=== PATIENT | female | born 1960 | race Caucasian/White ===

== ENCOUNTER 2022-05-20 11:54 | Inpatient (IN) | payer BC, MEDICAID, SELFPAY ==
[2022-05-20] VITALS (11 sets, daily range): BP systolic 70–183; BP diastolic 26–77; PULSE 62–76; RESP 15–28; TEMP 35.6–36.6; O2SAT 97–100; BMI 22.3
--- NOTE | ~2022-05-20 | CT_ITS ---
EXAMINATION: CT HEAD WITHOUT CONTRAST (STROKE PROTOCOL) CLINICAL INFORMATION: Stroke protocol. Right-sided weakness. Prior history remote left stroke. COMPARISON: None available. TECHNIQUE: Contiguous axial imaging was performed from the skull base to vertex without intravenous administration of contrast. Additional 2-D coronal and sagittal reformatted images are generated on the CT workstation and uploaded to PACS. This CT examination was performed using dose optimization techniques as appropriate, variously including the following: *Automated exposure control *Adjustment of mA and/or kV according to patient size (this includes techniques or standardized protocols for targeted exams where dose is matched to indication/reason for exam; i.e. extremities or head) *Use of iterative reconstruction technique DLP: 655 mGy-cm FINDINGS: There is no intracranial hemorrhage, hematoma, or extra-axial fluid collection. The ventricles are normal in size. There is no hydrocephalus, edema, or mass effect. There is periventricular white matter gliosis, greater on the right. Probable encephalomalacia posterior right occipital lobe from prior stroke. There is no visible acute territorial infarct or mass lesion. No dense vessel sign. The calvarium appears intact. There is no pneumocephalus or orbital emphysema. There are no air-fluid levels in the sinuses, middle ears, or mastoids. No significant sinus mucosal thickening. There is some under pneumatization and opacification mastoids. No destructive process. Results called to Dr. Christensen in the emergency department at [address]/CT head for stroke IMPRESSION: -No intracranial abnormality. -Periventricular white matter gliosis, greater on the right. Probable encephalomalacia posterior right occipital lobe related to prior stroke.
--- NOTE | ~2022-05-20 | CT_ITS ---
EXAMINATION: CT ABDOMEN AND PELVIS WITHOUT CONTRAST CLINICAL INFORMATION: Urinary tract infection. Bacteremia. Hydronephrosis. COMPARISON: Radiographs of abdomen from 05/21/2022 TECHNIQUE: Multidetector volumetric imaging was performed from the superior aspect of the liver through the pubic symphysis. Sagittal and coronal reformatted images were obtained on the technologist's workstation. No intravenous contrast was given for this examination. There is residual contrast enhancement of kidneys and contrast within urinary tracts from the IV contrast administered on 05/20/2022. This CT examination was performed using dose optimization techniques as appropriate, variously including the following: *Automated exposure control *Adjustment of mA and/or kV according to patient size (this includes techniques or standardized protocols for targeted exams where dose is matched to indication/reason for exam; i.e. extremities or head) *Use of iterative reconstruction technique DLP: 596 mGy-cm FINDINGS: LUNG BASES: Unremarkable. LIVER: The liver has normal size, shape, and attenuation. No evidence of liver mass or abscess. GALLBLADDER AND BILIARY TREE: Gallbladder is absent. The common duct is dilated up to approximately 1.4 cm transverse diameter. There are no stones identified within the dilated duct. The chronicity of the ductal dilatation is uncertain since there are no comparison abdominal imaging exams. PANCREAS: Diffusely atrophied. SPLEEN: Normal. ADRENAL GLANDS: Normal. KIDNEYS AND URETERS: There are prolonged and patchy bilateral nephrograms. There are many potential causes of persistent nephrograms, including glomerulonephritis, ischemia from sepsis or dehydration, or acute tubular necrosis. Findings include hypoenhancement at the lower pole of the left kidney and patchy cortical enhancement of the right kidney. Nonspecific mild right-sided perinephric edema is present. No renal or perinephric abscess. The evaluation for renal stones is limited due to presence of excreted contrast within collecting systems. There are likely a few small calyceal stones of the right kidney. Moderate bilateral hydronephrosis and bilateral hydroureter. No obstructing stones in either ureter. Indeterminate 1.2 cm focus at the medial lower pole of the right kidney has a density of 55 Hounsfield units. It is uncertain whether this represents a proteinaceous cyst or solid mass. BLADDER: The urinary bladder is decompressed by a Alvarez catheter. There is mild diffuse thickening of the bladder wall without focal mass. Small calcifications layer along the posterior bladder wall. BOWEL AND PERITONEUM: Stomach is underdistended. No dilated loops of bowel. The appendix is normal. No evidence of acute inflammatory change or obstruction along the gastrointestinal tract. No abdominal free fluid or free air. ABDOMINAL WALL: Unremarkable. VASCULATURE: Atherosclerotic calcification of the abdominal aorta and iliac arteries without aneurysm. No retroperitoneal hematoma. LYMPH NODES: No pathologic sized lymph nodes in the abdomen or pelvis. No inguinal lymphadenopathy. PELVIC VISCERA: The uterus and adnexa are unremarkable. MUSCULOSKELETAL: No acute findings within the degenerated spine. No suspicious bone lesions. CT/CT abdomen pelvis wo IV con IMPRESSION: * Urinary bladder wall is mildly thickened in this patient with history of bacteremia and urinary tract infection. The bladder wall thickening could be a manifestation of cystitis. Small calcified stones are present within the bladder. * Bilateral hydroureter and moderate hydronephrosis. The ureters are dilated to the level of the ureterovesical junctions. No evidence of any obstructing ureteral stones or obstructing masses. Consider possibility of inflammatory stenosis of the ureterovesical junctions or bladder outlet obstruction. * There are persistent and patchy bilateral nephrograms. There are variety of causes of prolonged nephrograms, including glomerulonephritis, ischemia and/or acute tubular necrosis. The patchy nephrograms seen in this patient do raise suspicion for ischemic changes or nephritis/pyelonephritis. No renal abscess. * There is an indeterminate 1.2 cm exophytic lesion of the medial lower pole of the right kidney. * Common bile duct is dilated to 1.4 cm diameter. This might be a chronic abnormality, status post cholecystectomy.
--- NOTE | ~2022-05-20 | MR_ITS ---
EXAMINATION: MR BRAIN WITHOUT CONTRAST CLINICAL INFORMATION: Stroke COMPARISON: Same day CTA head and neck TECHNIQUE: Multiplanar multisequence MR imaging of the brain was obtained without intravenous contrast. FINDINGS: Acute infarct involving the deep right cerebral hemisphere involving the right centrum semiovale, shirley radiata, right lateral frontal lobe, right posterior superior temporal lobe, and periventricular white matter along the atrium and right temporal horn. This is on a background of chronic ischemic injury in a deep watershed distribution involving the right cerebral hemisphere. There is susceptibility artifact and T1 hyperintense and T2 hypointense signal within the right shirley radiata and centrum semiovale which may reflect subacute blood products. No space-occupying hematoma. There is also intrinsic T1 hyperintense signal involving the right caudate body and lentiform nucleus which do not correspond to regions of acute or chronic ischemia. No extra-axial collection or mass effect/herniation. No hydrocephalus. There is mild ex vacuo dilatation of the right lateral ventricle. Absent right intracranial ICA flow void, better assessed on preceding CTA. The midline structures are normal. The cerebellar tonsils are normally positioned. The craniocervical junction is normal. Marrow signal is within normal limits. The visualized soft tissues are without significant abnormality. Bilateral mastoid fluid. MR/MR head/brain wo con IMPRESSION: 1. Acute infarcts involving the deep right cerebral hemisphere on a background of chronic ischemic injury in a deep watershed distribution. 2. Susceptibility artifact and T1 hyperintense and T2 hypointense signal in the right shirley radiata and centrum semiovale which may reflect subacute blood products. No space-occupying hematoma. 3. Intrinsic T1 hyperintense signal involving the right caudate body and lentiform nucleus which do not correspond to regions of acute or chronic ischemia is of indeterminate etiology, possibly as a sequela of chronic ischemia in the setting of known right ICA occlusion. 4. Absent right intracranial ICA flow void, better assessed on preceding CTA.
--- NOTE | ~2022-05-20 | CT_ITS ---
CT ANGIOGRAM NECK WITH CONTRAST CT ANGIOGRAM BRAIN WITH CONTRAST CLINICAL INFORMATION: Right side weakness. COMPARISON: CT head 05/20/2022 TECHNIQUE: Test bolus sequences followed by intravenous administration 70 mL of Omnipaque 350. Helical imaging was performed in the axial plane from the thoracic inlet to the skull vertex. Delayed postcontrast imaging of the head was also performed. The data was processed at the robotics technologist workstation for generation of MIP sequences. Angled MIPs and volume rendered reformatted images were also generated at an offline 3D workstation under concurrent supervision. Stenoses are assessed in accordance with NASCET criteria unless otherwise indicated. This CT examination was performed using dose optimization techniques as appropriate, variously including the following: *Automated exposure control *Adjustment of mA and/or kV according to patient size (this includes techniques or standardized protocols for targeted exams where dose is matched to indication/reason for exam; i.e. extremities or head) *Use of iterative reconstruction technique FINDINGS: BRAIN: There are extensive chronic ischemic changes throughout the deep watershed zones of the right cerebral hemisphere and the right internal capsule. It is difficult to assess for any superimposed acute ischemic change in this setting. Given the history, follow-up with a MRI would be helpful in more definitively excluding an acute infarct [There is no intracranial hemorrhage, hydrocephalus, extra-axial surface collection, midline shift, or other herniation pattern. The basilar cisterns are preserved. No significant soft tissue abnormality. No acute osseous abnormality. The paranasal sinuses and the mastoid air cells are well aerated.] CERVICAL SOFT TISSUES AND LUNG APICES: There is multilevel cervical spondylosis. Imaged upper lungs are clear. No significant soft tissue findings within the neck. NECK CTA: [There is a classic 3 vessel configuration of the aortic arch. Atherosclerotic disease results in a mild stenosis of the brachiocephalic artery origin. Atherosclerotic disease results in a moderate to severe stenosis of the proximal right vertebral artery. The right vertebral artery is dominant. Left vertebral artery is occluded at its origin and reconstitutes by paraspinal muscular branches throughout the V2 segment. Both vertebral arteries are widely patent throughout their extracranial cervical course. The right initial carotid artery is occluded just beyond its origin and remains occluded throughout the entire neck. Lipid rich atherosclerotic plaque results in mild luminal narrowing of the left common carotid artery. Atherosclerotic disease results in a less than 50% stenosis of the proximal left internal carotid artery. BRAIN CTA: The intracranial portion of the right internal carotid artery is occluded through the partially reconstituted distal horizontal petrous and cavernous segments as well as throughout the right carotid siphon which is patent though significantly narrowed throughout its course through the right ICA terminus. No acute vascular occlusions involving the [place]. CT/CT angio head neck stroke IMPRESSION: - There are extensive chronic ischemic changes throughout the deep watershed zones of the right cerebral hemisphere and the right internal capsule. It is difficult to assess for any superimposed acute ischemic change in this setting. Given the history, follow-up with a MRI would be helpful in more definitively excluding an acute infarct. - The right initial carotid artery is occluded just beyond its origin and remains occluded throughout the entire neck. The intracranial portion of the right internal carotid artery is occluded through the partially reconstituted distal horizontal petrous and cavernous segments as well as throughout the right carotid siphon which is patent though significantly narrowed throughout its course through the right ICA terminus. - Atherosclerotic disease results in a less than 50% stenosis of the proximal left internal carotid artery. - Left vertebral artery is occluded at its origin and reconstitutes by paraspinal muscular branches throughout the V2 segment. - Atherosclerotic disease results in a moderate to severe stenosis of the proximal right vertebral artery. - Multilevel cervical spondylosis. Covering provider paged with these findings at 12:45 PM on 05/20/2022. Findings discussed with Dr. Christensen at 12:52 PM on 05/20/2022.
--- NOTE | ~2022-05-20 | XR_ITS ---
EXAMINATION: XR CHEST CLINICAL INFORMATION: NG tube COMPARISON: None available. TECHNIQUE: Frontal portable view of the chest was obtained. 1802 hours FINDINGS: Nasogastric tube is present. Catheter tip and the sidehole are both within the stomach. Lungs are normally aerated. No pleural effusion or pneumothorax. Heart size is normal. Cardiac mediastinal contours are normal. XR/XR chest 1V IMPRESSION: 1. Nasogastric tube in stomach. 2. No acute abnormality of chest.
--- NOTE | ~2022-05-20 | XR_ITS ---
EXAMINATION: XR ABDOMEN KUB CLINICAL INDICATION: Pre-MRI. COMPARISON: None available. TECHNIQUE: AP view of the abdomen. FINDINGS: There is a there is intravenous contrast opacifying by the kidney pelvises and both ureters which are significantly dilated. There is a Alvarez's catheter in the bladder. No radiopaque metallic foreign body seen. The bowel gas pattern is nonspecific. No gross bony abnormality. XR/XR KUB IMPRESSION: 1. No radiopaque metallic foreign body seen. There is a Alvarez's catheter in the bladder. 2. Bilateral hydronephrosis and hydroureter of unknown etiology. Recommend clinical correlation
--- NOTE | ~2022-05-20 | XR_ITS ---
EXAMINATION: XR CHEST CLINICAL INFORMATION: Stroke. COMPARISON: None available. TECHNIQUE: Frontal view of the chest was obtained. FINDINGS: The lungs are well-expanded and clear of acute pneumonic process. The heart size and pulmonary vascularity is normal. There is mild dextroscoliosis of dorsal spine.. Mild degenerative disc changes seen throughout dorsal spine. XR/XR chest 1V IMPRESSION: No acute cardiopulmonary process seen.
--- NOTE | 2022-05-20 12:06 | ECG_ITS ---
Test Reason : STROKE Blood Pressure : / mmHG Vent. Rate : 070 BPM Atrial Rate : 070 BPM P-R Int : 144 ms QRS Dur : 094 ms QT Int : 418 ms P-R-T Axes : 072 053 064 degrees QTc Int : 451 ms Normal sinus rhythm Minimal voltage criteria for LVH, may be normal variant ( Sokolow-Ramos ) Borderline ECG No previous ECGs available Referred By: Ross Christensen Electronically Signed By:GILBERT HUGGINS MD
--- NOTE | 2022-05-20 12:08 | ED_ITS ---
HPI - Neuro Symptoms/Deficit General Chief Complaint: Altered Mental Status Stated Complaint: AMS, from SNF per EMS Time Seen by Provider: 05/20/22 12:05 Source: patient and EMS Mode of arrival: EMS Limitations: no limitations History of Present Illness HPI Narrative: 61-year-old female from intermediate brought in by EMS for stroke alert. Patient was at her baseline today at the intermediate then patient started to have right-sided weakness, aphasia, and change in mental status. Patient with known history of CVA with residual left-sided weakness. Patient is not known to be on anticoagulation therapy. Related Data Allergies Allergy/AdvReac Type Severity Reaction Status Date / Time No Known Allergies Allergy Verified 05/20/22 12:06 Review of Systems Review of Systems: All other systems are reviewed and are negative Constitutional: Reports as per HPI and Reports no additional constitutional complaints Eyes: Reports as per HPI and Reports no additional eye complaints Reports system reviewed and no additional complaints, except as documented Cardiovascular: Reports as per HPI and Reports no additional cardiovascular complaints Respiratory: Reports as per HPI and Reports no additional respiratory complaints Gastrointestinal: Reports as per HPI and Reports no additional gastrointestinal complaints Genitourinary: Reports no additional female genitourinary complaints Musculoskeletal: Reports no additional musculoskeletal complaints Skin/Breast: Reports system reviewed and no additional complaints, except as docu Psychiatric: Reports no additional psychiatric complaints Endocrine: Reports no additional endocrine complaints Hematologic/Lymphatic: Reports no additional hematologic/lymphatic complaints Allergic/Immunologic: Reports no additional allergic/immunologic complaints Reports system reviewed and no additional complaints, except as documented and Reports Abnormal speech present PMFSH Social History Social History Advance Directives: Yes Advance Directives Information Provided: No Advance Directives on File: No Physical Exam Vital Signs: Vital Signs: Last Vital Signs Temp 96.0 F L 05/20/22 12:40 Pulse 76 05/20/22 14:15 Resp 18 05/20/22 14:15 BP 125/50 L 05/20/22 14:15 Pulse Ox 99 05/20/22 14:15 O2 Del Method 05/20/22 14:02 BMI result Body Mass Index 22.3 Vital signs have been reviewed as appeared to be correct. Blood pressure normal. Heart rate normal. Respiration rate normal. Temperature normal. Oxygen saturation normal. Appearance: Alert. Oriented X3. No acute distress. Head: Normal external exam. Normocephalic. Atraumatic. No Wallace signs noted. No raccoon eyes noted Eyes: PERRLA. EOMI. Conjunctiva and sclera normal. Eyelids normal. ENT: TM's Normal. Pharynx normal. Uvula midline. Moist mucous membranes. No trismus noted. No drooling noted. No muffled voice noted. Neck: Normal inspection. Neck supple. FROM. No adenopathy. Thyroid Normal. No meningeal signs. No neck mass noted. CVS: Normal heart rate and rhythm. Heart sound normal. No murmurs noted. Pulses normal throughout. Respiratory: No respiratory distress. Painless inspiration. Breath sounds normal. No wheezes/rales/rhonchi noted. Chest nontender. No accessory muscle usage noted or decreased air movement noted. Abdomen: Soft and nontender. Bowel sounds normal in all 4 quadrants. No distention noted. No organomegaly noted. No visible injury noted. Back: No CVA tenderness. Full range of motion noted. Skin: Skin warm and dry. Normal skin color. Normal skin turgor. No rashes/lesions/lacerations noted. Extremities: No lower extremity edema. Extremities exhibit normal range of motion. Extremities nontender. Neuro: Oriented. Cranial nerve exam: Mild right facial droop with right visual gaze. Hold a pre-existing left side weakness, with right-sided weakness. Course Course Course Narrative: 61-year-old female from intermediate with an acute stroke left her with right hemiparesis, patient is not a good candidate for tPA patient initially was hypotensive prior hospital arrival, more of investigation patient had a recent stroke less than 3 months ago at [facility]. Will administer aspirin and admit for further neuro management. Medications Administered Discontinued Medications Generic Name Dose Route Start Last Admin Trade Name Freq PRN Reason Stop Dose Admin Iohexol 70 ml 05/20/22 12:23 05/20/22 12:24 Iohexol 350 Mg/Ml 150 Ml Infus..Btl IV 05/20/22 12:24 70 ml ONCE ONE Administration Medical Decision Making Differential Diagnosis Differential Diagnoses: The differential diagnosis associated with the presentation includes (Hemorrhagic CVA, ischemic CVA, sepsis, infection, electrolyte disturbance, acute renal insufficiency, severe anemia.) Admission/Observation Consideration of admission/observation: Escalation of care including admission/observation considered Consult Healthcare Provider Management of the patient was discussed with: Hospitalist and Chancellor (Neurology (Dr. Bryan)) Lab Data MDM Lab Attestation statement: I reviewed the patient's lab results. 05/20/22 14:58 05/20/22 13:24 Labs: Lab Results 05/20/22 05/20/22 05/20/22 Range/Units 12:34 12:35 13:03 WBC (4.8-10.8) X10*3/uL RBC (4.20-5.50) X10*6/uL Hgb (12.0-16.0) g/dl Hct (37.0-47.0) % MCV (80.0-98.0) fL MCH (27.0-33.0) pg MCHC (31.0-35.0) g/dl RDW (11.0-16.0) % Plt Count (160-400) X10*3/uL MPV (9.4-12.3) fL Immature Gran % (Auto) (0.0-0.4) % Neut % (Auto) (45-73) % Lymph % (Auto) (20-40) % [place] % (Auto) (2-11) % Eos % (Auto) (0-4) % Baso % (Auto) (0-2) % Lymph # (Auto) (1.2-4.9) X10*3/uL [place] # (Auto) (0.1-1.2) X10*3/uL Eos # (Auto) (0.0-0.4) X10*3/uL Baso # (Auto) (0.0-0.2) X10*3/uL Abs Immat Gran (auto) (0.00-0.03) X10*3/uL Absolute Neuts (auto) (2.0-8.3) x10*3/uL Absolute Nucleated RBC (0.0-0.012) X10*3/uL Nucleated RBC % (auto) (0.0-0.2) /100WBC PT (10.0-13.1) SEC Whole Blood PT 12.5 (11.1-13.5) sec INR (0.9-1.1) Whole Blood INR 1.0 (0.9-1.1) APTT (26.0-36.4) SEC Sodium (135-145) mmol/L Potassium (3.3-5.1) mmol/L Chloride (96-108) mmol/L Carbon Dioxide (22-29) mmol/L Anion Gap (12-20) BUN (9-16) mg/dL Creatinine (0.5-1.4) mg/dL Estim Creat Clear Calc Estimated GFR POC Glucose 170 H (60-115) mg/dL Random Glucose (60-115) mg/dL Lactic Acid 1.1 (0.5-2.0) mmol/L Calcium (8.4-10.2) mg/dL Total Creatine Kinase (26-140) U/L Troponin I High Sens (<3.5-17.0) ng/L 05/20/22 05/20/22 05/20/22 Range/Units 13:23 13:23 13:24 WBC (4.8-10.8) X10*3/uL RBC (4.20-5.50) X10*6/uL Hgb (12.0-16.0) g/dl Hct (37.0-47.0) % MCV (80.0-98.0) fL MCH (27.0-33.0) pg MCHC (31.0-35.0) g/dl RDW (11.0-16.0) % Plt Count (160-400) X10*3/uL MPV (9.4-12.3) fL Immature Gran % (Auto) (0.0-0.4) % Neut % (Auto) (45-73) % Lymph % (Auto) (20-40) % [place] % (Auto) (2-11) % Eos % (Auto) (0-4) % Baso % (Auto) (0-2) % Lymph # (Auto) (1.2-4.9) X10*3/uL [place] # (Auto) (0.1-1.2) X10*3/uL Eos # (Auto) (0.0-0.4) X10*3/uL Baso # (Auto) (0.0-0.2) X10*3/uL Abs Immat Gran (auto) (0.00-0.03) X10*3/uL Absolute Neuts (auto) (2.0-8.3) x10*3/uL Absolute Nucleated RBC (0.0-0.012) X10*3/uL Nucleated RBC % (auto) (0.0-0.2) /100WBC PT 11.4 (10.0-13.1) SEC Whole Blood PT (11.1-13.5) sec INR 1.0 (0.9-1.1) Whole Blood INR (0.9-1.1) APTT 29.7 (26.0-36.4) SEC Sodium 142 (135-145) mmol/L Potassium 5.3 H (3.3-5.1) mmol/L Chloride 112 H (96-108) mmol/L Carbon Dioxide 19 L (22-29) mmol/L Anion Gap 16 (12-20) BUN 73 H (9-16) mg/dL Creatinine 1.28 (0.5-1.4) mg/dL Estim Creat Clear Calc 38.2 Estimated GFR 42 POC Glucose (60-115) mg/dL Random Glucose 182 H (60-115) mg/dL Lactic Acid (0.5-2.0) mmol/L Calcium 8.8 (8.4-10.2) mg/dL Total Creatine Kinase 226 H (26-140) U/L Troponin I High Sens 6.8 (<3.5-17.0) ng/L 05/20/22 Range/Units 14:58 WBC 18.5 H (4.8-10.8) X10*3/uL RBC 4.10 L (4.20-5.50) X10*6/uL Hgb 11.7 L (12.0-16.0) g/dl Hct 36.3 L (37.0-47.0) % MCV 88.5 (80.0-98.0) fL MCH 28.5 (27.0-33.0) pg MCHC 32.2 (31.0-35.0) g/dl RDW 16.0 (11.0-16.0) % Plt Count 282 (160-400) X10*3/uL MPV 10.0 (9.4-12.3) fL Immature Gran % (Auto) 1.5 H (0.0-0.4) % Neut % (Auto) 85.5 H (45-73) % Lymph % (Auto) 6.1 L (20-40) % [place] % (Auto) 6.6 (2-11) % Eos % (Auto) 0.1 (0-4) % Baso % (Auto) 0.2 (0-2) % Lymph # (Auto) 1.1 L (1.2-4.9) X10*3/uL [place] # (Auto) 1.2 (0.1-1.2) X10*3/uL Eos # (Auto) 0.0 (0.0-0.4) X10*3/uL Baso # (Auto) 0.0 (0.0-0.2) X10*3/uL Abs Immat Gran (auto) 0.27 H (0.00-0.03) X10*3/uL Absolute Neuts (auto) 15.8 H (2.0-8.3) x10*3/uL Absolute Nucleated RBC 0.000 (0.0-0.012) X10*3/uL Nucleated RBC % (auto) 0.0 (0.0-0.2) /100WBC PT (10.0-13.1) SEC Whole Blood PT (11.1-13.5) sec INR (0.9-1.1) Whole Blood INR (0.9-1.1) APTT (26.0-36.4) SEC Sodium (135-145) mmol/L Potassium (3.3-5.1) mmol/L Chloride (96-108) mmol/L Carbon Dioxide (22-29) mmol/L Anion Gap (12-20) BUN (9-16) mg/dL Creatinine (0.5-1.4) mg/dL Estim Creat Clear Calc Estimated GFR POC Glucose (60-115) mg/dL Random Glucose (60-115) mg/dL Lactic Acid (0.5-2.0) mmol/L Calcium (8.4-10.2) mg/dL Total Creatine Kinase (26-140) U/L Troponin I High Sens (<3.5-17.0) ng/L Independent Interpretation I performed an independent interpretation of an: Plain X-Ray (Chest: No acute cardiopulmonary process seen for) and CT Scan (Head CT: No acute intracranial pathology.) Radiology Impression Discussion of test interpretation with radiology: I have reviewed the radiologist's reading. NIH Stroke Scale Internal: Initial- Upon Arrival Level of Consciousness: Not Alert; but arousable by minor stimulation Level of Consciousness Questions: Answers both questions correctly Level of Consciousness Commands: Performs both tasks correctly Best Gaze: Partial gaze palsy Visual: No visual loss Facial Palsy: Minor paralyis Motor Arm (Right): Some effort against gravity Motor Arm (Left): No drift Motor Leg (Right): Drift Motor Leg (Left): No drift Limb Ataxia: Absent Sensory: Normal Best Language: Severe aphasia Dysarthia: Normal Extinction and Inattention: No abnormality Score: 8 Discharge Plan Discharge Clinical Impression: Altered mental status, CVA (cerebral vascular accident) Patient Disposition: Admitted As Inpatient
[2022-05-20 12:44] LABS: Prothrombin Time Whole Bld POC 12.5 sec (11.1-13.5)
[2022-05-20 12:45] LABS: Glucose, Whole Blood 170 mg/dL (60-115)
[2022-05-20 13:21] LABS: Lactic Acid 1.1 mmol/L (0.5-2.0)
[2022-05-20 13:35] LABS: Prothrombin Time 11.4 SEC (10.0-13.1)
[2022-05-20 13:38] LABS: Partial Thromboplastin Time 29.7 SEC (26.0-36.4)
[2022-05-20 13:46] LABS: Anion Gap 16 (12-20); Blood Urea Nitrogen 73 mg/dL (9-16); Calcium 8.8 mg/dL (8.4-10.2); Carbon Dioxide 19 mmol/L (22-29); Chloride 112 mmol/L (96-108); Creatinine Clr Calc Pharmacy 38.2; Estimated Glomerular Filt Rate 42; Glucose Random 182 mg/dL (60-115); Potassium 5.3 mmol/L (3.3-5.1); Sodium 142 mmol/L (135-145)
[2022-05-20 13:53] LABS: Troponin-I High Sensitivity 6.8 ng/L (<3.5-17.0)
[2022-05-20 14:18] LABS: Stroke Lab Use COMPLETE
[2022-05-20 15:02] LABS: MANUAL DIFF FLAG NO
--- NOTE | 2022-05-20 15:09 | MHC.STROKE ---
05/20/22 AT 1144 F EMS PRE-NOTIFIED STROKE ALERT BP 70/26 THEN 100/60.ONSET OF RIGHT SIDED WEAKNESS APPROX. 1100. ARRIVED AT [facility] 1154. STROKE PROTOCOL ACTIVATED SEEN BY PROVIDER NIHSS = 8 ALTHOUGH PRIOR STROKE WITH LEFT HEMIPARESIS. CT AND CTA H/N DONE. NO BLEED, MULTIPLE PRIOR STROKES, STENOSIS AND OCCLUSIONS SEE RADIOLOGY REPORT. I REVIEWED THIS INFORMATION WITH DR JULIO, WE ARE CLARIFYING WHEN SHE HAD HER PRIOR STROKE. AFTER MULTIPLE TELEPHONE CALLS TO [facility] SOLORIO, RECORDS OBTAINED FROM [facility]. SHE WAS ADMITTED THERE ON 03/21/22 WITH ACUTE/SUBACUTE STROKE IN MULTIPLE AREAS [EXCLUDED FROM THROMBOLYTICS DUE TO RECENT STROKE WITHIN 3 MONTHS]. SEE RECORDS FROM [facility], CHRONIC RIGHT ICA OCCLUSION. SHE WAS NOT A THROMBECTOMY CANDIDATE AT [facility], SHE HAD A CC AT [facility] ON 03/31/2022 S/P PCI/GO TO MID LAD, SHE DID DEVELOP A RLE COOL LEG, WHILE JOSELUIS WAS IN PLACE. SHE ALSO HAD DIFFICULTY VOIDING AT [facility]. IT INDICATED THAT SHE HAS CHRONIC HTN FOR YEARS AND HAS NOT SEEN A DOCTOR IN YEARS ALSO. NEW DM A1C 11.5 AND [facility]. +COVID 03/22/22SHMariusz IS NOT A THROMBECTOMY CANDIDATE HERE DUE TO OLD OCCLUSIONS, SHE IS SLOW TO RESPOND AND MY NIHSS = 24. HER EXTREMITIES ARE COOL TO TOUCH. I WILL CONTINUE TO FOLLOW.
[2022-05-20 15:12] LABS: Basophils Percent Auto 0.2 % (0-2); Eosinophils Percent Auto 0.1 % (0-4); Hematocrit 36.3 % (37.0-47.0); Hemoglobin 11.7 g/dl (12.0-16.0); Imm Gran Abs Auto 0.27 X10*3/uL (0.00-0.03); Imm Gran Pct Auto 1.5 % (0.0-0.4); Lymphocytes Absolute Auto 1.1 X10*3/uL (1.2-4.9); Lymphocytes Percent Auto 6.1 % (20-40); Mean Corpuscular HGB Conc 32.2 g/dl (31.0-35.0); Mean Corpuscular Hemoglobin 28.5 pg (27.0-33.0); Mean Corpuscular Volume 88.5 fL (80.0-98.0); Monocytes Absolute Auto 1.2 X10*3/uL (0.1-1.2); Monocytes Percent Auto 6.6 % (2-11); Neutrophils Absolute Auto 15.8 x10*3/uL (2.0-8.3); Neutrophils Percent Auto 85.5 % (45-73); Platelet Count 282 X10*3/uL (160-400); White Blood Count 18.5 X10*3/uL (4.8-10.8)
--- NOTE | 2022-05-20 15:32 | P.HPHOSP_ITS ---
History of Present Illness Date of Service: 05/20/22 Chief Complaint: Aphagia 61-year-old woman presenting from care home facility with right sided weakness and aphasia. Patient has a history of mulltifocal infarcts in the right insula, right basal ganglia, right centrum semioval with history of chronic right ICA occlusion admitted to [facility] in March 2022. At that time she was also found to have coronary blockages and had drug eluded stent placed to the LAD. Apparently the patient has not seen a primary care provider in many years and had not been taking any medications. She was found to be diabetic, hypertensive with CAD and PVD while at [facility] in March of 2022. 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 in the ER, her vital signs were noted to be stable, her potassium was mildly elevated at 5.3, white blood cell count 18.5. Head and neck CTA showing right carotid artery occlusion with extensive chronic ischemic changes throughout the deep watershed zones of the right cerebral hemisphere and the right internal capsule , extensive atherosclerotic disease noted. Patient will be admitted for further management and treatment of acute stroke. Review of Systems Review of Systems: Yes Unobtainable due to mental status [facility] History (Updated 05/20/22 @ 15:48 by Asha Lora NP) Coronary artery disease COVID-19 CVA (cerebral vascular accident) Diabetes mellitus type 2 in nonobese Glaucoma H/O supraventricular tachycardia History of right MCA stroke Hypertension ICAO (internal carotid artery occlusion) Ischemic cardiomyopathy Status post insertion of drug-eluting stent into left anterior descending (LAD) artery Pertinent family history: CAD, Stroke, cancer Surgical History (Updated 05/20/22 @ 15:48 by Asha Lora NP) H/O cardiac catheterization Social History Advance Directives: Yes Advance Directives Information Provided: No Advance Directives on File: No Patient : No Meds Allergies Allergy/AdvReac Type Severity Reaction Status Date / Time No Known Allergies Allergy Verified 05/20/22 12:06 Home Medications Medication Instructions Recorded Confirmed Last Taken Type acetaminophen 500 mg tablet 1,000 mg PO TID 05/20/22 05/20/22 Unknown History (Tylenol Extra Strength) ascorbic acid (vitamin C) 500 mg 500 mg PO DAILY 05/20/22 05/20/22 Unknown History tablet aspirin 81 mg tablet,delayed 81 mg PO DAILY 05/20/22 05/20/22 Unknown History release atorvastatin 80 mg tablet 80 mg PO BEDTIME 05/20/22 05/20/22 Unknown History baclofen 10 mg tablet 10 mg PO TID 05/20/22 05/20/22 Unknown History bisacodyl 10 mg rectal suppository 10 mg [place] DAILY PRN Constipation 05/20/22 05/20/22 Unknown History clopidogrel 75 mg tablet (Plavix) 75 mg PO DAILY 05/20/22 05/20/22 Unknown History dextrose 40 % oral gel (Glucose 20 g PO Q15M PRN FSBS<50 AND ABLE 05/20/22 05/20/22 Unknown History Gel) TO SWALLOW glucagon 1 mg solution for 1 mg subcut Q20M PRN fsbs < 60 and 05/20/22 05/20/22 Unknown History injection unable to swallow hydralazine 10 mg tablet 10 mg PO Q6H PRN Hypertension 05/20/22 05/20/22 Unknown History insulin glargine 100 unit/mL 14 unit subcut BEDTIME 05/20/22 05/20/22 Unknown History subcutaneous solution (Lantus U-100 Insulin) insulin lispro 100 unit/mL 1 sliding scale dose subcut 05/20/22 05/20/22 Unknown History subcutaneous solution (Humalog USEASDIRECTD U-100 Insulin) lisinopril 10 mg tablet 20 mg PO DAILY 05/20/22 05/20/22 Unknown History magnesium hydroxide 400 mg/5 mL 30 ml PO DAILY PRN Constipation 05/20/22 05/20/22 Unknown History oral suspension (Milk of Magnesia) meclizine 12.5 mg tablet 12.5 mg PO Q8H PRN Dizziness 05/20/22 05/20/22 Unknown History metoprolol succinate 25 mg 25 mg PO DAILY 05/20/22 05/20/22 Unknown History tablet,extended release 24 hr multivitamin with minerals 1 tab PO BEDTIME 05/20/22 05/20/22 Unknown History polyethylene glycol 3350 17 gram 17 g PO DAILY 05/20/22 05/20/22 Unknown History oral powder packet (Miralax) sennosides 8.6 mg tablet (senna) 8.6 mg PO DAILY 05/20/22 05/20/22 Unknown History sertraline 25 mg tablet (Zoloft) 25 mg PO DAILY 05/20/22 05/20/22 Unknown History sodium phosphates 19 gram-7 118 ml [place] DAILY PRN Constipation 05/20/22 05/20/22 Unknown History gram/118 mL enema (Fleet Enema) tizanidine 2 mg tablet 2 mg PO Q8H PRN MUSCLE SPASMS 05/20/22 05/20/22 Unknown History zinc sulfate 50 mg zinc (220 mg) 50 mg PO DAILY 05/20/22 05/20/22 Unknown History capsule Physical Exam Vital Signs and Narrative: Vital Signs: Last Vital Signs Temp 96.0 F L 05/20/22 12:40 Pulse 76 05/20/22 14:15 Resp 18 05/20/22 14:15 BP 125/50 L 05/20/22 14:15 Pulse Ox 99 05/20/22 14:15 O2 Del Method 05/20/22 14:02 BMI result Body Mass Index 22.3 Appearing in no acute distress head is normocephalic atraumatic eyes pupils are PERRLA sclera is anicteric , eye exam, patient not tracking mostly staring mouth throat mucous membranes are intact and moist lung sounds are clear to auscultation heart regular rate rhythm, clear S1, S2 positive bowel sounds, abdomen is soft, nontender neuro patient is alert, not oriented, lower extremity strength, patient not following direction. Upper extremity strength right arm 5/5, left arm 1 to 2/5. Results Labs 05/20/22 14:58 05/20/22 13:24 Labs: Laboratory Results - last 24 hr 05/20/22 05/20/22 05/20/22 12:34 12:35 13:03 MCV MCH MCHC RDW Plt Count MPV Immature Gran % (Auto) Neut % (Auto) Lymph % (Auto) [place] % (Auto) Eos % (Auto) Baso % (Auto) Lymph # (Auto) [place] # (Auto) Eos # (Auto) Baso # (Auto) Abs Immat Gran (auto) Absolute Neuts (auto) Absolute Nucleated RBC Nucleated RBC % (auto) PT Whole Blood PT 12.5 INR Whole Blood INR 1.0 APTT Anion Gap Estim Creat Clear Calc Estimated GFR POC Glucose 170 H Random Glucose Lactic Acid 1.1 Calcium Total Creatine Kinase Troponin I High Sens 05/20/22 05/20/22 05/20/22 13:23 13:23 13:24 MCV MCH MCHC RDW Plt Count MPV Immature Gran % (Auto) Neut % (Auto) Lymph % (Auto) [place] % (Auto) Eos % (Auto) Baso % (Auto) Lymph # (Auto) [place] # (Auto) Eos # (Auto) Baso # (Auto) Abs Immat Gran (auto) Absolute Neuts (auto) Absolute Nucleated RBC Nucleated RBC % (auto) PT 11.4 Whole Blood PT INR 1.0 Whole Blood INR APTT 29.7 Anion Gap 16 Estim Creat Clear Calc 38.2 Estimated GFR 42 POC Glucose Random Glucose 182 H Lactic Acid Calcium 8.8 Total Creatine Kinase 226 H Troponin I High Sens 6.8 05/20/22 14:58 MCV 88.5 MCH 28.5 MCHC 32.2 RDW 16.0 Plt Count 282 MPV 10.0 Immature Gran % (Auto) 1.5 H Neut % (Auto) 85.5 H Lymph % (Auto) 6.1 L [place] % (Auto) 6.6 Eos % (Auto) 0.1 Baso % (Auto) 0.2 Lymph # (Auto) 1.1 L [place] # (Auto) 1.2 Eos # (Auto) 0.0 Baso # (Auto) 0.0 Abs Immat Gran (auto) 0.27 H Absolute Neuts (auto) 15.8 H Absolute Nucleated RBC 0.000 Nucleated RBC % (auto) 0.0 PT Whole Blood PT INR Whole Blood INR APTT Anion Gap Estim Creat Clear Calc Estimated GFR POC Glucose Random Glucose Lactic Acid Calcium Total Creatine Kinase Troponin I High Sens Imaging Radiologist's Impressions: Impressions Head CT 05/20/22 12:11 IMPRESSION: -No intracranial abnormality. -Periventricular white matter gliosis, greater on the right. Probable encephalomalacia posterior right occipital lobe related to prior stroke. Head/Neck CTA 05/20/22 12:23 IMPRESSION: - There are extensive chronic ischemic changes throughout the deep watershed zones of the right cerebral hemisphere and the right internal capsule. It is difficult to assess for any superimposed acute ischemic change in this setting. Given the history, follow-up with a MRI would be helpful in more definitively excluding an acute infarct. - The right initial carotid artery is occluded just beyond its origin and remains occluded throughout the entire neck. The intracranial portion of the right internal carotid artery is occluded through the partially reconstituted distal horizontal petrous and cavernous segments as well as throughout the right carotid siphon which is patent though significantly narrowed throughout its course through the right ICA terminus. - Atherosclerotic disease results in a less than 50% stenosis of the proximal left internal carotid artery. - Left vertebral artery is occluded at its origin and reconstitutes by paraspinal muscular branches throughout the V2 segment. - Atherosclerotic disease results in a moderate to severe stenosis of the proximal right vertebral artery. - Multilevel cervical spondylosis. Covering provider paged with these findings at 12:45 PM on 05/20/2022. Findings discussed with Dr. Christensen at 12:52 PM on 05/20/2022. Chest X-Ray 05/20/22 12:38 IMPRESSION: No acute cardiopulmonary process seen. Assessment and Plan (1) CVA (cerebral vascular accident): Status: Acute Plan 61 year old women admitted with acute stroke with history of stroke in March 2022, records in [facility] system Stroke Hx of multifocal infarcts in the right insula, right basal ganglia, right centrum semioval with history of chronic right ICA occlusion admitted to [facility] aphagia, left-sided weakness MRI, echo neuro consult pending Aspirin, Plavix, statin PT OT, speech therapy evaluation Hyperkalemia lokelma follow BMP Leukocytosis Possibly reactive, no infection noted Diabetes A1c at [facility] in March 2022 was 11.5 ss, Lantus, ada diet Hypertension Stable blood pressure, hold antihypertensives for now to avoid hypotension Coronary artery disease/ extensive atherosclerotic disease Status post cardiac catheterization with drug-eluting stent to LAD in March of 2022 DVT prophylaxis with heparin Attending Dr. Vela Full code Disposition: will need extensive rehab upon discharge when medically clear Attempted to call daughterShanna ([phone]) no answer Patient will require 2 inpatient midnights for stroke, close monitoring and further diagnostic imaging Time Spent With Patient Time: Total time managing care of this patient today ____ minutes. Quality Stroke Does the patient have a stroke diagnosis?: Yes Reason for No Anti-thrombotic by Day Two: Not indicated VTE Prior VTE?: No VTE Risk Level:: Medical - moderate - high VTE Device Contraindication: Treatment Not Indicated VTE Drug Contraindication: N/A - Med Ordered
[2022-05-20] MEDS: 0.9 % Sodium Chloride 1,000 ML 80 ML IVCONT (17:55)
[2022-05-20] MEDS: Heparin Sodium,Porcine 5,000 UNIT/ML VIAL 5000 UNIT SUBCUT (17:55)
[2022-05-20 21:29] LABS: Glucose, Whole Blood 165 mg/dL (60-115)
[2022-05-20 22:25] LABS: Glucose, Whole Blood 157 mg/dL (60-115)
[2022-05-20 22:37] LABS: COVID-19 Test Negative (Negative); IDNOW Serial# 6674DD1D
[2022-05-20] MEDS: Insulin Lispro 100 UNIT/ML 3 ML VIAL SUBCUT (22:37)
[2022-05-20] MEDS: Insulin Glargine,Hum.rec.anlog 100 UNIT/ML 10 ML VIAL 14 UNIT SUBCUT (22:38)
[2022-05-20] MEDS: 0.9 % Sodium Chloride Flush 3 ML SYRINGE IVFLUSH (23:36)
[2022-05-21] VITALS (8 sets, daily range): BP systolic 116–164; BP diastolic 50–91; PULSE 54–64; RESP 18–20; TEMP 36.1–36.8; O2SAT 96–100; BMI 21.7
--- NOTE | 2022-05-21 01:18 | PM.EVENT ---
Event Note Date of Service: 05/21/22 Event Note: blood cultures with gram negativ erods. started on abx. rpt cultures and UA as well as lactic acid ordered Time Spent With Patient Time: Total time managing care of this patient today ____ minutes.
--- NOTE | 2022-05-21 01:48 | PC.NURSE ---
Report to Jacqui ESCALERA.
--- NOTE | 2022-05-21 02:09 | PC.NURSE ---
Bennett catheter in place from [facility]. Bennett d/c'd and new 16 Fr bennett catheter replaced per sterile technique. cloudy yellow urine noted and sent to lab.
[2022-05-21 02:11] LABS: Appearance Urine Turbid; Color Urine Yellow; Glucose Urine UA Negative (Negative); Leukocyte Esterase Urine Large (3+) (Negative); Nitrite Urine Negative (Negative); Specific Gravity - Urine >= 1.030 (1.005-1.025); UMIC TRIGGER UACC YES; Urine Blood Large (3+) (Negative); Urine Ketones Trace mg/dL (Negative); Urine Protein 100 (2+) mg/dL (Neg-Trace)
[2022-05-21] MEDS: Piperacillin Sodium/Tazobactam 3.375 GM in 0.9 % Sodium Chloride 50 ML IV ×4 (02:13→23:00)
[2022-05-21 02:55] LABS: Lactic Acid 0.8 mmol/L (0.5-2.0)
[2022-05-21 03:03] LABS: Bacteria Urine 4+ (None Seen); Calcium Oxalate Crystals Urine Present; Granular Casts Urine Present; Hyaline Casts Urine >20 /LPF (0-2); RBC Urine >20 /HPF (0-2); UACC Culture Trigger YES; WBC Clumps Urine Present; WBC Urine >50 /HPF (0-5)
[2022-05-21] MEDS: 0.9 % Sodium Chloride 1,000 ML 80 ML IVCONT (06:52)
[2022-05-21] MEDS: Heparin Sodium,Porcine 5,000 UNIT/ML VIAL 5000 UNIT SUBCUT ×2 (06:53→18:20)
--- NOTE | 2022-05-21 07:00 | CA_ITS ---
Transthoracic Echocardiogram Patient (Last, First, Middle): Justine Gottlieb, Gender: Female Date of : 1960 Age: 61 Procedure Date: 05/21/2022 Procedure Type: Transthoracic Echocardiogram [place] [facility] [place]: 160.02 cm Weight: 55.34 kg BSA: 1.57 m2 Heart Rate: 57 bpm BP: 133 / 91 mmHg Armhole Sewer: ARTURO Bello MD: Asha Lora NP [employer]ro[employer] Installer: John Lovelace MD Symptoms: stroke Study Quality: Fair ECG Rhythm: Sinus Conclusions: - 1. Normal LV systolic function with mild LVH with impaired relaxation filling pattern 2. Normal cardiac valvular Doppler 3. No gross pericardial effusion Findings Left Ventricle Normal left ventricular size and systolic function. There is mildly increased left ventricular wall thickness. The visually estimated ejection fraction is between 60-65%. Spectral Doppler is indicative of an impaired relaxation filling pattern. E/E prime ratio is between 8 and 15 consistent with indeterminate filling pressures. Right Ventricle Normal right ventricular cavity size and systolic function. Atria The left atrium is normal in size. Interatrial shunt cannot be excluded. The right atrium is normal in size. Aortic Valve There is mild calcification of the aortic valve. There is no aortic valve stenosis. There is no aortic valve regurgitation. Mitral Valve There is mild anterior and posterior mitral leaflet thickening. There is trace mitral valve regurgitation. There is no mitral valve stenosis. Pulmonic Valve The pulmonic valve was not well visualized. Tricuspid Valve Likely normal tricuspid valve structure and function. Tricuspid regurgitation envelope is inadequate for calculation of right ventricular systolic pressure. Normal right atrial pressure. Great Vessels All visible segments of the aorta are normal in size. The pulmonary artery was not well visualized. Venous The inferior vena cava is normal in size. Inferior vena cava flow is normal. Pericardium/Pleural There is no evidence of pericardial effusion. Prior Study Comparison No prior study available for comparison. Recommendations, Care & Conclusions Consider a NORA if clinically appropriate. Recommend contrast study to evaluate intracardiac shunting. Measurements 2D Linear Measurements IVSd: 1.29 0.6-0.9/0.6-1.0 cm LVIDd: 3.93 3.9-5.3/4.2-5.9 cm LVIDd Index: 2.50 2.4-3.2/2.2-3.1 cm/m2 LVIDs: 2.37 2.0-3.6 cm LVPWd: 1.19 0.7-1.1 cm LA Diam: 2.90 2.7-3.8/3.0-4.0 cm LAIDs Index: 1.85 1.5-2.3 cm/m2 LV Mass: 210.78 67-162/88-224 g LV Mass Index: 134.26 43-95/49-115 g/m2 LVOT Diam: 1.80 3.0+(-)1.3 cm 2D Systolic Function EF 4C: 64.50 >55% EF 2C: 59.20 >55% EF BiP: 61.10 >55% Mitral Valve MV Pk E: 0.75 MV PK A: 0.79 MV Decel Time: 373.00 E/A: 1.00 E'Lateral: 7.51 E'Medial: 40.00 E/E' Med: 1.90 E/E' Lat: 10.00 PHT: 109.00 MVA PHT: 2.02 Decel Clayton: 2.02 Aortic Valve AoV Pk Jesus Alberto: 1.67 AoV Mn Jesus Alberto: 1.15 AoV VTI: 0.41 AoV Pk Grad: 11.00 Aov Mn Grad: 6.00 ROSA Cont.VTI: 1.61 LVOT LVOT Pk Jesus Alberto: 1.12 LVOT Mn Jesus Alberto: 0.76 LVOT VTI: 0.26 LVOT Pk Grad: 5.00 LVOT Mn Grad: 3.00 LVOT Diam: 1.80 LVOT Area: 2.54 Diastolic Function MV Pk E: 0.75 MV Pk A: 0.79 E/A: 1.00 E'Medial: 40.00 E/E' Med: 1.90 E' Laterial: 7.51 E/E' Lat: 10.00 Right Ventricle TAPSE (mm): 20.80 Tricuspid Valve RA Press: 3.00 Great Vessels Aorta Sinus of Valsalva: 2.70 2.0-3.5 cm Ao Asc: 2.50 2.1-3.4 cm Pulmonary Valve PV Pk Jesus Alberto: 0.96 Peak PV Grad: 4.00 Updated in Other Vendor System with Status of Final John Lovelace MD electronically signed on 05/21/2022 4:19:03 PM with status of Final
[2022-05-21 07:31] LABS: Glucose, Whole Blood 121 mg/dL (60-115)
[2022-05-21 09:30] LABS: MANUAL DIFF FLAG NO
[2022-05-21 09:34] LABS: Basophils Percent Auto 0.2 % (0-2); Eosinophils Percent Auto 0.1 % (0-4); Hematocrit 32.5 % (37.0-47.0); Hemoglobin 10.5 g/dl (12.0-16.0); Imm Gran Abs Auto 0.25 X10*3/uL (0.00-0.03); Imm Gran Pct Auto 1.3 % (0.0-0.4); Lymphocytes Absolute Auto 0.9 X10*3/uL (1.2-4.9); Lymphocytes Percent Auto 4.8 % (20-40); Mean Corpuscular HGB Conc 32.3 g/dl (31.0-35.0); Mean Corpuscular Hemoglobin 28.8 pg (27.0-33.0); Monocytes Absolute Auto 1.4 X10*3/uL (0.1-1.2); Monocytes Percent Auto 7.7 % (2-11); Neutrophils Percent Auto 85.9 % (45-73); Platelet Count 278 X10*3/uL (160-400); Red Blood Count 3.65 X10*6/uL (4.20-5.50); Red Cell Distribution Width 16.2 % (11.0-16.0); White Blood Count 18.7 X10*3/uL (4.8-10.8)
[2022-05-21 10:21] LABS: Anion Gap 15 (12-20); Blood Urea Nitrogen 77 mg/dL (9-16); Calcium 8.8 mg/dL (8.4-10.2); Carbon Dioxide 21 mmol/L (22-29); Chloride 116 mmol/L (96-108); Creatinine Clr Calc Pharmacy 29.6; Estimated Glomerular Filt Rate 32; Glucose Random 105 mg/dL (60-115); Potassium 4.8 mmol/L (3.3-5.1); Sodium 147 mmol/L (135-145)
[2022-05-21 10:23] LABS: Cholesterol 78 mg/dL; HDL Cholesterol 12 mg/dL; LDL Cholesterol Calculated 48 mg/dl; Triglycerides 94 mg/dL
[2022-05-21] MEDS: 0.9 % Sodium Chloride Flush 3 ML SYRINGE IVFLUSH ×3 (10:57→23:00)
[2022-05-21 11:20] LABS: Glucose, Whole Blood 108 mg/dL (60-115)
--- NOTE | 2022-05-21 11:21 | MHC.CM.PN ---
PT UNABLE TO PARTICIPATE IN INTAKE DUE TO CONFUSION. PER NOTES, PT IS A PT AT [facility], NOT DETERMINED TO BE STR OR LTC PER THE CENTER BUT ACCEPTED BACK VIA [facility]. COPY OF HCP REQUESTED TO BE FAXED. UNABLE TO REACH CONTACT LISTED IN EMR, MESSAGE LEFT FOR MURPHY ESCOBEDO TO RETURN CALL. DP: PLAN TO RETURN TO [facility] VIA BLS WHEN MEDICALLY CLEARED. CM WILL CONTINUE TO FOLLOW AND CONTINUE TO TRY AND REACH CONTACT.
--- NOTE | 2022-05-21 11:37 | PM.NEUROCN ---
History of Present Illness Data of Consult Service Date: 05/21/22 Primary Care Provider: Unknown Physician HPI Reason for consult: Stroke 61-year-old woman presenting from senior living facility with right sided weakness and aphasia. Patient has a history of? mulltifocal infarcts in the right insula, right basal ganglia, right centrum semioval with history of chronic right ICA occlusion admitted to [facility] in March 2022.??She came to hospital with new symptoms but it was not clear what was new and what was old symptom and clinical features. Her blood pressure was also on the lower side and it was not also clear if it was related to low blood pressure. Because of recent stroke in all these features she was not considered a candidate for acute treatment such as with intravenous tPA. There was no sign of seizure. Review of Systems Review of Systems: Could not be done with [facility] Past Medical History Medical History Coronary artery disease COVID-19 CVA (cerebral vascular accident) Diabetes mellitus type 2 in nonobese Glaucoma H/O supraventricular tachycardia History of right MCA stroke Hypertension ICAO (internal carotid artery occlusion) Ischemic cardiomyopathy Status post insertion of drug-eluting stent into left anterior descending (LAD) artery Surgical History Surgical History H/O cardiac catheterization Social History Social History Household Members: Other Housing: Senior Living Do you presently have visiting nurse or other home services: No Unable to assess alcohol history related to: Unknown Patient Tobacco Use Status: Tobacco use Unknown Use of substances other than those prescribed or required for medical reasons: Unknown Currently Displaying Signs/Symptoms of Drug Intoxication Withdrawal: No Advance Directives: Yes Advance Directives Information Provided: No Advance Directives on File: No Advance Directives Date on File: 05/21/22 Recently lost weight without trying: Unsure Nutrition Risks: Difficulty swallowing Patient : No service: No Meds Allergies Allergy/AdvReac Type Severity Reaction Status Date / Time No Known Allergies Allergy Verified 05/20/22 12:06 Active Medications: Current Medications Acetaminophen (Acetaminophen 325 Mg Tablet) 650 mg PO Q6H PRN PRN Reason: Pain, Mild (Pain Scale 1-3) Aspirin (Aspirin Enteric Coated 81 Mg Tablet.) 81 mg PO DAILY [facility] Atorvastatin Calcium (Atorvastatin Calcium 80 Mg Tablet) 80 mg PO DAILY [facility] Bisacodyl (Bisacodyl 10 Mg Supp.Rect) 10 mg RI DAILY PRN PRN Reason: Constipation Clopidogrel Bisulfate (Clopidogrel Bisulfate 75 Mg Tablet) 75 mg PO DAILY [facility] Glucose (Glucose Gel 15 Gm Gel..Gram.) 15 gm PO Q15M PRN; Protocol PRN Reason: per Hypoglycemia Standing Ord. Heparin Sodium (Porcine) (Heparin Sodium,Porcine 5,000 Unit/Ml Vial) 5,000 unit SUBCUT Q12H [facility] Last Admin: 05/21/22 06:53 Dose: 5,000 unit Dextrose (D10) 250 mls @ 750 mls/hr IV Q15M PRN; Protocol PRN Reason: per Hypoglycemia Standing Ord. Sodium Chloride (Ns) 1,000 mls @ 80 mls/hr IVCONT .[id number] [facility] Last Admin: 05/21/22 06:52 Dose: 80 mls/hr Piperacillin Sod/Tazobactam (Sod 3.375 gm/ Sodium Chloride) 50 mls @ 12.5 mls/hr IV Q8H [facility] Last Admin: 05/21/22 10:58 Dose: 12.5 mls/hr Insulin Glargine (Insulin Glargine,Hum.Rec.Anlog 100 Unit/Ml 10 Ml Vial) 14 unit SUBCUT BEDTIME [facility] Last Admin: 05/20/22 22:38 Dose: 14 unit Insulin Human Lispro (Insulin Lispro 100 Unit/Ml 3 Ml Vial) 0 unit SUBCUT QIDACHS [facility]; Protocol Last Admin: 05/21/22 07:42 Dose: Not Given Ondansetron HCl (Ondansetron Hcl 4 Mg/2 Ml Vial) 4 mg IVPUSH Q8H PRN PRN Reason: Nausea and Vomiting Pharmacy Consult (Consult Rx Perform Med Rec) 1 each MISCELLANE ONCE PRN PRN Reason: Consult order Sodium Chloride (0.9 % Sodium Chloride Flush 3 Ml Syringe) 3 ml IVFLUSH QSHIFT [facility] Last Admin: 05/21/22 10:57 Dose: 3 ml Home Medications Medication Instructions Recorded Confirmed Last Taken Type acetaminophen 500 mg tablet 1,000 mg PO TID 05/20/22 05/20/22 Unknown History (Tylenol Extra Strength) ascorbic acid (vitamin C) 500 mg 500 mg PO DAILY 05/20/22 05/20/22 Unknown History tablet aspirin 81 mg tablet,delayed 81 mg PO DAILY 05/20/22 05/20/22 Unknown History release atorvastatin 80 mg tablet 80 mg PO BEDTIME 05/20/22 05/20/22 Unknown History baclofen 10 mg tablet 10 mg PO TID 05/20/22 05/20/22 Unknown History bisacodyl 10 mg rectal suppository 10 mg RI DAILY PRN Constipation 05/20/22 05/20/22 Unknown History clopidogrel 75 mg tablet (Plavix) 75 mg PO DAILY 05/20/22 05/20/22 Unknown History dextrose 40 % oral gel (Glucose 20 g PO Q15M PRN FSBS<50 AND ABLE 05/20/22 05/20/22 Unknown History Gel) TO SWALLOW glucagon 1 mg solution for 1 mg subcut Q20M PRN fsbs < 60 and 05/20/22 05/20/22 Unknown History injection unable to swallow hydralazine 10 mg tablet 10 mg PO Q6H PRN Hypertension 05/20/22 05/20/22 Unknown History insulin glargine 100 unit/mL 14 unit subcut BEDTIME 05/20/22 05/20/22 Unknown History subcutaneous solution (Lantus U-100 Insulin) insulin lispro 100 unit/mL 1 sliding scale dose subcut 05/20/22 05/20/22 Unknown History subcutaneous solution (Humalog USEASDIRECTD U-100 Insulin) lisinopril 10 mg tablet 20 mg PO DAILY 05/20/22 05/20/22 Unknown History magnesium hydroxide 400 mg/5 mL 30 ml PO DAILY PRN Constipation 05/20/22 05/20/22 Unknown History oral suspension (Milk of Magnesia) meclizine 12.5 mg tablet 12.5 mg PO Q8H PRN Dizziness 05/20/22 05/20/22 Unknown History metoprolol succinate 25 mg 25 mg PO DAILY 05/20/22 05/20/22 Unknown History tablet,extended release 24 hr multivitamin with minerals 1 tab PO BEDTIME 05/20/22 05/20/22 Unknown History polyethylene glycol 3350 17 gram 17 g PO DAILY 05/20/22 05/20/22 Unknown History oral powder packet (Miralax) sennosides 8.6 mg tablet (senna) 8.6 mg PO DAILY 05/20/22 05/20/22 Unknown History sertraline 25 mg tablet (Zoloft) 25 mg PO DAILY 05/20/22 05/20/22 Unknown History sodium phosphates 19 gram-7 118 ml RI DAILY PRN Constipation 05/20/22 05/20/22 Unknown History gram/118 mL enema (Fleet Enema) tizanidine 2 mg tablet 2 mg PO Q8H PRN MUSCLE SPASMS 05/20/22 05/20/22 Unknown History zinc sulfate 50 mg zinc (220 mg) 50 mg PO DAILY 05/20/22 05/20/22 Unknown History capsule Physical Exam Vital Signs: Vital Signs: Last Vital Signs Temp 97.8 F 05/21/22 11:12 Pulse 64 05/21/22 11:12 Resp 20 05/21/22 11:12 BP 164/72 H 05/21/22 11:12 Pulse Ox 97 05/21/22 11:12 O2 Del Method Room Air 05/21/22 11:12 BMI result Body Mass Index 21.7 Neuro: Other: She is drowsy but able to make an eye contact. Spontaneity and fluency of speech are diminished. She is following one-step command but barely could say a word. She has a significant left hemiparesis left gaze deviation and facial weakness. Results Labs 05/21/22 09:20 05/21/22 09:20 Labs: Short CBC 05/20/22 05/21/22 Range/Units 14:58 09:20 WBC 18.5 H 18.7 H (4.8-10.8) X10*3/uL Hgb 11.7 L 10.5 L (12.0-16.0) g/dl Hct 36.3 L 32.5 L (37.0-47.0) % Plt Count 282 278 (160-400) X10*3/uL BMP 05/20/22 05/21/22 13:24 09:20 Sodium 142 147 H Potassium 5.3 H 4.8 Chloride 112 H 116 H Carbon Dioxide 19 L 21 L BUN 73 H 77 H Creatinine 1.28 1.65 H Calcium 8.8 8.8 Cardiac Enzymes 05/20/22 Range/Units 13:24 Total Creatine Kinase 226 H (26-140) U/L Urine 05/21/22 Range/Units 02:02 Urine Color Yellow Urine Appearance Turbid Urine pH 6.0 (5.0-9.0) Ur Specific [place] >= 1.030 H (1.005-1.025) Urine Protein 100 (2+) H (Neg-Trace) mg/dL Urine Glucose (UA) Negative (Negative) mg/dL CTA of brain revealed occluded right ICA and moderate stenosis of left and occluded left vertebral. Large right subcortical middle cerebral artery area infarct was noted. Microbiology Microbiology Results: Microbiology 05/20/22 13:23 Blood - Venous Blood Culture - Preliminary Gram negative aden 05/20/22 13:04 Blood - Venous Blood Culture - Preliminary Gram negative aden Assessment and Plan (1) Altered mental status: Status: Acute 61 years old woman with occluded right internal carotid artery and a chronic right from subcortical middle cerebral artery area infarct causing aphasia and left hemiparesis presented with nonspecific symptoms. At this time she was probably back to baseline. She was at risk for stroke and seizures. At the same time she was at risk for infection. Now that she was in hospital, I would recommend obtaining an EEG to rule out any epileptic tendency. As far as strokes are concerned, I would recommend dual anti-platelet therapy with baby aspirin and clopidogrel, which she has been taking. Statin should also continue. Low blood pressure should be avoided as her 1 at carotid is occluded and right side of the brain is relying from perfusion from other side. She could become symptomatic with the mean arterial pressure less than 90. Time Spent With Patient Time: Total time managing care of this patient today ____ minutes. Procedures Date of Service Date of Service: 05/21/22
[2022-05-21] MEDS: Clopidogrel Bisulfate 75 MG TABLET PO (12:09)
[2022-05-21] MEDS: Aspirin Enteric Coated 81 MG TABLET.DR PO (12:09)
--- NOTE | 2022-05-21 13:45 | HO.PM.IMPN ---
Subjective Subjective Date of Service: 05/21/22 Interval History: seen and examined this morning no overnight events follow up for right side weakness able to answer most questions, no specific complaints Review of Systems Review of Systems: Yes all other systems are reviewed and are negative Constitutional Constitutional: Denies chills and Denies fever(s) Cardiovascular Cardiovascular: Denies chest pain and Denies dyspnea Respiratory Respiratory: Denies dyspnea Gastrointestinal Gastrointestinal: Denies abdominal pain Physical Exam Vital Signs: Vital Signs: Last Vital Signs Temp 97.8 F 05/21/22 11:12 Pulse 64 05/21/22 11:12 Resp 20 05/21/22 11:12 BP 164/72 H 05/21/22 11:12 Pulse Ox 97 05/21/22 11:12 O2 Del Method Room Air 05/21/22 11:12 BMI result Body Mass Index 21.7 Const: General: awake Nutritional Appearance: average body habitus Resp: Effort & Inspection: normal respiratory effort, able to speak in complete sentences and no respiratory distress Cardio: Rate: regular rate Heart sounds: S1 normal heart sound present and S2 normal heart sound present GI: Inspection: No distended Palpation (GI): Soft to palpation and nontender Neuro: Other: left upper/lower extremity weakness; left facial droop. able to follow most commands. able to move right upper and lower extremities. Objective Data Active Medications Acetaminophen (Acetaminophen 325 Mg Tablet) 650 mg PO Q6H PRN PRN Reason: Pain, Mild (Pain Scale 1-3) Aspirin (Aspirin Enteric Coated 81 Mg Tablet.) 81 mg PO DAILY [facility] Last Admin: 05/21/22 12:09 Dose: 81 mg Documented By: CONSTANCE Atorvastatin Calcium (Atorvastatin Calcium 80 Mg Tablet) 80 mg PO DAILY [facility] Last Admin: 05/21/22 12:19 Dose: Not Given Documented By: CONSTANCE Non-Admin Reason: NPO Bisacodyl (Bisacodyl 10 Mg Supp.Rect) 10 mg NH DAILY PRN PRN Reason: Constipation Clopidogrel Bisulfate (Clopidogrel Bisulfate 75 Mg Tablet) 75 mg PO DAILY [facility] Last Admin: 05/21/22 12:09 Dose: 75 mg Documented By: CONSTANCE Glucose (Glucose Gel 15 Gm Gel..Gram.) 15 gm PO Q15M PRN; Protocol PRN Reason: per Hypoglycemia Standing Ord. Heparin Sodium (Porcine) (Heparin Sodium,Porcine 5,000 Unit/Ml Vial) 5,000 unit SUBCUT Q12H [facility] Last Admin: 05/21/22 06:53 Dose: 5,000 unit Documented By: JARRED Dextrose (D10) 250 mls @ 750 mls/hr IV Q15M PRN; Protocol PRN Reason: per Hypoglycemia Standing Ord. Sodium Chloride (Ns) 1,000 mls @ 80 mls/hr IVCONT .[id number] [facility] Last Admin: 05/21/22 06:52 Dose: 80 mls/hr Documented By: JARRED Piperacillin Sod/Tazobactam (Sod 3.375 gm/ Sodium Chloride) 50 mls @ 100 mls/hr IV Q6H [facility] Insulin Glargine (Insulin Glargine,Hum.Rec.Anlog 100 Unit/Ml 10 Ml Vial) 14 unit SUBCUT BEDTIME [facility] Last Admin: 05/20/22 22:38 Dose: 14 unit Documented By: ROSALINE-LOBO Insulin Human Lispro (Insulin Lispro 100 Unit/Ml 3 Ml Vial) 0 unit SUBCUT QIDACHS [facility]; Protocol Last Admin: 05/21/22 12:14 Dose: Not Given Documented By: BRIDGETT Non-Admin Reason: No Insulin Coverage Ondansetron HCl (Ondansetron Hcl 4 Mg/2 Ml Vial) 4 mg IVPUSH Q8H PRN PRN Reason: Nausea and Vomiting Pharmacy Consult (Consult Rx Perform Med Rec) 1 each MISCELLANE ONCE PRN PRN Reason: Consult order Sodium Chloride (0.9 % Sodium Chloride Flush 3 Ml Syringe) 3 ml IVFLUSH QSHIFT [facility] Last Admin: 05/21/22 10:57 Dose: 3 ml Documented By: BRIDGETT Labs 05/21/22 09:20 05/21/22 09:20 Labs: Laboratory Results - last 24 hr 05/20/22 05/20/22 05/20/22 13:23 13:24 14:58 MCV 88.5 MCH 28.5 MCHC 32.2 RDW 16.0 Plt Count 282 MPV 10.0 Immature Gran % (Auto) 1.5 H Neut % (Auto) 85.5 H Lymph % (Auto) 6.1 L Hanson % (Auto) 6.6 Eos % (Auto) 0.1 Baso % (Auto) 0.2 Lymph # (Auto) 1.1 L Hanson # (Auto) 1.2 Eos # (Auto) 0.0 Baso # (Auto) 0.0 Abs Immat Gran (auto) 0.27 H Absolute Neuts (auto) 15.8 H Absolute Nucleated RBC 0.000 Nucleated RBC % (auto) 0.0 Anion Gap 16 Estim Creat Clear Calc 38.2 Estimated GFR 42 POC Glucose Random Glucose 182 H Lactic Acid Calcium 8.8 Total Creatine Kinase 226 H Troponin I High Sens 6.8 Triglycerides Cholesterol LDL Cholesterol, Calc HDL Cholesterol Urine Color Urine Appearance Urine pH Ur Specific [place] Urine Protein Urine Glucose (UA) Urine Ketones Urine Blood Urine Nitrite Ur Leukocyte Esterase Urine RBC Urine WBC Urine WBC Clumps Ur Squamous Epith Cells Calcium Oxalate Crystal Urine Bacteria Hyaline Casts Granular Casts COVID-19 ([facility]) COVID-19 Clin Com 05/20/22 05/20/22 05/20/22 21:26 22:17 22:22 MCV MCH MCHC RDW Plt Count MPV Immature Gran % (Auto) Neut % (Auto) Lymph % (Auto) Hanson % (Auto) Eos % (Auto) Baso % (Auto) Lymph # (Auto) Hanson # (Auto) Eos # (Auto) Baso # (Auto) Abs Immat Gran (auto) Absolute Neuts (auto) Absolute Nucleated RBC Nucleated RBC % (auto) Anion Gap Estim Creat Clear Calc Estimated GFR POC Glucose 165 H 157 H Random Glucose Lactic Acid Calcium Total Creatine Kinase Troponin I High Sens Triglycerides Cholesterol LDL Cholesterol, Calc HDL Cholesterol Urine Color Urine Appearance Urine pH Ur Specific [place] Urine Protein Urine Glucose (UA) Urine Ketones Urine Blood Urine Nitrite Ur Leukocyte Esterase Urine RBC Urine WBC Urine WBC Clumps Ur Squamous Epith Cells Calcium Oxalate Crystal Urine Bacteria Hyaline Casts Granular Casts COVID-19 ([facility]) Negative COVID-19 Clin Com See Note 05/21/22 05/21/22 05/21/22 01:49 02:02 07:27 MCV MCH MCHC RDW Plt Count MPV Immature Gran % (Auto) Neut % (Auto) Lymph % (Auto) Hanson % (Auto) Eos % (Auto) Baso % (Auto) Lymph # (Auto) Hanson # (Auto) Eos # (Auto) Baso # (Auto) Abs Immat Gran (auto) Absolute Neuts (auto) Absolute Nucleated RBC Nucleated RBC % (auto) Anion Gap Estim Creat Clear Calc Estimated GFR POC Glucose 121 H Random Glucose Lactic Acid 0.8 Calcium Total Creatine Kinase Troponin I High Sens Triglycerides Cholesterol LDL Cholesterol, Calc HDL Cholesterol Urine Color Yellow Urine Appearance Turbid Urine pH 6.0 Ur Specific [place] >= 1.030 H Urine Protein 100 (2+) H Urine Glucose (UA) Negative Urine Ketones Trace Urine Blood Large (3+) H Urine Nitrite Negative Ur Leukocyte Esterase Large (3+) H Urine RBC >20 H Urine WBC >50 H Urine WBC Clumps Present Ur Squamous Epith Cells 11-20 Calcium Oxalate Crystal Present Urine Bacteria 4+ Hyaline Casts >20 Granular Casts Present COVID-19 ([facility]) COVID-[employer] 05/21/22 05/21/22 05/21/22 09:20 09:20 09:20 MCV 89.0 MCH 28.8 MCHC 32.3 RDW 16.2 H Plt Count 278 MPV 10.0 Immature Gran % (Auto) 1.3 H Neut % (Auto) 85.9 H Lymph % (Auto) 4.8 L Hanson % (Auto) 7.7 Eos % (Auto) 0.1 Baso % (Auto) 0.2 Lymph # (Auto) 0.9 L Hanson # (Auto) 1.4 H Eos # (Auto) 0.0 Baso # (Auto) 0.0 Abs Immat Gran (auto) 0.25 H Absolute Neuts (auto) 16.0 H Absolute Nucleated RBC 0.000 Nucleated RBC % (auto) 0.0 Anion Gap 15 Estim Creat Clear Calc 29.6 Estimated GFR 32 POC Glucose Random Glucose 105 Lactic Acid Calcium 8.8 Total Creatine Kinase Troponin I High Sens Triglycerides 94 Cholesterol 78 LDL Cholesterol, Calc 48 HDL Cholesterol 12 Urine Color Urine Appearance Urine pH Ur Specific [place] Urine Protein Urine Glucose (UA) Urine Ketones Urine Blood Urine Nitrite Ur Leukocyte Esterase Urine RBC Urine WBC Urine WBC Clumps Ur Squamous Epith Cells Calcium Oxalate Crystal Urine Bacteria Hyaline Casts Granular Casts COVID-19 ([facility]) COVID-[employer] 05/21/22 11:14 MCV MCH MCHC RDW Plt Count MPV Immature Gran % (Auto) Neut % (Auto) Lymph % (Auto) Hanson % (Auto) Eos % (Auto) Baso % (Auto) Lymph # (Auto) Hanson # (Auto) Eos # (Auto) Baso # (Auto) Abs Immat Gran (auto) Absolute Neuts (auto) Absolute Nucleated RBC Nucleated RBC % (auto) Anion Gap Estim Creat Clear Calc Estimated GFR POC Glucose 108 Random Glucose Lactic Acid Calcium Total Creatine Kinase Troponin I High Sens Triglycerides Cholesterol LDL Cholesterol, Calc HDL Cholesterol Urine Color Urine Appearance Urine pH Ur Specific [place] Urine Protein Urine Glucose (UA) Urine Ketones Urine Blood Urine Nitrite Ur Leukocyte Esterase Urine RBC Urine WBC Urine WBC Clumps Ur Squamous Epith Cells Calcium Oxalate Crystal Urine Bacteria Hyaline Casts Granular Casts COVID-19 ([facility]) COVID-19 Clin Com Microbiology Microbiology Results: Microbiology 05/21/22 01:49 Blood Culture - Preliminary Blood - Venous Prelim: GNR Gram Stain only 05/21/22 01:49 Blood Culture - Preliminary Blood - Venous Prelim: GNR Gram Stain only 05/20/22 13:23 Blood Culture - Preliminary Blood - Venous Gram negative aden 05/20/22 13:04 Blood Culture - Preliminary Blood - Venous Gram negative aden Assessment and Plan (1) CVA (cerebral vascular accident): Status: Acute (2) Bacteremia: Status: Acute Plan 61 year old women with history of stroke in March 2022 at [facility] presents with right side weakness Right side weakness Hx of multifocal infarcts in the right insula, right basal ganglia, right centrum semiovale with history of chronic right ICA occlusion at [facility] with associated chronic aphagia, left-sided weakness MRI, echo pending seen by neuro - rec to continue DAPT, statin and check EEG; avoid hypotension Continue Aspirin, Plavix, statin PT OT- rec STR speech therapy-rec NPO for now, SEWER CONNECTOR will re-eval in am GNR bactreremia likely r/t to UTI pt has chronic bennett started on zosyn empirically, follow results of urine culture ID consult pending Hyperkalemia resolved with lokelnm DIONISIO SCr up to 1.65 continue IVF follow BMP Hypernatremia sodium 147 r/t decreased po intake IVF follow BMP Leukocytosis likely r/t bacteremia follow CBC Diabetes A1c at [facility] in March 2022 was 11.5 ss, Lantus, ada diet Hypertension Stable blood pressure, hold antihypertensives for now to avoid hypotension Coronary artery disease/ extensive atherosclerotic disease Status post cardiac catheterization with drug-eluting stent to LAD in March of 2022 DVT prophylaxis with heparin Attending Dr. Jerez Full code Disposition: PT/OT rec STR attempted to call Shanna johansen 05/21 - no answer Requires ongoing inpatient stay for further workup of right side weakness and EEG Time Spent With Patient Time: Total time managing care of this patient today ____ minutes. Quality Stroke Does the patient have a stroke diagnosis?: Yes Reason for No Anti-thrombotic by Day Two: Not indicated VTE Prior VTE?: No VTE Risk Level:: Medical - moderate - high VTE Device Contraindication: Treatment Not Indicated VTE Drug Contraindication: N/A - Med Ordered
[2022-05-21] MEDS: Lactated Ringers 1,000 ML 100 ML IVCONT ×2 (14:54→23:00)
[2022-05-21 16:46] LABS: Glucose, Whole Blood 97 mg/dL (60-115)
[2022-05-21] MEDS: Acetaminophen 325 MG TABLET 650 MG PO (18:34)
--- NOTE | 2022-05-21 18:55 | MHC.SL.SWA ---
Speech Pathologist Impression: Risk of Aspiration Due to: Neurological Condition Dysphasia Diet Status: Liquid Consistency and Strategies for Safe Swallow: Liquid Intake Recommendation: NPO Liquid Intake Strategies: Solid Food Consistency: Dietary Recommendations: NPO Additional Modifications to Solid Foods: Note: For medication that must be administered PO, recommend crushed in puree, piecemeal administration with close observation for swallow, check for pocketing, all discussed with RN Oral Medication Intake: NPO Please contact the pharmacy regarding appropriate crushable or liquid drug formulations that are available whenever modified delivery is recommended. Compensatory Strategies and Precautions to be Taken for Safe Swallow: Supervision While Eating and Drinking for Safe Swallow: PO with MAPPING ENGINEER Foods to Avoid: Swallowing Recommended Treatments: Compens. Strategy Educat. Recommendation for Speech: Inpatient Speech Therapy Comment: Patient presents with a significant delay (up to ten seconds) initiating swallow on consistencies presented today, along with limited responsiveness, placing patient at high risk for aspiration at this time. Recommend continued NPO with repeat assessment/trials with MAPPING ENGINEER 05/22/22 for readiness to start diet. RENITA SUAREZ notified of recommendation by secure text, Discussed with RN in person. Frequency/Duration: Date Range for Service Req: Timeline to reassess: Stockroom Coordinator Clinican/Clinical Fellow: No Supervisory Statement: I have reviewed and agree with the student/clinical fellow's documentation: N/A Speech Language Pathologist: Autumn Denton M.A., [facility]-MAPPING ENGINEER
[2022-05-21] MEDS: Morphine Sulfate 2 MG/ML CARTRIDGE IVPUSH (19:01)
[2022-05-21 19:33] LABS: Glucose, Whole Blood 91 mg/dL (60-115)
--- NOTE | 2022-05-21 21:53 | PC.NURSE ---
Addendum entered by Mahamed Dumont RN 05/21/22 21:58: IV morphine 1 time dose for gneralized pain this evening per PA with good effect. Original Note: Assumed care at 07:00. Patient seemed too lethargic and confused to answer MRI screening questions, unable to reach patient's daughter, message left, same true of bubble study portion of echo; will try to contact daughter again and monitor patient for clearing enough to sign consent, and limited echo with bubble study is ordered for AM. Patient assessment seems slightly improved over course of day, with word clarity less slurred, but now repetative words, like repeating word milk. Patient also with apparent generalized pain, unable to describe completely, would have outburst, saying ow! while at rest, but when asked what is wrong, patient repeating milk. Unable to swallow crushed PO meds in purreed despite SHOP ESTIMATOR's recommendation, and PA notified, so kept NPO, and no PO meds except morning meds without atorvastatin (see emar). This evening no swallowing, so mouth suctioned. Patient with EEG in AM. Since MRI form unable to be completed accurately with certainty, xray KUB done, then patient had BM while trying to get onto MRI table and was turned around to room; PA updated, plan to return to MRI tonight.
[2022-05-22] VITALS (8 sets, daily range): BP systolic 139–180; BP diastolic 61–84; PULSE 54–66; RESP 15–20; TEMP 36.1–37.2; O2SAT 96–99
--- NOTE | 2022-05-22 | EEG_ITS ---
This is a 16-channel EEG with an EKG lead. The patient is reported unresponsive during the tracing. Background EEG rhythm is very low amplitude, mostly revealing occasional delta range activity. EKG artifacts are noted. No definite sharp wave spikes or paroxysmal tendency noted. Photic stimulation and hyperventilation were not performed. Cardiac lead did not reveal any significant arrhythmias. 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 MD LAURA Davila/TATY / [id number]
[2022-05-22] MEDS: Heparin Sodium,Porcine 5,000 UNIT/ML VIAL 5000 UNIT SUBCUT ×2 (05:03→17:23)
[2022-05-22] MEDS: Piperacillin Sodium/Tazobactam 3.375 GM in 0.9 % Sodium Chloride 50 ML IV ×4 (05:07→20:54)
[2022-05-22] MEDS: Lactated Ringers 1,000 ML 100 ML IVCONT (05:09)
[2022-05-22] MEDS: Acetaminophen 325 MG TABLET 650 MG PO (06:16)
[2022-05-22] MEDS: TiZANidine HCL 4 MG TABLET 2 MG PO (06:17)
--- NOTE | 2022-05-22 07:00 | CA_ITS ---
Transthoracic Echocardiogram Limited w Bubble Patient (Last, First, Middle): Justine Gottlieb, Gender: Female Date of : 1960 Age: 61 Procedure Date: 05/22/2022 Procedure Type: Transthoracic Echocardiogram Limited w Bubble Location: [facility] [place] Height: 160.02 cm Weight: kg Email Production Specialist: GABRIELLE Bello MD: Christina LINK Signal Processing Engineer: John Lovelace MD Symptoms: stroke Study Quality: Good ECG Rhythm: Atrial Fibrillation Conclusions: - No evidence of interatrial shunting Findings Atria There is no evidence of interatrial shunt by agitated saline. Updated in Other Vendor System with Status of Final John Lovelace MD electronically signed on 05/22/2022 2:49:50 PM with status of Final
[2022-05-22 07:25] LABS: Glucose, Whole Blood 82 mg/dL (60-115)
[2022-05-22 09:13] LABS: Hematocrit 29.2 % (37.0-47.0); Hemoglobin 9.5 g/dl (12.0-16.0); Mean Corpuscular HGB Conc 32.5 g/dl (31.0-35.0); Mean Corpuscular Hemoglobin 29.1 pg (27.0-33.0); Mean Corpuscular Volume 89.6 fL (80.0-98.0); Mean Platelet Volume 10.3 fL (9.4-12.3); Platelet Count 259 X10*3/uL (160-400); Red Blood Count 3.26 X10*6/uL (4.20-5.50); Red Cell Distribution Width 16.3 % (11.0-16.0); White Blood Count 16.7 X10*3/uL (4.8-10.8)
[2022-05-22] MEDS: 0.9 % Sodium Chloride Flush 3 ML SYRINGE IVFLUSH ×2 (09:33→20:56)
[2022-05-22 09:50] LABS: Anion Gap 22 (12-20); Blood Urea Nitrogen 82 mg/dL (9-16); Calcium 8.5 mg/dL (8.4-10.2); Carbon Dioxide 14 mmol/L (22-29); Chloride 120 mmol/L (96-108); Creatinine Clr Calc Pharmacy 22.4; Estimated Glomerular Filt Rate 23; Glucose Random 71 mg/dL (60-115); Potassium 4.5 mmol/L (3.3-5.1); Sodium 151 mmol/L (135-145)
[2022-05-22 11:08] LABS: Glucose, Whole Blood 73 mg/dL (60-115)
--- NOTE | 2022-05-22 11:14 | P.PNIM_ITS ---
Subjective Subjective Date of Service: 05/22/22 Interval History: seen and examined this morning follow up for stroke awake but sleepy this morning no overnight events difficult to obtain full ROS Physical Exam Vital Signs: Vital Signs: Last Vital Signs Temp 98.0 F 05/22/22 07:56 Pulse 62 05/22/22 07:56 Resp 18 05/22/22 07:56 BP 140/84 H 05/22/22 07:56 Pulse Ox 98 05/22/22 07:56 O2 Del Method Room Air 05/22/22 07:56 BMI result Body Mass Index 21.7 Const: General: awake Nutritional Appearance: average body habitus Resp: Effort & Inspection: normal respiratory effort, able to speak in complete sentences and no respiratory distress Cardio: Rate: regular rate Heart sounds: S1 normal heart sound present and S2 normal heart sound present GI: Inspection: No distended Palpation (GI): Soft to palpation and nontender Neuro: Other: left upper/lower extremity weakness; left facial droop. able to follow most commands. able to move right upper and lower extremities. able to answer some questions Objective Data Active Medications Acetaminophen (Acetaminophen 325 Mg Tablet) 650 mg PO Q6H PRN PRN Reason: Pain, Mild (Pain Scale 1-3) Last Admin: 05/22/22 06:16 Dose: 650 mg Documented By: ANTOIC Aspirin (Aspirin Enteric Coated 81 Mg Tablet.) 81 mg PO DAILY [facility] Last Admin: 05/21/22 12:09 Dose: 81 mg Documented By: CONSTANCE Atorvastatin Calcium (Atorvastatin Calcium 80 Mg Tablet) 80 mg PO DAILY [facility] Last Admin: 05/21/22 12:19 Dose: Not Given Documented By: CONSTANCE Non-Admin Reason: NPO Bisacodyl (Bisacodyl 10 Mg Supp.Rect) 10 mg [place] DAILY PRN PRN Reason: Constipation Clopidogrel Bisulfate (Clopidogrel Bisulfate 75 Mg Tablet) 75 mg PO DAILY [facility] Last Admin: 05/21/22 12:09 Dose: 75 mg Documented By: CONSTANCE Glucose (Glucose Gel 15 Gm Gel..Gram.) 15 gm PO Q15M PRN; Protocol PRN Reason: per Hypoglycemia Standing Ord. Heparin Sodium (Porcine) (Heparin Sodium,Porcine 5,000 Unit/Ml Vial) 5,000 unit SUBCUT Q12H [facility] Last Admin: 05/22/22 05:03 Dose: 5,000 unit Documented By: MOSHE Dextrose (D10) 250 mls @ 750 mls/hr IV Q15M PRN; Protocol PRN Reason: per Hypoglycemia Standing Ord. Piperacillin Sod/Tazobactam (Sod 3.375 gm/ Sodium Chloride) 50 mls @ 100 mls/hr IV Q6H [facility] Last Infusion: 05/22/22 06:01 Dose: 0 mls/hr Documented By: MOSHE Dextrose (D5w) 1,000 mls @ 125 mls/hr IVCONT .Q8H [facility] Insulin Glargine (Insulin Glargine,Hum.Rec.Anlog 100 Unit/Ml 10 Ml Vial) 14 unit SUBCUT BEDTIME [facility] Last Admin: 05/21/22 23:00 Dose: Not Given Documented By: MOSHE Non-Admin Reason: Physician Held Med Insulin Human Lispro (Insulin Lispro 100 Unit/Ml 3 Ml Vial) 0 unit SUBCUT QIDACHS [facility]; Protocol Last Admin: 05/22/22 07:33 Dose: Not Given Documented By: GARRICK Non-Admin Reason: No Insulin Coverage Ondansetron HCl (Ondansetron Hcl 4 Mg/2 Ml Vial) 4 mg IVPUSH Q8H PRN PRN Reason: Nausea and Vomiting Pharmacy Consult (Consult Rx Perform Med Rec) 1 each MISCELLANE ONCE PRN PRN Reason: Consult order Sertraline HCl (Sertraline Hcl 25 Mg Tablet) 25 mg PO DAILY [facility] Sodium Chloride (0.9 % Sodium Chloride Flush 3 Ml Syringe) 3 ml IVFLUSH QSHIFT [facility] Last Admin: 05/22/22 09:33 Dose: 3 ml Documented By: GARRICK Tizanidine HCl (Tizanidine Hcl 4 Mg Tablet) 2 mg PO BID PRN PRN Reason: MUSCLE SPASMS Last Admin: 05/22/22 06:17 Dose: 2 mg Documented By: MOSHE Labs 05/22/22 08:38 05/22/22 08:38 Labs: Laboratory Results - last 24 hr 05/21/22 05/21/22 05/21/22 11:14 16:31 19:15 MCV MCH MCHC RDW Plt Count MPV Absolute Nucleated RBC Nucleated RBC % (auto) Anion Gap Estim Creat Clear Calc Estimated GFR POC Glucose 108 97 91 Random Glucose Calcium 05/22/22 05/22/22 05/22/22 07:20 08:38 08:38 MCV 89.6 MCH 29.1 MCHC 32.5 RDW 16.3 H Plt Count 259 MPV 10.3 Absolute Nucleated RBC 0.000 Nucleated RBC % (auto) 0.0 Anion Gap 22 H Estim Creat Clear Calc 22.4 Estimated GFR 23 POC Glucose 82 Random Glucose 71 Calcium 8.5 05/22/22 11:05 MCV MCH MCHC RDW Plt Count MPV Absolute Nucleated RBC Nucleated RBC % (auto) Anion Gap Estim Creat Clear Calc Estimated GFR POC Glucose 73 Random Glucose Calcium Microbiology Microbiology Results: Microbiology 05/21/22 Unknown Urine Culture - Preliminary Urine clean catch - Urine peters top Gram negative aden 05/21/22 01:49 Blood Culture - Preliminary Blood - Venous Gram negative aden 05/21/22 01:49 Blood Culture - Preliminary Blood - Venous Gram negative aden 05/20/22 13:23 Blood Culture - Final Blood - Venous Escherichia coli 05/20/22 13:04 Blood Culture - Final Blood - Venous Escherichia coli Assessment and Plan (1) CVA (cerebral vascular accident): Status: Acute (2) Bacteremia: Status: Acute Plan 61 year [place] [facility] [place] right side weakness Acute stroke Hx of multifocal infarcts in the right insula, right basal ganglia, right centrum semiovale with history of chronic right [place] [facility] [place] chronic aphagia, left-sided weakness MRI showing acute infarcts involving the deep right cerebral hemisphere on background of 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 echo mostly unremarkable, bubble study pending seen by neuro - rec to continue DAPT, statin and check EEG; avoid hypotension Continue Aspirin, Plavix, statin PT OT- rec STR speech therapy-rec NPO for now, 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 EEG results pending e.coli bactreremia likely r/t to UTI likely r/t chronic bennett urine culture growing GNR, likely e.coli as well started on zosyn empirically, follow results of urine culture, likely change to ceftriaxone ID consult pending Hyperkalemia resolved with lokelma DIONISIO SCr trending up r/t to decreased po intake continue IVF follow BMP Hypernatremia sodium increasing r/t decreased po intake change IVF to D5W will repeat BMP this afternoon follow BMP Leukocytosis likely r/t bacteremia follow CBC Diabetes A[facility]c at [facility] in March 2022 was 11.5 ss, Lantus, ada diet Hypertension Stable blood pressure, hold antihypertensives for now to avoid hypotension Coronary artery disease/ extensive atherosclerotic disease Status post cardiac catheterization with drug-eluting stent to LAD in March of 2022 DVT prophylaxis with heparin Attending Dr. Jerez Full code Disposition: PT/OT rec STR daughter, Shanna - multiple attempts by nursing/provider to reach daughter, multiple messages left. no answer or call back. CM to reach out to SNF to try to obtain alternate contact info Requires ongoing inpatient stay for further workup of right side weakness and EEG Time Spent With Patient Time: Total time managing care of this patient today ____ minutes. Quality Stroke Does the patient have a stroke diagnosis?: Yes Reason for No Anti-thrombotic by Day Two: Not indicated VTE Prior VTE?: No VTE Risk Level:: Medical - moderate - high VTE Device Contraindication: Treatment Not Indicated VTE Drug Contraindication: N/A - Med Ordered
--- NOTE | 2022-05-22 11:32 | P.CDIM_ITS ---
PROVIDER RESPONSE TEXT: To clarify, the appropriate diagnosis supported by the clinical indicators: Yes, UTI is related to / associated with / due to bennett catheter QUERY TEXT: PHYSICIAN'S DOCUMENTATION REQUEST Date of Query: 05/22/2022 08:19 AM EDT Patient Name: Justine Gottlieb Admit Date: 05/20/2022 Dear Christina Roy, A review of the medical record indicates additional documentation may be needed. Please review below and update the documentation accordingly. Documentation includes the conditions of UTI and chronic bennett catheter. Started on Zosyn empirically Urine culture pending Clinical Indicators: Please clarify the relationship between these conditions: Yes, UTI is related to / associated with / due to bennett catheter No, UTI is not related to / associated with / due to bennett catheter Other (explain) Clinically unable to determine (explain) Thank you, Wilma Tello RN Use of terms such as suspected, likely, concern for, or probable (associated with a specific diagnosi s that is being evaluated, monitored, or treated as if it exists) are acceptable and can be coded in the inpatient se tting, when documented at the time of discharge. Please use your independent medical judgment in providing your response. THIS QUERY IS PART OF THE PERMANENT MEDICAL RECORD
[2022-05-22] MEDS: Dextrose 5 % 1,000 ML 125 ML IVCONT ×2 (12:38→20:55)
[2022-05-22 13:16] LABS: Anion Gap 18 (12-20); Blood Urea Nitrogen 83 mg/dL (9-16); Calcium 8.4 mg/dL (8.4-10.2); Carbon Dioxide 19 mmol/L (22-29); Chloride 119 mmol/L (96-108); Creatinine Clr Calc Pharmacy 20.8; Estimated Glomerular Filt Rate 21; Glucose Random 75 mg/dL (60-115); Potassium 4.6 mmol/L (3.3-5.1); Sodium 151 mmol/L (135-145)
--- NOTE | 2022-05-22 14:59 | MHC.SL.SWA ---
Speech Pathologist Impression: Oropharyngeal dysphagia, risk of aspiration Risk of Aspiration Due to: Neurological Condition Dysphasia Diet Status: No change at this time, continue NPO Liquid Consistency and Strategies for Safe Swallow: Liquid Intake Recommendation: NPO Solid Food Consistency: Dietary Recommendations: NPO Additional Modifications to Solid Foods: Ice chips ok for comfort with nursing staff Oral Medication Intake: NPO Please contact the pharmacy regarding appropriate crushable or liquid drug formulations that are available whenever modified delivery is recommended. Supervision While Eating and Drinking for Safe Swallow: PO with PAPER AND PULP MILL OPERATOR Swallowing Recommended Treatments: Compens. Strategy Educat. Recommendation for Speech: Inpatient Speech Therapy Spreader Box Operator Clinican/Clinical Fellow: No Supervisory Statement: I have reviewed and agree with the student/clinical fellow's documentation: N/A Speech Language Pathologist: Mitra Spear M.A., CCC-PAPER AND PULP MILL OPERATOR
--- NOTE | 2022-05-22 15:52 | W.PM.IDCN ---
History of Present Illness Data of Consult Service Date: 05/22/22 Requesting physician: Christina Roy Primary Care Provider: Unknown Physician HPI Reason for consult: bacteremia She presents with encephalopathy and weakness,CVA symptoms acutely. She also found to have gram negative bacteremia. She has weakness arms. Review of Systems Review of Systems: Yes Unobtainable due to mental condition [facility] Past Medical History Medical History (Updated 05/21/22 @ 14:02 by FARIBA Dixon) Coronary artery disease COVID-19 CVA (cerebral vascular accident) Diabetes mellitus type 2 in nonobese Glaucoma H/O supraventricular tachycardia History of right MCA stroke Hypertension ICAO (internal carotid artery occlusion) Ischemic cardiomyopathy Status post insertion of drug-eluting stent into left anterior descending (LAD) artery Surgical History Surgical History H/O cardiac catheterization Social History Social History Household Members: Other Housing: Half-Way Do you presently have visiting nurse or other home services: No Unable to assess alcohol history related to: Unknown Patient Tobacco Use Status: Tobacco use Unknown Use of substances other than those prescribed or required for medical reasons: Unknown Currently Displaying Signs/Symptoms of Drug Intoxication Withdrawal: No Advance Directives: Yes Advance Directives Information Provided: No Advance Directives on File: No Advance Directives Date on File: 05/21/22 Recently lost weight without trying: Unsure Nutrition Risks: Difficulty swallowing Patient : No service: No Meds Allergies Allergy/AdvReac Type Severity Reaction Status Date / Time No Known Allergies Allergy Verified 05/20/22 12:06 Active Medications: Current Medications Acetaminophen (Acetaminophen Supp 650 Mg Supp.Rect) 650 mg [place] Q6H PRN PRN Reason: fever, mild pain Aspirin (Aspirin Enteric Coated 81 Mg Tablet.) 81 mg PO DAILY [facility] Last Admin: 05/22/22 12:48 Dose: Not Given Atorvastatin Calcium (Atorvastatin Calcium 80 Mg Tablet) 80 mg PO DAILY [facility] Last Admin: 05/22/22 12:49 Dose: Not Given Bisacodyl (Bisacodyl 10 Mg Supp.Rect) 10 mg [place] DAILY PRN PRN Reason: Constipation Clopidogrel Bisulfate (Clopidogrel Bisulfate 75 Mg Tablet) 75 mg PO DAILY [facility] Last Admin: 05/22/22 12:49 Dose: Not Given Glucose (Glucose Gel 15 Gm Gel..Gram.) 15 gm PO Q15M PRN; Protocol PRN Reason: per Hypoglycemia Standing Ord. Heparin Sodium (Porcine) (Heparin Sodium,Porcine 5,000 Unit/Ml Vial) 5,000 unit SUBCUT Q12H [facility] Last Admin: 05/22/22 05:03 Dose: 5,000 unit Dextrose (D10) 250 mls @ 750 mls/hr IV Q15M PRN; Protocol PRN Reason: per Hypoglycemia Standing Ord. Piperacillin Sod/Tazobactam (Sod 3.375 gm/ Sodium Chloride) 50 mls @ 100 mls/hr IV Q6H [facility] Last Infusion: 05/22/22 13:15 Dose: Infused Dextrose (D5w) 1,000 mls @ 125 mls/hr IVCONT .Q8H [facility] Last Admin: 05/22/22 12:38 Dose: 125 mls/hr Insulin Glargine (Insulin Glargine,Hum.Rec.Anlog 100 Unit/Ml 10 Ml Vial) 14 unit SUBCUT BEDTIME [facility] Last Admin: 05/21/22 23:00 Dose: Not Given Insulin Human Lispro (Insulin Lispro 100 Unit/Ml 3 Ml Vial) 0 unit SUBCUT QIDACHS [facility]; Protocol Last Admin: 05/22/22 12:45 Dose: Not Given Ondansetron HCl (Ondansetron Hcl 4 Mg/2 Ml Vial) 4 mg IVPUSH Q8H PRN PRN Reason: Nausea and Vomiting Pharmacy Consult (Consult Rx Perform Med Rec) 1 each MISCELLANE ONCE PRN PRN Reason: Consult order Sertraline HCl (Sertraline Hcl 25 Mg Tablet) 25 mg PO DAILY [facility] Last Admin: 05/22/22 12:49 Dose: Not Given Sodium Chloride (0.9 % Sodium Chloride Flush 3 Ml Syringe) 3 ml IVFLUSH QSHIFT [facility] Last Admin: 05/22/22 15:08 Dose: Not Given Tizanidine HCl (Tizanidine Hcl 4 Mg Tablet) 2 mg PO BID PRN PRN Reason: MUSCLE SPASMS Last Admin: 05/22/22 06:17 Dose: 2 mg Home Medications Medication Instructions Recorded Confirmed Last Taken Type acetaminophen 500 mg tablet 1,000 mg PO TID 05/20/22 05/20/22 Unknown History (Tylenol Extra Strength) ascorbic acid (vitamin C) 500 mg 500 mg PO DAILY 05/20/22 05/20/22 Unknown History tablet aspirin 81 mg tablet,delayed 81 mg PO DAILY 05/20/22 05/20/22 Unknown History release atorvastatin 80 mg tablet 80 mg PO BEDTIME 05/20/22 05/20/22 Unknown History baclofen 10 mg tablet 10 mg PO TID 05/20/22 05/20/22 Unknown History bisacodyl 10 mg rectal suppository 10 mg [place] DAILY PRN Constipation 05/20/22 05/20/22 Unknown History clopidogrel 75 mg tablet (Plavix) 75 mg PO DAILY 05/20/22 05/20/22 Unknown History dextrose 40 % oral gel (Glucose 20 g PO Q15M PRN FSBS<50 AND ABLE 05/20/22 05/20/22 Unknown History Gel) TO SWALLOW glucagon 1 mg solution for 1 mg subcut Q20M PRN fsbs < 60 and 05/20/22 05/20/22 Unknown History injection unable to swallow hydralazine 10 mg tablet 10 mg PO Q6H PRN Hypertension 05/20/22 05/20/22 Unknown History insulin glargine 100 unit/mL 14 unit subcut BEDTIME 05/20/22 05/20/22 Unknown History subcutaneous solution (Lantus U-100 Insulin) insulin lispro 100 unit/mL 1 sliding scale dose subcut 05/20/22 05/20/22 Unknown History subcutaneous solution (Humalog USEASDIRECTD U-100 Insulin) lisinopril 10 mg tablet 20 mg PO DAILY 05/20/22 05/20/22 Unknown History magnesium hydroxide 400 mg/5 mL 30 ml PO DAILY PRN Constipation 05/20/22 05/20/22 Unknown History oral suspension (Milk of Magnesia) meclizine 12.5 mg tablet 12.5 mg PO Q8H PRN Dizziness 05/20/22 05/20/22 Unknown History metoprolol succinate 25 mg 25 mg PO DAILY 05/20/22 05/20/22 Unknown History tablet,extended release 24 hr multivitamin with minerals 1 tab PO BEDTIME 05/20/22 05/20/22 Unknown History polyethylene glycol 3350 17 gram 17 g PO DAILY 05/20/22 05/20/22 Unknown History oral powder packet (Miralax) sennosides 8.6 mg tablet (senna) 8.6 mg PO DAILY 05/20/22 05/20/22 Unknown History sertraline 25 mg tablet (Zoloft) 25 mg PO DAILY 05/20/22 05/20/22 Unknown History sodium phosphates 19 gram-7 118 ml [place] DAILY PRN Constipation 05/20/22 05/20/22 Unknown History gram/118 mL enema (Fleet Enema) tizanidine 2 mg tablet 2 mg PO Q8H PRN MUSCLE SPASMS 05/20/22 05/20/22 Unknown History zinc sulfate 50 mg zinc (220 mg) 50 mg PO DAILY 05/20/22 05/20/22 Unknown History capsule Physical Exam Vital Signs: Vital Signs: Last Vital Signs Temp 97.6 F 05/22/22 15:26 Pulse 54 05/22/22 15:26 Resp 15 05/22/22 15:26 BP 175/61 H 05/22/22 15:26 Pulse Ox 97 05/22/22 15:26 O2 Del Method Room Air 05/22/22 15:26 BMI result Body Mass Index 21.7 Const: General: cooperative HEENT: Head: Yes normal to inspection Face and sinus: Yes normal facial exam Mouth: Normal oral and palatal mucosa present Teeth and gingiva: dentition normal Eyes: General: appearance normal, both eyes and all related structures Pupils: Equal, round and reactive pupils present Resp: Effort & Inspection: normal respiratory effort Cardio: Rate: regular rate Rhythm: regular rhythm GI: Palpation (GI): Soft to palpation and nontender : General: Yes no CVA tenderness Back/Spine/Pelvis: Back: no CVA tenderness Skin: General skin exam: no rashes or lesions noted Neuro: Other: encephalopathic weakness upper and lower extremities,right more than left General: moves all extremities Cranial nerves: Yes Equal, round and reactive pupils present Extrem: General: Yes normal to inspection Psych: Appearance: grossly normal Results Labs 05/22/22 08:38 05/22/22 12:12 Labs: Short CBC 05/22/22 Range/Units 08:38 WBC 16.7 H (4.8-10.8) X10*3/uL Hgb 9.5 L (12.0-16.0) g/dl Hct 29.2 L (37.0-47.0) % Plt Count 259 (160-400) X10*3/uL BMP 05/22/22 05/22/22 08:38 12:12 Sodium 151 H 151 H Potassium 4.5 4.6 Chloride 120 H 119 H Carbon Dioxide 14 L 19 L BUN 82 H 83 H Creatinine 2.17 H 2.34 H Calcium 8.5 8.4 Microbiology Microbiology Results: Microbiology 05/21/22 Unknown Urine clean catch - Urine peters top Urine Culture - Preliminary Gram negative aden 05/21/22 01:49 Blood - Venous Blood Culture - Preliminary Gram negative aden 05/21/22 01:49 Blood - Venous Blood Culture - Preliminary Gram negative aden 05/20/22 13:23 Blood - Venous Blood Culture - Final Escherichia coli 05/20/22 13:04 Blood - Venous Blood Culture - Final Escherichia coli Assessment and Plan (1) Bacteremia: Status: Acute Gram negative rods concern over bacteremia from urinary infection There is some pyuria (2) Altered mental status: Status: Acute (3) CVA (cerebral vascular accident): Status: Acute Plan Check CT abdomen and pelvis look for urinary obstruction. Continue Ceftriaxone Await final cultures urine and blood,possibly po switch if patient able to take po. Time Spent With Patient Time: Total time managing care of this patient today ____ minutes.
--- NOTE | 2022-05-22 16:13 | MHC.CM.PN ---
EMR REVIEWED AND PER MD ROUNDS, PT NOT MEDICALLY CLEARED FOR DC BACK TO SNF, MOLST OBTAINED FROM SNF. UNABLE TO REACH HCP, MULTIPLE MESSAGES LEFT. PT HAS FAILED SWALLOW EVAL. CM WILL CONTINUE TO FOLLOW.
[2022-05-22 16:31] LABS: Glucose, Whole Blood 123 mg/dL (60-115)
[2022-05-22 19:11] LABS: Anion Gap 19 (12-20); Blood Urea Nitrogen 79 mg/dL (9-16); Carbon Dioxide 16 mmol/L (22-29); Chloride 117 mmol/L (96-108); Creatinine Clr Calc Pharmacy 20.7; Estimated Glomerular Filt Rate 21; Glucose Random 152 mg/dL (60-115); Potassium 4.4 mmol/L (3.3-5.1); Sodium 148 mmol/L (135-145)
[2022-05-22 20:54] LABS: Glucose, Whole Blood 144 mg/dL (60-115)
[2022-05-23 04:00] VITALS: BP 190/80; PULSE 76; RESP 16; TEMP 36.3; O2SAT 96
[2022-05-23] MEDS: Dextrose 5 % 1,000 ML 125 ML IVCONT ×3 (05:13→20:45)
[2022-05-23] MEDS: Piperacillin Sodium/Tazobactam 3.375 GM in 0.9 % Sodium Chloride 50 ML IV ×2 (05:43→08:37)
[2022-05-23] MEDS: Heparin Sodium,Porcine 5,000 UNIT/ML VIAL 5000 UNIT SUBCUT ×2 (05:43→16:57)
[2022-05-23] MEDS: hydrALAZINE HCl 20 MG/ML VIAL 5 MG IVPUSH (05:45)
[2022-05-23 07:18] VITALS: BP 141/88; PULSE 68; RESP 16; TEMP 36.6; O2SAT 98
[2022-05-23 07:25] LABS: Glucose, Whole Blood 248 mg/dL (60-115)
[2022-05-23 08:19] LABS: Hematocrit 31.8 % (37.0-47.0); Hemoglobin 10.5 g/dl (12.0-16.0); Mean Corpuscular Hemoglobin 29.2 pg (27.0-33.0); Mean Corpuscular Volume 88.3 fL (80.0-98.0); Mean Platelet Volume 10.3 fL (9.4-12.3); Platelet Count 262 X10*3/uL (160-400); Red Cell Distribution Width 16.3 % (11.0-16.0); White Blood Count 15.6 X10*3/uL (4.8-10.8)
[2022-05-23] MEDS: Atorvastatin Calcium 80 MG TABLET PO (08:31)
[2022-05-23] MEDS: Sertraline HCL 25 MG TABLET PO (08:31)
[2022-05-23] MEDS: Aspirin Enteric Coated 81 MG TABLET.DR PO (08:31)
[2022-05-23] MEDS: Insulin Lispro 100 UNIT/ML 3 ML VIAL SUBCUT ×4 (08:31→21:01)
[2022-05-23] MEDS: Clopidogrel Bisulfate 75 MG TABLET PO (08:32)
[2022-05-23] MEDS: 0.9 % Sodium Chloride Flush 3 ML SYRINGE IVFLUSH ×3 (08:32→20:45)
[2022-05-23 08:42] LABS: Anion Gap 17 (12-20); Blood Urea Nitrogen 72 mg/dL (9-16); Calcium 8.4 mg/dL (8.4-10.2); Carbon Dioxide 18 mmol/L (22-29); Chloride 113 mmol/L (96-108); Creatinine Clr Calc Pharmacy 21.1; Estimated Glomerular Filt Rate 21; Glucose Random 268 mg/dL (60-115); Potassium 4.2 mmol/L (3.3-5.1); Sodium 144 mmol/L (135-145)
[2022-05-23 11:05] LABS: Glucose, Whole Blood 163 mg/dL (60-115)
[2022-05-23 11:13] VITALS: BP 147/70; PULSE 63; RESP 16; TEMP 36.4; O2SAT 98
--- NOTE | 2022-05-23 11:16 | P.CNUR_ITS ---
History of Present Illness Consult details Consult date: 05/23/22 Narrative: 61-year-old woman presenting from [facility] with right sided weakness and aphasia. Patient has a history of? mulltifocal infarcts in the right insula, right basal ganglia, right centrum semioval with history of chronic right ICA occlusion admitted to [facility] in March 2022.? At that time she was also found to have coronary blockages and had drug eluded stent placed to the LAD.? She was found to be diabetic, hypertensive with CAD and PVD while at [facility] in March of 2022.? Prior to that admission she was living independently with her daughter. In the ER, her vital signs were noted to be stable, Patient was admitted for further management and treatment of acute stroke. Urology called due to CT findings 05/22/22--B/L hydroureter secondary to cystitis, the patient has been seen by ID and is on IV abx. lab work elevated BUN/creat. on IV fluid hydration, Plan to monitor conservatively, consider bilateral stents next week if renal function not improving. Review of Systems Review of Systems: ROS negative other than stated in HPI [facility] Past Medical History Medical History Coronary artery disease COVID-19 CVA (cerebral vascular accident) Diabetes mellitus type 2 in nonobese Glaucoma H/O supraventricular tachycardia History of right MCA stroke Hypertension ICAO (internal carotid artery occlusion) Ischemic cardiomyopathy Status post insertion of drug-eluting stent into left anterior descending (LAD) artery Surgical History Surgical History H/O cardiac catheterization Social History Social History Household Members: Other Housing: Retirement Do you presently have visiting nurse or other home services: No Unable to assess alcohol history related to: Unknown Patient Tobacco Use Status: Tobacco use Unknown Use of substances other than those prescribed or required for medical reasons: Unknown Currently Displaying Signs/Symptoms of Drug Intoxication Withdrawal: No Advance Directives: Yes Advance Directives Information Provided: No Advance Directives on File: No Advance Directives Date on File: 05/21/22 Recently lost weight without trying: Unsure Nutrition Risks: Difficulty swallowing Patient : No service: No Meds Allergies Allergy/AdvReac Type Severity Reaction Status Date / Time No Known Allergies Allergy Verified 05/20/22 12:06 Active Medications: Current Medications Acetaminophen (Acetaminophen Supp 650 Mg Supp.Rect) 650 mg MA Q6H PRN PRN Reason: fever, mild pain Aspirin (Aspirin Enteric Coated 81 Mg Tablet.Dr) 81 mg PO DAILY [facility] Last Admin: 05/23/22 08:31 Dose: 81 mg Atorvastatin Calcium (Atorvastatin Calcium 80 Mg Tablet) 80 mg PO DAILY [facility] Last Admin: 05/23/22 08:31 Dose: 80 mg Bisacodyl (Bisacodyl 10 Mg Supp.Rect) 10 mg MA DAILY PRN PRN Reason: Constipation Clopidogrel Bisulfate (Clopidogrel Bisulfate 75 Mg Tablet) 75 mg PO DAILY [facility] Last Admin: 05/23/22 08:32 Dose: 75 mg Glucose (Glucose Gel 15 Gm Gel..Gram.) 15 gm PO Q15M PRN; Protocol PRN Reason: per Hypoglycemia Standing Ord. Heparin Sodium (Porcine) (Heparin Sodium,Porcine 5,000 Unit/Ml Vial) 5,000 unit SUBCUT Q12H [facility] Last Admin: 05/23/22 05:43 Dose: 5,000 unit Dextrose (D10) 250 mls @ 750 mls/hr IV Q15M PRN; Protocol PRN Reason: per Hypoglycemia Standing Ord. Piperacillin Sod/Tazobactam (Sod 3.375 gm/ Sodium Chloride) 50 mls @ 100 mls/hr IV Q6H [facility] Last Infusion: 05/23/22 09:15 Dose: Infused Dextrose (D5w) 1,000 mls @ 125 mls/hr IVCONT .Q8H [facility] Last Admin: 05/23/22 05:13 Dose: 125 mls/hr Insulin Glargine (Insulin Glargine,Hum.Rec.Anlog 100 Unit/Ml 10 Ml Vial) 14 unit SUBCUT BEDTIME [facility] Last Admin: 05/21/22 23:00 Dose: Not Given Insulin Human Lispro (Insulin Lispro 100 Unit/Ml 3 Ml Vial) 0 unit SUBCUT QIDACHS [facility]; Protocol Last Admin: 05/23/22 08:31 Dose: 4 unit Ondansetron HCl (Ondansetron Hcl 4 Mg/2 Ml Vial) 4 mg IVPUSH Q8H PRN PRN Reason: Nausea and Vomiting Pharmacy Consult (Consult Rx Perform Med Rec) 1 each MISCELLANE ONCE PRN PRN Reason: Consult order Sertraline HCl (Sertraline Hcl 25 Mg Tablet) 25 mg PO DAILY [facility] Last Admin: 05/23/22 08:31 Dose: 25 mg Sodium Chloride (0.9 % Sodium Chloride Flush 3 Ml Syringe) 3 ml IVFLUSH QSHIFT [facility] Last Admin: 05/23/22 08:32 Dose: 3 ml Tizanidine HCl (Tizanidine Hcl 4 Mg Tablet) 2 mg PO BID PRN PRN Reason: MUSCLE SPASMS Last Admin: 05/22/22 06:17 Dose: 2 mg Home Medications Medication Instructions Recorded Confirmed Last Taken Type acetaminophen 500 mg tablet 1,000 mg PO TID 05/20/22 05/20/22 Unknown History (Tylenol Extra Strength) ascorbic acid (vitamin C) 500 mg 500 mg PO DAILY 05/20/22 05/20/22 Unknown History tablet aspirin 81 mg tablet,delayed 81 mg PO DAILY 05/20/22 05/20/22 Unknown History release atorvastatin 80 mg tablet 80 mg PO BEDTIME 05/20/22 05/20/22 Unknown History baclofen 10 mg tablet 10 mg PO TID 05/20/22 05/20/22 Unknown History bisacodyl 10 mg rectal suppository 10 mg MA DAILY PRN Constipation 05/20/22 05/20/22 Unknown History clopidogrel 75 mg tablet (Plavix) 75 mg PO DAILY 05/20/22 05/20/22 Unknown History dextrose 40 % oral gel (Glucose 20 g PO Q15M PRN FSBS<50 AND ABLE 05/20/22 05/20/22 Unknown History Gel) TO SWALLOW glucagon 1 mg solution for 1 mg subcut Q20M PRN fsbs < 60 and 05/20/22 05/20/22 Unknown History injection unable to swallow hydralazine 10 mg tablet 10 mg PO Q6H PRN Hypertension 05/20/22 05/20/22 Unknown History insulin glargine 100 unit/mL 14 unit subcut BEDTIME 05/20/22 05/20/22 Unknown History subcutaneous solution (Lantus U-100 Insulin) insulin lispro 100 unit/mL 1 sliding scale dose subcut 05/20/22 05/20/22 Unknown History subcutaneous solution (Humalog USEASDIRECTD U-100 Insulin) lisinopril 10 mg tablet 20 mg PO DAILY 05/20/22 05/20/22 Unknown History magnesium hydroxide 400 mg/5 mL 30 ml PO DAILY PRN Constipation 05/20/22 05/20/22 Unknown History oral suspension (Milk of Magnesia) meclizine 12.5 mg tablet 12.5 mg PO Q8H PRN Dizziness 05/20/22 05/20/22 Unknown History metoprolol succinate 25 mg 25 mg PO DAILY 05/20/22 05/20/22 Unknown History tablet,extended release 24 hr multivitamin with minerals 1 tab PO BEDTIME 05/20/22 05/20/22 Unknown History polyethylene glycol 3350 17 gram 17 g PO DAILY 05/20/22 05/20/22 Unknown History oral powder packet (Miralax) sennosides 8.6 mg tablet (senna) 8.6 mg PO DAILY 05/20/22 05/20/22 Unknown History sertraline 25 mg tablet (Zoloft) 25 mg PO DAILY 05/20/22 05/20/22 Unknown History sodium phosphates 19 gram-7 118 ml MA DAILY PRN Constipation 05/20/22 05/20/22 Unknown History gram/118 mL enema (Fleet Enema) tizanidine 2 mg tablet 2 mg PO Q8H PRN MUSCLE SPASMS 05/20/22 05/20/22 Unknown History zinc sulfate 50 mg zinc (220 mg) 50 mg PO DAILY 05/20/22 05/20/22 Unknown History capsule Physical Exam Vital Signs: Vital Signs: Last Vital Signs Temp 97.8 F 05/23/22 07:18 Pulse 68 05/23/22 07:18 Resp 16 05/23/22 07:18 BP 141/88 H 05/23/22 07:18 Pulse Ox 98 05/23/22 07:18 O2 Del Method Room Air 05/23/22 07:18 BMI result Body Mass Index 21.7 Const: General: cooperative and no acute distress Orientation/consciousness: patient oriented x3 HEENT: Head: Yes normal to inspection, Yes normocephalic and Yes atraumatic Eyes: Conjunctivae: conjunctivae normal Neck: Neck: Yes normal visual inspection and Yes trachea midline Chest: Chest palpation & inspection: normal inspection of the chest Resp: Effort & Inspection: normal respiratory effort Cardio: Rate: regular rate GI: Inspection: Yes normal to inspection Palpation (GI): Soft to palpation : Other: bennett in place - yellow urine draining Neuro: General: patient oriented x3 Extrem: General: No edema Psych: Appearance: grossly normal Results Labs 05/23/22 07:17 05/23/22 07:17 Labs: Abnormal lab results 05/22/22 05/22/22 05/22/22 Range/Units 12:12 16:23 18:36 WBC (4.8-10.8) X10*3/uL RBC (4.20-5.50) X10*6/uL Hgb (12.0-16.0) g/dl Hct (37.0-47.0) % RDW (11.0-16.0) % Sodium 151 H 148 H (135-145) mmol/L Chloride 119 H 117 H (96-108) mmol/L Carbon Dioxide 19 L 16 L (22-29) mmol/L BUN 83 H 79 H (9-16) mg/dL Creatinine 2.34 H 2.35 H (0.5-1.4) mg/dL POC Glucose 123 H (60-115) mg/dL Random Glucose 152 H (60-115) mg/dL 05/22/22 05/23/22 05/23/22 Range/Units 20:49 07:17 07:17 WBC 15.6 H (4.8-10.8) X10*3/uL RBC 3.60 L (4.20-5.50) X10*6/uL Hgb 10.5 L (12.0-16.0) g/dl Hct 31.8 L (37.0-47.0) % RDW 16.3 H (11.0-16.0) % Sodium (135-145) mmol/L Chloride 113 H (96-108) mmol/L Carbon Dioxide 18 L (22-29) mmol/L BUN 72 H (9-16) mg/dL Creatinine 2.31 H (0.5-1.4) mg/dL POC Glucose 144 H (60-115) mg/dL Random Glucose 268 H (60-115) mg/dL 05/23/22 05/23/22 Range/Units 07:17 11:00 WBC (4.8-10.8) X10*3/uL RBC (4.20-5.50) X10*6/uL Hgb (12.0-16.0) g/dl Hct (37.0-47.0) % RDW (11.0-16.0) % Sodium (135-145) mmol/L Chloride (96-108) mmol/L Carbon Dioxide (22-29) mmol/L BUN (9-16) mg/dL Creatinine (0.5-1.4) mg/dL POC Glucose 248 H 163 H (60-115) mg/dL Random Glucose (60-115) mg/dL Short CBC 05/23/22 Range/Units 07:17 WBC 15.6 H (4.8-10.8) X10*3/uL Hgb 10.5 L (12.0-16.0) g/dl Hct 31.8 L (37.0-47.0) % Plt Count 262 (160-400) X10*3/uL BMP 05/22/22 05/22/22 05/23/22 12:12 18:36 07:17 Sodium 151 H 148 H 144 Potassium 4.6 4.4 4.2 Chloride 119 H 117 H 113 H Carbon Dioxide 19 L 16 L 18 L BUN 83 H 79 H 72 H Creatinine 2.34 H 2.35 H 2.31 H Calcium 8.4 9.0 D 8.4 D Urine 05/21/22 Range/Units 02:02 Urine Color Yellow Urine Appearance Turbid Urine pH 6.0 (5.0-9.0) Ur Specific [place] >= 1.030 H (1.005-1.025) Urine Protein 100 (2+) H (Neg-Trace) mg/dL Urine Glucose (UA) Negative (Negative) mg/dL Date of Service: 05/22/22 EXAMINATION: CT ABDOMEN AND PELVIS WITHOUT CONTRAST? CLINICAL INFORMATION: Urinary tract infection. Bacteremia. Hydronephrosis.? COMPARISON: Radiographs of abdomen from 05/21/2022 TECHNIQUE: Multidetector volumetric imaging was performed from the superior aspect of the liver through the pubic symphysis. Sagittal and coronal reformatted images were obtained on the technologist's workstation. No intravenous contrast was given for this examination. There is residual contrast enhancement of kidneys and contrast within urinary tracts from the IV contrast administered on 05/20/2022. This CT examination was performed using dose optimization techniques as appropriate, variously including the following: *Automated exposure control *Adjustment of mA and/or kV according to patient size (this includes techniques or standardized protocols for targeted exams where dose is matched to indication/reason for exam; i.e. extremities or head) *Use of iterative reconstruction technique DLP: 596 mGy-cm FINDINGS: LUNG BASES: Unremarkable. LIVER: The liver has normal size, shape, and attenuation.? No evidence of liver mass or abscess. GALLBLADDER AND BILIARY TREE: Gallbladder is absent. The common duct is dilated up to approximately 1.4 cm transverse diameter. There are no stones identified within the dilated duct. The chronicity of the ductal dilatation is uncertain since there are no comparison abdominal imaging exams. PANCREAS: Diffusely atrophied.? SPLEEN: Normal.? ADRENAL GLANDS: Normal.? KIDNEYS AND URETERS: There are prolonged and patchy bilateral nephrograms. There are many potential causes of persistent nephrograms, including glomerulonephritis, ischemia from sepsis or dehydration, or acute tubular necrosis. Findings include hypoenhancement at the lower pole of the left kidney and patchy cortical enhancement of the right kidney. Nonspecific mild right-sided perinephric edema is present. No renal or perinephric abscess. The evaluation for renal stones is limited due to presence of excreted contrast within collecting systems. There are likely a few small calyceal stones of the right kidney. Moderate bilateral hydronephrosis and bilateral hydroureter. No obstructing stones in either ureter. Indeterminate 1.2 cm focus at the medial lower pole of the right kidney has a density of 55 Hounsfield units. It is uncertain whether this represents a proteinaceous cyst or solid mass. BLADDER:? The urinary bladder is decompressed by a Bennett catheter. There is mild diffuse thickening of the bladder wall without focal mass. Small calcifications layer along the posterior bladder wall. BOWEL AND PERITONEUM: Stomach is underdistended. No dilated loops of bowel. The appendix is normal. No evidence of acute inflammatory change or obstruction along the gastrointestinal tract. No abdominal free fluid or free air. ABDOMINAL WALL: Unremarkable.? VASCULATURE: Atherosclerotic calcification of the abdominal aorta and iliac arteries without aneurysm. No retroperitoneal hematoma. LYMPH NODES: No pathologic sized lymph nodes in the abdomen or pelvis. No inguinal lymphadenopathy. PELVIC VISCERA: The uterus and adnexa are unremarkable. MUSCULOSKELETAL: No acute findings within the degenerated spine. No suspicious bone lesions.? IMPRESSION: *? Urinary bladder wall is mildly thickened in this patient with history of bacteremia and urinary tract infection. The bladder wall thickening could be a manifestation of cystitis. Small calcified stones are present within the bladder. *? Bilateral hydroureter and moderate hydronephrosis. The ureters are dilated to the level of the ureterovesical junctions. No evidence of any obstructing ureteral stones or obstructing masses. Consider possibility of inflammatory stenosis of the ureterovesical junctions or bladder outlet obstruction. *? There are persistent and patchy bilateral nephrograms. There are variety of causes of prolonged nephrograms, including glomerulonephritis, ischemia and/or acute tubular necrosis. The patchy nephrograms seen in this patient do raise suspicion for ischemic changes or nephritis/pyelonephritis. No renal abscess. *? There is an indeterminate 1.2 cm exophytic lesion of the medial lower pole of the right kidney. *? Common bile duct is dilated to 1.4 cm diameter. This might be a chronic abnormality, status post cholecystectomy. ? Assessment and Plan (1) Cystitis: Status: Acute (2) Bilateral hydronephrosis: Status: Acute (3) Hydroureter: Status: Acute (4) Renal failure (ARF), acute on chronic: Status: Acute Plan B/L hydroureter secondary to cystitis, the patient seen by ID and is on IV abx. on IV fluid hydration, Plan to monitor conservatively, consider bilateral stents next week if renal function not improving. Time Spent With Patient Time: Total time managing care of this patient today ____ minutes. Procedures Date of Service Date of Service: 05/23/22
--- NOTE | 2022-05-23 11:23 | P.CONGS_ITS ---
History of Present Illness Consult details Consult date: 05/23/22 Narrative: Chart was reviewed and patient evaluated. Unfortunate patient who has inability to swallow and aspiration risk. Consult is for G-tube placement. [facility] Past Medical History Medical History (Updated 05/23/22 @ 11:25 by Edi Dyson MD) Coronary artery disease COVID-19 CVA (cerebral vascular accident) Diabetes mellitus type 2 in nonobese Glaucoma H/O supraventricular tachycardia History of right MCA stroke Hypertension ICAO (internal carotid artery occlusion) Ischemic cardiomyopathy Status post insertion of drug-eluting stent into left anterior descending (LAD) artery Surgical History Surgical History H/O cardiac catheterization Social History Social History Household Members: Other Housing: Senior Care Do you presently have visiting nurse or other home services: No Unable to assess alcohol history related to: Unknown Patient Tobacco Use Status: Tobacco use Unknown Use of substances other than those prescribed or required for medical reasons: Unknown Currently Displaying Signs/Symptoms of Drug Intoxication Withdrawal: No Advance Directives: Yes Advance Directives Information Provided: No Advance Directives on File: No Advance Directives Date on File: 05/21/22 Recently lost weight without trying: Unsure Nutrition Risks: Difficulty swallowing Patient : No service: No Meds Allergies Allergy/AdvReac Type Severity Reaction Status Date / Time No Known Allergies Allergy Verified 05/20/22 12:06 Active Medications: Current Medications Acetaminophen (Acetaminophen Supp 650 Mg Supp.Rect) 650 mg IA Q6H PRN PRN Reason: fever, mild pain Aspirin (Aspirin Enteric Coated 81 Mg Tablet.) 81 mg PO DAILY [facility] Last Admin: 05/23/22 08:31 Dose: 81 mg Atorvastatin Calcium (Atorvastatin Calcium 80 Mg Tablet) 80 mg PO DAILY [facility] Last Admin: 05/23/22 08:31 Dose: 80 mg Bisacodyl (Bisacodyl 10 Mg Supp.Rect) 10 mg IA DAILY PRN PRN Reason: Constipation Clopidogrel Bisulfate (Clopidogrel Bisulfate 75 Mg Tablet) 75 mg PO DAILY [facility] Last Admin: 05/23/22 08:32 Dose: 75 mg Glucose (Glucose Gel 15 Gm Gel..Gram.) 15 gm PO Q15M PRN; Protocol PRN Reason: per Hypoglycemia Standing Ord. Heparin Sodium (Porcine) (Heparin Sodium,Porcine 5,000 Unit/Ml Vial) 5,000 unit SUBCUT Q12H [facility] Last Admin: 05/23/22 05:43 Dose: 5,000 unit Dextrose (D10) 250 mls @ 750 mls/hr IV Q15M PRN; Protocol PRN Reason: per Hypoglycemia Standing Ord. Piperacillin Sod/Tazobactam (Sod 3.375 gm/ Sodium Chloride) 50 mls @ 100 mls/hr IV Q6H [facility] Last Infusion: 05/23/22 09:15 Dose: Infused Dextrose (D5w) 1,000 mls @ 125 mls/hr IVCONT .Q8H [facility] Last Admin: 05/23/22 05:13 Dose: 125 mls/hr Insulin Glargine (Insulin Glargine,Hum.Rec.Anlog 100 Unit/Ml 10 Ml Vial) 14 unit SUBCUT BEDTIME [facility] Last Admin: 05/21/22 23:00 Dose: Not Given Insulin Human Lispro (Insulin Lispro 100 Unit/Ml 3 Ml Vial) 0 unit SUBCUT QIDACHS [facility]; Protocol Last Admin: 05/23/22 08:31 Dose: 4 unit Ondansetron HCl (Ondansetron Hcl 4 Mg/2 Ml Vial) 4 mg IVPUSH Q8H PRN PRN Reason: Nausea and Vomiting Pharmacy Consult (Consult Rx Perform Med Rec) 1 each MISCELLANE ONCE PRN PRN Reason: Consult order Sertraline HCl (Sertraline Hcl 25 Mg Tablet) 25 mg PO DAILY [facility] Last Admin: 05/23/22 08:31 Dose: 25 mg Sodium Chloride (0.9 % Sodium Chloride Flush 3 Ml Syringe) 3 ml IVFLUSH QSHIFT [facility] Last Admin: 05/23/22 08:32 Dose: 3 ml Tizanidine HCl (Tizanidine Hcl 4 Mg Tablet) 2 mg PO BID PRN PRN Reason: MUSCLE SPASMS Last Admin: 05/22/22 06:17 Dose: 2 mg Home Medications Medication Instructions Recorded Confirmed Last Taken Type acetaminophen 500 mg tablet 1,000 mg PO TID 05/20/22 05/20/22 Unknown History (Tylenol Extra Strength) ascorbic acid (vitamin C) 500 mg 500 mg PO DAILY 05/20/22 05/20/22 Unknown History tablet aspirin 81 mg tablet,delayed 81 mg PO DAILY 05/20/22 05/20/22 Unknown History release atorvastatin 80 mg tablet 80 mg PO BEDTIME 05/20/22 05/20/22 Unknown History baclofen 10 mg tablet 10 mg PO TID 05/20/22 05/20/22 Unknown History bisacodyl 10 mg rectal suppository 10 mg IA DAILY PRN Constipation 05/20/22 05/20/22 Unknown History clopidogrel 75 mg tablet (Plavix) 75 mg PO DAILY 05/20/22 05/20/22 Unknown Hist ory dextrose 40 % oral gel (Glucose 20 g PO Q15M PRN FSBS<50 AND ABLE 05/20/22 05/20/22 Unknown History Gel) TO SWALLOW glucagon 1 mg solution for 1 mg subcut Q20M PRN fsbs < 60 and 05/20/22 05/20/22 Unknown History injection unable to swallow hydralazine 10 mg tablet 10 mg PO Q6H PRN Hypertension 05/20/22 05/20/22 Unknown History insulin glargine 100 unit/mL 14 unit subcut BEDTIME 05/20/22 05/20/22 Unknown History subcutaneous solution (Lantus U-100 Insulin) insulin lispro 100 unit/mL 1 sliding scale dose subcut 05/20/22 05/20/22 Unknown History subcutaneous solution (Humalog USEASDIRECTD U-100 Insulin) lisinopril 10 mg tablet 20 mg PO DAILY 05/20/22 05/20/22 Unknown History magnesium hydroxide 400 mg/5 mL 30 ml PO DAILY PRN Constipation 05/20/22 05/20/22 Unknown History oral suspension (Milk of Magnesia) meclizine 12.5 mg tablet 12.5 mg PO Q8H PRN Dizziness 05/20/22 05/20/22 Unknown History metoprolol succinate 25 mg 25 mg PO DAILY 05/20/22 05/20/22 Unknown History tablet,extended release 24 hr multivitamin with minerals 1 tab PO BEDTIME 05/20/22 05/20/22 Unknown History polyethylene glycol 3350 17 gram 17 g PO DAILY 05/20/22 05/20/22 Unknown History oral powder packet (Miralax) sennosides 8.6 mg tablet (senna) 8.6 mg PO DAILY 05/20/22 05/20/22 Unknown History sertraline 25 mg tablet (Zoloft) 25 mg PO DAILY 05/20/22 05/20/22 Unknown History sodium phosphates 19 gram-7 118 ml IA DAILY PRN Constipation 05/20/22 05/20/22 Unknown History gram/118 mL enema (Fleet Enema) tizanidine 2 mg tablet 2 mg PO Q8H PRN MUSCLE SPASMS 05/20/22 05/20/22 Unknown History zinc sulfate 50 mg zinc (220 mg) 50 mg PO DAILY 05/20/22 05/20/22 Unknown History capsule Physical Exam Vital Signs: Vital Signs: Last Vital Signs Temp 97.5 F 05/23/22 11:13 Pulse 63 05/23/22 11:13 Resp 16 05/23/22 11:13 BP 147/70 H 05/23/22 11:13 Pulse Ox 98 05/23/22 11:13 O2 Del Method Room Air 05/23/22 11:13 BMI result Body Mass Index 21.7 GI: Other: Abdomen soft. Right subcostal scar from prior gallbladder surgery. Abdomen otherwise benign. Results Labs 05/23/22 07:17 05/23/22 07:17 Labs: Abnormal lab results 05/22/22 05/22/22 05/22/22 Range/Units 12:12 16:23 18:36 WBC (4.8-10.8) X10*3/uL RBC (4.20-5.50) X10*6/uL Hgb (12.0-16.0) g/dl Hct (37.0-47.0) % RDW (11.0-16.0) % Sodium 151 H 148 H (135-145) mmol/L Chloride 119 H 117 H (96-108) mmol/L Carbon Dioxide 19 L 16 L (22-29) mmol/L BUN 83 H 79 H (9-16) mg/dL Creatinine 2.34 H 2.35 H (0.5-1.4) mg/dL POC Glucose 123 H (60-115) mg/dL Random Glucose 152 H (60-115) mg/dL 05/22/22 05/23/22 05/23/22 Range/Units 20:49 07:17 07:17 WBC 15.6 H (4.8-10.8) X10*3/uL RBC 3.60 L (4.20-5.50) X10*6/uL Hgb 10.5 L (12.0-16.0) g/dl Hct 31.8 L (37.0-47.0) % RDW 16.3 H (11.0-16.0) % Sodium (135-145) mmol/L Chloride 113 H (96-108) mmol/L Carbon Dioxide 18 L (22-29) mmol/L BUN 72 H (9-16) mg/dL Creatinine 2.31 H (0.5-1.4) mg/dL POC Glucose 144 H (60-115) mg/dL Random Glucose 268 H (60-115) mg/dL 05/23/22 05/23/22 Range/Units 07:17 11:00 WBC (4.8-10.8) X10*3/uL RBC (4.20-5.50) X10*6/uL Hgb (12.0-16.0) g/dl Hct (37.0-47.0) % RDW (11.0-16.0) % Sodium (135-145) mmol/L Chloride (96-108) mmol/L Carbon Dioxide (22-29) mmol/L BUN (9-16) mg/dL Creatinine (0.5-1.4) mg/dL POC Glucose 248 H 163 H (60-115) mg/dL Random Glucose (60-115) mg/dL Short CBC 05/23/22 Range/Units 07:17 WBC 15.6 H (4.8-10.8) X10*3/uL Hgb 10.5 L (12.0-16.0) g/dl Hct 31.8 L (37.0-47.0) % Plt Count 262 (160-400) X10*3/uL BMP 05/22/22 05/22/22 05/23/22 12:12 18:36 07:17 Sodium 151 H 148 H 144 Potassium 4.6 4.4 4.2 Chloride 119 H 117 H 113 H Carbon Dioxide 19 L 16 L 18 L BUN 83 H 79 H 72 H Creatinine 2.34 H 2.35 H 2.31 H Calcium 8.4 9.0 D 8.4 D Urine 05/21/22 Range/Units 02:02 Urine Color Yellow Urine Appearance Turbid Urine pH 6.0 (5.0-9.0) Ur Specific [place] >= 1.030 H (1.005-1.025) Urine Protein 100 (2+) H (Neg-Trace) mg/dL Urine Glucose (UA) Negative (Negative) mg/dL All other labs normal. Assessment and Plan (1) CVA (cerebral vascular accident): Status: Acute Plan Plan is to arrange for G-tube placement early next week. Details of procedure were briefly discussed with patient and will will do so in more detail as operative day is finalized. To hold Plavix in meantime if possible Time Spent With Patient Time: Total time managing care of this patient today ____ minutes. Procedures Date of Service Date of Service: 05/23/22
[2022-05-23] MEDS: amLODIPine Besylate 2.5 MG TABLET PO (12:09)
--- NOTE | 2022-05-23 12:44 | P.PNIM_ITS ---
Subjective Subjective Date of Service: 05/23/22 Interval History: seen and examined this morning follow up for stroke, DIONISIO BP high overnight, got a dose of IV hydralazine no specific complaints this am Review of Systems Review of Systems: Yes all other systems are reviewed and are negative Constitutional Constitutional: Denies chills and Denies fever(s) Cardiovascular Cardiovascular: Denies chest pain Gastrointestinal Gastrointestinal: Denies abdominal pain Physical Exam Vital Signs: Vital Signs: Last Vital Signs Temp 97.5 F 05/23/22 11:13 Pulse 63 05/23/22 11:13 Resp 16 05/23/22 11:13 BP 147/70 H 05/23/22 11:13 Pulse Ox 98 05/23/22 11:13 O2 Del Method Room Air 05/23/22 11:13 BMI result Body Mass Index 21.7 Const: General: awake Nutritional Appearance: average body habitus Resp: Effort & Inspection: normal respiratory effort, able to speak in com plete sentences and no respiratory distress Cardio: Rate: regular rate Heart sounds: S1 normal heart sound present and S2 normal heart sound present GI: Inspection: No distended Palpation (GI): Soft to palpation and nontender Neuro: Other: left upper/lower extremity weakness; mild left facial droop. able to follow most commands. able to move right upper and lower extremities Objective Data Active Medications Acetaminophen (Acetaminophen Supp 650 Mg Supp.Rect) 650 mg AK Q6H PRN PRN Reason: fever, mild pain Amlodipine Besylate (Amlodipine Besylate 2.5 Mg Tablet) 2.5 mg PO DAILY [facility]; Protocol Last Admin: 05/23/22 12:09 Dose: 2.5 mg Documented By: BERNABE Aspirin (Aspirin Enteric Coated 81 Mg Tablet.Dr) 81 mg PO DAILY [facility] Last Admin: 05/23/22 08:31 Dose: 81 mg Documented By: BERNABE Atorvastatin Calcium (Atorvastatin Calcium 80 Mg Tablet) 80 mg PO DAILY [facility] Last Admin: 05/23/22 08:31 Dose: 80 mg Documented By: BERNABE Bisacodyl (Bisacodyl 10 Mg Supp.Rect) 10 mg AK DAILY PRN PRN Reason: Constipation Clopidogrel Bisulfate (Clopidogrel Bisulfate 75 Mg Tablet) 75 mg PO DAILY [facility] Last Admin: 05/23/22 08:32 Dose: 75 mg Documented By: BERNABE Glucose (Glucose Gel 15 Gm Gel..Gram.) 15 gm PO Q15M PRN; Protocol PRN Reason: per Hypoglycemia Standing Ord. Heparin Sodium (Porcine) (Heparin Sodium,Porcine 5,000 Unit/Ml Vial) 5,000 unit SUBCUT Q12H [facility] Last Admin: 05/23/22 05:43 Dose: 5,000 unit Documented By: MOSHE Dextrose (D10) 250 mls @ 750 mls/hr IV Q15M PRN; Protocol PRN Reason: per Hypoglycemia Standing Ord. Piperacillin Sod/Tazobactam (Sod 3.375 gm/ Sodium Chloride) 50 mls @ 100 mls/hr IV Q6H [facility] Last Infusion: 05/23/22 09:15 Dose: 0 mls/hr Documented By: BERNABE Dextrose (D5w) 1,000 mls @ 125 mls/hr IVCONT .Q8H [facility] Last Admin: 05/23/22 12:09 Dose: 125 mls/hr Documented By: BERNABE Insulin Glargine (Insulin Glargine,Hum.Rec.Anlog 100 Unit/Ml 10 Ml Vial) 14 unit SUBCUT BEDTIME [facility] Last Admin: 05/21/22 23:00 Dose: Not Given Documented By: MOSHE Non-Admin Reason: Physician Held Med Insulin Human Lispro (Insulin Lispro 100 Unit/Ml 3 Ml Vial) 0 unit SUBCUT QIDACHS [facility]; Protocol Last Admin: 05/23/22 12:10 Dose: 2 unit Documented By: BERNABE Ondansetron HCl (Ondansetron Hcl 4 Mg/2 Ml Vial) 4 mg IVPUSH Q8H PRN PRN Reason: Nausea and Vomiting Pharmacy Consult (Consult Rx Perform Med Rec) 1 each MISCELLANE ONCE PRN PRN Reason: Consult order Sertraline HCl (Sertraline Hcl 25 Mg Tablet) 25 mg PO DAILY [facility] Last Admin: 05/23/22 08:31 Dose: 25 mg Documented By: BERNABE Sodium Chloride (0.9 % Sodium Chloride Flush 3 Ml Syringe) 3 ml IVFLUSH QSHIFT [facility] Last Admin: 05/23/22 08:32 Dose: 3 ml Documented By: BERNABE Tizanidine HCl (Tizanidine Hcl 4 Mg Tablet) 2 mg PO BID PRN PRN Reason: MUSCLE SPASMS Last Admin: 05/22/22 06:17 Dose: 2 mg Documented By: ANTOIC Labs 05/23/22 07:17 05/23/22 07:17 Labs: Laboratory Results - last 24 hr 05/22/22 05/22/22 05/22/22 12:12 16:23 18:36 MCV MCH MCHC RDW Plt Count MPV Absolute Nucleated RBC Nucleated RBC % (auto) Anion Gap 18 19 Estim Creat Clear Calc 20.8 20.7 Estimated GFR 21 21 POC Glucose 123 H Random Glucose 75 152 H Calcium 8.4 9.0 D 05/22/22 05/23/22 05/23/22 20:49 07:17 07:17 MCV 88.3 MCH 29.2 MCHC 33.0 RDW 16.3 H Plt Count 262 MPV 10.3 Absolute Nucleated RBC 0.000 Nucleated RBC % (auto) 0.0 Anion Gap 17 Estim Creat Clear Calc 21.1 Estimated GFR 21 POC Glucose 144 H Random Glucose 268 H Calcium 8.4 D 05/23/22 05/23/22 07:17 11:00 MCV MCH MCHC RDW Plt Count MPV Absolute Nucleated RBC Nucleated RBC % (auto) Anion Gap Estim Creat Clear Calc Estimated GFR POC Glucose 248 H 163 H Random Glucose Calcium Microbiology Microbiology Results: Microbiology 05/21/22 01:49 Blood Culture - Final Blood - Venous Escherichia coli 05/21/22 01:49 Blood Culture - Final Blood - Venous Escherichia coli 05/21/22 Unknown Urine Culture - Final Urine clean catch - Urine peters top Escherichia coli Assessment and Plan (1) Dysphagia: Status: Acute (2) Bilateral hydronephrosis: Status: Acute (3) Hydroureter: Status: Acute Plan 61 year old women with history of stroke in March 2022 at [facility] presents with right side weakness Acute stroke Hx of multifocal infarcts in the right insula, right basal ganglia, right centrum semiovale with history of chronic right ICA occlusion at [facility] with associated chronic aphagia, left-sided weakness MRI showing acute infarcts involving the deep right cerebral hemisphere on background of 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 Continue Aspirin, Plavix, statin PT OT- rec STR speech therapy- failed swallow on re-eval, speech rec remain NPO - agreeable to feeding tube, seen by surgery, plan for early next week if swallow doesn't improve EEG results pending dysphagia r/t above failed swallow eval x2 seen by surgery - plan for feeding tube placement early next week rec to hold plavix, but discussed with cardiology who recommends against holding due to recent stent placement e.coli bactreremia likely r/t to UTI due to chronic bennett urine culture growing e.coli as well started on zosyn empirically, will change to ceftriaxone ID following DIONISIO SCr 2.31 CT abdomen showing multiple abnormalities seen by urology - no need for intervention right now for hydronephrosis/hydroureter - bennett in place, draining well nephrology consult pending - CT showing persistent patchy bilateral nephrograms continue IVF follow BMP b/l hydroureter/hydronephrosis secondary to cystitis monitor conservatively consider b/l stents next week if renal function not improving Hypertension? Stable blood pressure, bp up and down high overnight metoprolol has been on hold, HR 50s/60s without BB lisinopril on hold for DIONISIO will start low dose norvasc, can uptitrate prn; avoid MAP <90 Hypernatremia improving. r/t decreased po intake change IVF to D5W follow BMP Leukocytosis likely r/t bacteremia trending down follow CBC [facility] at [facility] in March 2022 was 11.5 ss, ada diet Lantus on hold as pt NPO Coronary artery disease/ extensive atherosclerotic disease Status post cardiac catheterization with drug-eluting stent to LAD in March of 2022 continue statin, asa, plavix BB on hold as above DVT prophylaxis with heparin Attending Dr. Moreno Full code Disposition: PT/OT rec STR Shanna johansen - multiple attempts by nursing/provider to reach daughter, multiple messages left. no answer or call back. CM to reach out to SNF to try to obtain alternate contact info Requires ongoing inpatient stay for further workup of right side weakness and EEG Time Spent With Patient Time: Total time managing care of this patient today ____ minutes. Quality Stroke Does the patient have a stroke diagnosis?: Yes Reason for No Anti-thrombotic by Day Two: Not indicated VTE Prior VTE?: No VTE Risk Level:: Medical - moderate - high VTE Device Contraindication: Treatment Not Indicated VTE Drug Contraindication: N/A - Med Ordered
[2022-05-23] MEDS: cefTRIAXone sodium 2 GM in 0.9 % Sodium Chloride 50 ML IV (13:24)
--- NOTE | 2022-05-23 13:47 | P.CONNP_ITS ---
History of Present Illness Reason for Consult Consult date: 05/23/22 Chief Complaint Chief complaint: Stroke History of Present Illness Narrative: 61-year-old woman with history of CKD admitted with stroke now with worsening kidney function. [facility] with right sided weakness and aphasia. CT scan of the abdomen showed bilateral moderate hydronephrosis and hydroureter. Urinary bladder was also noted to be thickened. Review of her vital signs did not show hypotensive episodes. Patient also underwent CTA on 05/20 Review of Systems Review of Systems 10 points ROS negative except for pertinent in HPI PMFSH Past Medical History Medical History Coronary artery disease COVID-19 CVA (cerebral vascular accident) Diabetes mellitus type 2 in nonobese Glaucoma H/O supraventricular tachycardia History of right MCA stroke Hypertension ICAO (internal carotid artery occlusion) Ischemic cardiomyopathy Status post insertion of drug-eluting stent into left anterior descending (LAD) artery Surgical History Surgical History H/O cardiac catheterization Social History Social History Household Members: Other Housing: Half-Way Do you presently have visiting nurse or other home services: No Unable to assess alcohol history related to: Unknown Patient Tobacco Use Status: Tobacco use Unknown Use of substances other than those prescribed or required for medical reasons: Unknown Currently Displaying Signs/Symptoms of Drug Intoxication Withdrawal: No Advance Directives: Yes Advance Directives Information Provided: No Advance Directives on File: No Advance Directives Date on File: 05/21/22 Recently lost weight without trying: Unsure Nutrition Risks: Difficulty swallowing Patient : No service: No Meds Allergies Allergy/AdvReac Type Severity Reaction Status Date / Time No Known Allergies Allergy Verified 05/20/22 12:06 Active Medications: Current Medications Acetaminophen (Acetaminophen Supp 650 Mg Supp.Rect) 650 mg [place] Q6H PRN PRN Reason: fever, mild pain Amlodipine Besylate (Amlodipine Besylate 2.5 Mg Tablet) 2.5 mg PO DAILY [facility]; Protocol Last Admin: 05/23/22 12:09 Dose: 2.5 mg Aspirin (Aspirin Enteric Coated 81 Mg Tablet.) 81 mg PO DAILY [facility] Last Admin: 05/23/22 08:31 Dose: 81 mg Atorvastatin Calcium (Atorvastatin Calcium 80 Mg Tablet) 80 mg PO DAILY [facility] Last Admin: 05/23/22 08:31 Dose: 80 mg Bisacodyl (Bisacodyl 10 Mg Supp.Rect) 10 mg MO DAILY PRN PRN Reason: Constipation Clopidogrel Bisulfate (Clopidogrel Bisulfate 75 Mg Tablet) 75 mg PO DAILY [facility] Last Admin: 05/23/22 08:32 Dose: 75 mg Glucose (Glucose Gel 15 Gm Gel..Gram.) 15 gm PO Q15M PRN; Protocol PRN Reason: per Hypoglycemia Standing Ord. Heparin Sodium (Porcine) (Heparin Sodium,Porcine 5,000 Unit/Ml Vial) 5,000 unit SUBCUT Q12H [facility] Last Admin: 05/23/22 05:43 Dose: 5,000 unit Dextrose (D10) 250 mls @ 750 mls/hr IV Q15M PRN; Protocol PRN Reason: per Hypoglycemia Standing Ord. Dextrose (D5w) 1,000 mls @ 125 mls/hr IVCONT .Q8H [facility] Last Admin: 05/23/22 12:09 Dose: 125 mls/hr Ceftriaxone Sodium 2 gm/ (Sodium Chloride) 50 mls @ 100 mls/hr IV Q24H [facility] Last Admin: 05/23/22 13:24 Dose: 100 mls/hr Insulin Glargine (Insulin Glargine,Hum.Rec.Anlog 100 Unit/Ml 10 Ml Vial) 14 unit SUBCUT BEDTIME [facility] Last Admin: 05/21/22 23:00 Dose: Not Given Insulin Human Lispro (Insulin Lispro 100 Unit/Ml 3 Ml Vial) 0 unit SUBCUT QIDACHS [facility]; Protocol Last Admin: 05/23/22 12:10 Dose: 2 unit Ondansetron HCl (Ondansetron Hcl 4 Mg/2 Ml Vial) 4 mg IVPUSH Q8H PRN PRN Reason: Nausea and Vomiting Pharmacy Consult (Consult Rx Perform Med Rec) 1 each MISCELLANE ONCE PRN PRN Reason: Consult order Sertraline HCl (Sertraline Hcl 25 Mg Tablet) 25 mg PO DAILY [facility] Last Admin: 05/23/22 08:31 Dose: 25 mg Sodium Chloride (0.9 % Sodium Chloride Flush 3 Ml Syringe) 3 ml IVFLUSH QSHIFT [facility] Last Admin: 05/23/22 08:32 Dose: 3 ml Tizanidine HCl (Tizanidine Hcl 4 Mg Tablet) 2 mg PO BID PRN PRN Reason: MUSCLE SPASMS Last Admin: 05/22/22 06:17 Dose: 2 mg Home Medications Medication Instructions Recorded Confirmed Last Taken Type acetaminophen 500 mg tablet 1,000 mg PO TID 05/20/22 05/20/22 Unknown History (Tylenol Extra Strength) ascorbic acid (vitamin C) 500 mg 500 mg PO DAILY 05/20/22 05/20/22 Unknown History tablet aspirin 81 mg tablet,delayed 81 mg PO DAILY 05/20/22 05/20/22 Unknown History release atorvastatin 80 mg tablet 80 mg PO BEDTIME 05/20/22 05/20/22 Unknown History baclofen 10 mg tablet 10 mg PO TID 05/20/22 05/20/22 Unknown History bisacodyl 10 mg rectal suppository 10 mg MO DAILY PRN Constipation 05/20/22 05/20/22 Unknown History clopidogrel 75 mg tablet (Plavix) 75 mg PO DAILY 05/20/22 05/20/22 Unknown History dextrose 40 % oral gel (Glucose 20 g PO Q15M PRN FSBS<50 AND ABLE 05/20/22 05/20/22 Unknown History Gel) TO SWALLOW glucagon 1 mg solution for 1 mg subcut Q20M PRN fsbs < 60 and 05/20/22 05/20/22 Unknown History injection unable to swallow hydralazine 10 mg tablet 10 mg PO Q6H PRN Hypertension 05/20/22 05/20/22 Unknown History insulin glargine 100 unit/mL 14 unit subcut BEDTIME 05/20/22 05/20/22 Unknown History subcutaneous solution (Lantus U-100 Insulin) insulin lispro 100 unit/mL 1 sliding scale dose subcut 05/20/22 05/20/22 Unknown History subcutaneous solution (Humalog USEASDIRECTD U-100 Insulin) lisinopril 10 mg tablet 20 mg PO DAILY 05/20/22 05/20/22 Unknown History magnesium hydroxide 400 mg/5 mL 30 ml PO DAILY PRN Constipation 05/20/22 05/20/22 Unknown History oral suspension (Milk of Magnesia) meclizine 12.5 mg tablet 12.5 mg PO Q8H PRN Dizziness 05/20/22 05/20/22 Unknown History metoprolol succinate 25 mg 25 mg PO DAILY 05/20/22 05/20/22 Unknown History tablet,extended release 24 hr multivitamin with minerals 1 tab PO BEDTIME 05/20/22 05/20/22 Unknown History polyethylene glycol 3350 17 gram 17 g PO DAILY 05/20/22 05/20/22 Unknown History oral powder packet (Miralax) sennosides 8.6 mg tablet (senna) 8.6 mg PO DAILY 05/20/22 05/20/22 Unknown History sertraline 25 mg tablet (Zoloft) 25 mg PO DAILY 05/20/22 05/20/22 Unknown History sodium phosphates 19 gram-7 118 ml MO DAILY PRN Constipation 05/20/22 05/20/22 Unknown History gram/118 mL enema (Fleet Enema) tizanidine 2 mg tablet 2 mg PO Q8H PRN MUSCLE SPASMS 05/20/22 05/20/22 Unknown History zinc sulfate 50 mg zinc (220 mg) 50 mg PO DAILY 05/20/22 05/20/22 Unknown History capsule Physical Exam Vital Signs: Last Vital Signs Temp 97.5 F 05/23/22 11:13 Pulse 63 05/23/22 11:13 Resp 16 05/23/22 11:13 BP 147/70 H 05/23/22 11:13 Pulse Ox 98 05/23/22 11:13 O2 Del Method Room Air 05/23/22 11:13 BMI result Body Mass Index 21.7 Const General: no acute distress, alert and awake HEENT Head: Yes normocephalic and Yes atraumatic Neck Neck: Yes supple Resp Auscultation: clear to auscultation bilaterally Cardio Heart sounds: S1 normal heart sound present and S2 normal heart sound present GI Palpation (GI): Soft to palpation and nontender Extrem General: No edema Results Lab Results 05/23/22 07:17 05/23/22 07:17 Lab results: Chemistry 05/20/22 05/21/22 05/22/22 13:24 09:20 08:38 Sodium 142 147 H 151 H Potassium 5.3 H 4.8 4.5 Carbon Dioxide 19 L 21 L 14 L BUN 73 H 77 H 82 H Creatinine 1.28 1.65 H 2.17 H Calcium 8.8 8.8 8.5 05/22/22 05/22/22 05/23/22 12:12 18:36 07:17 Sodium 151 H 148 H 144 Potassium 4.6 4.4 4.2 Carbon Dioxide 19 L 16 L 18 L BUN 83 H 79 H 72 H Creatinine 2.34 H 2.35 H 2.31 H Calcium 8.4 9.0 D 8.4 D Hematology 05/20/22 05/21/22 05/22/22 14:58 09:20 08:38 WBC 18.5 H 18.7 H 16.7 H Hgb 11.7 L 10.5 L 9.5 L Plt Count 282 278 259 05/23/22 07:17 WBC 15.6 H Hgb 10.5 L Plt Count 262 Urinalysis 05/21/22 02:02 Urine Color Yellow Urine Appearance Turbid Urine pH 6.0 Ur Specific [place] >= 1.030 H Urine Protein 100 (2+) H Urine Glucose (UA) Negative Urine Ketones Trace Urine Blood Large (3+) H Urine Nitrite Negative Ur Leukocyte Esterase Large (3+) H Urine RBC >20 H Urine WBC >50 H Ur Squamous Epith Cells 11-20 Hyaline Casts >20 Assessment and Plan (1) DIONISIO (acute kidney injury): Status: Acute (2) Metabolic acidosis: Status: Acute (3) Hypernatremia: Status: Acute (4) Bilateral hydronephrosis: Status: Acute (5) CKD (chronic kidney disease) stage 3, GFR 30-59 ml/min: Status: Acute Plan multifactorial DIONISIO: -contrast induced nephrotoxicity (s/p CTA on 05/20) -renal hypoperfusion -obstructive uropathy CT scan of the abdomen showed bilateral moderate hydronephrosis and hydroureter known CKD baseline Scr ~ 1.3 mg/dl elevated serum sodium due to free water deficit REC Aaliyah Alvarez hypotonic fluid follow kidney function and electrolytes Time Spent With Patient Time: Total time managing care of this patient today ____ minutes. Procedures Date of Service Date of Service: 05/23/22
[2022-05-23 16:01] VITALS: BP 162/67; PULSE 58; RESP 18; TEMP 36; O2SAT 98
[2022-05-23 16:51] LABS: Glucose, Whole Blood 169 mg/dL (60-115)
[2022-05-23 21:04] VITALS: BP 151/64; PULSE 60; RESP 18; TEMP 36.1; O2SAT 97
[2022-05-23 21:06] LABS: Glucose, Whole Blood 254 mg/dL (60-115)
[2022-05-24] VITALS: BP 140/67; PULSE 59; RESP 18; TEMP 36.5; O2SAT 97
[2022-05-24] MEDS: Heparin Sodium,Porcine 5,000 UNIT/ML VIAL 5000 UNIT SUBCUT ×2 (05:13→17:05)
[2022-05-24] MEDS: Dextrose 5 % 1,000 ML 125 ML IVCONT (05:13)
[2022-05-24 07:22] VITALS: BP 144/80; PULSE 67; RESP 16; TEMP 36.1; O2SAT 99
[2022-05-24 07:30] LABS: Glucose, Whole Blood 338 mg/dL (60-115)
[2022-05-24] MEDS: amLODIPine Besylate 2.5 MG TABLET PO (07:47)
[2022-05-24] MEDS: Atorvastatin Calcium 80 MG TABLET PO (07:47)
[2022-05-24] MEDS: Sertraline HCL 25 MG TABLET PO (07:47)
[2022-05-24] MEDS: Aspirin Enteric Coated 81 MG TABLET.DR PO (07:47)
[2022-05-24] MEDS: 0.9 % Sodium Chloride Flush 3 ML SYRINGE IVFLUSH ×3 (07:48→21:59)
[2022-05-24] MEDS: Clopidogrel Bisulfate 75 MG TABLET PO (07:48)
[2022-05-24] MEDS: Insulin Lispro 100 UNIT/ML 3 ML VIAL SUBCUT ×3 (07:48→17:05)
--- NOTE | 2022-05-24 08:38 | PM.PNNEP ---
Subjective Subjective Date of Service: 05/24/22 Interval history: seen and examined no complaints Physical Exam Vital Signs: Vital Signs: Last Vital Signs Temp 97.0 F 05/24/22 07:22 Pulse 67 05/24/22 07:22 Resp 16 05/24/22 07:22 BP 144/80 H 05/24/22 07:22 Pulse Ox 99 05/24/22 07:22 O2 Del Method Room Air 05/24/22 07:22 BMI result Body Mass Index 21.7 Const: General: no acute distress, alert and awake HEENT: Head: Yes normocephalic and Yes atraumatic Neck: Neck: Yes supple Resp: Auscultation: clear to auscultation bilaterally Cardio: Heart sounds: S1 normal heart sound present and S2 normal heart sound present GI: Palpation (GI): Soft to palpation and nontender Extrem: General: No edema Objective Data Labs 05/23/22 07:17 05/23/22 07:17 Labs: Laboratory Results - last 24 hr 05/23/22 05/23/22 05/23/22 07:17 11:00 16:30 Sodium 144 Potassium 4.2 Chloride 113 H Carbon Dioxide 18 L Anion Gap 17 BUN 72 H Creatinine 2.31 H Estim Creat Clear Calc 21.1 Estimated GFR 21 POC Glucose 163 H Random Glucose 268 H Calcium 8.4 D Ur Random Sodium 36.0 05/23/22 05/23/22 05/24/22 16:44 20:56 07:19 Sodium Potassium Chloride Carbon Dioxide Anion Gap BUN Creatinine Estim Creat Clear Calc Estimated GFR POC Glucose 169 H 254 H 338 H Random Glucose Calcium Ur Random Sodium Microbiology Microbiology Results: Microbiology 05/21/22 01:49 Blood - Venous Blood Culture - Final Escherichia coli 05/21/22 01:49 Blood - Venous Blood Culture - Final Escherichia coli 05/21/22 Unknown Urine clean catch - Urine peters top Urine Culture - Final Escherichia coli 05/20/22 13:23 Blood - Venous Blood Culture - Final Escherichia coli 05/20/22 13:04 Blood - Venous Blood Culture - Final Escherichia coli Procedures Date of Service Date of Service: 05/24/22 Assessment & Plan Assessment and plan (1) DIONISIO (acute kidney injury): Status: Acute (2) Metabolic acidosis: Status: Acute (3) Hypernatremia: Status: Acute (4) Bilateral hydronephrosis: Status: Acute (5) CKD (chronic kidney disease) stage 3, GFR 30-59 ml/min: Status: Acute Plan multifactorial DIONISIO: -contrast induced nephrotoxicity (s/p CTA on 05/20) -renal hypoperfusion -obstructive uropathy Aaliyah 36 CT scan of the abdomen showed bilateral moderate hydronephrosis and hydroureter known CKD baseline Scr ~ 1.3 mg/dl elevated serum sodium due to free water deficit REC Alvarez hypotonic fluid follow kidney function and electrolytes Time Spent With Patient Time: Total time managing care of this patient today ____ minutes. Progress Note: Quality Stroke Does the patient have a stroke diagnosis?: Yes Reason for No Anti-thrombotic by Day Two: Not indicated
--- NOTE | 2022-05-24 09:11 | P.PNIM_ITS ---
Subjective Subjective Date of Service: 05/24/22 Interval History: f/u on DIONISIO, acute stroke, dysphagia Physical Exam Vital Signs: Vital Signs: Last Vital Signs Temp 97.0 F 05/24/22 07:22 Pulse 67 05/24/22 07:22 Resp 16 05/24/22 07:22 BP 144/80 H 05/24/22 07:22 Pulse Ox 99 05/24/22 07:22 O2 Del Method Room Air 05/24/22 07:22 BMI result Body Mass Index 21.7 Const: General: awake Nutritional Appearance: average body habitus Resp: Effort & Inspection: normal respiratory effort, able to speak in complete sentences and no respiratory distress Cardio: Rate: regular rate Heart sounds: S1 normal heart sound present and S2 normal heart sound present GI: Inspection: No distended Palpation (GI): Soft to palpation and nontender Neuro: Other: left upper/lower extremity weakness; mild left facial droop. able to follow most commands. able to move right upper and lower extremities Objective Data Active Medications Acetaminophen (Acetaminophen Oral Liquid 650 Mg/20.3 Ml Solution) 650 mg NG- TUBE Q6H PRN PRN Reason: Pain, Moderate (Pain Scale 4-6 Amlodipine Besylate (Amlodipine Besylate 2.5 Mg Tablet) 2.5 mg PO DAILY [facility]; Protocol Last Admin: 05/24/22 07:47 Dose: 2.5 mg Documented By: BERNABE Aspirin (Aspirin Enteric Coated 81 Mg Tablet.) 81 mg PO DAILY [facility] Last Admin: 05/24/22 07:47 Dose: 81 mg Documented By: BERNABE Atorvastatin Calcium (Atorvastatin Calcium 80 Mg Tablet) 80 mg PO DAILY [facility] Last Admin: 05/24/22 07:47 Dose: 80 mg Documented By: BERNABE Bisacodyl (Bisacodyl 10 Mg Supp.Rect) 10 mg IA DAILY PRN PRN Reason: Constipation Clopidogrel Bisulfate (Clopidogrel Bisulfate 75 Mg Tablet) 75 mg PO DAILY [facility] Last Admin: 05/24/22 07:48 Dose: 75 mg Documented By: BERNABE Glucose (Glucose Gel 15 Gm Gel..Gram.) 15 gm PO Q15M PRN; Protocol PRN Reason: per Hypoglycemia Standing Ord. Heparin Sodium (Porcine) (Heparin Sodium,Porcine 5,000 Unit/Ml Vial) 5,000 unit SUBCUT Q12H [facility] Last Admin: 05/24/22 05:13 Dose: 5,000 unit Documented By: MOSHE Dextrose (D10) 250 mls @ 750 mls/hr IV Q15M PRN; Protocol PRN Reason: per Hypoglycemia Standing Ord. Dextrose (D5w) 1,000 mls @ 125 mls/hr IVCONT .Q8H [facility] Last Admin: 05/24/22 05:13 Dose: 125 mls/hr Documented By: MOSHE Ceftriaxone Sodium 2 gm/ (Sodium Chloride) 50 mls @ 100 mls/hr IV Q24H [facility] Last Infusion: 05/23/22 13:55 Dose: 0 mls/hr Documented By: BERNABE Insulin Glargine (Insulin Glargine,Hum.Rec.Anlog 100 Unit/Ml 10 Ml Vial) 14 unit SUBCUT BEDTIME [facility] Last Admin: 05/21/22 23:00 Dose: Not Given Documented By: MOSHE Non-Admin Reason: Physician Held Med Insulin Human Lispro (Insulin Lispro 100 Unit/Ml 3 Ml Vial) 0 unit SUBCUT QIDACHS [facility]; Protocol Last Admin: 05/24/22 07:48 Dose: 8 unit Documented By: BERNABE Ondansetron HCl (Ondansetron Hcl 4 Mg/2 Ml Vial) 4 mg IVPUSH Q8H PRN PRN Reason: Nausea and Vomiting Pharmacy Consult (Consult Rx Perform Med Rec) 1 each MISCELLANE ONCE PRN PRN Reason: Consult order Sertraline HCl (Sertraline Hcl 25 Mg Tablet) 25 mg PO DAILY [facility] Last Admin: 05/24/22 07:47 Dose: 25 mg Documented By: BERNABE Sodium Chloride (0.9 % Sodium Chloride Flush 3 Ml Syringe) 3 ml IVFLUSH QSHIFT [facility] Last Admin: 05/24/22 07:48 Dose: 3 ml Documented By: BERNABE Tizanidine HCl (Tizanidine Hcl 4 Mg Tablet) 2 mg PO BID PRN PRN Reason: MUSCLE SPASMS Last Admin: 05/22/22 06:17 Dose: 2 mg Documented By: MOSHE Labs 05/23/22 07:17 05/23/22 07:17 Labs: Laboratory Results - last 24 hr 05/23/22 05/23/22 05/23/22 11:00 16:30 16:44 POC Glucose 163 H 169 H Ur Random Sodium 36.0 05/23/22 05/24/22 20:56 07:19 POC Glucose 254 H 338 H Ur Random Sodium Microbiology Microbiology Results: Microbiology 05/21/22 01:49 Blood Culture - Final Blood - Venous Escherichia coli 05/21/22 01:49 Blood Culture - Final Blood - Venous Escherichia coli 05/21/22 Unknown Urine Culture - Final Urine clean catch - Urine peters top Escherichia coli Assessment and Plan (1) Dysphagia: Status: Acute (2) Bilateral hydronephrosis: Status: Acute (3) Hydroureter: Status: Acute Plan 61 year old women with history of stroke in March 2022 at [facility] [place] presents with right side weakness Acute stroke Hx of multifocal infarcts in the right insula, right basal ganglia, right centrum semiovale with history of chronic right ICA occlusion at [facility] [place] with associated chronic aphagia, left-sided weakness MRI showing acute infarcts involving the deep right cerebral hemisphere on background of 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 Continue Aspirin, Plavix, statin PT OT- rec STR speech therapy- failed swallow on re-eval, speech rec remain NPO - agreeable to feeding tube, seen by surgery, plan for early next week if swallow doesn't improve EEG results pending dysphagia r/t above failed swallow eval x2 seen by surgery - plan for feeding tube placement early next week rec to hold plavix, but discussed with cardiology who recommends against holding due to recent stent placement e.coli bactreremia likely r/t to UTI due to chronic bennett urine culture growing e.coli as well started on zosyn empirically and changed to ceftriaxone on 05/23 ID following DIONISIO d/t to multficatorial SCr 2.31, baseline 1.3 CT abdomen showing multiple abnormalities seen by urology - no need for intervention right now for hydronephrosis/hydroureter - bennett in place, draining well nephrology consult pending - CT showing persistent patchy bilateral nephrograms continue IVF follow BMP Nephro following b/l hydroureter/hydronephrosis secondary to cystitis monitor conservatively consider b/l stents next week if renal function not improving Hypertension? Stable blood pressure, bp up and down high overnight metoprolol has been on hold, HR 50s/60s without BB lisinopril on hold for DIONISIO started on low dose norvasc, can uptitrate prn; avoid MAP <90 Hypernatremia improving. r/t decreased po intake change IVF to D5W follow BMP Leukocytosis likely r/t bacteremia trending down follow CBC.check tomorrow Hyperkalemia resolved with [facility] Diabetes A1c at [facility] in March 2022 was 11.5 ss, ada diet Lantus on hold as pt NPO Coronary artery disease/ extensive atherosclerotic disease Status post cardiac catheterization with drug-eluting stent to LAD in March of 2022 continue statin, asa, plavix BB on hold as above DVT prophylaxis with heparin Attending Dr. Moreno Full code Disposition: PT/OT rec STR daughterShanna - multiple attempts by nursing/provider to reach daughter, multiple messages left. no answer or call back. CM to reach out to SNF to try to obtain alternate contact info Requires ongoing inpatient stay for further workup of right side weakness and EEG Time Spent With Patient Time: Total time managing care of this patient today ____ minutes. Quality Stroke Does the patient have a stroke diagnosis?: Yes Reason for No Anti-thrombotic by Day Two: Not indicated VTE Prior VTE?: No VTE Risk Level:: Medical - moderate - high VTE Device Contraindication: Treatment Not Indicated VTE Drug Contraindication: N/A - Med Ordered
[2022-05-24 10:38] LABS: Anion Gap 15 (12-20); Blood Urea Nitrogen 55 mg/dL (9-16); Calcium 7.9 mg/dL (8.4-10.2); Carbon Dioxide 16 mmol/L (22-29); Chloride 107 mmol/L (96-108); Creatinine Clr Calc Pharmacy 22.3; Estimated Glomerular Filt Rate 23; Glucose Random 327 mg/dL (60-115); Potassium 3.4 mmol/L (3.3-5.1); Sodium 135 mmol/L (135-145)
[2022-05-24 11:16] VITALS: BP 130/76; PULSE 65; RESP 16; TEMP 36.3; O2SAT 98
[2022-05-24 11:37] LABS: Glucose, Whole Blood 286 mg/dL (60-115)
[2022-05-24] MEDS: cefTRIAXone sodium 2 GM in 0.9 % Sodium Chloride 50 ML IV (12:44)
[2022-05-24] MEDS: Acetaminophen Oral Liquid 650 MG/20.3 ML SOLUTION NG-TUBE (12:44)
[2022-05-24 15:35] VITALS: BP 154/70; PULSE 62; RESP 18; TEMP 36.1; O2SAT 98
--- NOTE | 2022-05-24 16:21 | P.PNGS_ITS ---
Subjective Subjective Date of Service: 05/24/22 Patient reports: no new complaints Physical Exam Vital Signs: Vital Signs: Last Vital Signs Temp 97 F 05/24/22 15:35 Pulse 62 05/24/22 15:35 Resp 18 05/24/22 15:35 BP 154/70 H 05/24/22 15:35 Pulse Ox 98 05/24/22 15:35 O2 Del Method Room Air 05/24/22 15:35 BMI result Body Mass Index 21.7 GI: Other: status quo. Objective Data Active Medications Acetaminophen (Acetaminophen Oral Liquid 650 Mg/20.3 Ml Solution) 650 mg NG- TUBE Q6H PRN PRN Reason: Pain, Moderate (Pain Scale 4-6 Last Admin: 05/24/22 12:44 Dose: 650 mg Documented By: BERNABE Amlodipine Besylate (Amlodipine Besylate 2.5 Mg Tablet) 2.5 mg PO DAILY [facility]; Protocol Last Admin: 05/24/22 07:47 Dose: 2.5 mg Documented By: BERNABE Aspirin (Aspirin Enteric Coated 81 Mg Tablet.Dr) 81 mg PO DAILY [facility] Last Admin: 05/24/22 07:47 Dose: 81 mg Documented By: BERNABE Atorvastatin Calcium (Atorvastatin Calcium 80 Mg Tablet) 80 mg PO DAILY [facility] Last Admin: 05/24/22 07:47 Dose: 80 mg Documented By: BERNABE Bisacodyl (Bisacodyl 10 Mg Supp.Rect) 10 mg NM DAILY PRN PRN Reason: Constipation Clopidogrel Bisulfate (Clopidogrel Bisulfate 75 Mg Tablet) 75 mg PO DAILY [facility] Last Admin: 05/24/22 07:48 Dose: 75 mg Documented By: BERNABE Glucose (Glucose Gel 15 Gm Gel..Gram.) 15 gm PO Q15M PRN; Protocol PRN Reason: per Hypoglycemia Standing Ord. Heparin Sodium (Porcine) (Heparin Sodium,Porcine 5,000 Unit/Ml Vial) 5,000 unit SUBCUT Q12H [facility] Last Admin: 05/24/22 05:13 Dose: 5,000 unit Documented By: ANTOIC Dextrose (D10) 250 mls @ 750 mls/hr IV Q15M PRN; Protocol PRN Reason: per Hypoglycemia Standing Ord. Ceftriaxone Sodium 2 gm/ (Sodium Chloride) 50 mls @ 100 mls/hr IV Q24H [facility] Last Infusion: 05/24/22 13:27 Dose: 0 mls/hr Documented By: BERNABE Insulin Glargine (Insulin Glargine,Hum.Rec.Anlog 100 Unit/Ml 10 Ml Vial) 14 unit SUBCUT BEDTIME [facility] Last Admin: 05/21/22 23:00 Dose: Not Given Documented By: MOSHE Non-Admin Reason: Physician Held Med Insulin Human Lispro (Insulin Lispro 100 Unit/Ml 3 Ml Vial) 0 unit SUBCUT QIDACHS [facility]; Protocol Last Admin: 05/24/22 12:45 Dose: 6 unit Documented By: BERNABE Ondansetron HCl (Ondansetron Hcl 4 Mg/2 Ml Vial) 4 mg IVPUSH Q8H PRN PRN Reason: Nausea and Vomiting Pharmacy Consult (Consult Rx Perform Med Rec) 1 each MISCELLANE ONCE PRN PRN Reason: Consult order Sertraline HCl (Sertraline Hcl 25 Mg Tablet) 25 mg PO DAILY [facility] Last Admin: 05/24/22 07:47 Dose: 25 mg Documented By: BERNABE Sodium Chloride (0.9 % Sodium Chloride Flush 3 Ml Syringe) 3 ml IVFLUSH QSHIFT [facility] Last Admin: 05/24/22 07:48 Dose: 3 ml Documented By: BERNABE Tizanidine HCl (Tizanidine Hcl 4 Mg Tablet) 2 mg PO BID PRN PRN Reason: MUSCLE SPASMS Last Admin: 05/22/22 06:17 Dose: 2 mg Documented By: MOSHE Labs 05/23/22 07:17 05/24/22 09:25 Labs: Laboratory Results - last 24 hr 05/23/22 05/23/22 05/23/22 16:30 16:44 20:56 Anion Gap Estim Creat Clear Calc Estimated GFR POC Glucose 169 H 254 H Random Glucose Calcium Ur Random Sodium 36.0 05/24/22 05/24/22 05/24/22 07:19 09:25 11:15 Anion Gap 15 Estim Creat Clear Calc 22.3 Estimated GFR 23 POC Glucose 338 H 286 H Random Glucose 327 H Calcium 7.9 L Ur Random Sodium Procedures Date of Service Date of Service: 05/24/22 Progress Note: A&P Assessment and plan (1) Dysphagia: Status: Acute Plan For G-tube placement probably Wednesday or Wednesday Time Spent With Patient Time: Total time managing care of this patient today ____ minutes. Quality Stroke Does the patient have a stroke diagnosis?: Yes Reason for No Anti-thrombotic by Day Two: Not indicated VTE Prior VTE?: No VTE Risk Level:: Medical - moderate - high VTE Device Contraindication: Treatment Not Indicated VTE Drug Contraindication: N/A - Med Ordered
[2022-05-24 16:23] LABS: Glucose, Whole Blood 162 mg/dL (60-115)
[2022-05-24 19:59] VITALS: BP 92/57; PULSE 65; RESP 18; TEMP 36.3; O2SAT 97
[2022-05-24 20:12] LABS: Glucose, Whole Blood 117 mg/dL (60-115)
[2022-05-25] VITALS (7 sets, daily range): BP systolic 101–182; BP diastolic 55–76; PULSE 57–72; RESP 14–20; TEMP 36.1–36.4; O2SAT 96–99
[2022-05-25] MEDS: Acetaminophen Oral Liquid 650 MG/20.3 ML SOLUTION NG-TUBE ×2 (03:09→13:00)
[2022-05-25] MEDS: Heparin Sodium,Porcine 5,000 UNIT/ML VIAL 5000 UNIT SUBCUT ×2 (04:18→17:20)
[2022-05-25] MEDS: TiZANidine HCL 4 MG TABLET 2 MG PO (04:18)
[2022-05-25 07:25] LABS: Glucose, Whole Blood 144 mg/dL (60-115)
[2022-05-25] MEDS: Atorvastatin Calcium 80 MG TABLET PO (09:20)
[2022-05-25] MEDS: Clopidogrel Bisulfate 75 MG TABLET PO (09:20)
[2022-05-25] MEDS: 0.9 % Sodium Chloride Flush 3 ML SYRINGE IVFLUSH ×2 (09:20→17:20)
[2022-05-25] MEDS: amLODIPine Besylate 2.5 MG TABLET PO (09:21)
[2022-05-25] MEDS: Sertraline HCL 25 MG TABLET PO (09:21)
[2022-05-25] MEDS: Dextrose 5 % and 0.45 % NaCl 1,000 ML 100 ML IVCONT ×2 (09:34→19:07)
--- NOTE | 2022-05-25 10:41 | PM.PNGS ---
Subjective Subjective Date of Service: 05/25/22 Interval history: No new complaints. Reports prior cholecystectomy. No other abd surgery. Physical Exam Vital Signs: Vital Signs: Last Vital Signs Temp 96.9 F 05/25/22 07:13 Pulse 59 05/25/22 07:13 Resp 17 05/25/22 07:13 BP 134/64 05/25/22 07:13 Pulse Ox 97 05/25/22 07:13 O2 Del Method Room Air 05/25/22 07:13 BMI result Body Mass Index 21.7 Const: General: comfortable, no acute distress and alert HEENT: Other: NGT in place Resp: Effort & Inspection: normal respiratory effort GI: Inspection: No distended and Yes scar Palpation (GI): Soft to palpation, nontender, no guarding and not rigid Abdomen image: 1. 2. Skin: General skin exam: no rashes or lesions noted Objective Data Active Medications Acetaminophen (Acetaminophen Oral Liquid 650 Mg/20.3 Ml Solution) 650 mg NG-TUBE Q6H PRN PRN Reason: Pain, Moderate (Pain Scale 4-6 Last Admin: 05/25/22 03:09 Dose: 650 mg Documented By: CHARITY Amlodipine Besylate (Amlodipine Besylate 2.5 Mg Tablet) 2.5 mg PO DAILY [facility]; Protocol Last Admin: 05/25/22 09:21 Dose: 2.5 mg Documented By: JAS Aspirin (Aspirin Enteric Coated 81 Mg Tablet.) 81 mg PO DAILY [facility] Last Admin: 05/25/22 09:22 Dose: Not Given Documented By: JAS Non-Admin Reason: can not crush Atorvastatin Calcium (Atorvastatin Calcium 80 Mg Tablet) 80 mg PO DAILY [facility] Last Admin: 05/25/22 09:20 Dose: 80 mg Documented By: JAS Bisacodyl (Bisacodyl 10 Mg Supp.Rect) 10 mg MD DAILY PRN PRN Reason: Constipation Clopidogrel Bisulfate (Clopidogrel Bisulfate 75 Mg Tablet) 75 mg PO DAILY [facility] Last Admin: 05/25/22 09:20 Dose: 75 mg Documented By: JAS Glucose (Glucose Gel 15 Gm Gel..Gram.) 15 gm PO Q15M PRN; Protocol PRN Reason: per Hypoglycemia Standing Ord. Heparin Sodium (Porcine) (Heparin Sodium,Porcine 5,000 Unit/Ml Vial) 5,000 unit SUBCUT Q12H [facility] Last Admin: 05/25/22 04:18 Dose: 5,000 unit Documented By: CHARITY Dextrose (D10) 250 mls @ 750 mls/hr IV Q15M PRN; Protocol PRN Reason: per Hypoglycemia Standing Ord. Ceftriaxone Sodium 2 gm/ (Sodium Chloride) 50 mls @ 100 mls/hr IV Q24H [facility] Last Infusion: 05/24/22 13:27 Dose: 0 mls/hr Documented By: BERNABE Dextrose/Sodium Chloride (D51/2ns) 1,000 mls @ 100 mls/hr IVCONT .Q10H [facility] Last Admin: 05/25/22 09:34 Dose: 100 mls/hr Documented By: JAS Insulin Glargine (Insulin Glargine,Hum.Rec.Anlog 100 Unit/Ml 10 Ml Vial) 14 unit SUBCUT BEDTIME [facility] Last Admin: 05/21/22 23:00 Dose: Not Given Documented By: MOSHE Non-Admin Reason: Physician Held Med Insulin Human Lispro (Insulin Lispro 100 Unit/Ml 3 Ml Vial) 0 unit SUBCUT QIDACHS [facility]; Protocol Last Admin: 05/25/22 09:18 Dose: Not Given Documented By: JAS Non-Admin Reason: No Insulin Coverage Ondansetron HCl (Ondansetron Hcl 4 Mg/2 Ml Vial) 4 mg IVPUSH Q8H PRN PRN Reason: Nausea and Vomiting Pharmacy Consult (Consult Rx Perform Med Rec) 1 each MISCELLANE ONCE PRN PRN Reason: Consult order Sertraline HCl (Sertraline Hcl 25 Mg Tablet) 25 mg PO DAILY [facility] Last Admin: 05/25/22 09:21 Dose: 25 mg Documented By: JAS Sodium Chloride (0.9 % Sodium Chloride Flush 3 Ml Syringe) 3 ml IVFLUSH QSHIFT [facility] Last Admin: 05/25/22 09:20 Dose: 3 ml Documented By: JAS Tizanidine HCl (Tizanidine Hcl 4 Mg Tablet) 2 mg PO BID PRN PRN Reason: MUSCLE SPASMS Last Admin: 05/25/22 04:18 Dose: 2 mg Documented By: CHARITY Labs 05/23/22 07:17 05/24/22 09:25 Labs: Laboratory Results - last 24 hr 05/24/22 05/24/22 05/24/22 11:15 16:19 20:08 POC Glucose 286 H 162 H 117 H 05/25/22 07:16 POC Glucose 144 H Procedures Date of Service Date of Service: 05/25/22 Progress Note: A&P Assessment and plan (1) Dysphagia: Status: Acute (2) CVA (cerebral vascular accident): Status: Acute Plan 61 year old women with multiple medical comorbidities including history of stroke in March 2022 at [facility] who presented with right side weakness admitted for treatment of acute stroke. Found to have dysphagia and failed swallow eval x 2. Consult to surgery for feeding tube placement. Has multiple acute issues including DIONISIO, hypernatremia, e coli bacteremia with positive blood cx on 05/21. Surgery consulted for feeding tube placement however the patient has multiple acute medical issues including bacteremia with no negative blood cx to date. As this is elective, blood cultures would need to be repeated and negative prior to tube placement. She also has had cardiac catheterization with drug-eluting stent to LAD in March of 2022 and is on plavix- cardiology recommends against holding due to recent stent placement. Will hold off on feeding tube placement for now. Discussed with hospitalist service and speech is trying to advance diet today to pureed. Time Spent With Patient Time: Total time managing care of this patient today ____ minutes. Quality Stroke Does the patient have a stroke diagnosis?: Yes Reason for No Anti-thrombotic by Day Two: Not indicated VTE Prior VTE?: No VTE Risk Level:: Medical - moderate - high VTE Device Contraindication: Treatment Not Indicated VTE Drug Contraindication: N/A - Med Ordered
--- NOTE | 2022-05-25 10:55 | MHC.SL.SWA ---
Speech Pathologist Impression: Oropharyngeal dysphagia, risk of aspiration Risk of Aspiration Due to: Neurological Condition Dysphasia Diet Status: UPGRADE from NPO, start on NDD1/THIN Liquid Consistency and Strategies for Safe Swallow: Liquid Intake Recommendation: Thin Liquid Intake Strategies: Small Sips Solid Food Consistency: Dietary Recommendations: Pureed (NDD1) Additional Modifications to Solid Foods: Recommend START on PUREED (NDD1) diet and THIN liquids, pills CRUSHED in PUREE. Pt must be awake and alert for the presentation of PO, otherwise hold tray if pt is lethargic or not engaging in meal. Pt tolerates liquids by straw, may need reminders to take small, individual sips. Administer small bites, one bite at a time, and check oral cavity for clearance before presenting more bites. Alternate bites of food with sips of liquid to promote oral clearance. Pt to be supervised during all PO intake, provide assistance as needed throughout meals. Strict aspiration precautions apply. Recommendations written on whiteboard in pt's room. Notified care team (MD, RN, RD) via [employer] Message. BACK END ARCHITECT will continue to follow. Oral Medication Intake: Crushed with Puree Please contact the pharmacy regarding appropriate crushable or liquid drug formulations that are available whenever modified delivery is recommended. Compensatory Strategies and Precautions to be Taken for Safe Swallow: Sitting Upright (90 deg) Small Bites and Sips Alternate Liquids/Solids Rate of Ingestion Change Oral Check Avoid Specific Foods Supervision While Eating and Drinking for Safe Swallow: Total Assistance (1:1) Foods to Avoid: Mixed consistencies Swallowing Recommended Treatments: Compens. Strategy Educat. Recommendation for Speech: Inpatient Speech Therapy Advisor Advocate Angel Co Founder Clinican/Clinical Fellow: No Supervisory Statement: I have reviewed and agree with the student/clinical fellow's documentation: N/A Speech Language Pathologist: Mitra Spear M.A., CCC-BACK END ARCHITECT
[2022-05-25 10:59] LABS: Glucose, Whole Blood 158 mg/dL (60-115)
--- NOTE | 2022-05-25 11:02 | P.PNIM_ITS ---
Subjective Subjective Date of Service: 05/25/22 Interval History: f/u on DIONISIO, acute stroke, dysphagia Seems better today Physical Exam Vital Signs: Vital Signs: Last Vital Signs Temp 97.2 F 05/25/22 10:45 Pulse 71 05/25/22 10:45 Resp 16 05/25/22 10:45 BP 156/74 H 05/25/22 10:45 Pulse Ox 97 05/25/22 10:45 O2 Del Method Room Air 05/25/22 10:45 BMI result Body Mass Index 21.7 Const: General: awake Nutritional Appearance: average body habitus Resp: Effort & Inspection: normal respiratory effort, able to speak in complete sentences and no respiratory distress Cardio: Rate: regular rate Heart sounds: S1 normal heart sound present and S2 normal heart sound present GI: Inspection: No distended Palpation (GI): Soft to palpation and nontender Neuro: Other: left upper/lower extremity weakness; mild left facial droop. able to follow most commands. able to move right upper and lower extremities Objective Data Active Medications Acetaminophen (Acetaminophen Oral Liquid 650 Mg/20.3 Ml Solution) 650 mg NG- TUBE Q6H PRN PRN Reason: Pain, Moderate (Pain Scale 4-6 Last Admin: 05/25/22 03:09 Dose: 650 mg Documented By: CHARITY Amlodipine Besylate (Amlodipine Besylate 2.5 Mg Tablet) 2.5 mg PO DAILY [facility]; Protocol Last Admin: 05/25/22 09:21 Dose: 2.5 mg Documented By: JAS Aspirin (Aspirin Enteric Coated 81 Mg Tablet.Dr) 81 mg PO DAILY [facility] Last Admin: 05/25/22 09:22 Dose: Not Given Documented By: JAS Non-Admin Reason: can not crush Atorvastatin Calcium (Atorvastatin Calcium 80 Mg Tablet) 80 mg PO DAILY [facility] Last Admin: 05/25/22 09:20 Dose: 80 mg Documented By: JAS Bisacodyl (Bisacodyl 10 Mg Supp.Rect) 10 mg [place] DAILY PRN PRN Reason: Constipation Clopidogrel Bisulfate (Clopidogrel Bisulfate 75 Mg Tablet) 75 mg PO DAILY [facility] Last Admin: 05/25/22 09:20 Dose: 75 mg Documented By: JAS Glucose (Glucose Gel 15 Gm Gel..Gram.) 15 gm PO Q15M PRN; Protocol PRN Reason: per Hypoglycemia Standing Ord. Heparin Sodium (Porcine) (Heparin Sodium,Porcine 5,000 Unit/Ml Vial) 5,000 unit SUBCUT Q12H [facility] Last Admin: 05/25/22 04:18 Dose: 5,000 unit Documented By: CHARITY Dextrose (D10) 250 mls @ 750 mls/hr IV Q15M PRN; Protocol PRN Reason: per Hypoglycemia Standing Ord. Ceftriaxone Sodium 2 gm/ (Sodium Chloride) 50 mls @ 100 mls/hr IV Q24H [facility] Last Infusion: 05/24/22 13:27 Dose: 0 mls/hr Documented By: BERNABE Dextrose/Sodium Chloride (D51/2ns) 1,000 mls @ 100 mls/hr IVCONT .Q10H [facility] Last Admin: 05/25/22 09:34 Dose: 100 mls/hr Documented By: JAS Insulin Glargine (Insulin Glargine,Hum.Rec.Anlog 100 Unit/Ml 10 Ml Vial) 14 unit SUBCUT BEDTIME [facility] Last Admin: 05/21/22 23:00 Dose: Not Given Documented By: MOSHE Non-Admin Reason: Physician Held Med Insulin Human Lispro (Insulin Lispro 100 Unit/Ml 3 Ml Vial) 0 unit SUBCUT QIDACHS [facility]; Protocol Last Admin: 05/25/22 09:18 Dose: Not Given Documented By: JAS Non-Admin Reason: No Insulin Coverage Ondansetron HCl (Ondansetron Hcl 4 Mg/2 Ml Vial) 4 mg IVPUSH Q8H PRN PRN Reason: Nausea and Vomiting Pharmacy Consult (Consult Rx Perform Med Rec) 1 each MISCELLANE ONCE PRN PRN Reason: Consult order Sertraline HCl (Sertraline Hcl 25 Mg Tablet) 25 mg PO DAILY [facility] Last Admin: 05/25/22 09:21 Dose: 25 mg Documented By: JAS Sodium Chloride (0.9 % Sodium Chloride Flush 3 Ml Syringe) 3 ml IVFLUSH QSHIFT [facility] Last Admin: 05/25/22 09:20 Dose: 3 ml Documented By: JAS Tizanidine HCl (Tizanidine Hcl 4 Mg Tablet) 2 mg PO BID PRN PRN Reason: MUSCLE SPASMS Last Admin: 05/25/22 04:18 Dose: 2 mg Documented By: CHARITY Labs 05/23/22 07:17 05/24/22 09:25 Labs: Laboratory Results - last 24 hr 05/24/22 05/24/22 05/24/22 11:15 16:19 20:08 POC Glucose 286 H 162 H 117 H 05/25/22 05/25/22 07:16 10:49 POC Glucose 144 H 158 H Assessment and Plan (1) Dysphagia: Status: Acute (2) Bilateral hydronephrosis: Status: Acute (3) Hydroureter: Status: Acute Plan 61 year old women with history of stroke in March 2022 at [facility] presents with right side weakness Acute stroke Hx of multifocal infarcts in the right insula, right basal ganglia, right centrum semiovale with history of chronic right ICA occlusion at [facility] with associated chronic aphagia, left-sided weakness MRI showing acute infarcts involving the deep right cerebral hemisphere on background of 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 Continue Aspirin, Plavix, statin PT OT- rec STR speech therapy today--puree, thin liquid EEG results pending dysphagia r/t above did better today: puree, thin liquid seen by surgery - May hold PEG for now e.coli bactreremia likely r/t to UTI due to chronic bennett urine culture growing e.coli as well started on zosyn empirically and changed to ceftriaxone on 05/23 ID following DOINISIO d/t to multficatorial SCr 2.31, baseline 1.3 CT abdomen showing multiple abnormalities seen by urology - no need for intervention right now for hydronephrosis/hydroureter - bennett in place, draining well nephrology consult pending - CT showing persistent patchy bilateral nephrograms continue IVF follow BMP Nephro following b/l hydroureter/hydronephrosis secondary to cystitis monitor conservatively consider b/l stents next week if renal function not improving Hypertension? Stable blood pressure, bp up and down high overnight metoprolol has been on hold, HR 50s/60s without BB lisinopril on hold for DIONISIO started on low dose norvasc, can uptitrate prn; avoid MAP <90 Hypernatremia improving. r/t decreased po intake change IVF to D5W follow BMP Leukocytosis likely r/t bacteremia trending down follow CBC.check tomorrow Hyperkalemia resolved with lokelma Diabetes A1c at [facility] in March 2022 was 11.5 ss, ada diet Lantus on hold as pt NPO Coronary artery disease/ extensive atherosclerotic disease Status post cardiac catheterization with drug-eluting stent to LAD in March of 2022 continue statin, asa, plavix BB on hold as above DVT prophylaxis with heparin Attending Dr. Moreno Full code Disposition: PT/OT rec STR daughter, Shanna - multiple attempts by nursing/provider to reach daughter, multiple messages left. no answer or call back. CM to reach out to SNF to try to obtain alternate contact info Requires ongoing inpatient stay for further workup of right side weakness and EEG Time Spent With Patient Time: Total time managing care of this patient today ____ minutes. Quality Stroke Does the patient have a stroke diagnosis?: Yes Reason for No Anti-thrombotic by Day Two: Not indicated VTE Prior VTE?: No VTE Risk Level:: Medical - moderate - high VTE Device Contraindication: Treatment Not Indicated VTE Drug Contraindication: N/A - Med Ordered
--- NOTE | 2022-05-25 11:19 | PM.PNNEP ---
Subjective Subjective Date of Service: 05/27/22 Interval history: Events noted Physical Exam Vital Signs: Vital Signs: Last Vital Signs Temp 97.2 F 05/25/22 10:45 Pulse 71 05/25/22 10:45 Resp 16 05/25/22 10:45 BP 156/74 H 05/25/22 10:45 Pulse Ox 97 05/25/22 10:45 O2 Del Method Room Air 05/25/22 10:45 BMI result Body Mass Index 21.7 Const: General: no acute distress, alert and awake Nutritional Appearance: average body habitus Orientation/consciousness: patient oriented x3 HEENT: Other: NGT in place Head: Yes normocephalic and Yes atraumatic Face and sinus: Yes normal facial exam Mouth: Normal oral and palatal mucosa present Teeth and gingiva: dentition normal Eyes: General: appearance normal, both eyes and all related structures Conjunctivae: conjunctivae normal Pupils: Equal, round and reactive pupils present Neck: Neck: Yes supple Chest: Chest palpation & inspection: normal inspection of the chest Resp: Effort & Inspection: normal respiratory effort, able to speak in complete sentences and no respiratory distress Auscultation: clear to auscultation bilaterally Cardio: Rate: regular rate Rhythm: regular rhythm Heart sounds: S1 normal heart sound present and S2 normal heart sound present GI: Other: status quo. Inspection: Yes normal to inspection, No distended and Yes scar Palpation (GI): Soft to palpation and nontender : Other: bennett in place - yellow urine draining General: Yes no CVA tenderness Back/Spine/Pelvis: Back: no CVA tenderness Skin: General skin exam: no rashes or lesions noted Neuro: Other: left upper/lower extremity weakness; mild left facial droop. able to follow most commands. able to move right upper and lower extremities General: patient oriented x3 Cranial nerves: Yes Equal, round and reactive pupils present Extrem: General: No edema Psych: Appearance: grossly normal Objective Data Labs 05/23/22 07:17 05/24/22 09:25 Labs: Laboratory Results - last 24 hr 05/24/22 05/24/22 05/24/22 11:15 16:19 20:08 POC Glucose 286 H 162 H 117 H 05/25/22 05/25/22 07:16 10:49 POC Glucose 144 H 158 H Microbiology Microbiology Results: Microbiology 05/21/22 01:49 Blood - Venous Blood Culture - Final Escherichia coli 05/21/22 01:49 Blood - Venous Blood Culture - Final Escherichia coli 05/21/22 Unknown Urine clean catch - Urine peters top Urine Culture - Final Escherichia coli 05/20/22 13:23 Blood - Venous Blood Culture - Final Escherichia coli 05/20/22 13:04 Blood - Venous Blood Culture - Final Escherichia coli Procedures Date of Service Date of Service: 05/26/22 Assessment & Plan Assessment and plan (1) DIONISIO (acute kidney injury): Status: Acute (2) Metabolic acidosis: Status: Acute (3) Hypernatremia: Status: Acute (4) Bilateral hydronephrosis: Status: Acute (5) CKD (chronic kidney disease) stage 3, GFR 30-59 ml/min: Status: Acute (6) Dysphagia: Status: Acute (7) Hydroureter: Status: Acute Plan multifactorial DIONISIO: -contrast induced nephrotoxicity (s/p CTA on 05/20) -renal hypoperfusion -obstructive uropathy Aaliyah 36 CT scan of the abdomen showed bilateral moderate hydronephrosis and hydroureter known CKD baseline Scr ~ 1.3 mg/dl elevated serum sodium due to free water deficit E coli urosepsis. On antibiotics. REC Bennett Keep I > O Check labs today. If renal function does not improve needs urology follow-up for possible stenting. Obtain follow-up imaging/ultrasonogram to check for resolution of hydronephrosis. His serum sodium is less than 135 I will discontinue hypotonic fluids and start her on normal saline. Surgery note appreciated. PEG placement on hold due to E coli urosepsis Time Spent With Patient Time: Total time managing care of this patient today ____ minutes. Progress Note: Quality Stroke Does the patient have a stroke diagnosis?: Yes Reason for No Anti-thrombotic by Day Two: Not indicated
[2022-05-25] MEDS: Insulin Lispro 100 UNIT/ML 3 ML VIAL SUBCUT ×3 (12:24→20:40)
[2022-05-25] MEDS: cefTRIAXone sodium 2 GM in 0.9 % Sodium Chloride 50 ML IV (12:51)
--- NOTE | 2022-05-25 15:12 | MHC.CM.PN ---
DP return to [facility] via S. Per MD rounds no DC today. Patient is planned for a Swallow eval and Peg placement.
[2022-05-25 16:28] LABS: Glucose, Whole Blood 279 mg/dL (60-115)
[2022-05-25 20:38] LABS: Glucose, Whole Blood 255 mg/dL (60-115)
[2022-05-25] MEDS: Morphine Sulfate 2 MG/ML CARTRIDGE 1 MG IVPUSH (20:40)
[2022-05-26] VITALS (8 sets, daily range): BP systolic 158–190; BP diastolic 68–88; PULSE 55–68; RESP 14–20; TEMP 36.1–36.7; O2SAT 98–100
[2022-05-26] MEDS: Dextrose 5 % and 0.45 % NaCl 1,000 ML 100 ML IVCONT ×2 (05:40→15:22)
[2022-05-26] MEDS: Heparin Sodium,Porcine 5,000 UNIT/ML VIAL 5000 UNIT SUBCUT ×2 (05:43→17:47)
[2022-05-26 07:54] LABS: Glucose, Whole Blood 209 mg/dL (60-115)
[2022-05-26] MEDS: Insulin Lispro 100 UNIT/ML 3 ML VIAL SUBCUT ×4 (09:27→20:34)
[2022-05-26] MEDS: Sennosides 8.6 MG TABLET PO (09:28)
[2022-05-26] MEDS: amLODIPine Besylate 2.5 MG TABLET PO (09:28)
[2022-05-26] MEDS: Zinc Sulfate 220 MG CAPSULE PO (09:28)
[2022-05-26] MEDS: Sertraline HCL 25 MG TABLET PO (09:29)
[2022-05-26] MEDS: Clopidogrel Bisulfate 75 MG TABLET PO (09:29)
[2022-05-26] MEDS: lisinopriL 20 MG TABLET PO (09:29)
[2022-05-26] MEDS: Baclofen 10 MG TABLET PO ×3 (09:29→20:34)
[2022-05-26] MEDS: Ascorbic Acid 500 MG TABLET PO (09:29)
--- NOTE | 2022-05-26 09:43 | HO.PM.IMPN ---
Subjective Subjective Date of Service: 05/26/22 Interval History: f/u on DIONISIO, acute stroke, dysphagia more alert and more coherent today Physical Exam Vital Signs: Vital Signs: Last Vital Signs Temp 96.9 F 05/26/22 07:48 Pulse 62 05/26/22 08:59 Resp 20 05/26/22 07:48 BP 180/72 H 05/26/22 07:48 Pulse Ox 98 05/26/22 08:59 O2 Del Method Room Air 05/26/22 07:48 BMI result Body Mass Index 21.7 Const: Other: General: AO X 3, no acute distress Resp: CTA bilateral CVS: S1,S2,RRR GI: +BS, NT, no distention Skin: No rash Neuro: left upper/lower extremity weakness; mild left facial droop. able to follow most commands. able to move right upper and lower extremities psych: appropriate affect Objective Data Active Medications Acetaminophen (Acetaminophen Oral Liquid 650 Mg/20.3 Ml Solution) 650 mg NG-TUBE Q6H PRN PRN Reason: Pain, Moderate (Pain Scale 4-6 Last Admin: 05/25/22 13:00 Dose: 650 mg Documented By: JAS Amlodipine Besylate (Amlodipine Besylate 2.5 Mg Tablet) 2.5 mg PO DAILY [facility]; Protocol Last Admin: 05/25/22 09:21 Dose: 2.5 mg Documented By: JAS Ascorbic Acid (Ascorbic Acid 500 Mg Tablet) 500 mg PO DAILY [facility] Aspirin (Aspirin Enteric Coated 81 Mg Tablet.Dr) 81 mg PO DAILY [facility] Atorvastatin Calcium (Atorvastatin Calcium 80 Mg Tablet) 80 mg PO BEDTIME [facility] Baclofen (Baclofen 10 Mg Tablet) 10 mg PO TID [facility] Bisacodyl (Bisacodyl 10 Mg Supp.Rect) 10 mg [place] DAILY PRN PRN Reason: Constipation Clopidogrel Bisulfate (Clopidogrel Bisulfate 75 Mg Tablet) 75 mg PO DAILY [facility] Last Admin: 05/25/22 09:20 Dose: 75 mg Documented By: JAS Glucagon (Glucagon,Human Recombinant 1 Mg/Ml Vial) 1 mg SUBCUT Q20M PRN PRN Reason: fsbs < 60 and unable to swallow Glucose (Glucose Gel 15 Gm Gel..Gram.) 15 gm PO Q15M PRN; Protocol PRN Reason: per Hypoglycemia Standing Ord. Glucose (Glucose Gel 15 Gm Gel..Gram.) 20 gm PO Q15M PRN PRN Reason: FSBS<50 AND ABLE TO SWALLOW Heparin Sodium (Porcine) (Heparin Sodium,Porcine 5,000 Unit/Ml Vial) 5,000 unit SUBCUT Q12H [facility] Last Admin: 05/26/22 05:43 Dose: 5,000 unit Documented By: MEME Hydralazine HCl (Hydralazine Hcl 10 Mg Tablet) 10 mg PO Q6H PRN; Protocol PRN Reason: Hypertension Dextrose (D10) 250 mls @ 750 mls/hr IV Q15M PRN; Protocol PRN Reason: per Hypoglycemia Standing Ord. Ceftriaxone Sodium 2 gm/ (Sodium Chloride) 50 mls @ 100 mls/hr IV Q24H [facility] Last Infusion: 05/25/22 13:30 Dose: 0 mls/hr Documented By: JAS Dextrose/Sodium Chloride (D51/2ns) 1,000 mls @ 100 mls/hr IVCONT .Q10H [facility] Last Admin: 05/26/22 05:40 Dose: 100 mls/hr Documented By: MEME Insulin Glargine (Insulin Glargine,Hum.Rec.Anlog 100 Unit/Ml 10 Ml Vial) 14 unit SUBCUT BEDTIME [facility] Last Admin: 05/21/22 23:00 Dose: Not Given Documented By: TAMIKAOIC Non-Admin Reason: Physician Held Med Insulin Human Lispro (Insulin Lispro 100 Unit/Ml 3 Ml Vial) 0 unit SUBCUT QIDACHS [facility]; Protocol Last Admin: 05/25/22 20:40 Dose: 6 unit Documented By: MEME Lisinopril (Lisinopril 20 Mg Tablet) 20 mg PO DAILY [facility]; Protocol Magnesium Hydroxide (Milk Of Magnesia 30 Ml Oral.Susp) 30 ml PO DAILY PRN PRN Reason: Constipation Meclizine HCl (Meclizine Hcl 12.5 Mg Tablet) 12.5 mg PO Q8H PRN PRN Reason: Dizziness Metoprolol Succinate (Metoprolol Succinate Er 25 Mg Tab.Er.24h) 25 mg PO DAILY [facility]; Protocol Morphine Sulfate (Morphine Sulfate 2 Mg/Ml Cartridge) 1 mg IVPUSH Q4H PRN; Protocol PRN Reason: Pain, Severe (Pain Scale 7-10) Last Admin: 05/25/22 20:40 Dose: 1 mg Documented By: MEME Multivitamins/Vitamin C (Multivitamin Tablet) 1 tab PO BEDTIME [facility] Ondansetron HCl (Ondansetron Hcl 4 Mg/2 Ml Vial) 4 mg IVPUSH Q8H PRN PRN Reason: Nausea and Vomiting Pharmacy Consult (Consult Rx Perform Med Rec) 1 each MISCELLANE ONCE PRN PRN Reason: Consult order Polyethylene Glycol (Polyethylene Glycol 3350 17 Gm Powd.Pack) 17 gm PO DAILY [facility] Senna (Sennosides 8.6 Mg Tablet) 8.6 mg PO DAILY [facility] Sertraline HCl (Sertraline Hcl 25 Mg Tablet) 25 mg PO DAILY [facility] Last Admin: 05/25/22 09:21 Dose: 25 mg Documented By: JAS Sodium Biphosphate/Sodium Phosphate (Sodium Phosphate,Citrus-Dibasic 133 Ml Enema) 118 ml [place] DAILY PRN PRN Reason: Constipation Sodium Chloride (0.9 % Sodium Chloride Flush 3 Ml Syringe) 3 ml IVFLUSH QSHIFT [facility] Last Admin: 05/26/22 03:22 Dose: Not Given Documented By: MEME Non-Admin Reason: IV Running Tizanidine HCl (Tizanidine Hcl 4 Mg Tablet) 2 mg PO BID PRN PRN Reason: MUSCLE SPASMS Last Admin: 05/25/22 04:18 Dose: 2 mg Documented By: CHARITY Zinc Sulfate (Zinc Sulfate 220 Mg Capsule) 220 mg PO DAILY [facility] Labs 05/23/22 07:17 05/24/22 09:25 Labs: Laboratory Results - last 24 hr 05/25/22 05/25/22 05/25/22 10:49 16:22 20:24 POC Glucose 158 H 279 H 255 H 05/26/22 07:46 POC Glucose 209 H Microbiology Microbiology Results: Microbiology 05/21/22 01:49 Blood Culture - Final Blood - Venous Escherichia coli Assessment and Plan (1) Dysphagia: Status: Acute (2) Bilateral hydronephrosis: Status: Acute (3) Hydroureter: Status: Acute Plan 61 year old women with history of stroke in March 2022 at [facility] [place] presents with right side weakness Acute stroke Hx of multifocal infarcts in the right insula, right basal ganglia, right centrum semiovale with history of chronic right ICA occlusion at [facility] [place] with associated chronic aphagia, left-sided weakness MRI showing acute infarcts involving the deep right cerebral hemisphere on background of 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 Continue Aspirin, Plavix, statin PT OT- rec STR speech therapy today--puree, thin liquid EEG 05/22:Abnormal EEG suggestive of severe bihemispheric dysfunction of unknown etiology. dysphagia r/t above did better today: puree, thin liquid seen by surgery - hold PEG and if doing ok, dc NGT E.coli bactreremia likely r/t to UTI due to chronic bennett urine culture growing e.coli as well, Ceftriaxone sensitive started on zosyn empirically and changed to ceftriaxone on 05/23 ID following DIONISIO d/t to multficatorial SCr 2.31, baseline 1.3 CT abdomen showing multiple abnormalities seen by urology - no need for intervention right now for hydronephrosis/hydroureter - bennett in place, draining well nephrology consult pending - CT showing persistent patchy bilateral nephrograms continue IVF follow BMP Nephro following b/l hydroureter/hydronephrosis secondary to cystitis monitor conservatively consider b/l stents next week if renal function not improving Hypertension? Stable blood pressure, bp up and down high overnight metoprolol has been on hold, HR 50s/60s without BB lisinopril on hold for DIONISIO started on low dose norvasc, can uptitrate prn; avoid MAP <90 Hypernatremia improving. r/t decreased po intake change IVF to D5W follow BMP Leukocytosis likely r/t bacteremia trending down follow CBC.check tomorrow Hyperkalemia resolved with lokelnc Diabetes A1c at [facility] in March 2022 was 11.5 ss, ada diet Lantus on hold as pt NPO Coronary artery disease/ extensive atherosclerotic disease Status post cardiac catheterization with drug-eluting stent to LAD in March of 2022 continue statin, asa, plavix BB on hold as above DVT prophylaxis with heparin Attending Dr. Moreno Full code Disposition: PT/OT rec STR Shanna johansen - multiple attempts by nursing/provider to reach daughter, multiple messages left. no answer or call back. CM to reach out to SNF to try to obtain alternate contact info Requires ongoing inpatient stay for further workup of right side weakness, bacteremia Time Spent With Patient Time: Total time managing care of this patient today ____ minutes. Quality Stroke Does the patient have a stroke diagnosis?: Yes Reason for No Anti-thrombotic by Day Two: Not indicated VTE Prior VTE?: No VTE Risk Level:: Medical - moderate - high VTE Device Contraindication: Treatment Not Indicated VTE Drug Contraindication: N/A - Med Ordered
[2022-05-26 10:34] LABS: Anion Gap 14 (12-20); Blood Urea Nitrogen 31 mg/dL (9-16); Calcium 7.7 mg/dL (8.4-10.2); Carbon Dioxide 15 mmol/L (22-29); Chloride 111 mmol/L (96-108); Creatinine Clr Calc Pharmacy 37.2; Estimated Glomerular Filt Rate 41; Glucose Random 256 mg/dL (60-115); Potassium 3.8 mmol/L (3.3-5.1); Sodium 136 mmol/L (135-145)
[2022-05-26 11:19] LABS: Glucose, Whole Blood 231 mg/dL (60-115)
--- NOTE | 2022-05-26 12:22 | P.CDIM_ITS ---
PROVIDER RESPONSE TEXT: To clarify, the appropriate diagnosis supported by the clinical indicators: Condition 1 (please specify): Unable to tell QUERY TEXT: PHYSICIAN'S DOCUMENTATION REQUEST Date of Query: 05/26/2022 09:43 AM EDT Patient Name: Justine Gottlieb Admit Date: 05/20/2022 Dear Ralf Henning, A review of the medical record indicates additional documentation may be needed. Please review below and update the documentation accordingly. Clinical Indicators: The following diagnoses or signs and symptoms were noted in the patient record: Per MD progress note 05/25/22: MRI showing acute infarcts involving the deep right cerebral hemisphere on background of chronic joanna emic injury in a deep watershed distribution Based on the above, could you clarify the cerebral artery involved: Condition 1 (please specify) Condition 2 (please specify) Condition 3 (please specify) Other (explain) Clinically unable to determine (explain) Thank you, Wilma Tello RN Use of terms such as suspected, likely, concern for, or probable (associated with a specific diagnosi s that is being evaluated, monitored, or treated as if it exists) are acceptable and can be coded in the inpatient se tting, when documented at the time of discharge. Please use your independent medical judgment in providing your response. THIS QUERY IS PART OF THE PERMANENT MEDICAL RECORD
--- NOTE | 2022-05-26 12:25 | MHC.CM.PN ---
Addendum entered by Jayla Miller 05/26/22 15:45: FAX SENT TO [facility] TO POSSIBLY ASSIST WITH A MH CARLIE IN ANTICIPATION OF PT POSSIBLY NEEDING LTC. Addendum entered by Jayla Miller 05/26/22 15:35: PT WAS ABLE TO PROVIDE NUMBER OF HER MOTHER SEBASTIÁN ARROYO AT [phone]. THIS CM SPOKE WITH HER REGARDING HER DAUGHTER BEING IN THE HOSPITAL ANDTHAT THE PT WISHES TO HAVE HER ADDED TO HCP. SEBASTIÁN STATES THAT IS FINE AND WILL LET GRANDDAUGHTER MURPHY KNOW TO RETURN OUR CALL. ANOTHER MESSAGE WAS LEFT FOR MURPHY WITH NO RESPONSE. Original Note: PER [facility], THEY ARE UNABLE TO ACCEPT PT BACK BED HOLD HAS , HCP/CONTACT NOT RETURNING CALLS TO CONFIRM INVOLVEMENT OR COMMITMENT TO PT, NO MH CARLIE HAS BEEN STARTED OR SUBMITTED. THIS CM HAS LEFT 2 MESSAGES FOR DAUGHTER Murphy TO RETURN CALL WITH NO SUCCESS WELL. CM WILL CONTINUE TO FOLLOW FOR PLAN.
[2022-05-26] MEDS: hydrALAZINE HCl 10 MG TABLET PO ×2 (12:40→20:36)
--- NOTE | 2022-05-26 12:45 | P.PNUR_ITS ---
Subjective Subjective Date of Service: 05/26/22 Interval history: 61-year-old woman presenting from [facility] facility on 05/[facility]/22 with right sided weakness and aphasia. Patient has a history of? mulltifocal infarcts in the right insula, right basal ganglia, right centrum semioval with history of chronic right ICA occlusion admitted to [facility] in March 2022.? At that time she was also found to have coronary blockages and had drug eluded stent placed to the LAD.? She was found to be diabetic, hypertensive with CAD and PVD while at [facility] in March of 2022.? Prior to that admission she was living independently with her daughter. Patient was admitted for further management and treatment of acute stroke. Urology called due to CT findings 05/22/22--B/L hydroureter secondary to cystitis, the patient has been seen by ID and is on IV abx.? lab work elevated B UN/creat.? Received IV fluid hydration, Renal function has improved. BUN/creat 31/1.3. Pt on insulin for DM management. Being managed by medicine for Acute Stroke. Recommend discharge with donald, outpatient urology follow up. Physical Exam Vital Signs: Vital Signs: Last Vital Signs Temp 98.0 F 05/26/22 11:42 Pulse 68 05/26/22 11:42 Resp 20 05/26/22 11:42 BP 170/68 H 05/26/22 11:42 Pulse Ox 99 05/26/22 11:42 O2 Del Method Room Air 05/26/22 11:42 BMI result Body Mass Index 21.7 Urology Results Labs 05/23/22 07:17 05/26/22 10:05 Labs: Laboratory Results - last 24 hr 05/25/22 05/25/22 05/26/22 16:22 20:24 07:46 Sodium Potassium Chloride Carbon Dioxide Anion Gap BUN Creatinine Estim Creat Clear Calc Estimated GFR POC Glucose 279 H 255 H 209 H Random Glucose Calcium 05/26/22 05/26/22 10:05 11:14 Sodium 136 Potassium 3.8 Chloride 111 H Carbon Dioxide 15 L Anion Gap 14 BUN 31 H Creatinine 1.31 Estim Creat Clear Calc 37.2 Estimated GFR 41 POC Glucose 231 H Random Glucose 256 H Calcium 7.7 L Progress Note: A&P Assessment and plan (1) DIONISIO (acute kidney injury): Status: Acute (2) CKD (chronic kidney disease) stage 3, GFR 30-59 ml/min: Status: Acute (3) Bilateral hydronephrosis: Status: Acute (4) Cystitis: Status: Acute (5) CVA (cerebral vascular accident): Status: Acute Plan Renal function improved. Recommend discharge with bennett, outpatient urology follow up. Time Spent With Patient Time: Total time managing care of this patient today ____ minutes. Progress Note: Quality Stroke Does the patient have a stroke diagnosis?: Yes Reason for No Anti-thrombotic by Day Two: Not indicated
[2022-05-26] MEDS: cefTRIAXone sodium 2 GM in 0.9 % Sodium Chloride 50 ML IV (13:27)
--- NOTE | 2022-05-26 15:56 | PM.IDPN ---
Subjective Subjective Date of Service: 05/26/22 Critical Care Time (minutes): 15 Comment: she has no acute concerns at this time Objective Data Labs 05/23/22 07:17 05/26/22 10:05 Labs: Laboratory Results - last 24 hr 05/25/22 05/25/22 05/26/22 16:22 20:24 07:46 Sodium Potassium Chloride Carbon Dioxide Anion Gap BUN Creatinine Estim Creat Clear Calc Estimated GFR POC Glucose 279 H 255 H 209 H Random Glucose Calcium 05/26/22 05/26/22 10:05 11:14 Sodium 136 Potassium 3.8 Chloride 111 H Carbon Dioxide 15 L Anion Gap 14 BUN 31 H Creatinine 1.31 Estim Creat Clear Calc 37.2 Estimated GFR 41 POC Glucose 231 H Random Glucose 256 H Calcium 7.7 L Microbiology Microbiology Results: Microbiology 05/21/22 01:49 Blood - Venous Blood Culture - Final Escherichia coli 05/21/22 01:49 Blood - Venous Blood Culture - Final Escherichia coli 05/21/22 Unknown Urine clean catch - Urine peters top Urine Culture - Final Escherichia coli 05/20/22 13:23 Blood - Venous Blood Culture - Final Escherichia coli 05/20/22 13:04 Blood - Venous Blood Culture - Final Escherichia coli Physical Exam Vital Signs: Vital Signs: Last Vital Signs Temp 97.1 F 05/26/22 15:50 Pulse 64 05/26/22 15:50 Resp 14 05/26/22 15:50 BP 168/68 H 05/26/22 15:50 Pulse Ox 99 05/26/22 15:50 O2 Del Method Room Air 05/26/22 15:50 BMI result Body Mass Index 21.7 Const: General: cooperative Resp: Effort & Inspection: normal respiratory effort Cardio: Rate: regular rate Rhythm: regular rhythm GI: Palpation (GI): Soft to palpation and nontender Neuro: Other: consistent with CVA Assessment and Plan Assessment and plan (1) Cystitis: Problem details: She has had high level bacteremia Status: Acute Assessment and Plan: Recheck blood cultures now and probable 14 d total rx from first negative blood culture. (2) Bacteremia: Status: Acute Time Spent With Patient Time: Total time managing care of this patient today ____ minutes.
[2022-05-26 16:22] LABS: Glucose, Whole Blood 179 mg/dL (60-115)
[2022-05-26] MEDS: Morphine Sulfate 2 MG/ML CARTRIDGE 1 MG IVPUSH (18:22)
--- NOTE | 2022-05-26 19:44 | PC.NURSE ---
Patient's son visited - Negrito [phone] - per patient it is ok to contact Negrito re: patient's health. Number and name of the son given to community fundraiser to be added to chart.
[2022-05-26 20:10] LABS: Glucose, Whole Blood 188 mg/dL (60-115)
[2022-05-26] MEDS: Multivitamin TABLET 1 TAB PO (20:35)
[2022-05-26] MEDS: Atorvastatin Calcium 80 MG TABLET PO (20:35)
[2022-05-27] MEDS: 0.9 % Sodium Chloride Flush 3 ML SYRINGE IVFLUSH ×3 (00:13→17:02)
[2022-05-27] MEDS: Dextrose 5 % and 0.45 % NaCl 1,000 ML 100 ML IVCONT (00:13)
[2022-05-27] MEDS: hydrALAZINE HCl 10 MG TABLET PO (00:20)
[2022-05-27 03:51] VITALS: BP 168/88; PULSE 73; RESP 20; TEMP 36.1; O2SAT 98
[2022-05-27] MEDS: Heparin Sodium,Porcine 5,000 UNIT/ML VIAL 5000 UNIT SUBCUT ×2 (05:44→17:01)
[2022-05-27 07:04] VITALS: BP 172/79; PULSE 67; RESP 20; TEMP 36.4; O2SAT 99
[2022-05-27 07:09] LABS: Glucose, Whole Blood 223 mg/dL (60-115)
[2022-05-27] MEDS: Insulin Lispro 100 UNIT/ML 3 ML VIAL SUBCUT ×4 (09:01→21:45)
[2022-05-27] MEDS: Metoprolol Succinate ER 25 MG TAB.ER.24H PO (09:02)
[2022-05-27] MEDS: polyethylene glycoL 3350 17 GM POWD.PACK PO (09:02)
[2022-05-27] MEDS: Aspirin Enteric Coated 81 MG TABLET.DR PO (09:03)
[2022-05-27] MEDS: Baclofen 10 MG TABLET PO ×3 (09:03→21:44)
[2022-05-27] MEDS: amLODIPine Besylate 2.5 MG TABLET PO (09:03)
[2022-05-27] MEDS: Sennosides 8.6 MG TABLET PO (09:03)
[2022-05-27] MEDS: lisinopriL 20 MG TABLET PO (09:03)
[2022-05-27] MEDS: Ascorbic Acid 500 MG TABLET PO (09:03)
[2022-05-27] MEDS: Sertraline HCL 25 MG TABLET PO (09:03)
[2022-05-27] MEDS: Clopidogrel Bisulfate 75 MG TABLET PO (09:03)
[2022-05-27] MEDS: Zinc Sulfate 220 MG CAPSULE PO (09:04)
--- NOTE | 2022-05-27 09:36 | PM.PNNEP ---
Subjective Subjective Date of Service: 05/27/22 Interval history: Events noted. Sleepy Nonoliguric Physical Exam Vital Signs: Vital Signs: Last Vital Signs Temp 97.5 F 05/27/22 07:04 Pulse 67 05/27/22 07:04 Resp 20 05/27/22 07:04 BP 172/79 H 05/27/22 07:04 Pulse Ox 99 05/27/22 07:04 O2 Del Method Room Air 05/27/22 07:04 BMI result Body Mass Index 21.7 Const: General: no acute distress Neck: Neck: Yes supple Resp: Effort & Inspection: normal respiratory effort and no respiratory distress Auscultation: clear to auscultation bilaterally Cardio: Rate: regular rate Rhythm: regular rhythm Heart sounds: S1 normal heart sound present and S2 normal heart sound present GI: Palpation (GI): Soft to palpation and nontender : General: Yes no CVA tenderness Back/Spine/Pelvis: Back: no CVA tenderness Skin: General skin exam: no rashes or lesions noted Neuro: General: moves all extremities Objective Data Labs 05/23/22 07:17 05/26/22 10:05 Labs: Laboratory Results - last 24 hr 05/26/22 05/26/22 05/26/22 10:05 11:14 16:19 Sodium 136 Potassium 3.8 Chloride 111 H Carbon Dioxide 15 L Anion Gap 14 BUN 31 H Creatinine 1.31 Estim Creat Clear Calc 37.2 Estimated GFR 41 POC Glucose 231 H 179 H Random Glucose 256 H Calcium 7.7 L 05/26/22 05/27/22 20:07 07:06 Sodium Potassium Chloride Carbon Dioxide Anion Gap BUN Creatinine Estim Creat Clear Calc Estimated GFR POC Glucose 188 H 223 H Random Glucose Calcium Microbiology Microbiology Results: Microbiology 05/21/22 01:49 Blood - Venous Blood Culture - Final Escherichia coli 05/21/22 01:49 Blood - Venous Blood Culture - Final Escherichia coli 05/21/22 Unknown Urine clean catch - Urine peters top Urine Culture - Final Escherichia coli 05/20/22 13:23 Blood - Venous Blood Culture - Final Escherichia coli 05/20/22 13:04 Blood - Venous Blood Culture - Final Escherichia coli Procedures Date of Service Date of Service: 05/27/22 Assessment & Plan Assessment and plan (1) DIONISIO (acute kidney injury): Status: Acute (2) Metabolic acidosis: Status: Acute (3) Hypernatremia: Status: Acute (4) Bilateral hydronephrosis: Status: Acute (5) CKD (chronic kidney disease) stage 3, GFR 30-59 ml/min: Status: Acute (6) Dysphagia: Status: Acute (7) Hydroureter: Status: Acute Plan multifactorial DIONISIO: -contrast induced nephrotoxicity (s/p CTA on 05/20) -renal hypoperfusion -obstructive uropathy Aaliyah 36 CT scan of the abdomen showed bilateral moderate hydronephrosis and hydroureter known CKD baseline Scr ~ 1.3 mg/dl elevated serum sodium due to free water deficit- resolved E coli urosepsis. On antibiotics. REC Alvarez Keep I > O start sodium bicarbonate 650 mg b.i.d. to correct acidosis Surgery note appreciated. PEG placement on hold due to E coli urosepsis Time Spent With Patient Time: Total time managing care of this patient today ____ minutes. Progress Note: Quality Stroke Does the patient have a stroke diagnosis?: Yes Reason for No Anti-thrombotic by Day Two: Not indicated
[2022-05-27 10:56] VITALS: BP 162/79; PULSE 60; RESP 20; TEMP 36.3; O2SAT 99
[2022-05-27 10:58] LABS: Glucose, Whole Blood 221 mg/dL (60-115)
[2022-05-27 11:11] VITALS: BP 162/79; PULSE 60; O2SAT 99
--- NOTE | 2022-05-27 12:07 | HO.PM.IMPN ---
Subjective Subjective Date of Service: 05/27/22 Interval History: f/u on DIONISIO, acute stroke, dysphagia more alert and more coherent, cr better was dong video conference with eugene Physical Exam Vital Signs: Vital Signs: Last Vital Signs Temp 97.4 F 05/27/22 10:56 Pulse 60 05/27/22 11:11 Resp 20 05/27/22 10:56 BP 162/79 H 05/27/22 11:11 Pulse Ox 99 05/27/22 11:11 O2 Del Method Room Air 05/27/22 10:56 BMI result Body Mass Index 21.7 Const: Other: General: AO X 3, no acute distress Resp: CTA bilateral CVS: S1,S2,RRR GI: +BS, NT, no distention Skin: No rash Neuro: left upper/lower extremity weakness; mild left facial droop. able to follow most commands. able to move right upper and lower extremities psych: appropriate affect Objective Data Active Medications Acetaminophen (Acetaminophen Oral Liquid 650 Mg/20.3 Ml Solution) 650 mg NG-TUBE Q6H PRN PRN Reason: Pain, Moderate (Pain Scale 4-6 Last Admin: 05/25/22 13:00 Dose: 650 mg Documented By: JAS Amlodipine Besylate (Amlodipine Besylate 2.5 Mg Tablet) 2.5 mg PO DAILY [facility]; Protocol Last Admin: 05/27/22 09:03 Dose: 2.5 mg Documented By: STACY Ascorbic Acid (Ascorbic Acid 500 Mg Tablet) 500 mg PO DAILY [facility] Last Admin: 05/27/22 09:03 Dose: 500 mg Documented By: STACY Aspirin (Aspirin Enteric Coated 81 Mg Tablet.) 81 mg PO DAILY [facility] Last Admin: 05/27/22 09:03 Dose: 81 mg Documented By: STACY Atorvastatin Calcium (Atorvastatin Calcium 80 Mg Tablet) 80 mg PO BEDTIME [facility] Last Admin: 05/26/22 20:35 Dose: 80 mg Documented By: DOBROB Baclofen (Baclofen 10 Mg Tablet) 10 mg PO TID [facility] Last Admin: 05/27/22 09:03 Dose: 10 mg Documented By: STACY Bisacodyl (Bisacodyl 10 Mg Supp.Rect) 10 mg CA DAILY PRN PRN Reason: Constipation Clopidogrel Bisulfate (Clopidogrel Bisulfate 75 Mg Tablet) 75 mg PO DAILY [facility] Last Admin: 05/27/22 09:03 Dose: 75 mg Documented By: STACY Glucagon (Glucagon,Human Recombinant 1 Mg/Ml Vial) 1 mg SUBCUT Q20M PRN PRN Reason: fsbs < 60 and unable to swallow Glucose (Glucose Gel 15 Gm Gel..Gram.) 15 gm PO Q15M PRN; Protocol PRN Reason: per Hypoglycemia Standing Ord. Glucose (Glucose Gel 15 Gm Gel..Gram.) 20 gm PO Q15M PRN PRN Reason: FSBS<50 AND ABLE TO SWALLOW Heparin Sodium (Porcine) (Heparin Sodium,Porcine 5,000 Unit/Ml Vial) 5,000 unit SUBCUT Q12H [facility] Last Admin: 05/27/22 05:44 Dose: 5,000 unit Documented By: MOSHE Hydralazine HCl (Hydralazine Hcl 10 Mg Tablet) 10 mg PO Q6H PRN; Protocol PRN Reason: Hypertension Last Admin: 05/27/22 00:20 Dose: 10 mg Documented By: MOSHE Dextrose (D10) 250 mls @ 750 mls/hr IV Q15M PRN; Protocol PRN Reason: per Hypoglycemia Standing Ord. Ceftriaxone Sodium 2 gm/ (Sodium Chloride) 50 mls @ 100 mls/hr IV Q24H [facility] Last Infusion: 05/26/22 14:07 Dose: 0 mls/hr Documented By: JAS Insulin Glargine (Insulin Glargine,Hum.Rec.Anlog 100 Unit/Ml 10 Ml Vial) 14 unit SUBCUT BEDTIME [facility] Last Admin: 05/21/22 23:00 Dose: Not Given Documented By: MOSHE Non-Admin Reason: Physician Held Med Insulin Human Lispro (Insulin Lispro 100 Unit/Ml 3 Ml Vial) 0 unit SUBCUT QIDACHS [facility]; Protocol Last Admin: 05/27/22 09:01 Dose: 4 unit Documented By: STACY Lisinopril (Lisinopril 20 Mg Tablet) 20 mg PO DAILY [facility]; Protocol Last Admin: 05/27/22 09:03 Dose: 20 mg Documented By: STACY Magnesium Hydroxide (Milk Of Magnesia 30 Ml Oral.Susp) 30 ml PO DAILY PRN PRN Reason: Constipation Meclizine HCl (Meclizine Hcl 12.5 Mg Tablet) 12.5 mg PO Q8H PRN PRN Reason: Dizziness Metoprolol Succinate (Metoprolol Succinate Er 25 Mg Tab.Er.24h) 25 mg PO DAILY [facility]; Protocol Last Admin: 05/27/22 09:02 Dose: 25 mg Documented By: STACY Morphine Sulfate (Morphine Sulfate 2 Mg/Ml Cartridge) 1 mg IVPUSH Q4H PRN; Protocol PRN Reason: Pain, Severe (Pain Scale 7-10) Last Admin: 05/26/22 18:22 Dose: 1 mg Documented By: JAS Multivitamins/Vitamin C (Multivitamin Tablet) 1 tab PO BEDTIME [facility] Last Admin: 05/26/22 20:35 Dose: 1 tab Documented By: CONSTANCE Ondansetron HCl (Ondansetron Hcl 4 Mg/2 Ml Vial) 4 mg IVPUSH Q8H PRN PRN Reason: Nausea and Vomiting Pharmacy Consult (Consult Rx Perform Med Rec) 1 each MISCELLANE ONCE PRN PRN Reason: Consult order Polyethylene Glycol (Polyethylene Glycol 3350 17 Gm Powd.Pack) 17 gm PO DAILY [facility] Last Admin: 05/27/22 09:02 Dose: 17 gm Documented By: STACY Senna (Sennosides 8.6 Mg Tablet) 8.6 mg PO DAILY [facility] Last Admin: 05/27/22 09:03 Dose: 8.6 mg Documented By: STACY Sertraline HCl (Sertraline Hcl 25 Mg Tablet) 25 mg PO DAILY [facility] Last Admin: 05/27/22 09:03 Dose: 25 mg Documented By: STACY Sodium Biphosphate/Sodium Phosphate (Sodium Phosphate,Bastrop-Dibasic 133 Ml Enema) 118 ml CA DAILY PRN PRN Reason: Constipation Sodium Chloride (0.9 % Sodium Chloride Flush 3 Ml Syringe) 3 ml IVFLUSH QSHIFT [facility] Last Admin: 05/27/22 09:02 Dose: 3 ml Documented By: STACY Tizanidine HCl (Tizanidine Hcl 4 Mg Tablet) 2 mg PO BID PRN PRN Reason: MUSCLE SPASMS Last Admin: 05/25/22 04:18 Dose: 2 mg Documented By: CHARITY Zinc Sulfate (Zinc Sulfate 220 Mg Capsule) 220 mg PO DAILY [facility] Last Admin: 05/27/22 09:04 Dose: 220 mg Documented By: STACY Labs 05/23/22 07:17 05/26/22 10:05 Labs: Laboratory Results - last 24 hr 05/26/22 05/26/22 05/27/22 16:19 20:07 07:06 POC Glucose 179 H 188 H 223 H 05/27/22 10:53 POC Glucose 221 H Microbiology Microbiology Results: Microbiology 05/21/22 01:49 Blood Culture - Final Blood - Venous Escherichia coli Assessment and Plan (1) Dysphagia: Status: Acute (2) Bilateral hydronephrosis: Status: Acute (3) Hydroureter: Status: Acute Plan 61 year old women with history of stroke in March 20[place] [facility] [place] with right side weakness Acute stroke Hx of multifocal infarcts in the right insula, right basal ganglia, right centrum semiovale with history of chronic right ICA occlusion at [facility] with associated chronic aphagia, left-sided weakness MRI showing acute infarcts involving the deep right cerebral hemisphere on background of 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 Continue Aspirin, Plavix, statin PT OT- rec STR speech therapy today--puree, thin liquid EEG 05/22:Abnormal EEG suggestive of severe bihemispheric dysfunction of unknown etiology. dysphagia r/t above did better : puree, thin liquid seen by surgery - hold PEG and if doing ok, dc NGT E.coli bactreremia likely r/t to UTI due to chronic bennett urine culture growing e.coli as well, Ceftriaxone sensitive started on zosyn empirically and changed to ceftriaxone on 05/23 ID following; P ceftin at dc DIONISIO d/t to multficatorial SCr 2.31, back to baseline 1.3 CT abdomen showing multiple abnormalities seen by urology - no need for intervention right now for hydronephrosis/hydroureter - bennett in place, draining well nephrology consult pending - CT showing persistent patchy bilateral nephrograms continue IVF follow BMP Nephro following b/l hydroureter/hydronephrosis secondary to cystitis monitor conservatively consider b/l stents next week if renal function not improving Hypertension? Stable blood pressure, bp up and down high overnight metoprolol has been on hold, HR 50s/60s without BB lisinopril on hold for DIONISIO started on low dose norvasc, can uptitrate prn; avoid MAP <90 Hypernatremia improving. r/t decreased po intake change IVF to D5W follow BMP Leukocytosis likely r/t bacteremia trending down follow CBC.check tomorrow Hyperkalemia resolved with lokelma Diabetes A1c at [facility] in March 2022 was 11.5 ss, ada diet Lantus on hold as pt NPO Coronary artery disease/ extensive atherosclerotic disease Status post cardiac catheterization with drug-eluting stent to LAD in March of 2022 continue statin, asa, plavix BB on hold as above DVT prophylaxis with heparin Attending Dr. Moreno Full code Disposition: PT/OT rec STR Shanna johansen - multiple attempts by nursing/provider to reach daughter, multiple messages left. no answer or call back. CM to reach out to SNF to try to obtain alternate contact info Requires ongoing inpatient stay for further workup of right side weakness, bacteremia Time Spent With Patient Time: Total time managing care of this patient today ____ minutes. Quality Stroke Does the patient have a stroke diagnosis?: Yes Reason for No Anti-thrombotic by Day Two: Not indicated VTE Prior VTE?: No VTE Risk Level:: Medical - moderate - high VTE Device Contraindication: Treatment Not Indicated VTE Drug Contraindication: N/A - Med Ordered
[2022-05-27] MEDS: cefTRIAXone sodium 2 GM in 0.9 % Sodium Chloride 50 ML IV (12:43)
--- NOTE | 2022-05-27 14:49 | MHC.CM.PN ---
EMR REVIEWED AND PER MD ROUNDS, PT NOT MEDICALLY CLEARED FOR DC (BACTEREMIA, ELECTROLYTE MONITORING) SON/HCP CARISSA IN TO SEE MOTHER. REQUESTS A RETURN REFERRAL TO [facility], AWAITING RESPONSE. OTHER OUTSIDE REFERRALS FOLLOWING. CM WILL CONTINUE TO FOLLOW
[2022-05-27 15:58] VITALS: BP 182/68; PULSE 65; RESP 14; TEMP 36.3; O2SAT 98
[2022-05-27 16:35] LABS: Glucose, Whole Blood 207 mg/dL (60-115)
[2022-05-27] MEDS: amLODIPine Besylate 5 MG TABLET PO (17:04)
[2022-05-27 18:59] VITALS: BP 162/74; PULSE 63; RESP 13; TEMP 36.2; O2SAT 99
[2022-05-27 20:24] LABS: Glucose, Whole Blood 159 mg/dL (60-115)
[2022-05-27] MEDS: Multivitamin TABLET 1 TAB PO (21:44)
[2022-05-27] MEDS: Atorvastatin Calcium 80 MG TABLET PO (21:44)
[2022-05-28] VITALS: BP 155/68; PULSE 62; RESP 16; TEMP 36.6; O2SAT 99
[2022-05-28] MEDS: 0.9 % Sodium Chloride Flush 3 ML SYRINGE IVFLUSH ×4 (01:06→21:03)
[2022-05-28 03:19] VITALS: BP 160/54; PULSE 65; RESP 18; TEMP 36.8; O2SAT 99
[2022-05-28] MEDS: Heparin Sodium,Porcine 5,000 UNIT/ML VIAL 5000 UNIT SUBCUT ×2 (06:21→17:04)
[2022-05-28 07:09] VITALS: BP 146/79; PULSE 61; RESP 20; TEMP 36.7; O2SAT 97
[2022-05-28 07:33] LABS: Glucose, Whole Blood 128 mg/dL (60-115)
--- NOTE | 2022-05-28 08:46 | MHC.CLN ---
F/U PT WITH INCREASED NUTRITION RISK R/T PRESSURE INJURY RECOMMEND ADDING ENSURE MAX BID TO PROMOTE WOUND HEALING SUPP TO PROVIDE 300KCALS, 60G PROTEIN WITH 100% ACCEPTANCE MONITOR PO INTAKE AND SUPP ACCEPTANCE FULL ASSESSMENT TO FOLLOW
[2022-05-28] MEDS: Clopidogrel Bisulfate 75 MG TABLET PO (09:18)
[2022-05-28] MEDS: Baclofen 10 MG TABLET PO ×3 (09:18→21:02)
[2022-05-28] MEDS: Zinc Sulfate 220 MG CAPSULE PO (09:18)
[2022-05-28] MEDS: Ascorbic Acid 500 MG TABLET PO (09:18)
[2022-05-28] MEDS: Aspirin Enteric Coated 81 MG TABLET.DR PO (09:18)
[2022-05-28] MEDS: Sertraline HCL 25 MG TABLET PO (09:18)
[2022-05-28] MEDS: polyethylene glycoL 3350 17 GM POWD.PACK PO (09:18)
[2022-05-28] MEDS: Metoprolol Succinate ER 25 MG TAB.ER.24H PO (09:18)
[2022-05-28] MEDS: Sennosides 8.6 MG TABLET PO (09:18)
[2022-05-28] MEDS: lisinopriL 20 MG TABLET PO (09:18)
[2022-05-28] MEDS: amLODIPine Besylate 2.5 MG TABLET PO (09:18)
--- NOTE | 2022-05-28 11:13 | PM.PNNEP ---
Subjective Subjective Date of Service: 05/28/22 Interval history: Events noted. No labs today Physical Exam Vital Signs: Vital Signs: Last Vital Signs Temp 98.0 F 05/28/22 07:09 Pulse 61 05/28/22 07:09 Resp 20 05/28/22 07:09 BP 146/79 H 05/28/22 07:09 Pulse Ox 97 05/28/22 07:09 O2 Del Method Room Air 05/28/22 07:09 BMI result Body Mass Index 21.7 Const: General: no acute distress, alert and awake Eyes: General: appearance normal, both eyes and all related structures Resp: Effort & Inspection: normal respiratory effort, able to speak in complete sentences and no respiratory distress Cardio: Heart sounds: S1 normal heart sound present and S2 normal heart sound present GI: Palpation (GI): Soft to palpation and nontender : General: Yes no CVA tenderness Back/Spine/Pelvis: Back: no CVA tenderness Neuro: General: moves all extremities Objective Data Labs 05/23/22 07:17 05/26/22 10:05 Labs: Laboratory Results - last 24 hr 05/27/22 05/27/22 05/28/22 16:26 20:21 07:11 POC Glucose 207 H 159 H 128 H Microbiology Microbiology Results: Microbiology 05/26/22 14:59 Blood - Venous Blood Culture - Preliminary No growth after 24 hours. 05/26/22 14:59 Blood - Venous Blood Culture - Preliminary No growth after 24 hours. 05/21/22 01:49 Blood - Venous Blood Culture - Final Escherichia coli 05/21/22 01:49 Blood - Venous Blood Culture - Final Escherichia coli 05/21/22 Unknown Urine clean catch - Urine peters top Urine Culture - Final Escherichia coli 05/20/22 13:23 Blood - Venous Blood Culture - Final Escherichia coli 05/20/22 13:04 Blood - Venous Blood Culture - Final Escherichia coli Procedures Date of Service Date of Service: 05/28/22 Assessment & Plan Assessment and plan (1) DIONISIO (acute kidney injury): Status: Acute (2) Metabolic acidosis: Status: Acute (3) Hypernatremia: Status: Acute (4) Bilateral hydronephrosis: Status: Acute (5) CKD (chronic kidney disease) stage 3, GFR 30-59 ml/min: Status: Acute (6) Dysphagia: Status: Acute (7) Hydroureter: Status: Acute Plan multifactorial DIONISIO: -contrast induced nephrotoxicity (s/p CTA on 05/20) -renal hypoperfusion -obstructive uropathy Aaliyah 36 CT scan of the abdomen showed bilateral moderate hydronephrosis and hydroureter known CKD baseline Scr ~ 1.3 mg/dl elevated serum sodium due to free water deficit- resolved E coli urosepsis. On antibiotics. REC Alvarez Keep I > O sodium bicarbonate 650 mg b.i.d. to correct acidosis Surgery note appreciated. PEG placement on hold due to E coli urosepsis Time Spent With Patient Time: Total time managing care of this patient today ____ minutes. Progress Note: Quality Stroke Does the patient have a stroke diagnosis?: Yes Reason for No Anti-thrombotic by Day Two: Not indicated
[2022-05-28 11:32] VITALS: BP 154/78; PULSE 62; RESP 20; TEMP 36.7; O2SAT 98
[2022-05-28 12:16] LABS: Glucose, Whole Blood 183 mg/dL (60-115)
[2022-05-28] MEDS: Insulin Lispro 100 UNIT/ML 3 ML VIAL SUBCUT ×3 (12:52→21:02)
[2022-05-28] MEDS: cefTRIAXone sodium 2 GM in 0.9 % Sodium Chloride 50 ML IV (12:52)
--- NOTE | 2022-05-28 13:36 | MHC.SL.SWA ---
Speech Pathologist Impression: Risk of Aspiration Due to: Neurological Condition Dysphasia Diet Status: Recommend UPGRADE diet to Ground/Mechanical Altered (for ease of mastication) continue on Thin Liquids, pills whole in puree or with liquid. DIRECTOR PERIOPERATIVE entered diet upgrade in [facility], notified MD hayes RD by secure text. Liquid Consistency and Strategies for Safe Swallow: Liquid Intake Recommendation: Thin Liquid Intake Strategies: Small Sips Solid Food Consistency: Dietary Recommendations: Grnd/Mech Altered (NDD2) Additional Modifications to Solid Foods: Recommend periodic supervision during meals, assuring that tray is set up, all food and liquid are open and accessible to patient, with periodic checks that patient is progressing with meal without difficulty. Oral Medication Intake: Whole with Puree Please contact the pharmacy regarding appropriate crushable or liquid drug formulations that are available whenever modified delivery is recommended. Compensatory Strategies and Precautions to be Taken for Safe Swallow: Sitting Upright (90 deg) Small Bites and Sips Alternate Liquids/Solids Avoid Specific Foods Supervision While Eating and Drinking for Safe Swallow: Intermittent Supervision Foods to Avoid: Mixed consistencies Swallowing Recommended Treatments: Compens. Strategy Educat. Recommendation for Speech: Inpatient Speech Therapy Comment: Patient seen for repeat assessment this morning. Patient is now alert, oriented, communicative and was interested in trying other food consistencies. Patient was given softened lupillo cracker in puree, with patient grimacing on the taste, producing a slow period of mastication followed by timely swallow with mild residual cleared by sip of liquid. Patient reported the grimace was on the taste, and that food doesn't taste that good these days. No c/o today of sore throat. Patient was offered and accepted a saltine cracker, with patient again producing a slow, prolonged period of mastication, followed by timely swallow, though ample oral residual. Oral residual was cleared by sip of liquid, which patient was able to self administer. Patient asked for the remainder of the crackers to eat, was observed independently feeding self, slowly masticating, following bites with sips of liquid. Recommend UPGRADE diet to Ground/Mechanical Altered (for ease of mastication) continue on Thin Liquids, pills whole in puree or with liquid. DIRECTOR PERIOPERATIVE entered diet upgrade in [facility], notified MD hayes RD by secure text, adjusted white board in room. Frequency/Duration: Date Range for Service Req: Timeline to reassess: Track Hoe Operator Clinican/Clinical Fellow: No Supervisory Statement: I have reviewed and agree with the student/clinical fellow's documentation: N/A Speech Language Pathologist: Autumn Denton M.A., [facility]-DIRECTOR PERIOPERATIVE
--- NOTE | 2022-05-28 14:14 | P.PNIM_ITS ---
Subjective Subjective Date of Service: 05/28/22 Interval History: f/u on DIONISIO, acute stroke, dysphagia more alert and more coherent, inquring about discharge Physical Exam Vital Signs: Vital Signs: Last Vital Signs Temp 98.0 F 05/28/22 11:32 Pulse 62 05/28/22 11:32 Resp 20 05/28/22 11:32 BP 154/78 H 05/28/22 11:32 Pulse Ox 98 05/28/22 11:32 O2 Del Method Room Air 05/28/22 11:32 BMI result Body Mass Index 21.7 Const: Other: General: AO X 3, no acute distress Resp: CTA bilateral CVS: S1,S2,RRR GI: +BS, NT, no distention Skin: No rash Neuro: left upper/lower extremity weakness; mild left facial droop. able to follow most commands. able to move right upper and lower extremities psych: appropriate affect Objective Data Active Medications Acetaminophen (Acetaminophen Oral Liquid 650 Mg/20.3 Ml Solution) 650 mg NG- TUBE Q6H PRN PRN Reason: Pain, Moderate (Pain Scale 4-6 Last Admin: 05/25/22 13:00 Dose: 650 mg Documented By: JAS Amlodipine Besylate (Amlodipine Besylate 2.5 Mg Tablet) 2.5 mg PO DAILY [facility]; Protocol Last Admin: 05/28/22 09:18 Dose: 2.5 mg Documented By: STACY Ascorbic Acid (Ascorbic Acid 500 Mg Tablet) 500 mg PO DAILY [facility] Last Admin: 05/28/22 09:18 Dose: 500 mg Documented By: STACY Aspirin (Aspirin Enteric Coated 81 Mg Tablet.) 81 mg PO DAILY [facility] Last Admin: 05/28/22 09:18 Dose: 81 mg Documented By: STACY Atorvastatin Calcium (Atorvastatin Calcium 80 Mg Tablet) 80 mg PO BEDTIME [facility] Last Admin: 05/27/22 21:44 Dose: 80 mg Documented By: GUCCI Baclofen (Baclofen 10 Mg Tablet) 10 mg PO TID [facility] Last Admin: 05/28/22 09:18 Dose: 10 mg Documented By: STACY Bisacodyl (Bisacodyl 10 Mg Supp.Rect) 10 mg FL DAILY PRN PRN Reason: Constipation Clopidogrel Bisulfate (Clopidogrel Bisulfate 75 Mg Tablet) 75 mg PO DAILY [facility] Last Admin: 05/28/22 09:18 Dose: 75 mg Documented By: STACY Glucagon (Glucagon,Human Recombinant 1 Mg/Ml Vial) 1 mg SUBCUT Q20M PRN PRN Reason: fsbs < 60 and unable to swallow Glucose (Glucose Gel 15 Gm Gel..Gram.) 15 gm PO Q15M PRN; Protocol PRN Reason: per Hypoglycemia Standing Ord. Glucose (Glucose Gel 15 Gm Gel..Gram.) 20 gm PO Q15M PRN PRN Reason: FSBS<50 AND ABLE TO SWALLOW Heparin Sodium (Porcine) (Heparin Sodium,Porcine 5,000 Unit/Ml Vial) 5,000 unit SUBCUT Q12H [facility] Last Admin: 05/28/22 06:21 Dose: 5,000 unit Documented By: GUCCI Hydralazine HCl (Hydralazine Hcl 10 Mg Tablet) 10 mg PO Q6H PRN; Protocol PRN Reason: Hypertension Last Admin: 05/27/22 00:20 Dose: 10 mg Documented By: MOSHE Dextrose (D10) 250 mls @ 750 mls/hr IV Q15M PRN; Protocol PRN Reason: per Hypoglycemia Standing Ord. Ceftriaxone Sodium 2 gm/ (Sodium Chloride) 50 mls @ 100 mls/hr IV Q24H [facility] Last Infusion: 05/28/22 13:34 Dose: 0 mls/hr Documented By: SIMA Insulin Glargine (Insulin Glargine,Hum.Rec.Anlog 100 Unit/Ml 10 Ml Vial) 14 unit SUBCUT BEDTIME [facility] Last Admin: 05/21/22 23:00 Dose: Not Given Documented By: MOSHE Non-Admin Reason: Physician Held Med Insulin Human Lispro (Insulin Lispro 100 Unit/Ml 3 Ml Vial) 0 unit SUBCUT QIDACHS [facility]; Protocol Last Admin: 05/28/22 12:52 Dose: 2 unit Documented By: SIMA Lisinopril (Lisinopril 20 Mg Tablet) 20 mg PO DAILY [facility]; Protocol Last Admin: 05/28/22 09:18 Dose: 20 mg Documented By: STACY Magnesium Hydroxide (Milk Of Magnesia 30 Ml Oral.Susp) 30 ml PO DAILY PRN PRN Reason: Constipation Meclizine HCl (Meclizine Hcl 12.5 Mg Tablet) 12.5 mg PO Q8H PRN PRN Reason: Dizziness Metoprolol Succinate (Metoprolol Succinate Er 25 Mg Tab.Er.24h) 25 mg PO DAILY [facility]; Protocol Last Admin: 05/28/22 09:18 Dose: 25 mg Documented By: STACY Morphine Sulfate (Morphine Sulfate 2 Mg/Ml Cartridge) 1 mg IVPUSH Q4H PRN; Protocol PRN Reason: Pain, Severe (Pain Scale 7-10) Last Admin: 05/26/22 18:22 Dose: 1 mg Documented By: JAS Multivitamins/Vitamin C (Multivitamin Tablet) 1 tab PO BEDTIME [facility] Last Admin: 05/27/22 21:44 Dose: 1 tab Documented By: GUCCI Ondansetron HCl (Ondansetron Hcl 4 Mg/2 Ml Vial) 4 mg IVPUSH Q8H PRN PRN Reason: Nausea and Vomiting Pharmacy Consult (Consult Rx Perform Med Rec) 1 each MISCELLANE ONCE PRN PRN Reason: Consult order Polyethylene Glycol (Polyethylene Glycol 3350 17 Gm Powd.Pack) 17 gm PO DAILY [facility] Last Admin: 05/28/22 09:18 Dose: 17 gm Documented By: STACY Senna (Sennosides 8.6 Mg Tablet) 8.6 mg PO DAILY [facility] Last Admin: 05/28/22 09:18 Dose: 8.6 mg Documented By: STACY Sertraline HCl (Sertraline Hcl 25 Mg Tablet) 25 mg PO DAILY [facility] Last Admin: 05/28/22 09:18 Dose: 25 mg Documented By: STACY Sodium Biphosphate/Sodium Phosphate (Sodium Phosphate,Reeves-Dibasic 133 Ml Enema) 118 ml FL DAILY PRN PRN Reason: Constipation Sodium Chloride (0.9 % Sodium Chloride Flush 3 Ml Syringe) 3 ml IVFLUSH QSHIFT [facility] Last Admin: 05/28/22 09:17 Dose: 3 ml Documented By: STACY Tizanidine HCl (Tizanidine Hcl 4 Mg Tablet) 2 mg PO BID PRN PRN Reason: MUSCLE SPASMS Last Admin: 05/25/22 04:18 Dose: 2 mg Documented By: CHARITY Zinc Sulfate (Zinc Sulfate 220 Mg Capsule) 220 mg PO DAILY [facility] Last Admin: 05/28/22 09:18 Dose: 220 mg Documented By: STACY Labs 05/23/22 07:17 05/26/22 10:05 Labs: Laboratory Results - last 24 hr 05/27/22 05/27/22 05/28/22 16:26 20:21 07:11 POC Glucose 207 H 159 H 128 H 05/28/22 11:35 POC Glucose 183 H Microbiology Microbiology Results: Microbiology 05/26/22 14:59 Blood Culture - Preliminary Blood - Venous No growth after 24 hours. 05/26/22 14:59 Blood Culture - Preliminary Blood - Venous No growth after 24 hours. Assessment and Plan (1) Dysphagia: Status: Acute (2) Bilateral hydronephrosis: Status: Acute (3) Hydroureter: Status: Acute Plan 61 year old women with history of stroke in March 2022 at [facility] presents with right side weakness Acute stroke Hx of multifocal infarcts in the right insula, right basal ganglia, right centrum semiovale with history of chronic right ICA occlusion at [facility] with a ssociated chronic aphagia, left-sided weakness MRI showing acute infarcts involving the deep right cerebral hemisphere on background of 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 Continue Aspirin, Plavix, statin PT OT- rec STR speech therapy today--puree, thin liquid EEG 05/22:Abnormal EEG suggestive of severe bihemispheric dysfunction of unknown etiology. dysphagia r/t above did better : puree, thin liquid seen by surgery - hold PEG and if doing ok, dc NGT E.coli bactreremia likely r/t to UTI due to chronic bennett urine culture growing e.coli as well, Ceftriaxone sensitive started on zosyn empirically and changed to ceftriaxone on 05/23 ID following; P ceftin at dc DIONISIO d/t to multficatorial SCr 2.31, back to baseline 1.3 CT abdomen showing multiple abnormalities seen by urology - no need for intervention right now for hydronephrosis/hydroureter - bennett in place, draining well nephrology consult pending - CT showing persistent patchy bilateral nephrograms continue IVF follow BMP Nephro following b/l hydroureter/hydronephrosis secondary to cystitis monitor conservatively consider b/l stents next week if renal function not improving Hypertension? Stable blood pressure, bp up and down high overnight metoprolol has been on hold, HR 50s/60s without BB lisinopril on hold for DIONISIO started on low dose norvasc, can uptitrate prn; avoid MAP <90 Hypernatremia improving. r/t decreased po intake change IVF to D5W follow BMP Leukocytosis likely r/t bacteremia trending down follow CBC.check tomorrow [facility] at [facility] in March 2022 was 11.5 ss, ada diet Lantus on hold as pt NPO Coronary artery disease/ extensive atherosclerotic disease Status post cardiac catheterization with drug-eluting stent to LAD in March of 2022 continue statin, asa, plavix BB on hold as above DVT prophylaxis with heparin Attending Dr. Moreno Full code Disposition: PT/OT rec STR daughterShanna - multiple attempts by nursing/provider to reach daughter, multiple messages left. no answer or call back. CM to reach out to SNF to try to obtain alternate contact info Requires ongoing inpatient stay for further workup of right side weakness, bact eremia Time Spent With Patient Time: Total time managing care of this patient today ____ minutes. Quality Stroke Does the patient have a stroke diagnosis?: Yes Reason for No Anti-thrombotic by Day Two: Not indicated VTE Prior VTE?: No VTE Risk Level:: Medical - moderate - high VTE Device Contraindication: Treatment Not Indicated VTE Drug Contraindication: N/A - Med Ordered
[2022-05-28] MEDS: Morphine Sulfate 2 MG/ML CARTRIDGE 1 MG IVPUSH (15:07)
[2022-05-28 15:17] VITALS: BP 161/74; PULSE 59; RESP 18; TEMP 36.4; O2SAT 98
--- NOTE | 2022-05-28 15:30 | MHC.CM.PN ---
PT CLEARED FOR DC [facility] HAS ACCEPTED AND SUBMITTED FOR AUTH THEY EXPECT TO GET AUTH THIS AFTERNOON AND HAVE ASKED THAT TRANSPORT BE ARRANGE FOR 1700 HOURS IT WAS ARRANGED VIA [employer] [place] CALLED PTS SON, CARISSA [phone] AND INFORMED HIM OF THE ABOVE INFO IF THEY DO NOT GET AUTH, THEY WILL CALL T/W
[2022-05-28 16:00] LABS: Glucose, Whole Blood 182 mg/dL (60-115)
[2022-05-28 20:00] VITALS: BP 156/72; PULSE 59; RESP 18; TEMP 36.9; O2SAT 97
[2022-05-28 20:46] LABS: Glucose, Whole Blood 199 mg/dL (60-115)
[2022-05-28] MEDS: Atorvastatin Calcium 80 MG TABLET PO (21:02)
[2022-05-28] MEDS: Multivitamin TABLET 1 TAB PO (21:02)
[2022-05-29] VITALS: BP 145/67; PULSE 55; RESP 18; TEMP 36.6; O2SAT 99
[2022-05-29 04:00] VITALS: BP 146/77; PULSE 55; RESP 20; TEMP 36.7; O2SAT 97
[2022-05-29] MEDS: Heparin Sodium,Porcine 5,000 UNIT/ML VIAL 5000 UNIT SUBCUT ×2 (05:23→16:45)
[2022-05-29 07:12] VITALS: BP 162/79; PULSE 56; RESP 20; TEMP 36.6; O2SAT 97
[2022-05-29 07:22] LABS: Glucose, Whole Blood 223 mg/dL (60-115)
[2022-05-29] MEDS: Metoprolol Succinate ER 25 MG TAB.ER.24H PO (07:50)
[2022-05-29] MEDS: Clopidogrel Bisulfate 75 MG TABLET PO (07:50)
[2022-05-29] MEDS: Ascorbic Acid 500 MG TABLET PO (07:50)
[2022-05-29] MEDS: lisinopriL 20 MG TABLET PO (07:50)
[2022-05-29] MEDS: Aspirin Enteric Coated 81 MG TABLET.DR PO (07:50)
[2022-05-29] MEDS: Zinc Sulfate 220 MG CAPSULE PO (07:50)
[2022-05-29] MEDS: Sertraline HCL 25 MG TABLET PO (07:50)
[2022-05-29] MEDS: Insulin Lispro 100 UNIT/ML 3 ML VIAL SUBCUT ×2 (07:51→12:54)
[2022-05-29] MEDS: Sennosides 8.6 MG TABLET PO (07:51)
[2022-05-29] MEDS: Baclofen 10 MG TABLET PO ×2 (07:51→16:45)
[2022-05-29] MEDS: 0.9 % Sodium Chloride Flush 3 ML SYRINGE IVFLUSH (07:51)
[2022-05-29] MEDS: amLODIPine Besylate 2.5 MG TABLET PO (07:51)
[2022-05-29] MEDS: polyethylene glycoL 3350 17 GM POWD.PACK PO (07:51)
--- NOTE | 2022-05-29 10:25 | PM.DS ---
DS: Providers Provider Date of Service: 05/29/22 Date of admission: 05/20/22 16:53 Primary care physician: Marybel Segura MD Consults: 05/20/22 16:50 Consult to Neurology Routine Consulting Provider: [facility] Reason for consultation: stroke 05/21/22 14:07 Consult to Infectious Diseases Routine Consulting Provider[place] [facility] Reason for consultation: bacteremia Has provider been notified: No 05/22/22 15:16 Consult to General Surgery Routine Consulting Provider: [facility] Reason for consultation: cva, failed swallow; eval for feeding tube 05/23/22 07:00 Consult to Nephrology Routine Consulting Provider: Dedrick Woods Reason for consultation: DIONISIO Has provider been notified: No Consult to Urology Routine Consulting Provider: Edi Dyson Reason for consultation: hydroureter, hydronephrosis, dionisio Has provider been notified: No DS: Diagnosis Discharge Diagnosis (1) DIONISIO (acute kidney injury): Status: Acute (2) Metabolic acidosis: Status: Acute (3) Hypernatremia: Status: Acute (4) Bilateral hydronephrosis: Status: Acute (5) CKD (chronic kidney disease) stage 3, GFR 30-59 ml/min: Status: Acute (6) Dysphagia: Status: Acute (7) Hydroureter: Status: Acute DS: Summary Hospital Course Hospital Course: Chief Complaint: Aphagia ?61-year-old woman presenting from [facility] facility with right sided weakness and aphasia. Patient has a history of? mulltifocal infarcts in the right insula, right basal ganglia, right centrum semioval with history of chronic right ICA occlusion admitted to [facility] in March 2022.? At that time she was also found to have coronary blockages and had drug eluded stent placed to the LAD.? Apparently the patient has not seen a primary care provider in many years and had not been taking any medications.? She was found to be diabetic, hypertensive with CAD and PVD while at [facility] in March of 2022.? 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 in the ER, her vital signs were noted to be stable, her potassium was mildly elevated at 5.3, white blood cell count 18.5.? Head and neck CTA showing right carotid artery occlusion with extensive chronic ischemic changes throughout the deep watershed zones of the right cerebral hemisphere and the right internal capsule , extensive atherosclerotic disease noted.? Patient will be admitted for further management and treatment of acute stroke. Hospital course: She presented with aphasia and found to have acute stroke. She has histor of multifocal infarcts in the right insula, right basal ganglia, right centrum semiovale with history of chronic right ICA occlusion at [facility] with associated chronic aphagia, left-sided weakness. MRI showing acute infarcts involving the deep right cerebral hemisphere on background of 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 echo mostly unremarkable, bubble study negative for shunting. Neurology recommended continue with Plavix and apirin and statin generally avoiding hypotension. She EEG 05/22:Abnormal EEG suggestive of severe bihemispheric dysfunction of unknown etiology. PT and OT recommendd STR Dyphasia initially was unable to eat or swallow at all and had NGT and was seen by surgery for PEG but eventually she did well with swallow eval . Present recommendation is as follow Liquid Consistency and Strategies for Safe Swallow: Liquid Intake Recommendation: Thin Liquid Intake Strategies: Small Sips Solid Food Consistency: Dietary Recommendations: Grnd/Mech Altered (NDD2) Additional Modifications to Solid Foods: Recommend periodic supervision during meals, assuring that tray is set up, all food and liquid are open and accessible to patient, with periodic checks that patient is progressing with meal without difficulty. and is recommended for Puree diet with thin liquid and can be reassess for upgrade later. No indication for PEG at this time E.coli bactreremia likely r/t to UTI due to chronic bennett urine culture growing e.coli as well. She was initially treated zosyn empirically and changed to ceftriaxone on 05/23, repeat culture on 05/26 so far negative x 48 hours. Infectious disease is recommending 14 days of Ceftin from 05/26, so she needs 10 more days (ending June 08) ID following; P ceftin at vt DIONISIO d/t to multficatorial. She presented with Cr of 1.28 on 05/20, creatine worsened to 2.35 on 05/22 and improved to 1.31 on 05/26 CT abdomen showing multiple abnormalities seen by urology - no need for intervention right now for hydronephrosis/hydroureter - bennett in place, draining well Was treated with IV fluid under the direction of nephrology b/l hydroureter/hydronephrosis? secondary to cystitis monitor conservatively was considered for b/l stents if renal function did not improved Hypertension--Lisinopril has been on hold due to renal failure and started on Norvasc and in addition to Torprol 25 daily. Will increase Norvasc to 5 daily and maybe further adjusted for optimal BP Hypernatremia--d/t lack of fluid intake, resolved. Leukocytosis--initially 18, d/t UTI and has trended down Hyperkalemia resolved with lokelma Diabetes- A1c at [facility] in March 2022 was 11.5 continue Lantus and SSI Coronary artery disease/ extensive atherosclerotic disease Status post cardiac catheterization with drug-eluting stent to LAD in March of 2022 continue statin, asa, plavix Time Spent with Patient Time attestation: Total time managing care of this patient today ____ minutes. Discharge coordination time: Greater than 30 minutes Quality: Safe Use of Opioids Does Pt have an Active Cancer Diagnosis on the Problem List?: No Quality: Stroke Does the patient have a stroke diagnosis?: No Physical Exam Vital Signs: Vital Signs: Last Vital Signs Temp 97.9 F 05/29/22 07:12 Pulse 56 05/29/22 07:12 Resp 20 05/29/22 07:12 BP 162/79 H 05/29/22 07:12 Pulse Ox 97 05/29/22 07:12 O2 Del Method Room Air 05/29/22 07:12 BMI result Body Mass Index 21.7 Const: Other: General: AO X 3, no acute distress Resp: CTA bilateral CVS: S1,S2,RRR GI: +BS, NT, no distention Skin: No rash Neuro: left upper/lower extremity weakness; mild left facial droop. able to follow most commands. able to move right upper and lower extremities Psych appropriate DS: Data Data Completed and Pending Labs on day of discharge: Laboratory Results - last 24 hr 05/28/22 05/28/22 05/28/22 11:35 15:18 20:37 POC Glucose 183 H 182 H 199 H 05/29/22 07:14 POC Glucose 223 H Preliminary micro results at discharge 05/26/22 14:59 Blood Culture - Preliminary Blood - Venous No growth after 48 hours. 05/26/22 14:59 Blood Culture - Preliminary Blood - Venous No growth after 48 hours. Discharge Plan Discharge Anticipated Discharge Date/Time: 05/29/22 10:29 Patient Disposition: er [facility] Discharge Diagnosis: Acute stroke, UTI, sepsis and ecoli bacteremia [facility] [Other] - 1 Week Marybel Segura MD [Primary Care Provider] - 1 Week Discharge Medications: New amlodipine [Norvasc] 5 mg tablet 5 mg PO DAILY Qty: 30 0RF cefuroxime axetil 500 mg tablet 500 mg PO BID 10 Days Qty: 20 0RF Continued atorvastatin 80 mg Tablet 80 mg PO BEDTIME sennosides [senna] 8.6 mg Tablet 8.6 mg PO DAILY insulin glargine [Lantus U-100 Insulin] 100 unit/mL Solution 14 unit SUBCUT BEDTIME tizanidine 2 mg Tablet 2 mg PO Q8H PRN (Reason: MUSCLE SPASMS) polyethylene glycol 3350 [Miralax] 17 gram Powder In Packet 17 g PO DAILY dextrose [Glucose Gel] 40 % Gel 20 g PO Q15M PRN (Reason: FSBS<50 AND ABLE TO SWALLOW) Rx Instructions: until symptoms of low blood sugar are controlled meclizine 12.5 mg Tablet 12.5 mg PO Q8H PRN (Reason: Dizziness) clopidogrel [Plavix] 75 mg Tablet 75 mg PO DAILY aspirin 81 mg Tablet,Delayed Release (Dr/Ec) 81 mg PO DAILY acetaminophen [Tylenol Extra Strength] 500 mg Tablet 1,000 mg PO TID magnesium hydroxide [Milk of Magnesia] 400 mg/5 mL Suspension 30 ml PO DAILY PRN (Reason: Constipation) ascorbic acid (vitamin C) 500 mg Tablet 500 mg PO DAILY baclofen 10 mg Tablet 10 mg PO TID bisacodyl 10 mg Suppository 10 mg HI DAILY PRN (Reason: Constipation) Fleet Enema 19-7 gram/118 mL Enema 118 ml HI DAILY PRN (Reason: Constipation) sertraline [Zoloft] 25 mg Tablet 25 mg PO DAILY metoprolol succinate 25 mg Tablet Extended Release 24 Hr 25 mg PO DAILY insulin lispro [Humalog U-100 Insulin] 100 unit/mL Solution 1 sliding scale dose SUBCUT USEASDIRECTD Protocol: Insulin Correction Scale Less than or equal to 110 ---- Give (units): 0 111 to 150 Give (units): 0 151 to 200 Give (units): 2 201 to 250 Give (units): 4 251 to 300 Give (units): 6 301 to 350 Give (units): 8 Greater than 350 Give (units): 10 Call MD if Blood Glucose > : 350 glucagon 1 mg Recon Soln 1 mg SUBCUT Q20M PRN (Reason: fsbs < 60 and unable to swallow) Rx Instructions: until target blood sugar attained multivitamin with minerals Tablet 1 tab PO BEDTIME zinc sulfate 50 mg zinc (220 mg) Capsule 50 mg PO DAILY Discontinued hydralazine 10 mg Tablet 10 mg PO Q6H PRN (Reason: Hypertension) lisinopril 10 mg Tablet 20 mg PO DAILY Discharge Orders: Discharge Order (Routine); Ordered 05/29/22 Ordered By: Ralf Henning Diet: see instruction Activity on Discharge: As tolerated Stand Alone Forms: Patient Portal Discharge page Care Plan Goals: recovery from recurrent stroke and sepsis Dysphagia Health Concerns: recurrent strokes, sepsis, bacteremia Plan of Treatment: Take Ceftin as directed dysphagia diet: Liquid Consistency and Strategies for Safe Swallow: Liquid Intake Recommendation: Thin Liquid Intake Strategies: Small Sips Solid Food Consistency: Dietary Recommendations: Grnd/Mech Altered (NDD2) Additional Modifications to Solid Foods: Recommend periodic supervision during meals, assuring that tray is set up, all food and liquid are open and accessible to patient, with periodic checks that patient is progressing with meal without difficulty. Assessment: as above
[2022-05-29 11:38] VITALS: BP 138/64; PULSE 48; RESP 20; TEMP 36.4; O2SAT 98
[2022-05-29 11:41] LABS: Hematocrit 25.6 % (37.0-47.0); Hemoglobin 8.5 g/dl (12.0-16.0); Mean Corpuscular HGB Conc 33.2 g/dl (31.0-35.0); Mean Corpuscular Hemoglobin 29.1 pg (27.0-33.0); Mean Corpuscular Volume 87.7 fL (80.0-98.0); Mean Platelet Volume 10.1 fL (9.4-12.3); Platelet Count 259 X10*3/uL (160-400); Red Blood Count 2.92 X10*6/uL (4.20-5.50); Red Cell Distribution Width 16.1 % (11.0-16.0)
--- NOTE | 2022-05-29 11:41 | MHC.CM.PN ---
Addendum entered by Jayla Miller 05/29/22 12:23: AUTH HAS BEEN OBTAINED BY FACILITY, TRANSPORT BOOKED FOR 4 PM VIA [facility]ЕЙ. SON MADE AWARE. Original Note: DP: PT HAS BEEN MEDICALLY CLEARED FOR DC BACK TO [facility]. AWAITING AUTH FROM INSURANCE. RN AWARE.
[2022-05-29 11:48] LABS: Glucose, Whole Blood 188 mg/dL (60-115)
--- NOTE | 2022-05-29 12:39 | MHC.SL.DTX ---
Dysphagia Diet modifications: Last documented Solid diet consistencies: Regular Last documented Liquid consistency: Thin Last documented Medication Administration: Changes made to current diet?: Yes: UPGRADE to Regular Solids Liquid Consistency and Strategies: Liquid Intake Recommendation: Thin Compensatory Strategies for Safe Swallow: Small Sips Compensatory Strategies for Safe Swallow(b): Sitting Upright (90 deg) Small Bites and Sips Alternate Liquids/Solids Avoid Specific Foods Solid Food Consistency: Dietary Recommendations: Regular Additional Modifications to Solids: Recommend periodic supervision during meals, assuring that tray is set up, all food and liquid are open and accessible to patient, with periodic checks that patient is progressing with meal without difficulty. Oral Medication Intake: Whole with Puree Strategies and Precautions to be Taken for Safe Swallow: Sitting Upright (90 deg) Small Bites and Sips Alternate Liquids/Solids Avoid Specific Foods Supervision While Eating and/Drinking: Intermittent Supervision Foods to Avoid: Mixed consistencies Swallowing Recommended Treatments: Compens. Strategy Educat. Level of Impact on: Daily activities: Interpersonal interactions: Education: Employment: Community: Prognosis for Improvement: Recommendation for Speech: Inpatient Speech Therapy Comment: Recommend START on PUREED (NDD1) diet and THIN liquids, pills CRUSHED in PUREE. Pt must be awake and alert for the presentation of PO, otherwise hold tray if pt is lethargic or not engaging in meal. Pt tolerates liquids by straw, may need reminders to take small, individual sips. Administer small bites, one bite at a time, and check oral cavity for clearance before presenting more bites. Alternate bites of food with sips of liquid to promote oral clearance. Pt to be supervised during all PO intake, provide assistance as needed throughout meals. Strict aspiration precautions apply. Recommendations written on whiteboard in pt's room. Notified care team (MD, RN, RD) via [place] Message. WORKERS COMPENSATION LEGAL SECRETARY will continue to follow. Frequency/Duration: Date Range for Service Req: Timeline to reassess: Additional Comments: Pt w/ NGT in L-nare Treatment: Patient seen for repeat assessment this morning. Patient is now alert, oriented, communicative and was interested in trying other food consistencies. Patient was given softened lupillo cracker in puree, with patient grimacing on the taste, producing a slow period of mastication followed by timely swallow with mild residual cleared by sip of liquid. Patient reported the grimace was on the taste, and that food doesn't taste that good these days. No c/o today of sore throat. Patient was offered and accepted a saltine cracker, with patient again producing a slow, prolonged period of mastication, followed by timely swallow, though ample oral residual. Oral residual was cleared by sip of liquid, which patient was able to self administer. Patient asked for the remainder of the crackers to eat, was observed independently feeding self, slowly masticating, following bites with sips of liquid. Recommend UPGRADE diet to Ground/Mechanical Altered (for ease of mastication) continue on Thin Liquids, pills whole in puree or with liquid. WORKERS COMPENSATION LEGAL SECRETARY entered diet upgrade in [facility], notified nursing, , RD by secure text, adjusted white board in room. Assessment: Medical Insurance Coding Specialist Clinican/Clinical Fellow: No Supervisory Statement: I have reviewed and agree with the student/clinical fellow's documentation: N/A Speech Language Pathologist: Agustín Monsalve M.A., [facility]-WORKERS COMPENSATION LEGAL SECRETARY
[2022-05-29] MEDS: cefTRIAXone sodium 2 GM in 0.9 % Sodium Chloride 50 ML IV (12:48)
[2022-05-29 13:43] LABS: COVID-19 Test Negative (Negative); IDNOW Serial# 08D9AD1C
[2022-05-29 15:28] VITALS: BP 161/77; PULSE 55; RESP 18; TEMP 37.1; O2SAT 98
[2022-05-29 16:09] LABS: Glucose, Whole Blood 205 mg/dL (60-115)
--- NOTE | 2022-05-29 17:36 | PC.NURSE ---
Pt alert and oriented to self and place, denies having any pain/ discomfort, vital signs stable. [facility]. Unable to reach a nurse at receiving facility to give nurse to nurse report, 3 attempts made.
--- NOTE | 2022-06-17 10:09 | P.CDIM_ITS ---
PROVIDER RESPONSE TEXT: To clarify, the appropriate diagnosis supported by the clinical indicators: Acute QUERY TEXT: PHYSICIAN'S DOCUMENTATION REQUEST Date of Query: 05/28/2022 12:42 PM EDT Patient Name: Justine Gottlieb Admit Date: 05/20/2022 Dear All Wing, A review of the medical record indicates additional documentation may be needed. Please review below and update the documentation accordingly. Clinical Indicators: Per MD progress note 05/28/22: Metabolic Acidosis Clarify which of the following accurately represents the acuity of the Metabolic Acidosis. Possible options might include: Acute Acute on chronic Compensated Chronic stable condition Remission Other (explain) Clinically unable to determine (explain) Thank you, Wilma Tello RN Use of terms such as suspected, likely, concern for, or probable (associated with a specific diagnosi s that is being evaluated, monitored, or treated as if it exists) are acceptable and can be coded in the inpatient se tting, when documented at the time of discharge. Please use your independent medical judgment in providing your response. THIS QUERY IS PART OF THE PERMANENT MEDICAL RECORD
== END 2022-05-29 17:42 | disposition skilled nursing facility (03) | DRG 45 ==
LOC: HO.ED 15:27 → HO.IMC 05-21 00:45 → HO.EDOVER 05-21 00:48 → HO.S3 05-21 00:56 → HO.IMC 05-21 01:00
PROVIDERS: Internal Medicine; Internal Medicine Hypertension Specialist; Internal Medicine Nephrology; Nurse Practitioner Family; Physician Assistant Medical; Admitting Provider Nurse Practitioner Acute Care; Emergency Provider Emergency Medicine; PCP Internal Medicine; Visit Provider Internal Medicine
DX: I63.9 Cerebral infarction, unspecified (principal); E87.0 Hyperosmolality and hypernatremia; E87.20 Acidosis, unspecified; N17.9 Acute kidney failure, unspecified; R78.81 Bacteremia; E11.22 Type 2 diabetes mellitus with diabetic chronic kidney disease; N18.30 Chronic kidney disease, stage 3 unspecified; N13.6 Pyonephrosis; G81.91 Hemiplegia, unspecified affecting right dominant side; I69.354 Hemiplegia and hemiparesis following cerebral infarction affecting left non-dominant side; Z66 Do not resuscitate; T83.511A Infection and inflammatory reaction due to indwelling urethral catheter, initial encounter; B96.20 Unspecified Escherichia coli [E. coli] as the cause of diseases classified elsewhere; I69.320 Aphasia following cerebral infarction; I65.21 Occlusion and stenosis of right carotid artery; I12.9 Hypertensive chronic kidney disease with stage 1 through stage 4 chronic kidney disease, or unspecified chronic kidney disease; N14.11 Contrast-induced nephropathy; T50.8X5A Adverse effect of diagnostic agents, initial encounter; E87.5 Hyperkalemia; I25.10 Atherosclerotic heart disease of native coronary artery without angina pectoris; R29.708 NIHSS score 8; Z95.5 Presence of coronary angioplasty implant and graft; Z79.02 Long term (current) use of antithrombotics/antiplatelets; Z79.82 Long term (current) use of aspirin; Z79.4 Long term (current) use of insulin; Z79.899 Other long term (current) drug therapy
CPT/HCPCS: 36415; 70450; 70496; 70498; 70551; 71045; 74018; 74176; 80048; 80061; 81001; 82550; 82947; 83605; 84300; 84484; 85025; 85027; 85610; 85730; 87040; 87077; 87086; 87088; 87186; 87205; 87635; 92526; 92610; 93005; 93306; 93308; 95816; 97110; 97163; 97167; 97530; 99285; C1758; J0696; J1643; J2270; J2543; Q9957; Q9967

== ENCOUNTER 2022-06-22 21:24 | Emergency (ER) | payer BC, MEDICAID, SELFPAY ==
--- NOTE | 2022-06-22 | ECG_ITS ---
Test Reason : FALL Blood Pressure : / mmHG Vent. Rate : 059 BPM Atrial Rate : 059 BPM P-R Int : 162 ms QRS Dur : 086 ms QT Int : 428 ms P-R-T Axes : 037 044 084 degrees QTc Int : 423 ms Sinus bradycardia Minimal voltage criteria for LVH, may be normal variant ( Sokolow-Ramos ) Nonspecific ST and T wave abnormality Abnormal ECG When compared with ECG of 20-MAY-2022 13:54, No significant change was found Referred By: Generic ED Physician Electronically Signed By:Ramsey Osman
--- NOTE | ~2022-06-22 | XR_ITS ---
EXAMINATION: XR CHEST CLINICAL INFORMATION: Fall COMPARISON: 05/22/2022 TECHNIQUE: Frontal view of the chest was obtained. FINDINGS: Cardiac leads overlie the chest. The lungs are well expanded. There is no focal consolidation, edema, or effusion. No pneumothorax. The cardiomediastinal silhouette is within normal limits. No acute osseous abnormality. XR/XR chest 1V IMPRESSION: No acute pulmonary disease. No displaced fractures are seen.
--- NOTE | ~2022-06-22 | CT_ITS ---
EXAMINATION: NONCONTRAST HEAD CT NONCONTRAST CERVICAL SPINE CT INDICATION INFORMATION: Altered mental status COMPARISON: 05/21/2022 TECHNIQUE: Separate noncontrast CT examinations of the head and cervical spine were performed. Coronal and sagittal images were created for each examination at the technologist workstation. This CT examination was performed using dose optimization techniques as appropriate, variously including the following: *Automated exposure control *Adjustment of mA and/or kV according to patient size (this includes techniques or standardized protocols for targeted exams where dose is matched to indication/reason for exam; i.e. extremities or head) *Use of iterative reconstruction technique DLP: 892 mGy-cm FINDINGS: Head: Multiple chronic right-sided infarcts. There is no evidence of acute intracranial hemorrhage or territorial infarction. No abnormal mass effect or midline shift is seen. Duron to white matter differentiation is otherwise well preserved. No extra-axial fluid collections are identified. No hydrocephalus. Proportional prominence of the ventricles and sulcal spaces is consistent with mild volume loss. Patchy periventricular and deep white matter hypoattenuation is consistent with mild small vessel ischemic changes. No acute osseous or soft tissue abnormality. Partially opacified left mastoid air cells. The right mastoid air cells and visualized portions of the paranasal sinuses are well aerated. Cervical spine: There is anatomic alignment of the vertebral bodies and posterior elements. The atlantoaxial and atlantooccipital articulations are intact. Vertebral body heights are maintained. There is multilevel intervertebral disc space narrowing with endplate osteophyte formation and facet arthropathy. No evidence of acute fracture. No prevertebral soft tissue swelling. Visualized portions of the lung apices are unremarkable. The thyroid gland is unremarkable. CT/CT cervical spine wo IV con IMPRESSION: 1. No acute intracranial finding. Multiple chronic right-sided infarcts. 2. No acute fracture or malalignment of the cervical spine. Mild to moderate degenerative change.
[2022-06-22 21:51] VITALS: BP 153/65; BP 156/65; PULSE 60; PULSE 75; RESP 13; TEMP 36.3; O2SAT 96; O2SAT 98; BMI 24.9
[2022-06-22 22:00] VITALS: BP 156/43; PULSE 75; RESP 13; TEMP 36.3; O2SAT 96
[2022-06-22 22:10] LABS: MANUAL DIFF FLAG NO
[2022-06-22 22:11] LABS: Basophils Percent Auto 0.3 % (0-2); Eosinophils Absolute Auto 0.3 X10*3/uL (0.0-0.4); Eosinophils Percent Auto 1.8 % (0-4); Hematocrit 30.6 % (37.0-47.0); Imm Gran Abs Auto 0.16 X10*3/uL (0.00-0.03); Imm Gran Pct Auto 1.1 % (0.0-0.4); Lymphocytes Absolute Auto 1.9 X10*3/uL (1.2-4.9); Lymphocytes Percent Auto 13.4 % (20-40); Mean Corpuscular HGB Conc 32.7 g/dl (31.0-35.0); Mean Corpuscular Hemoglobin 28.5 pg (27.0-33.0); Mean Corpuscular Volume 87.2 fL (80.0-98.0); Mean Platelet Volume 8.8 fL (9.4-12.3); Monocytes Absolute Auto 1.1 X10*3/uL (0.1-1.2); Monocytes Percent Auto 7.6 % (2-11); Neutrophils Absolute Auto 10.8 x10*3/uL (2.0-8.3); Neutrophils Percent Auto 75.8 % (45-73); Platelet Count 410 X10*3/uL (160-400); Red Blood Count 3.51 X10*6/uL (4.20-5.50); Red Cell Distribution Width 15.3 % (11.0-16.0); White Blood Count 14.3 X10*3/uL (4.8-10.8)
[2022-06-22 22:16] LABS: Appearance Urine Cloudy; Color Urine Yellow; Glucose Urine UA Negative (Negative); Leukocyte Esterase Urine Large (3+) (Negative); Nitrite Urine Positive (Negative); PH 7.5 (5.0-9.0); Specific Gravity - Urine 1.015 (1.005-1.025); UMIC TRIGGER UACC YES; Urine Blood Trace (Negative); Urine Ketones Negative (Negative); Urine Protein 30 (1+) mg/dL (Neg-Trace)
[2022-06-22 22:27] LABS: Alanine Aminotransferase 116 U/L (0-31); Alkaline Phosphatase 674 U/L (39-117); Anion Gap 13 (12-20); Aspartate Amino Transferase 94 U/L (5-31); Bilirubin Total 0.4 mg/dL (0.0-1.0); Blood Urea Nitrogen 15 mg/dL (9-16); Calcium 8.7 mg/dL (8.4-10.2); Carbon Dioxide 25 mmol/L (22-29); Chloride 103 mmol/L (96-108); Creatinine Clr Calc Pharmacy 65.5; Estimated Glomerular Filt Rate > 60; Glucose Random 212 mg/dL (60-115); Potassium 4.4 mmol/L (3.3-5.1); Sodium 137 mmol/L (135-145); Total Protein 6.5 g/dL (6.5-8.0)
[2022-06-22 22:30] LABS: Bacteria Urine 4+ (None Seen); UACC Culture Trigger YES; WBC Urine >50 /HPF (0-5)
--- NOTE | 2022-06-22 23:10 | ED_ITS ---
HPI - Fall General Chief Complaint: Fall Stated Complaint: Fall Time Seen by Provider: 06/22/22 22:51 History of Present Illness HPI Narrative: Patient is a 62-year-old female history of stroke which left her with left-sided weakness. Patient was turning. Fell. Has no specific complaints. Question head injury. Patient was sent in for further evaluation. She denies any chest pain. No neck pain. No diaphoresis. Has a chronic indwelling Alvarez catheter. Patient denies any new focal weakness. Related Data Home Medications Medication Instructions Recorded Confirmed acetaminophen 500 mg tablet 1,000 mg PO TID 05/20/22 05/20/22 (Tylenol Extra Strength) ascorbic acid (vitamin C) 500 mg 500 mg PO DAILY 05/20/22 05/20/22 tablet aspirin 81 mg tablet,delayed 81 mg PO DAILY 05/20/22 05/20/22 release atorvastatin 80 mg tablet 80 mg PO BEDTIME 05/20/22 05/20/22 baclofen 10 mg tablet 10 mg PO TID 05/20/22 05/20/22 bisacodyl 10 mg rectal suppository 10 mg IA DAILY PRN Constipation 05/20/22 05/20/22 clopidogrel 75 mg tablet (Plavix) 75 mg PO DAILY 05/20/22 05/20/22 dextrose 40 % oral gel (Glucose 20 g PO Q15M PRN FSBS<50 AND ABLE 05/20/22 05/20/22 Gel) TO SWALLOW glucagon 1 mg solution for 1 mg subcut Q20M PRN fsbs < 60 and 05/20/22 05/20/22 injection unable to swallow insulin glargine 100 unit/mL 14 unit subcut BEDTIME 05/20/22 05/20/22 subcutaneous solution (Lantus U-100 Insulin) insulin lispro 100 unit/mL 1 sliding scale dose subcut 05/20/22 05/20/22 subcutaneous solution (Humalog USEASDIRECTD U-100 Insulin) magnesium hydroxide 400 mg/5 mL 30 ml PO DAILY PRN Constipation 05/20/22 05/20/22 oral suspension (Milk of Magnesia) meclizine 12.5 mg tablet 12.5 mg PO Q8H PRN Dizziness 05/20/22 05/20/22 metoprolol succinate 25 mg 25 mg PO DAILY 05/20/22 05/20/22 tablet,extended release 24 hr multivitamin with minerals 1 tab PO BEDTIME 05/20/22 05/20/22 polyethylene glycol 3350 17 gram 17 g PO DAILY 05/20/22 05/20/22 oral powder packet (Miralax) sennosides 8.6 mg tablet (senna) 8.6 mg PO DAILY 05/20/22 05/20/22 sertraline 25 mg tablet (Zoloft) 25 mg PO DAILY 05/20/22 05/20/22 sodium phosphates 19 gram-7 118 ml IA DAILY PRN Constipation 05/20/22 05/20/22 gram/118 mL enema (Fleet Enema) tizanidine 2 mg tablet 2 mg PO Q8H PRN MUSCLE SPASMS 05/20/22 05/20/22 zinc sulfate 50 mg zinc (220 mg) 50 mg PO DAILY 05/20/22 05/20/22 capsule Previous Rx's Medication Instructions Recorded amlodipine 5 mg tablet (Norvasc) 5 mg PO DAILY #30 tabs 05/29/22 cefuroxime axetil 500 mg tablet 500 mg PO BID 10 days #20 tabs 05/29/22 Allergies Allergy/AdvReac Type Severity Reaction Status Date / Time No Known Allergies Allergy Verified 05/20/22 12:06 Review of Systems Review of Systems: Positive fall Yes all other systems are reviewed and are negative PMFSH Past Medical History Attestation statement: The following information was validated with the patient. Medical History CKD (chronic kidney disease) stage 3, GFR 30-59 ml/min Coronary artery disease COVID-19 CVA (cerebral vascular accident) CVA (cerebral vascular accident) Diabetes mellitus type 2 in nonobese Glaucoma H/O supraventricular tachycardia History of right MCA stroke Hypertension ICAO (internal carotid artery occlusion) Ischemic cardiomyopathy Renal failure (ARF), acute on chronic Status post insertion of drug-eluting stent into left anterior descending (LAD) artery Surgical History H/O cardiac catheterization Social History Social History Household Members: Other Housing: [facility] Do you presently have visiting nurse or other home services: No Unable to assess alcohol history related to: Unknown Alcohol intake: never Patient Tobacco Use Status: Tobacco use Unknown Smoked in Last 30 Days: No Use of substances other than those prescribed or required for medical reasons: No Advance Directives: Yes Advance Directives on File: Yes Advance Directives Date on File: 05/21/22 Patient : No service: No Physical Exam Vital Signs: Vital Signs: Last Vital Signs Temp 98.8 F 06/22/22 23:45 Pulse 59 06/22/22 23:45 Resp 18 06/22/22 23:45 BP 176/65 H 06/22/22 23:45 Pulse Ox 99 06/22/22 23:45 O2 Del Method Room Air 06/22/22 23:45 BMI result Body Mass Index 24.9 Appearance: Alert. Oriented X3. No acute distress. Eyes: Pupils equal, round and reactive to light. ENT: Pharynx normal. Neck: Normal inspection. No tenderness on palpation of the C-spine. No lymph nodes noted. No crepitus CVS: Normal heart rate and rhythm. Pulses normal. Normal S1 and S2 Respiratory: No respiratory distress. Breath sounds normal. No Wheezing. No ral es Abdomen: Soft and nontender. No rigidity. No distention. good BS x4 Skin: Skin warm and dry. Normal skin color. Normal skin turgor. Extremities: No lower extremity edema. Neurovascular intact to all extremities. No Lacerations. No Rash Neuro: Oriented X 3. Positive left arm weakness. Sensation in the lower extremity intact Medical Decision Making Medical Decision Making [facility] Narrative: Status post fall. CT scan of the head and C-spine were all grossly negative for any acute evidence of fracture. No acute evidence of mild alignment. No acute evidence of bleed. The fall was mechanical in nature. Patient reports no pain. She is awake alert oriented. Positive left-sided weakness from a previous CVA. Patient has a chronic indwelling Alvarez. The infected urine probably from a c olonization as patient has no acute symptoms. Differential Diagnosis Differential Diagnoses: The differential diagnosis associated with the presentation includes Head injury, intracranial bleed, C-spine injury Lab Data [facility] Lab Attestation statement: I reviewed the patient's lab results. 06/22/22 22:05 06/22/22 22:05 Labs: Lab Results 06/22/22 06/22/22 06/22/22 Range/Units 22:05 22:05 22:05 WBC 14.3 H (4.8-10.8) X10*3/uL RBC 3.51 L D (4.20-5.50) X10*6/uL Hgb 10.0 L (12.0-16.0) g/dl Hct 30.6 L (37.0-47.0) % MCV 87.2 (80.0-98.0) fL MCH 28.5 (27.0-33.0) pg MCHC 32.7 (31.0-35.0) g/dl RDW 15.3 (11.0-16.0) % Plt Count 410 H D (160-400) X10*3/uL MPV 8.8 L (9.4-12.3) fL Immature Gran % (Auto) 1.1 H (0.0-0.4) % Neut % (Auto) 75.8 H (45-73) % Lymph % (Auto) 13.4 L (20-40) % Moore % (Auto) 7.6 (2-11) % Eos % (Auto) 1.8 (0-4) % Baso % (Auto) 0.3 (0-2) % Lymph # (Auto) 1.9 (1.2-4.9) X10*3/uL Moore # (Auto) 1.1 (0.1-1.2) X10*3/uL Eos # (Auto) 0.3 (0.0-0.4) X10*3/uL Baso # (Auto) 0.0 (0.0-0.2) X10*3/uL Abs Immat Gran (auto) 0.16 H (0.00-0.03) X10*3/uL Absolute Neuts (auto) 10.8 H (2.0-8.3) x10*3/uL Absolute Nucleated RBC 0.000 (0.0-0.012) X10*3/uL Nucleated RBC % (auto) 0.0 (0.0-0.2) /100WBC Sodium 137 (135-145) mmol/L Potassium 4.4 (3.3-5.1) mmol/L Chloride 103 (96-108) mmol/L Carbon Dioxide 25 (22-29) mmol/L Anion Gap 13 (12-20) BUN 15 (9-16) mg/dL Creatinine 0.74 (0.5-1.4) mg/dL Estim Creat Clear Calc 65.5 Estimated GFR > 60 Random Glucose 212 H (60-115) mg/dL Calcium 8.7 D (8.4-10.2) mg/dL Total Bilirubin 0.4 (0.0-1.0) mg/dL AST 94 H (5-31) U/L ALT 116 H (0-31) U/L Alkaline Phosphatase 674 H (39-117) U/L Total Protein 6.5 (6.5-8.0) g/dL Albumin 3.0 L (3.5-5.0) g/dL Urine Color Yellow Urine Appearance Cloudy Urine pH 7.5 (5.0-9.0) Ur Specific Thornton 1.015 (1.005-1.025) Urine Protein 30 (1+) H (Neg-Trace) mg/dL Urine Glucose (UA) Negative (Negative) mg/dL Urine Ketones Negative (Negative) mg/dL Urine Blood Trace H (Negative) Urine Nitrite Positive H (Negative) Ur Leukocyte Esterase Large (3+) H (Negative) Urine RBC 3-5 H (0-2) /HPF Urine WBC >50 H (0-5) /HPF Ur Squamous Epith Cells 3-5 (0-2) /HPF Urine Bacteria 4+ (None Seen) Hyaline Casts 3-5 (0-2) /LPF Urine Yeast Present Independent Interpretation I performed an independent interpretation of an: CT Scan Interpretation: CT scan of the head was grossly negative for any acute evidence of bleeding Radiology Impression Discussion of test interpretation with radiology: I have reviewed the radiologist's reading. External Record Review External record reviewed: Inpatient record and Office record Chronic Conditions Patient?s care impacted by: Hypertension Previous history of CVA Discharge Plan Discharge Clinical Impression: Fall, Head injury Patient Disposition: Home, Self-Care Instructions: Head Injury (ED), Fall Prevention (ED), Fall Prevention for Older Adults (ED) Prescriptions: No Action atorvastatin 80 mg Tablet 80 mg PO BEDTIME sennosides [senna] 8.6 mg Tablet 8.6 mg PO DAILY insulin glargine [Lantus U-100 Insulin] 100 unit/mL Solution 14 unit SUBCUT BEDTIME tizanidine 2 mg Tablet 2 mg PO Q8H PRN (Reason: MUSCLE SPASMS) polyethylene glycol 3350 [Miralax] 17 gram Powder In Packet 17 g PO DAILY dextrose [Glucose Gel] 40 % Gel 20 g PO Q15M PRN (Reason: FSBS<50 AND ABLE TO SWALLOW) Rx Instructions: until symptoms of low blood sugar are controlled meclizine 12.5 mg Tablet 12.5 mg PO Q8H PRN (Reason: Dizziness) clopidogrel [Plavix] 75 mg Tablet 75 mg PO DAILY aspirin 81 mg Tablet,Delayed Release (Dr/Ec) 81 mg PO DAILY acetaminophen [Tylenol Extra Strength] 500 mg Tablet 1,000 mg PO TID magnesium hydroxide [Milk of Magnesia] 400 mg/5 mL Suspension 30 ml PO DAILY PRN (Reason: Constipation) ascorbic acid (vitamin C) 500 mg Tablet 500 mg PO DAILY baclofen 10 mg Tablet 10 mg PO TID bisacodyl 10 mg Suppository 10 mg IA DAILY PRN (Reason: Constipation) Fleet Enema 19-7 gram/118 mL Enema 118 ml IA DAILY PRN (Reason: Constipation) sertraline [Zoloft] 25 mg Tablet 25 mg PO DAILY metoprolol succinate 25 mg Tablet Extended Release 24 Hr 25 mg PO DAILY insulin lispro [Humalog U-100 Insulin] 100 unit/mL Solution 1 sliding scale dose SUBCUT USEASDIRECTD Protocol: Insulin Correction Scale Less than or equal to 110 ---- Give (units): 0 111 to 150 Give (units): 0 151 to 200 Give (units): 2 201 to 250 Give (units): 4 251 to 300 Give (units): 6 301 to 350 Give (units): 8 Greater than 350 Give (units): 10 Call MD if Blood Glucose > : 350 glucagon 1 mg Recon Soln 1 mg SUBCUT Q20M PRN (Reason: fsbs < 60 and unable to swallow) Rx Instructions: until target blood sugar attained multivitamin with minerals Tablet 1 tab PO BEDTIME zinc sulfate 50 mg zinc (220 mg) Capsule 50 mg PO DAILY amlodipine [Norvasc] 5 mg tablet 5 mg PO DAILY Qty: 30 0RF cefuroxime axetil 500 mg tablet 500 mg PO BID 10 Days Qty: 20 0RF Referrals: Marybel Segura MD [Primary Care Provider] - 06/25/22
[2022-06-22 23:45] VITALS: BP 176/65; PULSE 59; RESP 18; TEMP 37.1; O2SAT 99
--- NOTE | 2022-06-22 23:46 | MHC.EDTECH ---
This tech assumed care of patient at 2300,Vitals taken,patient has C-collar in place,Patient repositioned for comfort.Call boyer in reach
--- NOTE | 2022-06-23 01:23 | MHC.EDTECH ---
Call out to [facility] @[phone] to book bls transport back to [facility] [place] gave an ETA or 30 minutes
[2022-06-23 01:34] VITALS: BP 167/51; PULSE 55; RESP 18; TEMP 37.1; O2SAT 98
== END 2022-06-23 02:16 | disposition home or self-care (01) ==
PROVIDERS: Emergency Provider Emergency Medicine Emergency Medical Services; PCP Internal Medicine
DX: S09.90XA Unspecified injury of head, initial encounter (principal); W06.XXXA Fall from bed, initial encounter; N39.0 Urinary tract infection, site not specified; B96.5 Pseudomonas (aeruginosa) (mallei) (pseudomallei) as the cause of diseases classified elsewhere; T83.518A Infection and inflammatory reaction due to other urinary catheter, initial encounter; Y73.8 Miscellaneous gastroenterology and urology devices associated with adverse incidents, not elsewhere classified; Y93.84 Activity, sleeping; Y92.122 Bedroom in nursing home as the place of occurrence of the external cause; Y99.9 Unspecified external cause status; Z79.02 Long term (current) use of antithrombotics/antiplatelets; Z79.4 Long term (current) use of insulin; Z79.899 Other long term (current) drug therapy
CPT/HCPCS: 36415; 70450; 71045; 72125; 80053; 81001; 85025; 87086; 87088; 87186; 93005; 99284; 99285

== ENCOUNTER 2022-08-04 14:25 | Inpatient (IN) | payer BC, MEDICAID, SELFPAY ==
--- NOTE | ~2022-08-04 | US_ITS ---
EXAMINATION: US ABDOMEN COMPLETE CLINICAL INFORMATION: Bacteremia, question source. COMPARISON: CT abdomen pelvis 05/22/2022 TECHNIQUE: Real-time imaging of the abdominal viscera. Exam is significantly technically limited by patient positioning. FINDINGS: PANCREAS: Visualized portions of the pancreas are unremarkable. The pancreatic tail is obscured by bowel gas. ABDOMINAL AORTA: The proximal, mid, and distal segments are normal in caliber. INFERIOR VENA CAVA: Visualized portions are normal. LIVER: The liver is normal in size. The liver contour is normal. Parenchymal echogenicity is normal. No focal hepatic lesion. Mild intrahepatic biliary duct dilatation. GALLBLADDER: Status post cholecystectomy. COMMON BILE DUCT: Mild intra and extrahepatic biliary duct dilatation of the common bile duct measuring up to 1.3 cm, previously 1.4 cm. RIGHT KIDNEY: Trace right hydroureteronephrosis partially visualized. No renal calculi or focal parenchymal lesions. The kidney measures 10.8 cm in maximum dimension. LEFT KIDNEY: Markedly limited views. Hydroureter with without definite hydronephrosis though difficult to say with certainty. The kidney measures 9.5 cm in maximum dimension. SPLEEN: Normal. The spleen measures 7.7 cm in maximum dimension. FREE FLUID: None. US/US abdomen complete IMPRESSION: 1. Technically limited exam. Mild intra and extrahepatic biliary duct dilatation status post cholecystectomy similar to prior. 2. Trace right hydroureteronephrosis partially visualized. Markedly limited views of the left kidney which is remarkable for hydroureter with without definite hydronephrosis though difficult to say with certainty.
--- NOTE | ~2022-08-04 | XR_ITS ---
EXAMINATION: XR CHEST CLINICAL INFORMATION: Hypoxia COMPARISON: 08/04/2022 TECHNIQUE: Frontal view of the chest was obtained. FINDINGS: Cardiac leads overlie the chest. The lungs are well expanded. Increased retrocardiac opacity. No pleural effusion or pneumothorax. No edema. The cardiomediastinal silhouette is within normal limits. XR/XR chest 1V IMPRESSION: Increased retrocardiac opacity which could represent atelectasis or pneumonia. Aspiration possible.
--- NOTE | ~2022-08-04 | XR_ITS ---
EXAMINATION: XR CHEST CLINICAL INFORMATION: Weakness, not eating. COMPARISON: Chest radiographs 06/23/2022, 05/22/2022 TECHNIQUE: Portable upright AP view of the chest was obtained. FINDINGS: The right lung is clear. There is some increased attenuation left retrocardiac region suspicious for small infiltrate. The remainder left lung appears clear. The costophrenic sulci are well-defined and there is no effusion. The heart is normal in size. The hilar and mediastinal contours are unremarkable. No visible acute bony abnormality. XR/XR chest 1V IMPRESSION: - Suspect small infiltrate left base. No effusion. - Right lung clear.
--- NOTE | ~2022-08-04 | US_ITS ---
EXAMINATION: ARTERIAL DUPLEX RIGHT LOWER EXTREMITY CLINICAL INFORMATION: Necrotic toes COMPARISON: None TECHNIQUE: Duplex Doppler of the right lower extremity arterial system was performed. FINDINGS: RIGHT: Common femoral: PSV 237 cm/s. Biphasic waveform. Deep femoral: PSV 103 cm/s. Biphasic waveform. Proximal superficial femoral: PSV 145 cm/s. Biphasic waveform. Mid superficial femoral: PSV 0 cm/s. Distal superficial femoral: PSV 0 cm/s. Popliteal: PSV 50 cm/s. Biphasic waveform. Posterior tibial: Not obtained due to patient cooperation. Peroneal: Not obtained due to patient cooperation. 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 Reconstitution at the popliteal artery. The calf arteries are not assessed.
--- NOTE | ~2022-08-04 | CT_ITS ---
EXAMINATION: CT ABDOMEN AND PELVIS WITH CONTRAST CLINICAL INFORMATION: Bacteremia. Question source. COMPARISON: None available. TECHNIQUE: Multidetector volumetric images were obtained from the superior aspect of the liver through the pubic symphysis following administration 85 mL of Omnipaque 350 intravenous contrast. Sagittal and coronal reformatted images were obtained on the technologist's workstation. Oral contrast: Yes This CT examination was performed using dose optimization techniques as appropriate, variously including the following: *Automated exposure control *Adjustment of mA and/or kV according to patient size (this includes techniques or standardized protocols for targeted exams where dose is matched to indication/reason for exam; i.e. extremities or head) *Use of iterative reconstruction technique DLP: 387 mGy-cm FINDINGS: LUNG BASES: Left lower lobe pneumonia April 2022 LIVER, GALLBLADDER, AND BILIARY TREE: The liver is normal in size, shape, and attenuation. Intra and extrahepatic biliary duct dilatation. The common bile duct measures 1.4 cm. Common bile duct tapers distally in the head of the pancreas. The gallbladder has been removed. This is similar to April 2022 exam. PANCREAS: Unremarkable. SPLEEN: Unremarkable. ADRENAL GLANDS: Unremarkable. KIDNEYS AND URETERS: Severe bilateral hydronephrosis and ureteral dilatation down to the bladder. This is similar to previous exam. No renal stone. BLADDER: Alvarez catheter in the bladder. The bladder is empty. The bladder wall appears diffusely thickened. GASTROINTESTINAL TRACT: Constipation. Small and large bowel is otherwise normal. The appendix is normal. The stomach is normal. ABDOMINAL WALL: No significant hernia is appreciated. LYMPH NODES: Normal. VASCULAR: Severe atherosclerotic disease. No aneurysm. PELVIC VISCERA: The uterus and adnexa are unremarkable. There is a small amount of fluid in the pelvis. There is fat stranding in the presacral space. Certainly findings from April 2022 exam. OSSEOUS STRUCTURES: Mild degenerative changes of the spine. CT/CT abdomen pelvis w IV con IMPRESSION: New left lower lobe pneumonia. Intra and extrahepatic biliary duct dilatation similar to previous exam. The gallbladder has been removed. Severe bilateral hydronephrosis and ureteral dilatation down to the bladder. Alvarez catheter in the bladder. Diffuse bladder wall thickening. These findings are similar to previous exam. New fat stranding in the presacral space and small amount of fluid in the pelvis. Severe atherosclerotic disease. Fleischner guidelines were followed.
--- NOTE | ~2022-08-04 | XR_ITS ---
EXAMINATION: XR FOOT, RIGHT CLINICAL INFORMATION: Necrotic right first, second, and third toes. COMPARISON: None available. TECHNIQUE: Right foot is imaged in 3 views. FINDINGS: There is attenuation of the soft tissues overlying the distal phalangeal ayush of the first, second, and third toes. The second distal phalangeal tuft may be exposed. There is no fracture or focal clearly defined destructive process or periostitis. No erosive arthropathy. No gas tracking proximally in the soft tissues. There are bulky posterior and plantar calcaneal spurs. Benign-appearing scalloping is noted at the distal anterior tibia. No visible ankle effusion. XR/XR foot RT min 3V IMPRESSION: - Attenuation soft tissues overlying distal phalangeal ayush first, second, and third toes. Possible exposed bone at second distal tuft. Clinically correlate. -No focal bony destruction or periostitis. No gas tracking in soft tissues.
[2022-08-04 14:40] VITALS: BP 100/50; BP 80/40; PULSE 91; RESP 16; TEMP 38.1; O2SAT 92; O2SAT 95; BMI 19.6
--- NOTE | 2022-08-04 15:04 | MHC.EDSEPSIS ---
HPI - Sepsis General Chief Complaint: Failure to Thrive Stated Complaint: NOT EATING X1 WEEK,? UTI FROM SNF PER EMS Time Seen by Provider: 08/04/22 14:42 Source: patient, EMS and RN notes reviewed Mode of arrival: EMS Limitations: altered mental status History of Present Illness HPI Narrative: 62-year-old female coming from a fpc patient is failing to thrive not eating comes in with a mild fever and signs of sepsis. Patient has necrotic toes on right foot she has wound on her coccyx. When EMS arrived Alvarez bag was on top of the patient and not draining the quickly put the bag underneath patient started draining very quickly over L. urine was cloudy the Alvarez was removed by our nursing staff and replaced on arrival. MD elicited complaint: fever and weakness Related Data Home Medications Medication Instructions Recorded Confirmed acetaminophen 500 mg tablet 1,000 mg PO TID 05/20/22 05/20/22 (Tylenol Extra Strength) ascorbic acid (vitamin C) 500 mg 500 mg PO DAILY 05/20/22 05/20/22 tablet aspirin 81 mg tablet,delayed 81 mg PO DAILY 05/20/22 05/20/22 release atorvastatin 80 mg tablet 80 mg PO BEDTIME 05/20/22 05/20/22 baclofen 10 mg tablet 10 mg PO TID 05/20/22 05/20/22 bisacodyl 10 mg rectal suppository 10 mg WI DAILY PRN Constipation 05/20/22 05/20/22 clopidogrel 75 mg tablet (Plavix) 75 mg PO DAILY 05/20/22 05/20/22 dextrose 40 % oral gel (Glucose 20 g PO Q15M PRN FSBS<50 AND ABLE 05/20/22 05/20/22 Gel) TO SWALLOW glucagon 1 mg solution for 1 mg subcut Q20M PRN fsbs < 60 and 05/20/22 05/20/22 injection unable to swallow insulin glargine 100 unit/mL 14 unit subcut BEDTIME 05/20/22 05/20/22 subcutaneous solution (Lantus U-100 Insulin) insulin lispro 100 unit/mL 1 sliding scale dose subcut 05/20/22 05/20/22 subcutaneous solution (Humalog USEASDIRECTD U-100 Insulin) magnesium hydroxide 400 mg/5 mL 30 ml PO DAILY PRN Constipation 05/20/22 05/20/22 oral suspension (Milk of Magnesia) meclizine 12.5 mg tablet 12.5 mg PO Q8H PRN Dizziness 05/20/22 05/20/22 metoprolol succinate 25 mg 25 mg PO DAILY 05/20/22 05/20/22 tablet,extended release 24 hr multivitamin with minerals 1 tab PO BEDTIME 05/20/22 05/20/22 polyethylene glycol 3350 17 gram 17 g PO DAILY 05/20/22 05/20/22 oral powder packet (Miralax) sennosides 8.6 mg tablet (senna) 8.6 mg PO DAILY 05/20/22 05/20/22 sertraline 25 mg tablet (Zoloft) 25 mg PO DAILY 05/20/22 05/20/22 sodium phosphates 19 gram-7 118 ml WI DAILY PRN Constipation 05/20/22 05/20/22 gram/118 mL enema (Fleet Enema) tizanidine 2 mg tablet 2 mg PO Q8H PRN MUSCLE SPASMS 05/20/22 05/20/22 zinc sulfate 50 mg zinc (220 mg) 50 mg PO DAILY 05/20/22 05/20/22 capsule Previous Rx's Medication Instructions Recorded amlodipine 5 mg tablet (Norvasc) 5 mg PO DAILY #30 tabs 05/29/22 cefuroxime axetil 500 mg tablet 500 mg PO BID 10 days #20 tabs 05/29/22 Allergies Allergy/AdvReac Type Severity Reaction Status Date / Time No Known Allergies Allergy Verified 05/20/22 12:06 Review of Systems Review of Systems Review of systems: Very limited as patient is very altered she states she has pain but is otherwise just moaning. Yes all other systems are reviewed and are negative Physical Exam Vital Signs: Last Vital Signs Temp 98.4 F 08/04/22 16:00 Pulse 86 08/04/22 16:00 Resp 22 H 08/04/22 16:00 BP 153/63 H 08/04/22 16:00 Pulse Ox 96 08/04/22 16:00 O2 Del Method Nasal Cannula 08/04/22 16:00 O2 Flow Rate 3 08/04/22 16:00 Oxygen Flow Rate 3 08/04/22 15:49 BMI result Body Mass Index 19.6 Neuro: With contracted left arm and signs of limited mobility General: Ill-appearing moaning in no signs of mild distress HEENT: Normocephalic atraumatic Neck: No signs of JVD, no masses no tenderness or lymphadenopathy Cardiovascular: Regular rate and rhythm Respiratory: Clear to auscultation bilaterally Abdomen: Soft nontender no masses Extremities: Normal pedal pulses no signs of edema Skin: Dry warm no rashes Back: No tenderness full ROM Course Course Course Narrative: Concern for sepsis patient was started with lactic acid urine was sent x-ray will be done I will give the patient a L fluids start patient is not hypotensive does have a mild fever I will give some Tylenol concerned that this is likely a urinary source of infection all sent off blood cultures as well. Admission considered for this patient consultation hospitalist will be performed I did review the labs and x-ray as well as the interpretation by the radiologist EKG reviewed by me Social determinants of health include fpc patient with limited mobility Alvarez catheter insertion 1831 Urine confirms source delayed due to issues with catheter. Lactic has improved. Patinet has not been tachycardic or hypotensive I will admit to medicine. Critical Care Time Critical Care Time Critical Care Time: Yes Total Critical Care Time: 35 Attestation: Patient seen immediately upon arrival patient was started with fluids as well as workup for sepsis found to be febrile with a urinary tract infection was not hypertensive tachycardic did respond well to fluids was seen in medicine Discharge Plan Discharge Clinical Impression: Urinary tract infection, Weakness, Acute dehydration Patient Disposition: Admitted As Inpatient Prescriptions: No Action atorvastatin 80 mg Tablet 80 mg PO BEDTIME sennosides [senna] 8.6 mg Tablet 8.6 mg PO DAILY insulin glargine [Lantus U-100 Insulin] 100 unit/mL Solution 14 unit SUBCUT BEDTIME tizanidine 2 mg Tablet 2 mg PO Q8H PRN (Reason: MUSCLE SPASMS) polyethylene glycol 3350 [Miralax] 17 gram Powder In Packet 17 g PO DAILY dextrose [Glucose Gel] 40 % Gel 20 g PO Q15M PRN (Reason: FSBS<50 AND ABLE TO SWALLOW) Rx Instructions: until symptoms of low blood sugar are controlled meclizine 12.5 mg Tablet 12.5 mg PO Q8H PRN (Reason: Dizziness) clopidogrel [Plavix] 75 mg Tablet 75 mg PO DAILY aspirin 81 mg Tablet,Delayed Release (Dr/Ec) 81 mg PO DAILY acetaminophen [Tylenol Extra Strength] 500 mg Tablet 1,000 mg PO TID magnesium hydroxide [Milk of Magnesia] 400 mg/5 mL Suspension 30 ml PO DAILY PRN (Reason: Constipation) ascorbic acid (vitamin C) 500 mg Tablet 500 mg PO DAILY baclofen 10 mg Tablet 10 mg PO TID bisacodyl 10 mg Suppository 10 mg WI DAILY PRN (Reason: Constipation) Fleet Enema 19-7 gram/118 mL Enema 118 ml WI DAILY PRN (Reason: Constipation) sertraline [Zoloft] 25 mg Tablet 25 mg PO DAILY metoprolol succinate 25 mg Tablet Extended Release 24 Hr 25 mg PO DAILY insulin lispro [Humalog U-100 Insulin] 100 unit/mL Solution 1 sliding scale dose SUBCUT USEASDIRECTD Protocol: Insulin Correction Scale Less than or equal to 110 ---- Give (units): 0 111 to 150 Give (units): 0 151 to 200 Give (units): 2 201 to 250 Give (units): 4 251 to 300 Give (units): 6 301 to 350 Give (units): 8 Greater than 350 Give (units): 10 Call MD if Blood Glucose > : 350 glucagon 1 mg Recon Soln 1 mg SUBCUT Q20M PRN (Reason: fsbs < 60 and unable to swallow) Rx Instructions: until target blood sugar attained multivitamin with minerals Tablet 1 tab PO BEDTIME zinc sulfate 50 mg zinc (220 mg) Capsule 50 mg PO DAILY amlodipine [Norvasc] 5 mg tablet 5 mg PO DAILY Qty: 30 0RF cefuroxime axetil 500 mg tablet 500 mg PO BID 10 Days Qty: 20 0RF Sepsis Event Note Evaluation Sepsis screening result: No Definite Risk Current stage of sepsis: ruled out Reason for ruling out sepsis: Patient hypotensive he is not tachycardic does have a genitourinary source for infection Possible source: genitourinary Focused Exam Vital signs: Vital Signs Temp Pulse Resp BP Pulse Ox O2 Del Method O2 Flow Rate 08/04/22 16:00 98.4 F 86 22 H 153/63 H 96 Nasal Cannula 3 08/04/22 15:49 90 L Nasal Cannula 08/04/22 14:40 100.6 F H 91 16 100/50 L 92 Cardiovascular exam: RRR Capillary refill: < 2 Seconds Peripheral pulse strength: 3+ Normal Peripheral pulse location: Pedal Skin exam: normal turgor Date exam was performed: 08/04/22 Time exam was performed: 18:34 [facility] Past Medical History Medical History CKD (chronic kidney disease) stage 3, GFR 30-59 ml/min Coronary artery disease COVID-19 CVA (cerebral vascular accident) CVA (cerebral vascular accident) Diabetes mellitus type 2 in nonobese Glaucoma H/O supraventricular tachycardia History of right MCA stroke Hypertension ICAO (internal carotid artery occlusion) Ischemic cardiomyopathy Renal failure (ARF), acute on chronic Status post insertion of drug-eluting stent into left anterior descending (LAD) artery Surgical History H/O cardiac catheterization Social History Social History Household Members: Other Housing: Residential Do you presently have visiting nurse or other home services: No Unable to assess alcohol history related to: Unknown Alcohol intake: never Patient Tobacco Use Status: Tobacco use Unknown Advance Directives: Yes Advance Directives on File: Yes Advance Directives Date on File: 06/01/22 service: No
[2022-08-04 15:25] LABS: Basophils Absolute Auto 0.1 X10*3/uL (0.0-0.2); Basophils Percent Auto 0.2 % (0-2); Hematocrit 30.9 % (37.0-47.0); Hemoglobin 9.9 g/dl (12.0-16.0); Imm Gran Abs Auto 0.36 X10*3/uL (0.00-0.03); Imm Gran Pct Auto 1.1 % (0.0-0.4); Lymphocytes Absolute Auto 0.9 X10*3/uL (1.2-4.9); Lymphocytes Percent Auto 2.9 % (20-40); MANUAL DIFF FLAG SCAN; Mean Corpuscular Hemoglobin 26.7 pg (27.0-33.0); Mean Corpuscular Volume 83.3 fL (80.0-98.0); Mean Platelet Volume 9.5 fL (9.4-12.3); Monocytes Absolute Auto 1.6 X10*3/uL (0.1-1.2); Neutrophils Absolute Auto 29.3 x10*3/uL (2.0-8.3); Neutrophils Percent Auto 90.8 % (45-73); Platelet Count 456 X10*3/uL (160-400); Red Blood Count 3.71 X10*6/uL (4.20-5.50); Red Cell Distribution Width 16.5 % (11.0-16.0); SCAN SMEAR FLAG 1
[2022-08-04] MEDS: Acetaminophen Supp 650 MG SUPP.RECT PR (15:41)
[2022-08-04 15:44] LABS: White Blood Count 32.3 X10*3/uL (4.8-10.8)
[2022-08-04] MEDS: 0.9 % Sodium Chloride 1,000 ML 999 ML IV ×2 (15:44→16:33)
[2022-08-04 15:49] VITALS: O2SAT 90
[2022-08-04 15:49] LABS: Lactic Acid 3.1 mmol/L (0.5-2.0)
[2022-08-04 15:53] LABS: Alanine Aminotransferase 46 U/L (0-31); Albumin Level 2.9 g/dL (3.5-5.0); Alkaline Phosphatase 154 U/L (39-117); Anion Gap 16 (12-20); Aspartate Amino Transferase 86 U/L (5-31); Bilirubin Direct 0.2 mg/dL (0.0-0.5); Bilirubin Total 0.5 mg/dL (0.0-1.0); Blood Urea Nitrogen 61 mg/dL (9-16); Calcium 9.4 mg/dL (8.4-10.2); Carbon Dioxide 24 mmol/L (22-29); Chloride 100 mmol/L (96-108); Creatinine Clr Calc Pharmacy 33.6; Estimated Glomerular Filt Rate 40; Glucose Random 157 mg/dL (60-115); Lipase 6 U/L (8-78); Potassium 4.8 mmol/L (3.3-5.1); Sodium 135 mmol/L (135-145); Total Protein 6.8 g/dL (6.5-8.0)
[2022-08-04 16:00] VITALS: BP 153/63; PULSE 86; RESP 22; TEMP 36.9; O2SAT 96
[2022-08-04] MEDS: cefEPime HCl 1 GM in 0.9 % Sodium Chloride 50 ML IV (16:32)
[2022-08-04 16:44] LABS: SLIDE REVIEW VERIFIED
[2022-08-04] MEDS: levoFLOXacin/D5W 500 MG/100 ML PIGGYBACK 100 MG IV (17:09)
[2022-08-04 17:19] LABS: Reflex Lactate? Lactic Acid Added
[2022-08-04] MEDS: vancomycin HCL 1,250 MG in 0.9 % Sodium Chloride 250 ML 166.67 MG IV (17:26)
[2022-08-04 18:21] LABS: ~Lactic Acid-LAB USE ONLY 1.8 mmol/L (0.5-2.0)
[2022-08-04 18:21] LABS: Appearance Urine Cloudy; Color Urine Yellow; Glucose Urine UA Negative (Negative); Leukocyte Esterase Urine Large (3+) (Negative); Nitrite Urine Negative (Negative); PH 6.5 (5.0-9.0); UMIC TRIGGER UACC YES; Urine Blood Large (3+) (Negative); Urine Ketones Trace mg/dL (Negative); Urine Protein 100 (2+) mg/dL (Neg-Trace)
[2022-08-04 18:34] LABS: Bacteria Urine 4+ (None Seen); Hyaline Casts Urine >20 /LPF (0-2); RBC Urine >20 /HPF (0-2); UACC Culture Trigger YES; WBC Urine >50 /HPF (0-5)
[2022-08-04 18:40] VITALS: BP 126/50; PULSE 78; RESP 42; TEMP 37; O2SAT 95
--- NOTE | 2022-08-04 19:05 | P.HPHOSP_ITS ---
History of Present Illness Date of Service: 08/04/22 Chief Complaint: Fever This is a 62-year-old female with pertinent history of essential hypertension, mixed hyperlipidemia, history of multifocal CVA, insulin-dependent diabetes mellitus, CAD status post stent, mood disorder, CKD stage 3 was sent to the emergency department for evaluation of fevers. Unable to obtain history or review of systems from the patient. History obtained from ER provider and chart review. Patient with poor appetite, weakness and altered mentation. Also has been having fevers and chills. Patient's urine was noted to be cloudy and foul smelling. She has necrotic toes on the right foot and wound on her coccyx In the emergency department, patient was found to be septic and urine concerning for UTI. Review of Systems Review of Systems: Yes Unobtainable due to mental status PMFSH Medical History CKD (chronic kidney disease) stage 3, GFR 30-59 ml/min Coronary artery disease COVID-19 CVA (cerebral vascular accident) CVA (cerebral vascular accident) Diabetes mellitus type 2 in nonobese Glaucoma H/O supraventricular tachycardia History of right MCA stroke Hypertension ICAO (internal carotid artery occlusion) Ischemic cardiomyopathy Renal failure (ARF), acute on chronic Status post insertion of drug-eluting stent into left anterior descending (LAD) artery Pertinent family history: No family history of CAD Surgical History H/O cardiac catheterization Social History Household Members: Other Housing: Intermediate Do you presently have visiting nurse or other home services: No Unable to assess alcohol history related to: Unknown Alcohol intake: current Patient Tobacco Use Status: Tobacco use Unknown Smoked in Last 30 Days: No Use of substances other than those prescribed or required for medical reasons: No Advance Directives: Yes Advance Directives on File: Yes Advance Directives Date on File: 06/01/22 service: No Meds Allergies Allergy/AdvReac Type Severity Reaction Status Date / Time No Known Allergies Allergy Verified 05/20/22 12:06 Active Medications: Current Medications Acetaminophen (Acetaminophen 325 Mg Tablet) 650 mg PO Q6H PRN PRN Reason: Pain, Mild (Pain Scale 1-3) Acetaminophen (Acetaminophen Supp 650 Mg Supp.Rect) 650 mg NV Q6H PRN PRN Reason: Pain, Mild (Pain Scale 1-3) Enoxaparin Sodium (Enoxaparin Sodium 40 Mg/0.4 Ml Syringe) 40 mg SUBCUT Q24H [facility] Melatonin (Melatonin 3 Mg Tablet) 6 mg PO BEDTIME PRN PRN Reason: Insomnia Ondansetron HCl (Ondansetron Hcl 4 Mg/2 Ml Vial) 4 mg IVPUSH Q8H PRN PRN Reason: Nausea and Vomiting Sodium Chloride (0.9 % Sodium Chloride Flush 3 Ml Syringe) 3 ml IVFLUSH QSHIFT [facility] Home Medications Medication Instructions Recorded Confirmed Last Taken Type acetaminophen 500 mg tablet 1,000 mg PO TID 05/20/22 05/20/22 Unknown History (Tylenol Extra Strength) ascorbic acid (vitamin C) 500 mg 500 mg PO DAILY 05/20/22 05/20/22 Unknown History tablet aspirin 81 mg tablet,delayed 81 mg PO DAILY 05/20/22 05/20/22 Unknown History release atorvastatin 80 mg tablet 80 mg PO BEDTIME 05/20/22 05/20/22 Unknown History baclofen 10 mg tablet 10 mg PO TID 05/20/22 05/20/22 Unknown History bisacodyl 10 mg rectal suppository 10 mg NV DAILY PRN Constipation 05/20/22 05/20/22 Unknown History clopidogrel 75 mg tablet (Plavix) 75 mg PO DAILY 05/20/22 05/20/22 Unknown History dextrose 40 % oral gel (Glucose 20 g PO Q15M PRN FSBS<50 AND ABLE 05/20/22 05/20/22 Unknown History Gel) TO SWALLOW glucagon 1 mg solution for 1 mg subcut Q20M PRN fsbs < 60 and 05/20/22 05/20/22 Unknown History injection unable to swallow insulin glargine 100 unit/mL 14 unit subcut BEDTIME 05/20/22 05/20/22 Unknown History subcutaneous solution (Lantus U-100 Insulin) insulin lispro 100 unit/mL 1 sliding scale dose subcut 05/20/22 05/20/22 Unknown History subcutaneous solution (Humalog USEASDIRECTD U-100 Insulin) magnesium hydroxide 400 mg/5 mL 30 ml PO DAILY PRN Constipation 05/20/22 05/20/22 Unknown History oral suspension (Milk of Magnesia) meclizine 12.5 mg tablet 12.5 mg PO Q8H PRN Dizziness 05/20/22 05/20/22 Unknown History metoprolol succinate 25 mg 25 mg PO DAILY 05/20/22 05/20/22 Unknown History tablet,extended release 24 hr multivitamin with minerals 1 tab PO BEDTIME 05/20/22 05/20/22 Unknown History polyethylene glycol 3350 17 gram 17 g PO DAILY 05/20/22 05/20/22 Unknown History oral powder packet (Miralax) sennosides 8.6 mg tablet (senna) 8.6 mg PO DAILY 05/20/22 05/20/22 Unknown History sertraline 25 mg tablet (Zoloft) 25 mg PO DAILY 05/20/22 05/20/22 Unknown History sodium phosphates 19 gram-7 118 ml NV DAILY PRN Constipation 05/20/22 05/20/22 Unknown History gram/118 mL enema (Fleet Enema) tizanidine 2 mg tablet 2 mg PO Q8H PRN MUSCLE SPASMS 05/20/22 05/20/22 Unknown History zinc sulfate 50 mg zinc (220 mg) 50 mg PO DAILY 05/20/22 05/20/22 Unknown History capsule Physical Exam Vital Signs and Narrative: Vital Signs: Last Vital Signs Temp 98.6 F 08/04/22 18:40 Pulse 78 08/04/22 18:40 Resp 42 H 08/04/22 18:40 BP 126/50 L 08/04/22 18:40 Pulse Ox 95 08/04/22 18:40 O2 Del Method Nasal Cannula 08/04/22 18:40 O2 Flow Rate 3 08/04/22 18:40 Oxygen Flow Rate 3 08/04/22 15:49 BMI result Body Mass Index 19.6 Elderly female lying in bed in no distress Neck supple, no JVD Regular rate and rhythm, S1-S2 heard Decreased breath sounds at bases Abdomen soft, nontender, no guarding, no rigidity Patient is awake, alert and oriented to self, disoriented to time and place Skin: Sacral decubitus ulcer present, necrotic toes of right foot, heel wound + Psych: Normal mood Results Labs 08/04/22 15:15 08/04/22 15:15 Labs: Laboratory Results - last 24 hr 08/04/22 08/04/22 08/04/22 15:15 15:15 15:15 MCV 83.3 MCH 26.7 L MCHC 32.0 RDW 16.5 H Plt Count 456 H MPV 9.5 Immature Gran % (Auto) 1.1 H Neut % (Auto) 90.8 H Lymph % (Auto) 2.9 L [place] % (Auto) 5.0 Eos % (Auto) 0.0 Baso % (Auto) 0.2 Lymph # (Auto) 0.9 L [place] # (Auto) 1.6 H Eos # (Auto) 0.0 Baso # (Auto) 0.1 Abs Immat Gran (auto) 0.36 H Absolute Neuts (auto) 29.3 H Absolute Nucleated RBC 0.000 Nucleated RBC % (auto) 0.0 Smear Tech's Comments VERIFIED Anion Gap 16 Estim Creat Clear Calc 33.6 Estimated GFR 40 Random Glucose 157 H Lactic Acid 3.1 H* Lactic Acid F/U @ 2Hr Calcium 9.4 D Total Bilirubin 0.5 Direct Bilirubin 0.2 AST 86 H ALT 46 H Alkaline Phosphatase 154 H Total Protein 6.8 Albumin 2.9 L Lipase 6 L Urine Color Urine Appearance Urine pH Ur Specific [place] Urine Protein Urine Glucose (UA) Urine Ketones Urine Blood Urine Nitrite Ur Leukocyte Esterase Urine RBC Urine WBC Ur Squamous Epith Cells Urine Bacteria Hyaline Casts 08/04/22 08/04/22 17:58 18:16 MCV MCH MCHC RDW Plt Count MPV Immature Gran % (Auto) Neut % (Auto) Lymph % (Auto) [place] % (Auto) Eos % (Auto) Baso % (Auto) Lymph # (Auto) [place] # (Auto) Eos # (Auto) Baso # (Auto) Abs Immat Gran (auto) Absolute Neuts (auto) Absolute Nucleated RBC Nucleated RBC % (auto) Smear Tech's Comments Anion Gap Estim Creat Clear Calc Estimated GFR Random Glucose Lactic Acid Lactic Acid F/U @ 2Hr 1.8 Calcium Total Bilirubin Direct Bilirubin AST ALT Alkaline Phosphatase Total Protein Albumin Lipase Urine Color Yellow Urine Appearance Cloudy Urine pH 6.5 Ur Specific [place] 1.020 Urine Protein 100 (2+) H Urine Glucose (UA) Negative Urine Ketones Trace Urine Blood Large (3+) H Urine Nitrite Negative Ur Leukocyte Esterase Large (3+) H Urine RBC >20 H Urine WBC >50 H Ur Squamous Epith Cells 11-20 Urine Bacteria 4+ Hyaline Casts >20 Imaging Radiologist's Impressions: Impressions Chest X-Ray 08/04/22 15:39 IMPRESSION: - Suspect small infiltrate left base. No effusion. - Right lung clear. Foot X-Ray 08/04/22 15:39 IMPRESSION: - Attenuation soft tissues overlying distal phalangeal ayush first, second, and third toes. Possible exposed bone at second distal tuft. Clinically correlate. -No focal bony destruction or periostitis. No gas tracking in soft tissues. Assessment and Plan (1) Sepsis: Status: Acute (2) Urinary tract infection: Status: Acute Plan This is a 62-year-old female with pertinent history of essential hypertension, mixed hyperlipidemia, history of multifocal CVA, insulin-dependent diabetes mellitus, CAD status post stent, mood disorder, CKD stage 3 was sent to the emergency department for evaluation of fevers. #. Sepsis due to UTI. Resuscitated with IV crystalloids. Lactic acid obtained. Urine culture, blood culture pending. Previous culture with Pseudomonas, will continue empiric IV antibiotics #. Necrotic right foot toes. Obtaining MRI to rule out osteomyelitis. Also obtaining arterial duplex. May need vascular surgery consult. #. Sacral decubitus ulcer. Consulting Wound Care. #. Acute metabolic encephalopathy in the setting of above. NPO until mentation improves #. Acute lactic acidosis due to sepsis. Resolved with fluid resuscitation #. Chronic normocytic anemia. Hemoglobin above transfusion threshold #. Essential hypertension: Hold home antihypertensives in the setting of sepsis. Resume as appropriate #. Insulin-dependent diabetes mellitus. Initiating Accu-Cheks sliding scale insulin #. History of CVA/CAD: On DAPT and high-intensity statin Med rec pending DVT prohylaxis: Lovenox Do not intubate NPO Admit as inpatient and will require two night minimum hospital stay for IV abx Time Spent With Patient Time: Total time managing care of this patient today ____ minutes. Quality Stroke Does the patient have a stroke diagnosis?: No VTE Prior VTE?: No VTE Risk Level:: Medical - moderate - high VTE Device Contraindication: Treatment Not Indicated VTE Drug Contraindication: N/A - Med Ordered
[2022-08-04 19:25] VITALS: BP 117/48; PULSE 79; RESP 19; TEMP 36.9; O2SAT 95
[2022-08-04] MEDS: Enoxaparin Sodium 40 MG/0.4 ML SYRINGE SUBCUT (20:01)
[2022-08-04 20:20] LABS: Glucose, Whole Blood 151 mg/dL (60-115)
--- NOTE | 2022-08-04 21:56 | PHA.MEDREC ---
Pharmacy Consult ? Medication Reconciliation Pharmacy has completed the medication reconciliation. Patient had a med list from [facility].
[2022-08-05] MEDS: 0.9 % Sodium Chloride Flush 3 ML SYRINGE IVFLUSH ×3 (00:16→20:35)
[2022-08-05 02:57] LABS: Glucose, Whole Blood 114 mg/dL (60-115)
[2022-08-05 03:03] VITALS: BP 154/66; PULSE 81; RESP 14; TEMP 36.7; O2SAT 94
[2022-08-05] MEDS: cefEPime HCl 2 GM in 0.9 % Sodium Chloride 50 ML IV ×2 (04:08→15:31)
--- NOTE | 2022-08-05 04:14 | PC.NURSE ---
Patient alert and oriented. reported trouble breathing. o2 sat 89% on 2l nasal cannula, increased to 4l then 6L with no improvement. Applied non-rebreather mask 15L o2 improved to 92%. Notified Dr. Stahl and respiratory therapist
--- NOTE | 2022-08-05 04:22 | PC.NURSE ---
Respiratory and hospitalist at bedside. PT put on nasal cannula with rodriguez tubing at 10L. o2 sat 98%
[2022-08-05 06:15] LABS: Basophils Absolute Auto 0.1 X10*3/uL (0.0-0.2); Basophils Percent Auto 0.3 % (0-2); Hematocrit 27.7 % (37.0-47.0); Hemoglobin 8.8 g/dl (12.0-16.0); Imm Gran Abs Auto 0.19 X10*3/uL (0.00-0.03); Imm Gran Pct Auto 0.7 % (0.0-0.4); Lymphocytes Absolute Auto 0.5 X10*3/uL (1.2-4.9); Lymphocytes Percent Auto 1.9 % (20-40); MANUAL DIFF FLAG SCAN; Mean Corpuscular HGB Conc 31.8 g/dl (31.0-35.0); Mean Corpuscular Hemoglobin 26.3 pg (27.0-33.0); Mean Corpuscular Volume 82.9 fL (80.0-98.0); Mean Platelet Volume 9.5 fL (9.4-12.3); Monocytes Absolute Auto 0.8 X10*3/uL (0.1-1.2); Monocytes Percent Auto 3.1 % (2-11); Neutrophils Absolute Auto 25.9 x10*3/uL (2.0-8.3); Platelet Count 378 X10*3/uL (160-400); Red Blood Count 3.34 X10*6/uL (4.20-5.50); SCAN SMEAR FLAG 1; White Blood Count 27.5 X10*3/uL (4.8-10.8)
[2022-08-05 06:36] LABS: Anion Gap 11 (12-20); Blood Urea Nitrogen 53 mg/dL (9-16); Calcium 8.4 mg/dL (8.4-10.2); Carbon Dioxide 20 mmol/L (22-29); Chloride 108 mmol/L (96-108); Creatinine Clr Calc Pharmacy 48.6; Estimated Glomerular Filt Rate > 60; Glucose Random 111 mg/dL (60-115); Potassium 4.4 mmol/L (3.3-5.1); Sodium 135 mmol/L (135-145)
[2022-08-05 06:37] LABS: SLIDE REVIEW VERIFIED
--- NOTE | 2022-08-05 08:16 | PC.NURSE ---
report given to s3- reached out to transport.
--- NOTE | 2022-08-05 08:40 | PHA.PROG ---
Admission Date/Time: August 04, 2022 19:03 Indication: SEPSIS Weight in k.6 kg Adjusted body weight in K.5 [place] body weight in K.1 Obesity Dosing Indication % IBW: 19.6 Serum Creatinine - Last 168 Hours 08/04/22 08/05/22 15:15 05:27 Creatinine 1.33 0.92 Estimated CrCl and GFR - Last 168 Hours 08/04/22 08/05/22 15:15 05:27 Estim Creat Clear Calc 33.6 48.6 Estimated GFR 40 > 60 Vancomycin Loading Dose: 1250 MG Current Vancomycin Dosing Regimen: 1000 MG Q24 HOURS Vancomycin Monitoring using AUC goal of 400 - 600 range with trough as surrogate marker: Expected auc 444 with trough 12.4 after 4th dose Date and Time for next Vancomycin Level to be drawn: 08/07 @1500 Pharmacist Comments on Vancomycin Plan:Using 1000 mg q24 hours as it gets her to a higher auc faster than 500 q12. May need to increase dose after trough, however patient is small and this is appropriate dosing for her size. Vancomycin dosing will take advantage of [employer] as a clinical decision support tool that uses Bayesian modeling to calculate individual patient's pharmacokinetic parameters and forecast the patient's drug concentration time course with the target goal AUC 24 range of 400 - 600 mg/L/hr.
[2022-08-05 09:16] LABS: Glucose, Whole Blood 106 mg/dL (60-115)
[2022-08-05 10:06] VITALS: BP 116/70; PULSE 77; RESP 18; TEMP 36.8; O2SAT 93
--- NOTE | 2022-08-05 10:18 | MHC.SLORD ---
Addendum entered and electronically signed by ROBINSON Leblanc 08/05/22 15:47: MANAGER PLAN consistently met w/ pt refusal d/t pt discomfort and pain. MANAGER PLAN to re-attempt evaluation tomorrow. Per RN, pt tolerated meds crushed in puree. Original Note: Speech Language Pathology Order Status: MANAGER PLAN atempted to see pt for clinical swallow evaluation at [facility]. Pt reporting of pain and declined participation in evaluation at this time. Spoke w/ RN. MANAGER PLAN to re-attempt later this date. RN to send [place] to MANAGER PLAN following administration of pain meds. This MANAGER PLAN spoke w/ [facility] staff who reports pt's current baseline is ground/mechanical soft, thin liquids, and pills crushed in puree.
[2022-08-05] MEDS: Morphine Sulfate 2 MG/ML CARTRIDGE IVPUSH (11:16)
[2022-08-05 11:27] LABS: Glucose, Whole Blood 95 mg/dL (60-115)
--- NOTE | 2022-08-05 12:41 | MHC.CM.PN ---
Addendum entered by Nicole Sims RN 08/05/22 12:58: PRIVATE ROOM OFFERED AT [facility]. FACILITY WILL NEED SOME OSTOMY SUPPLIES THEY ARE ORDERING AND WILL HAVE Addendum entered by Nicole Sims RN 08/05/22 12:55: [facility] OFFERING A BED PLAN IS DC TOMORROW PATIENT NOW ASKING FOR PRIVATE ROOM OR I WILL JUST GO HOME REQUEST SENT TO [facility] LIAISON Original Note: PATIENT NOT YET ON UNIT AT FIRST ATTEMPT TO MEET PER CONVERSATION WITH HCP/SON, CARISSA (ON FILE AND VERIFIED) [facility] SHE MOBILIZES WITH A WHEELCHAIR. PLAN IS FOR PATIENT TO RETURN TO FACILITY WHEN MEDICALLY CLEARED. REFERRAL PLACED FOR AGENCY TO FOLLOW
[2022-08-05] MEDS: Baclofen 10 MG TABLET 15 MG PO ×2 (14:06→20:33)
[2022-08-05] MEDS: Gabapentin 100 MG CAPSULE PO ×2 (14:06→20:33)
[2022-08-05] MEDS: Morphine Sulfate 4 MG/ML CARTRIDGE IVPUSH ×3 (14:07→22:02)
--- NOTE | 2022-08-05 14:40 | P.PNIM_ITS ---
Subjective Subjective Date of Service: 08/05/22 Interval History: Pain controlled remains poor per patient. Uncooperative with swallow eval Review of Systems Unable to obtain Physical Exam Vital Signs: Vital Signs: Last Vital Signs Temp 98.3 F 08/05/22 10:06 Pulse 77 08/05/22 10:06 Resp 18 08/05/22 10:06 BP 116/70 08/05/22 10:06 Pulse Ox 93 08/05/22 10:06 O2 Del Method Nasal Cannula 08/05/22 10:06 O2 Flow Rate 3 08/05/22 10:06 Oxygen Flow Rate 3 08/04/22 15:49 BMI result Body Mass Index 19.6 Const: Other: Awake alert no acute distress; uncomfortable appearing Resp: Other: Clear to auscultation bilaterally no rales rhonchi or wheezes Cardio: Other: No S4; positive S1-S2; no S3 murmurs rubs or gallops GI: Other: Soft nontender nondistended normoactive bowel sounds Extrem: Other: Necrotic toes right foot Objective Data Active Medications Acetaminophen (Acetaminophen 325 Mg Tablet) 650 mg PO Q6H PRN PRN Reason: Pain, Mild (Pain Scale 1-3) Acetaminophen (Acetaminophen Supp 650 Mg Supp.Rect) 650 mg KS Q6H PRN PRN Reason: Pain, Mild (Pain Scale 1-3) Aspirin (Aspirin Enteric Coated 81 Mg Tablet.Dr) 81 mg PO DAILY [facility] Atorvastatin Calcium (Atorvastatin Calcium 80 Mg Tablet) 80 mg PO BEDTIME [facility] Baclofen (Baclofen 10 Mg Tablet) 15 mg PO TID [facility] Last Admin: 08/05/22 14:06 Dose: 15 mg Documented By: HANNAH Comments: Clopidogrel Bisulfate (Clopidogrel Bisulfate 75 Mg Tablet) 75 mg PO DAILY [facility] Enoxaparin Sodium (Enoxaparin Sodium 40 Mg/0.4 Ml Syringe) 40 mg SUBCUT Q24H [facility] Last Admin: 08/04/22 20:01 Dose: 40 mg Documented By: WALDO Gabapentin (Gabapentin 100 Mg Capsule) 100 mg PO TID [facility] Last Admin: 08/05/22 14:06 Dose: 100 mg Documented By: HANNAH Glucose (Glucose Gel 15 Gm Gel..Gram.) 15 gm PO Q15M PRN; Protocol PRN Reason: per Hypoglycemia Standing Ord. Cefepime HCl 2 gm/ Sodium (Chloride) 50 mls @ 100 mls/hr IV Q12H [facility] Last Infusion: 08/05/22 04:28 Dose: 0 mls/hr Documented By: CHRISTIN Dextrose (D10) 250 mls @ 750 mls/hr IV Q15M PRN; Protocol PRN Reason: per Hypoglycemia Standing Ord. Vancomycin HCl 1,000 mg/ (Sodium Chloride) 270 mls @ 270 mls/hr IV Q24H [facility] Insulin Human Lispro (Insulin Lispro 100 Unit/Ml 3 Ml Vial) 0 unit SUBCUT Q6H NIRANJAN; Protocol Last Admin: 08/05/22 12:08 Dose: Not Given Documented By: HANNAH Non-Admin Reason: NPO Lactulose (Lactulose 20 Gm/30 Ml Solution) 20 gm PO BID [facility] Lisinopril (Lisinopril 5 Mg Tablet) 5 mg PO DAILY [facility]; Protocol Melatonin (Melatonin 3 Mg Tablet) 6 mg PO BEDTIME PRN PRN Reason: Insomnia Metoprolol Succinate (Metoprolol Succinate Er 25 Mg Tab.Er.24h) 25 mg PO DAILY [facility]; Protocol Morphine Sulfate (Morphine Sulfate 4 Mg/Ml Cartridge) 4 mg IVPUSH Q4H PRN; Protocol PRN Reason: Pain, Severe (Pain Scale 7-10) Last Admin: 08/05/22 14:07 Dose: 4 mg Documented By: HANNAH Ondansetron HCl (Ondansetron Hcl 4 Mg/2 Ml Vial) 4 mg IVPUSH Q8H PRN PRN Reason: Nausea and Vomiting Pharmacy Consult (Consult Rx Perform Med Rec) 1 each MISCELLANE ONCE PRN PRN Reason: Consult order Pharmacy Consult (Consult Rx Vancomycin Dosing) 1 each MISCELLANE DAILY PRN PRN Reason: Consult order Sodium Chloride (0.9 % Sodium Chloride Flush 3 Ml Syringe) 3 ml IVFLUSH QSHIFT [facility] Last Admin: 08/05/22 07:10 Dose: Not Given Documented By: NANCY Non-Admin Reason: Patient Asleep Tizanidine HCl (Tizanidine Hcl 4 Mg Tablet) 2 mg PO Q8H PRN PRN Reason: MUSCLE SPASMS Labs 08/05/22 05:27 08/05/22 05:27 Labs: Laboratory Results - last 24 hr 06/06/23 06/06/23 06/06/23 15:15 15:15 15:15 MCV 83.3 MCH 26.7 L MCHC 32.0 RDW 16.5 H Plt Count 456 H MPV 9.5 Immature Gran % (Auto) 1.1 H Neut % (Auto) 90.8 H Lymph % (Auto) 2.9 L [place] % (Auto) 5.0 Eos % (Auto) 0.0 Baso % (Auto) 0.2 Lymph # (Auto) 0.9 L [place] # (Auto) 1.6 H Eos # (Auto) 0.0 Baso # (Auto) 0.1 Abs Immat Gran (auto) 0.36 H Absolute Neuts (auto) 29.3 H Absolute Nucleated RBC 0.000 Nucleated RBC % (auto) 0.0 Smear Tech's Comments VERIFIED Anion Gap 16 Estim Creat Clear Calc 33.6 Estimated GFR 40 POC Glucose Random Glucose 157 H Lactic Acid 3.1 H* Lactic Acid F/U @ 2Hr Calcium 9.4 D Total Bilirubin 0.5 Direct Bilirubin 0.2 AST 86 H ALT 46 H Alkaline Phosphatase 154 H Total Protein 6.8 Albumin 2.9 L Lipase 6 L Urine Color Urine Appearance Urine pH Ur Specific [place] Urine Protein Urine Glucose (UA) Urine Ketones Urine Blood Urine Nitrite Ur Leukocyte Esterase Urine RBC Urine WBC Ur Squamous Epith Cells Urine Bacteria Hyaline Casts 08/04/22 08/04/22 08/04/22 17:58 18:16 20:16 MCV MCH MCHC RDW Plt Count MPV Immature Gran % (Auto) Neut % (Auto) Lymph % (Auto) [place] % (Auto) Eos % (Auto) Baso % (Auto) Lymph # (Auto) [place] # (Auto) Eos # (Auto) Baso # (Auto) Abs Immat Gran (auto) Absolute Neuts (auto) Absolute Nucleated RBC Nucleated RBC % (auto) Smear Tech's Comments Anion Gap Estim Creat Clear Calc Estimated GFR POC Glucose 151 H Random Glucose Lactic Acid Lactic Acid F/U @ 2Hr 1.8 Calcium Total Bilirubin Direct Bilirubin AST ALT Alkaline Phosphatase Total Protein Albumin Lipase Urine Color Yellow Urine Appearance Cloudy Urine pH 6.5 Ur Specific [place] 1.020 Urine Protein 100 (2+) H Urine Glucose (UA) Negative Urine Ketones Trace Urine Blood Large (3+) H Urine Nitrite Negative Ur Leukocyte Esterase Large (3+) H Urine RBC >20 H Urine WBC >50 H Ur Squamous Epith Cells 11-20 Urine Bacteria 4+ Hyaline Casts >20 08/05/22 08/05/22 08/05/22 02:49 05:27 05:27 MCV 82.9 MCH 26.3 L MCHC 31.8 RDW 16.0 Plt Count 378 MPV 9.5 Immature Gran % (Auto) 0.7 H Neut % (Auto) 94.0 H Lymph % (Auto) 1.9 L [place] % (Auto) 3.1 Eos % (Auto) 0.0 Baso % (Auto) 0.3 Lymph # (Auto) 0.5 L [place] # (Auto) 0.8 Eos # (Auto) 0.0 Baso # (Auto) 0.1 Abs Immat Gran (auto) 0.19 H Absolute Neuts (auto) 25.9 H Absolute Nucleated RBC 0.000 Nucleated RBC % (auto) 0.0 Smear Tech's Comments VERIFIED Anion Gap 11 L Estim Creat Clear Calc 48.6 Estimated GFR > 60 POC Glucose 114 Random Glucose 111 Lactic Acid Lactic Acid F/U @ 2Hr Calcium 8.4 D Total Bilirubin Direct Bilirubin AST ALT Alkaline Phosphatase Total Protein Albumin Lipase Urine Color Urine Appearance Urine pH Ur Specific [place] Urine Protein Urine Glucose (UA) Urine Ketones Urine Blood Urine Nitrite Ur Leukocyte Esterase Urine RBC Urine WBC Ur Squamous Epith Cells Urine Bacteria Hyaline Casts 08/05/22 08/05/22 09:13 11:23 MCV MCH MCHC RDW Plt Count MPV Immature Gran % (Auto) Neut % (Auto) Lymph % (Auto) [place] % (Auto) Eos % (Auto) Baso % (Auto) Lymph # (Auto) [place] # (Auto) Eos # (Auto) Baso # (Auto) Abs Immat Gran (auto) Absolute Neuts (auto) Absolute Nucleated RBC Nucleated RBC % (auto) Smear Tech's Comments Anion Gap Estim Creat Clear Calc Estimated GFR POC Glucose 106 95 Random Glucose Lactic Acid Lactic Acid F/U @ 2Hr Calcium Total Bilirubin Direct Bilirubin AST ALT Alkaline Phosphatase Total Protein Albumin Lipase Urine Color Urine Appearance Urine pH Ur Specific [place] Urine Protein Urine Glucose (UA) Urine Ketones Urine Blood Urine Nitrite Ur Leukocyte Esterase Urine RBC Urine WBC Ur Squamous Epith Cells Urine Bacteria Hyaline Casts Microbiology Microbiology Results: Microbiology 08/04/22 18:35 Urine Culture - Preliminary Urine Catheterized - Alvarez Catheter Culture in progress. 08/04/22 15:15 Blood Culture - Preliminary Blood - Venous Prelim: GNR Gram Stain only 08/04/22 15:15 Blood Culture - Preliminary Blood - Venous Prelim: GNR Gram Stain only Assessment and Plan (1) Sepsis: Status: Acute (2) Ulcer of right second toe with necrosis of muscle: Status: Acute (3) Urinary tract infection: Status: Acute Plan This is a 62-year-old female with pertinent history of essential hypertension, mixed hyperlipidemia, history of multifocal CVA, insulin-dependent diabetes mellitus, CAD status post stent, mood disorder, CKD stage 3 was sent to the emergency department for evaluation of fevers. Workup consistent with likely aspiration pneumonia along with necrotic right toes 1. Sepsis secondary to UTI. -BC... 2/2..GNR -cefepime/vancomycin (2) -await final ID and adjust therapies as indicated 2.Necrotic right foot toes. -could not tolerate MRI... canceled -abnormal arterial duplex... Vascular consult 3.Sacral decubitus ulcer - Consulting Wound Care. 4. Acute metabolic encephalopathy -multifactorial; continue IV antibiotics as ordered 5. Essential hypertension -acceptable control off therapies -add back as appropriate 6.Insulin-dependent diabetes mellitus -will cover with sliding scale pending swallow eval -add back therapies as appropriate Lovenox Do not intubate Patient will need ongoing hospitalization to treat sepsis secondary to UTI with IV antibiotics Time Spent With Patient Time: Total time managing care of this patient today ____ minutes. Quality Stroke Does the patient have a stroke diagnosis?: No VTE Prior VTE?: No VTE Risk Level:: Medical - moderate - high VTE Device Contraindication: Treatment Not Indicated VTE Drug Contraindication: N/A - Med Ordered
[2022-08-05 14:41] VITALS: BMI 19.6
[2022-08-05 15:18] VITALS: BP 109/55; PULSE 70; RESP 16; TEMP 36.2; O2SAT 98
[2022-08-05 16:22] LABS: Glucose, Whole Blood 81 mg/dL (60-115)
[2022-08-05] MEDS: vancomycin HCL 1,000 MG in 0.9 % Sodium Chloride 250 ML 270 MG IV (16:22)
[2022-08-05] MEDS: oxyCODONE HCl Immed Release 5 MG TABLET PO (16:42)
--- NOTE | 2022-08-05 17:39 | PC.NURSE ---
Pt 1:1 feed for dinner, regular diet mechanical ground texture with thin liquids, [employer] reported some pocketing of food, no coughing or other issues with thin liquids, speech evaluation refused by patient earlier in the day, will pass along to speech and night nurse.
[2022-08-05 19:25] VITALS: BP 121/59; PULSE 60; RESP 18; TEMP 36.6; O2SAT 99
[2022-08-05 20:16] LABS: Glucose, Whole Blood 89 mg/dL (60-115)
[2022-08-05] MEDS: Atorvastatin Calcium 80 MG TABLET PO (20:33)
[2022-08-05] MEDS: Lactulose 20 GM/30 ML SOLUTION PO (20:33)
[2022-08-05] MEDS: Enoxaparin Sodium 40 MG/0.4 ML SYRINGE SUBCUT (20:34)
[2022-08-06] MEDS: oxyCODONE HCl Immed Release 5 MG TABLET PO (00:39)
[2022-08-06] MEDS: Acetaminophen Supp 650 MG SUPP.RECT PR ×2 (00:40→22:04)
[2022-08-06 01:48] LABS: Glucose, Whole Blood 106 mg/dL (60-115)
[2022-08-06 04:00] VITALS: RESP 18
[2022-08-06] MEDS: cefEPime HCl 2 GM in 0.9 % Sodium Chloride 50 ML IV ×2 (04:56→16:17)
[2022-08-06 06:10] LABS: MANUAL DIFF FLAG NO
[2022-08-06 06:14] LABS: Basophils Percent Auto 0.1 % (0-2); Eosinophils Percent Auto 0.1 % (0-4); Hematocrit 24.6 % (37.0-47.0); Hemoglobin 7.8 g/dl (12.0-16.0); Imm Gran Abs Auto 0.19 X10*3/uL (0.00-0.03); Imm Gran Pct Auto 0.9 % (0.0-0.4); Lymphocytes Absolute Auto 0.8 X10*3/uL (1.2-4.9); Lymphocytes Percent Auto 3.8 % (20-40); Mean Corpuscular HGB Conc 31.7 g/dl (31.0-35.0); Mean Corpuscular Hemoglobin 26.7 pg (27.0-33.0); Mean Corpuscular Volume 84.2 fL (80.0-98.0); Mean Platelet Volume 9.9 fL (9.4-12.3); Monocytes Absolute Auto 1.1 X10*3/uL (0.1-1.2); Monocytes Percent Auto 5.4 % (2-11); Neutrophils Absolute Auto 18.1 x10*3/uL (2.0-8.3); Neutrophils Percent Auto 89.7 % (45-73); Platelet Count 338 X10*3/uL (160-400); Red Blood Count 2.92 X10*6/uL (4.20-5.50); Red Cell Distribution Width 16.3 % (11.0-16.0); White Blood Count 20.2 X10*3/uL (4.8-10.8)
[2022-08-06 06:30] LABS: Alanine Aminotransferase 106 U/L (0-31); Albumin Level 2.2 g/dL (3.5-5.0); Alkaline Phosphatase 243 U/L (39-117); Anion Gap 10 (12-20); Aspartate Amino Transferase 170 U/L (5-31); Bilirubin Total 0.5 mg/dL (0.0-1.0); Blood Urea Nitrogen 45 mg/dL (9-16); Calcium 8.4 mg/dL (8.4-10.2); Carbon Dioxide 21 mmol/L (22-29); Chloride 111 mmol/L (96-108); Creatinine Clr Calc Pharmacy 52.6; Estimated Glomerular Filt Rate > 60; Glucose Fasting 117 mg/dL (60-99); Potassium 4.4 mmol/L (3.3-5.1); Sodium 138 mmol/L (135-145); Total Protein 5.3 g/dL (6.5-8.0)
[2022-08-06 07:10] VITALS: BP 88/50; PULSE 77; RESP 20; TEMP 36.9; O2SAT 94
[2022-08-06 07:29] LABS: Glucose, Whole Blood 118 mg/dL (60-115)
--- NOTE | 2022-08-06 07:37 | PC.NURSE ---
MD Bhatt notified via tiger text 2045 pt drowsy, BP 88/50, alert to voice, opes eyes then falls asleep. Other VS as follows 98.5, 77, 88/50, 94% on 3L. No new orders at this time.
[2022-08-06 09:38] VITALS: BP 109/59
[2022-08-06] MEDS: 0.9 % Sodium Chloride Flush 3 ML SYRINGE IVFLUSH ×3 (09:58→20:44)
[2022-08-06 11:36] LABS: Glucose, Whole Blood 134 mg/dL (60-115)
--- NOTE | 2022-08-06 13:02 | P.PNIM_ITS ---
Subjective Subjective Date of Service: 08/06/22 Interval History: Somnolent but arousable. Review of Systems Unable to obtain Physical Exam Vital Signs: Vital Signs: Last Vital Signs Temp 98.5 F 08/06/22 07:10 Pulse 77 08/06/22 07:10 Resp 20 08/06/22 07:10 BP 109/59 L 08/06/22 09:38 Pulse Ox 94 08/06/22 07:10 O2 Del Method Nasal Cannula 08/06/22 07:10 O2 Flow Rate 3 08/05/22 19:25 Oxygen Flow Rate 3 08/04/22 15:49 BMI result Body Mass Index 19.6 Const: Other: Awake alert no acute distress; uncomfortable appearing Resp: Other: Clear to auscultation bilaterally no rales rhonchi or wheezes Cardio: Other: No S4; positive S1-S2; no S3 murmurs rubs or gallops GI: Other: Soft nontender nondistended normoactive bowel sounds Extrem: Other: Necrotic toes right foot Objective Data Active Medications Acetaminophen (Acetaminophen 325 Mg Tablet) 650 mg PO Q6H PRN PRN Reason: Pain, Mild (Pain Scale 1-3) Acetaminophen (Acetaminophen Supp 650 Mg Supp.Rect) 650 mg [place] Q6H PRN PRN Reason: Pain, Mild (Pain Scale 1-3) Last Admin: 08/06/22 00:40 Dose: 650 mg Documented By: MADHAVI Aspirin (Aspirin Enteric Coated 81 Mg Tablet.Dr) 81 mg PO DAILY [facility] Last Admin: 08/06/22 09:56 Dose: Not Given Documented By: BASILIO Non-Admin Reason: Pt drowsy Atorvastatin Calcium (Atorvastatin Calcium 80 Mg Tablet) 80 mg PO BEDTIME [facility] Last Admin: 08/05/22 20:33 Dose: 80 mg Documented By: MADHAVI Baclofen (Baclofen 10 Mg Tablet) 15 mg PO TID [facility] Last Admin: 08/06/22 09:56 Dose: Not Given Documented By: BASILIO Non-Admin Reason: Pt drowsy Clopidogrel Bisulfate (Clopidogrel Bisulfate 75 Mg Tablet) 75 mg PO DAILY [facility] Last Admin: 08/06/22 09:57 Dose: Not Given Documented By: BASILIO Non-Admin Reason: Pt drowsy Enoxaparin Sodium (Enoxaparin Sodium 40 Mg/0.4 Ml Syringe) 40 mg SUBCUT Q24H [facility] Last Admin: 08/05/22 20:34 Dose: 40 mg Documented By: MADHAVI Gabapentin (Gabapentin 100 Mg Capsule) 100 mg PO TID [facility] Last Admin: 08/06/22 09:57 Dose: Not Given Documented By: BASILIO Non-Admin Reason: Pt drowsy Glucose (Glucose Gel 15 Gm Gel..Gram.) 15 gm PO Q15M PRN; Protocol PRN Reason: per Hypoglycemia Standing Ord. Cefepime HCl 2 gm/ Sodium (Chloride) 50 mls @ 100 mls/hr IV Q12H [facility] Last Infusion: 08/06/22 05:47 Dose: 0 mls/hr Documented By: MADHAVI Dextrose (D10) 250 mls @ 750 mls/hr IV Q15M PRN; Protocol PRN Reason: per Hypoglycemia Standing Ord. Vancomycin HCl 1,000 mg/ (Sodium Chloride) 270 mls @ 270 mls/hr IV Q24H [facility] Last Infusion: 08/05/22 17:33 Dose: 0 mls/hr Documented By: HANNAH Insulin Human Lispro (Insulin Lispro 100 Unit/Ml 3 Ml Vial) 0 unit SUBCUT Q6H [facility]; Protocol Last Admin: 08/06/22 09:28 Dose: Not Given Documented By: BASILIO Non-Admin Reason: No Insulin Coverage Lactulose (Lactulose 20 Gm/30 Ml Solution) 20 gm PO BID [facility] Last Admin: 08/06/22 09:57 Dose: Not Given Documented By: BASILIO Non-Admin Reason: Pt drowsy Lisinopril (Lisinopril 5 Mg Tablet) 5 mg PO DAILY [facility]; Protocol Last Admin: 08/06/22 09:57 Dose: Not Given Documented By: BASILIO Non-Admin Reason: Pt drowsy Melatonin (Melatonin 3 Mg Tablet) 6 mg PO BEDTIME PRN PRN Reason: Insomnia Metoprolol Succinate (Metoprolol Succinate Er 25 Mg Tab.Er.24h) 25 mg PO DAILY [facility]; Protocol Last Admin: 08/06/22 09:57 Dose: Not Given Documented By: BASILIO Non-Admin Reason: Pt drowsy Morphine Sulfate (Morphine Sulfate 4 Mg/Ml Cartridge) 4 mg IVPUSH Q4H PRN; Protocol PRN Reason: Pain, Severe (Pain Scale 7-10) Last Admin: 08/05/22 22:02 Dose: 4 mg Documented By: MADHAVI Ondansetron HCl (Ondansetron Hcl 4 Mg/2 Ml Vial) 4 mg IVPUSH Q8H PRN PRN Reason: Nausea and Vomiting Oxycodone HCl (Oxycodone Hcl Immed Release 5 Mg Tablet) 5 mg PO Q4H PRN PRN Reason: Pain, Moderate(Pain Scale 4-6) Last Admin: 08/06/22 00:39 Dose: 5 mg Documented By: MADHAVI Pharmacy Consult (Consult Rx Perform Med Rec) 1 each MISCELLANE ONCE PRN PRN Reason: Consult order Pharmacy Consult (Consult Rx Vancomycin Dosing) 1 each MISCELLANE DAILY PRN PRN Reason: Consult order Sodium Chloride (0.9 % Sodium Chloride Flush 3 Ml Syringe) 3 ml IVFLUSH [facility] Last Admin: 08/06/22 09:58 Dose: 3 ml Documented By: BASILIO Tizanidine HCl (Tizanidine Hcl 4 Mg Tablet) 2 mg PO Q8H PRN PRN Reason: MUSCLE SPASMS Labs 08/06/22 05:58 08/06/22 05:58 Labs: Laboratory Results - last 24 hr 08/05/22 08/05/22 08/06/22 16:18 20:10 01:44 MCV MCH MCHC RDW Plt Count MPV Immature Gran % (Auto) Neut % (Auto) Lymph % (Auto) [place] % (Auto) Eos % (Auto) Baso % (Auto) Lymph # (Auto) [place] # (Auto) Eos # (Auto) Baso # (Auto) Abs Immat Gran (auto) Absolute Neuts (auto) Absolute Nucleated RBC Nucleated RBC % (auto) Anion Gap Estim Creat Clear Calc Estimated GFR POC Glucose 81 89 106 Fasting Glucose Calcium Total Bilirubin AST ALT Alkaline Phosphatase Total Protein Albumin 08/06/22 08/06/22 08/06/22 05:58 05:58 07:20 MCV 84.2 MCH 26.7 L MCHC 31.7 RDW 16.3 H Plt Count 338 MPV 9.9 Immature Gran % (Auto) 0.9 H Neut % (Auto) 89.7 H Lymph % (Auto) 3.8 L [place] % (Auto) 5.4 Eos % (Auto) 0.1 Baso % (Auto) 0.1 Lymph # (Auto) 0.8 L [place] # (Auto) 1.1 Eos # (Auto) 0.0 Baso # (Auto) 0.0 Abs Immat Gran (auto) 0.19 H Absolute Neuts (auto) 18.1 H Absolute Nucleated RBC 0.000 Nucleated RBC % (auto) 0.0 Anion Gap 10 L Estim Creat Clear Calc 52.6 Estimated GFR > 60 POC Glucose 118 H Fasting Glucose 117 H Calcium 8.4 Total Bilirubin 0.5 AST 170 H ALT 106 H Alkaline Phosphatase 243 H Total Protein 5.3 L Albumin 2.2 L 08/06/22 11:29 MCV MCH MCHC RDW Plt Count MPV Immature Gran % (Auto) Neut % (Auto) Lymph % (Auto) [place] % (Auto) Eos % (Auto) Baso % (Auto) Lymph # (Auto) [place] # (Auto) Eos # (Auto) Baso # (Auto) Abs Immat Gran (auto) Absolute Neuts (auto) Absolute Nucleated RBC Nucleated RBC % (auto) Anion Gap Estim Creat Clear Calc Estimated GFR POC Glucose 134 H Fasting Glucose Calcium Total Bilirubin AST ALT Alkaline Phosphatase Total Protein Albumin Microbiology Microbiology Results: Microbiology 08/04/22 18:35 Urine Culture - Final Urine Catheterized - Alvarez Catheter 08/04/22 15:15 Blood Culture - Preliminary Blood - Venous Gram negative aden 08/04/22 15:15 Blood Culture - Preliminary Blood - Venous Gram negative aden Assessment and Plan (1) Sepsis: Status: Acute (2) Ulcer of right second toe with necrosis of muscle: Status: Acute Plan This is a 62-year-old female with pertinent history of essential hypertension, mixed hyperlipidemia, history of multifocal CVA, insulin-dependent diabetes mellitus, CAD status post stent, mood disorder, CKD stage 3 was sent to the emergency department for evaluation of fevers. Workup consistent with likely aspiration pneumonia along with necrotic right toes 1. Sepsis secondary to UTI. -BC... 2/2..GNR -cefepime/vancomycin (3) -await final ID and adjust therapies as indicated 2.Necrotic right foot toes. -could not tolerate MRI... canceled -abnormal arterial duplex... Vascular consult pending 3.Sacral decubitus ulcer - Consulting Wound Care. 4. Acute metabolic encephalopathy -multifactorial; continue IV antibiotics as ordered 5. Essential hypertension -acceptable control off therapies -add back as appropriate 6.Insulin-dependent diabetes mellitus -will cover with sliding scale pending swallow eval -add back therapies as appropriate Lovenox Do not intubate Patient will need ongoing hospitalization to treat sepsis secondary to UTI with IV antibiotics Time Spent With Patient Time: Total time managing care of this patient today ____ minutes. Quality Stroke Does the patient have a stroke diagnosis?: No VTE Prior VTE?: No VTE Risk Level:: Medical - moderate - high VTE Device Contraindication: Treatment Not Indicated VTE Drug Contraindication: N/A - Med Ordered
--- NOTE | 2022-08-06 13:33 | PC.NURSE ---
Dr. Bhatt updated of all patient wounds, images sent via [employer] text. Dressings changed, heels floated, protective cream applied to buttocks, and patient is being turned and repositioned in bed every 2 hours with air-loss pump applied to mattress.
--- NOTE | 2022-08-06 13:36 | PM.CNGS ---
History of Present Illness Consult details Consult date: 08/06/22 Reason for consult: wound care Narrative: Complex 62-year-old female presented to the [facility] with failure to thrive, decreased p.o. intake, and generalized weakness. Upon workup she was noted to have a UTI. In addition on examining her lower extremities she was noted to have necrotic toes right foot 1st 2nd 3rd along with heel ulceration and pretibial ulcerations. At the time of my exam they were testing her for p.o. intake. In addition she has been quite confused and lethargic. She now presents to us for vascular evaluation Review of Systems Review of Systems: Yes all other systems are reviewed and are negative Constitutional: Constitutional: Reports lethargy and Reports weakness ENT: Reports Normal hearing present Cardiovascular: Cardiovascular: Denies chest pain, Denies chest pain at rest, Denies chest pain with activity and Denies pedal edema Respiratory: Respiratory: Denies cough Gastrointestinal: Gastrointestinal: Denies abdominal pain Musculoskeletal: Musculoskeletal: Denies abnormal gait, Denies muscle cramps and Denies radiating pain into limb Integumentary/Breasts: Skin/Breast: Denies skin ulcer and Denies wounds Neurologic: Reports Normal hearing present, Denies abnormal gait, Reports confusion and Reports weakness Psychiatric: Psychiatric: Reports no additional psychiatric complaints and Reports confusion [facility], [facility] Past Medical History Medical History (Updated 08/06/22 @ 13:59 by Genaro Hernandez MD) CKD (chronic kidney disease) stage 3, GFR 30-59 ml/min Coronary artery disease COVID-19 CVA (cerebral vascular accident) CVA (cerebral vascular accident) Diabetes mellitus type 2 in nonobese Glaucoma H/O supraventricular tachycardia History of right MCA stroke Hypertension ICAO (internal carotid artery occlusion) Ischemic cardiomyopathy Renal failure (ARF), acute on chronic Status post insertion of drug-eluting stent into left anterior descending (LAD) artery Surgical History Surgical History H/O cardiac catheterization Social History Social History Household Members: Unknown / Unable to assess Housing: Long Term Do you presently have visiting nurse or other home services: No Unable to assess alcohol history related to: Unknown Alcohol intake: current Patient Tobacco Use Status: Tobacco use Unknown Advance Directives Date on File: 06/01/22 service: No Meds Allergies Allergy/AdvReac Type Severity Reaction Status Date / Time No Known Allergies Allergy Verified 05/20/22 12:06 Active Medications: Current Medications Acetaminophen (Acetaminophen 325 Mg Tablet) 650 mg PO Q6H PRN PRN Reason: Pain, Mild (Pain Scale 1-3) Acetaminophen (Acetaminophen Supp 650 Mg Supp.Rect) 650 mg [place] Q6H PRN PRN Reason: Pain, Mild (Pain Scale 1-3) Last Admin: 08/06/22 00:40 Dose: 650 mg Aspirin (Aspirin Enteric Coated 81 Mg Tablet.Dr) 81 mg PO DAILY [facility] Last Admin: 08/06/22 09:56 Dose: Not Given Atorvastatin Calcium (Atorvastatin Calcium 80 Mg Tablet) 80 mg PO BEDTIME [facility] Last Admin: 08/05/22 20:33 Dose: 80 mg Baclofen (Baclofen 10 Mg Tablet) 15 mg PO TID [facility] Last Admin: 08/06/22 09:56 Dose: Not Given Clopidogrel Bisulfate (Clopidogrel Bisulfate 75 Mg Tablet) 75 mg PO DAILY [facility] Last Admin: 08/06/22 09:57 Dose: Not Given Enoxaparin Sodium (Enoxaparin Sodium 40 Mg/0.4 Ml Syringe) 40 mg SUBCUT Q24H [facility] Last Admin: 08/05/22 20:34 Dose: 40 mg Gabapentin (Gabapentin 100 Mg Capsule) 100 mg PO TID [facility] Last Admin: 08/06/22 09:57 Dose: Not Given Glucose (Glucose Gel 15 Gm Gel..Gram.) 15 gm PO Q15M PRN; Protocol PRN Reason: per Hypoglycemia Standing Ord. Cefepime HCl 2 gm/ Sodium (Chloride) 50 mls @ 100 mls/hr IV Q12H [facility] Last Infusion: 08/06/22 05:47 Dose: Infused Dextrose (D10) 250 mls @ 750 mls/hr IV Q15M PRN; Protocol PRN Reason: per Hypoglycemia Standing Ord. Vancomycin HCl 1,000 mg/ (Sodium Chloride) 270 mls @ 270 mls/hr IV Q24H [facility] Last Infusion: 08/05/22 17:33 Dose: Infused Insulin Human Lispro (Insulin Lispro 100 Unit/Ml 3 Ml Vial) 0 unit SUBCUT Q6H [facility]; Protocol Last Admin: 08/06/22 09:28 Dose: Not Given Lactulose (Lactulose 20 Gm/30 Ml Solution) 20 gm PO BID [facility] Last Admin: 08/06/22 09:57 Dose: Not Given Lisinopril (Lisinopril 5 Mg Tablet) 5 mg PO DAILY [facility]; Protocol Last Admin: 08/06/22 09:57 Dose: Not Given Melatonin (Melatonin 3 Mg Tablet) 6 mg PO BEDTIME PRN PRN Reason: Insomnia Metoprolol Succinate (Metoprolol Succinate Er 25 Mg Tab.Er.24h) 25 mg PO DAILY [facility]; Protocol Last Admin: 08/06/22 09:57 Dose: Not Given Morphine Sulfate (Morphine Sulfate 4 Mg/Ml Cartridge) 4 mg IVPUSH Q4H PRN; Protocol PRN Reason: Pain, Severe (Pain Scale 7-10) Last Admin: 08/05/22 22:02 Dose: 4 mg Ondansetron HCl (Ondansetron Hcl 4 Mg/2 Ml Vial) 4 mg IVPUSH Q8H PRN PRN Reason: Nausea and Vomiting Oxycodone HCl (Oxycodone Hcl Immed Release 5 Mg Tablet) 5 mg PO Q4H PRN PRN Reason: Pain, Moderate(Pain Scale 4-6) Last Admin: 08/06/22 00:39 Dose: 5 mg Pharmacy Consult (Consult Rx Perform Med Rec) 1 each MISCELLANE ONCE PRN PRN Reason: Consult order Pharmacy Consult (Consult Rx Vancomycin Dosing) 1 each MISCELLANE DAILY PRN PRN Reason: Consult order Sodium Chloride (0.9 % Sodium Chloride Flush 3 Ml Syringe) [facility] Last Admin: 08/06/22 09:58 Dose: 3 ml Tizanidine HCl (Tizanidine Hcl 4 Mg Tablet) 2 mg PO Q8H PRN PRN Reason: MUSCLE SPASMS Home Medications Medication Instructions Recorded Confirmed Last Taken Type ascorbic acid (vitamin C) 500 mg 500 mg PO DAILY 05/20/22 08/04/22 Unknown History tablet aspirin 81 mg tablet,delayed 81 mg PO DAILY 05/20/22 08/04/22 Unknown History release atorvastatin 80 mg tablet 80 mg PO BEDTIME 05/20/22 08/04/22 Unknown History bisacodyl 10 mg rectal suppository 10 mg [place] DAILY PRN Constipation 05/20/22 08/04/22 Unknown History clopidogrel 75 mg tablet (Plavix) 75 mg PO DAILY 05/20/22 08/04/22 Unknown History dextrose 40 % oral gel (Glucose 20 g PO Q15M PRN FSBS<50 AND ABLE 05/20/22 08/04/22 Unknown History Gel) TO SWALLOW glucagon 1 mg solution for 1 mg subcut Q20M PRN fsbs < 60 and 05/20/22 08/04/22 Unknown History injection unable to swallow insulin lispro 100 unit/mL 1 sliding scale dose subcut QIDACHS 05/20/22 08/04/22 Unknown History subcutaneous solution (Humalog U-100 Insulin) magnesium hydroxide 400 mg/5 mL 30 ml PO DAILY PRN Constipation 05/20/22 08/04/22 Unknown History oral suspension (Milk of Magnesia) meclizine 12.5 mg tablet 12.5 mg PO Q8H PRN Dizziness 05/20/22 08/04/22 Unknown History metoprolol succinate 25 mg 25 mg PO DAILY 05/20/22 08/04/22 Unknown History tablet,extended release 24 hr multivitamin with minerals 1 tab PO BEDTIME 05/20/22 08/04/22 Unknown History sennosides 8.6 mg tablet (senna) 8.6 mg PO DAILY 05/20/22 08/04/22 Unknown History tizanidine 2 mg tablet 2 mg PO Q8H PRN MUSCLE SPASMS 05/20/22 08/04/22 Unknown History Lactobacillus rhamnosus GG 10 1 cap PO BID 08/04/22 08/04/22 Unknown History billion cell capsule (Culturelle) baclofen 5 mg tablet 15 mg PO TID 08/04/22 08/04/22 Unknown History cefuroxime axetil 500 mg tablet 250 mg PO BID 08/04/22 08/04/22 Unknown History ferrous fumarate 325 mg (106 mg 325 mg PO DAILY 08/04/22 08/04/22 Unknown History iron) tablet gabapentin 100 mg capsule 100 mg PO TID 08/04/22 08/04/22 Unknown History insulin detemir U-100 100 unit/mL 12 unit subcut DAILY 08/04/22 08/04/22 Unknown History subcutaneous solution (Levemir U-100 Insulin) lactulose 20 gram/30 mL oral 20 g PO BID 08/04/22 08/04/22 Unknown History solution lisinopril 5 mg tablet 5 mg PO DAILY 08/04/22 08/04/22 Unknown History polyethylene glycol 3350 17 gram 17 g PO DAILY 08/04/22 08/04/22 Unknown History oral powder packet (Miralax) sodium phosphates 19 gram-7 118 ml [place] DAILY PRN Constipation 08/04/22 08/04/22 Unknown History gram/118 mL enema (Fleet Enema) tramadol 50 mg tablet 50 mg PO TID PRN Pain 08/04/22 08/04/22 Unknown History Physical Exam Vital Signs: Vital Signs: Last Vital Signs Temp 98.5 F 08/06/22 07:10 Pulse 77 08/06/22 07:10 Resp 20 08/06/22 07:10 BP 109/59 L 08/06/22 09:38 Pulse Ox 94 08/06/22 07:10 O2 Del Method Nasal Cannula 08/06/22 07:10 O2 Flow Rate 3 08/05/22 19:25 Oxygen Flow Rate 3 08/04/22 15:49 BMI result Body Mass Index 19.6 Const: General: confusion, ill appearing and lethargic Orientation/consciousness: confusion and lethargic HEENT: Head: Yes normal to inspection Neck: Neck: Yes normal visual inspection Carotids: no bruits Chest: Chest palpation & inspection: normal inspection of the chest Resp: Effort & Inspection: normal respiratory effort and able to speak in complete sentences Auscultation: clear to auscultation bilaterally, no crackles, no rales, no rhonchi and no wheezes Cardio: Rate: regular rate Rhythm: regular rhythm Heart sounds: S1 normal heart sound present and S2 normal heart sound present Bruits: no carotid bruits Peripheral pulses: Peripheral pulses 2+ throughout GI: Inspection: Yes normal to inspection Skin: Other: Right foot great toe 2nd toe and 3rd toe ulcers along with heel ulcer, also nonhealing pretibial ulcers. Left foot heel ulcer Wounds: no wounds Hair: normal Neuro: General: confusion Cranial nerves: Yes CN's II-XII intact bilaterally and Yes Normal hearing present Cognition (Neuro): normal cognition Motor exam (neuro): 5/5 motor strength present throughout Extrem: Other: venous exam: No significant superficial varicosities or spider telangiectasias, minimal edema General: No clubbing, No cyanosis and No edema Psych: Appearance: grossly normal Mental Status: mental status grossly normal Speech and movement: Normal speech and movement present Results Labs 08/06/22 05:58 08/06/22 05:58 Labs: Abnormal lab results 08/06/22 08/06/22 08/06/22 Range/Units 05:58 05:58 07:20 WBC 20.2 H (4.8-10.8) X10*3/uL RBC 2.92 L (4.20-5.50) X10*6/uL Hgb 7.8 L (12.0-16.0) g/dl Hct 24.6 L (37.0-47.0) % MCH 26.7 L (27.0-33.0) pg RDW 16.3 H (11.0-16.0) % Immature Gran % (Auto) 0.9 H (0.0-0.4) % Neut % (Auto) 89.7 H (45-73) % Lymph % (Auto) 3.8 L (20-40) % Lymph # (Auto) 0.8 L (1.2-4.9) X10*3/uL Abs Immat Gran (auto) 0.19 H (0.00-0.03) X10*3/uL Absolute Neuts (auto) 18.1 H (2.0-8.3) x10*3/uL Chloride 111 H (96-108) mmol/L Carbon Dioxide 21 L (22-29) mmol/L Anion Gap 10 L (12-20) BUN 45 H (9-16) mg/dL POC Glucose 118 H (60-115) mg/dL Fasting Glucose 117 H (60-99) mg/dL AST 170 H (5-31) U/L ALT 106 H (0-31) U/L Alkaline Phosphatase 243 H (39-117) U/L Total Protein 5.3 L (6.5-8.0) g/dL Albumin 2.2 L (3.5-5.0) g/dL 08/06/22 Range/Units 11:29 WBC (4.8-10.8) X10*3/uL RBC (4.20-5.50) X10*6/uL Hgb (12.0-16.0) g/dl Hct (37.0-47.0) % MCH (27.0-33.0) pg RDW (11.0-16.0) % Immature Gran % (Auto) (0.0-0.4) % Neut % (Auto) (45-73) % Lymph % (Auto) (20-40) % Lymph # (Auto) (1.2-4.9) X10*3/uL Abs Immat Gran (auto) (0.00-0.03) X10*3/uL Absolute Neuts (auto) (2.0-8.3) x10*3/uL Chloride (96-108) mmol/L Carbon Dioxide (22-29) mmol/L Anion Gap (12-20) BUN (9-16) mg/dL POC Glucose 134 H (60-115) mg/dL Fasting Glucose (60-99) mg/dL AST (5-31) U/L ALT (0-31) U/L Alkaline Phosphatase (39-117) U/L Total Protein (6.5-8.0) g/dL Albumin (3.5-5.0) g/dL Short CBC 08/06/22 Range/Units 05:58 WBC 20.2 H (4.8-10.8) X10*3/uL Hgb 7.8 L (12.0-16.0) g/dl Hct 24.6 L (37.0-47.0) % Plt Count 338 (160-400) X10*3/uL BMP 08/06/22 05:58 Sodium 138 Potassium 4.4 Chloride 111 H Carbon Dioxide 21 L BUN 45 H Creatinine 0.85 Calcium 8.4 Liver Function 08/06/22 Range/Units 05:58 Total Bilirubin 0.5 (0.0-1.0) mg/dL AST 170 H (5-31) U/L ALT 106 H (0-31) U/L Alkaline Phosphatase 243 H (39-117) U/L Albumin 2.2 L (3.5-5.0) g/dL Urine 08/04/22 Range/Units 18:16 Urine Color Yellow Urine Appearance Cloudy Urine pH 6.5 (5.0-9.0) Ur Specific [place] 1.020 (1.005-1.025) Urine Protein 100 (2+) H (Neg-Trace) mg/dL Urine Glucose (UA) Negative (Negative) mg/dL All other labs normal. Assessment and Plan (1) PAD (peripheral artery disease): Status: Acute Plan In short patient has significant nonhealing right lower extremity ulcers. In addition I did review her noninvasive arterial testing which has SFA and below knee occlusions. It is unclear what her overall ambulatory status is she will most likely require below-knee amputation versus an above knee amputation depending on her status. At the time of my exam she was lethargic and confused. I will try to get a better assessment from her 1 she is a little less confused. Thank you for allowing us to assist in her care. If there are any questions or concerns please do not hesitate to contact us. Time Spent With Patient Time: Total time managing care of this patient today ____ minutes. Procedures Date of Service Date of Service: 08/06/22
--- NOTE | 2022-08-06 14:49 | PC.NURSE ---
Pt unable to take PO mediation this shift due to drowsiness and lethargy, MD Bhatt aware.
[2022-08-06 15:32] VITALS: BP 110/58; PULSE 79; RESP 18; TEMP 36.6; O2SAT 95
[2022-08-06 16:10] LABS: Glucose, Whole Blood 137 mg/dL (60-115)
--- NOTE | 2022-08-06 16:14 | MHC.CM.PN ---
PATIENT NOT YET MEDICALLY CLEARED FOR DC. [facility] SON WILL BE UP THIS WEEKEND TO VISIT
[2022-08-06] MEDS: vancomycin HCL 1,000 MG in 0.9 % Sodium Chloride 250 ML 270 MG IV (17:07)
[2022-08-06 17:21] VITALS: BP 137/71; PULSE 79
--- NOTE | 2022-08-06 18:49 | MHC.SL.SWA ---
Speech Pathologist Impression: Risk of Aspiration Due to: Neurological Condition Poor PO Intake Reduced Cognition Dysphasia Diet Status: Liquid Consistency and Strategies for Safe Swallow: Liquid Intake Recommendation: NPO Liquid Intake Strategies: Solid Food Consistency: Dietary Recommendations: NPO Additional Modifications to Solid Foods: Oral Medication Intake: NPO Please contact the pharmacy regarding appropriate crushable or liquid drug formulations that are available whenever modified delivery is recommended. Compensatory Strategies and Precautions to be Taken for Safe Swallow: Supervision While Eating and Drinking for Safe Swallow: PO with [facility] Foods to Avoid: Mixed consistencies Swallowing Recommended Treatments: Compens. Strategy Educat. Recommendation for Speech: Inpatient Speech Therapy Comment: Patient at this time is not adequately awake/alert/engaged to tolerate swallow evaluation or PO diet. [facility] was unable to assess 6/7 and 6/8 due to the extreme lethargy of patient. MD placed patient on baseline diet. When given oral care today, evidence of food residual persisting in mouth. Recommend NPO due to aspiration risk. [facility] will continue to follow for improved level of alertness/appropriateness for assessment. MD notified by secure text, RN in person. Frequency/Duration: Date Range for Service Req: Timeline to reassess: Case Consultant Clinican/Clinical Fellow: No Supervisory Statement: I have reviewed and agree with the student/clinical fellow's documentation: N/A Speech Language Pathologist: Autumn Denton M.A., [facility]
[2022-08-06 19:16] VITALS: BP 114/57; PULSE 75; RESP 18; TEMP 36.2; O2SAT 97
[2022-08-06 20:34] LABS: Glucose, Whole Blood 127 mg/dL (60-115)
[2022-08-06] MEDS: Enoxaparin Sodium 40 MG/0.4 ML SYRINGE SUBCUT (20:54)
[2022-08-07] VITALS (7 sets, daily range): BP systolic 118–138; BP diastolic 57–64; PULSE 57–73; RESP 14–19; TEMP 36.1–36.4; O2SAT 96–98; BMI 19.6
[2022-08-07] MEDS: Morphine Sulfate 2 MG/ML CARTRIDGE IVPUSH (00:01)
[2022-08-07] MEDS: cefEPime HCl 2 GM in 0.9 % Sodium Chloride 50 ML IV ×2 (03:26→15:55)
[2022-08-07 03:29] LABS: Glucose, Whole Blood 116 mg/dL (60-115)
[2022-08-07] MEDS: Morphine Sulfate 4 MG/ML CARTRIDGE IVPUSH ×3 (04:55→11:22)
--- NOTE | 2022-08-07 05:09 | MHC.PIE ---
p; pt npo, urine output 175ml in 8hrs. b/p 132/61. note; pt c/o pain 10/10 rt leg and whole body morphine prn given. i; dr perez notified e; will cont to monitor
[2022-08-07] MEDS: 0.9 % Sodium Chloride 1,000 ML 999 ML IV (05:17)
[2022-08-07 06:02] LABS: Creatinine Clr Calc Pharmacy 55.3; Estimated Glomerular Filt Rate > 60
[2022-08-07 07:14] LABS: Glucose, Whole Blood 105 mg/dL (60-115)
[2022-08-07] MEDS: 0.9 % Sodium Chloride Flush 3 ML SYRINGE IVFLUSH ×2 (09:20→15:51)
--- NOTE | 2022-08-07 10:35 | HO.VASCPN ---
Subjective Subjective Date of Service: 08/07/22 Patient reports: no new complaints and feels better Interval history: Complex 62-year-old female who presented to the hospital with weakness and dehydration presents for evaluation regarding her lower extremities. She appears to be a little bit more stable today. She is a little bit more responsive. White count continues to trend down nicely in appears to be more secondary to her UTI. Physical Exam Vital Signs: Vital Signs: Last Vital Signs Temp 96.9 F 08/07/22 07:34 Pulse 64 08/07/22 09:16 Resp 17 08/07/22 09:21 BP 118/58 L 08/07/22 09:16 Pulse Ox 97 08/07/22 07:34 O2 Del Method Nasal Cannula 08/07/22 07:34 O2 Flow Rate 3 08/07/22 07:34 Oxygen Flow Rate 3 08/04/22 15:49 BMI result Body Mass Index 19.6 Const: General: cooperative, healthy appearing and comfortable Orientation/consciousness: oriented to person, oriented to place and oriented to time HEENT: Head: Yes normal to inspection Neck: Neck: Yes normal visual inspection Carotids: no bruits Chest: Chest palpation & inspection: normal inspection of the chest Resp: Effort & Inspection: normal respiratory effort and able to speak in complete sentences Auscultation: clear to auscultation bilaterally, no crackles, no rales, no rhonchi and no wheezes Cardio: Rate: regular rate Rhythm: regular rhythm Heart sounds: S1 normal heart sound present and S2 normal heart sound present Bruits: no carotid bruits Peripheral pulses: Peripheral pulses 2+ throughout GI: Inspection: Yes normal to inspection Skin: Other: Necrotic rights 1st 2nd 3rd toes, no evidence of cellulitis Heel ulcerations bilateral Wounds: no wounds Hair: normal Neuro: General: oriented to person, oriented to place and oriented to time Cranial nerves: Yes CN's II-XII intact bilaterally and Yes Normal hearing present Cognition (Neuro): normal cognition Motor exam (neuro): 5/5 motor strength present throughout Extrem: Other: venous exam: No significant superficial varicosities or spider telangiectasias, minimal edema General: No clubbing, No cyanosis and No edema Psych: Appearance: grossly normal Mental Status: mental status grossly normal Speech and movement: Normal speech and movement present Progress Note: A&P Assessment and plan (1) PAD (peripheral artery disease): Status: Acute Assessment and Plan: In short patient has nonhealing lower extremity ulcers. At the current time they are stable and do not appear to be the source of infection. Upon discussion with the hospitalist team it does not appear that she is ambulatory. Should this progress would recommend above knee amputation. Vascular supply is compromise. But due to her overall comorbidities would not be aggressive with any sort of intervention. Appears to be stable from the lower extremity standpoint. We will follow on an as-needed basis. Thank you for allowing us to assist in her care. If there are questions or concerns please do not hesitate to contact us. Time Spent With Patient Time: Total time managing care of this patient today ____ minutes. Procedures Date of Service Date of Service: 08/07/22 Quality Stroke Does the patient have a stroke diagnosis?: No VTE Prior VTE?: No VTE Risk Level:: Medical - moderate - high VTE Device Contraindication: Treatment Not Indicated VTE Drug Contraindication: N/A - Med Ordered
[2022-08-07 11:06] LABS: Glucose, Whole Blood 112 mg/dL (60-115)
--- NOTE | 2022-08-07 13:18 | MHC.CLN ---
F/U DIET=PUREE WITH NECTAR THICK LIQUIDS. MULTIPLE AREAS OF IMPAIRED SKIN. ADDING ENSURE MAX PROTEIN BID TO PROMOTE WOUND HEALING. PROVIDES 300 KCALS, 60 G PROTEIN. FOLLOW FOR DIET ADVANCEMENT, INTAKE AND WOUND HEALING.
--- NOTE | 2022-08-07 13:50 | MHC.SL.SWA ---
Speech Pathologist Impression: Risk of aspiration, oropharyngeal dysphagia Risk of Aspiration Due to: Neurological Condition Poor PO Intake Reduced Cognition Dysphasia Diet Status: UPGRADE to NDD1/NTL Liquid Consistency and Strategies for Safe Swallow: Liquid Intake Recommendation: Strang Thick Liquid Intake Strategies: Small Sips No Straws Solid Food Consistency: Dietary Recommendations: Pureed (NDD1) Additional Modifications to Solid Foods: Recommend START on PUREED (NDD1) diet with NECTAR THICK liquids (no straws), pills CRUSHED in PUREE. Pt requires total 1:1 assistance feeding, ensure aspiration precautions. Hold tray if pt is lethargic and/or not attending to meal. Advised care team (MD, RN, RD) of recommendations. Diet order updated by MD. Recommendations written on whiteboard in pt's room. ETL CONSULTANT will continue to follow to monitor tolerance and re-assess potential for upgrade as appropriate. Oral Medication Intake: Crushed with Puree Please contact the pharmacy regarding appropriate crushable or liquid drug formulations that are available whenever modified delivery is recommended. Compensatory Strategies and Precautions to be Taken for Safe Swallow: Sitting Upright (90 deg) No Straw Small Bites and Sips Rate of Ingestion Change Oral Check Avoid Specific Foods Supervision While Eating and Drinking for Safe Swallow: Total Assistance (1:1) Foods to Avoid: Mixed consistencies Swallowing Recommended Treatments: Compens. Strategy Educat. Recommendation for Speech: Inpatient Speech Therapy Shirt Sorter Clinican/Clinical Fellow: No Supervisory Statement: I have reviewed and agree with the student/clinical fellow's documentation: N/A Speech Language Pathologist: Mitra Spear M.A., CCC-ETL CONSULTANT
--- NOTE | 2022-08-07 13:54 | P.PNIM_ITS ---
Subjective Subjective Date of Service: 08/07/22 Interval History: More alert today however more complaints of pain Review of Systems Unable to obtain Physical Exam Vital Signs: Vital Signs: Last Vital Signs Temp 96.9 F 08/07/22 07:34 Pulse 64 08/07/22 09:16 Resp 17 08/07/22 11:22 BP 118/58 L 08/07/22 09:16 Pulse Ox 97 08/07/22 07:34 O2 Del Method Nasal Cannula 08/07/22 07:34 O2 Flow Rate 3 08/07/22 07:34 Oxygen Flow Rate 3 08/04/22 15:49 BMI result Body Mass Index 19.6 Const: Other: Awake alert no acute distress; uncomfortable appearing Resp: Other: Clear to auscultation bilaterally no rales rhonchi or wheezes Cardio: Other: No S4; positive S1-S2; no S3 murmurs rubs or gallops GI: Other: Soft nontender nondistended normoactive bowel sounds Extrem: Other: Necrotic toes right foot Objective Data Active Medications Acetaminophen (Acetaminophen 325 Mg Tablet) 650 mg PO Q6H PRN PRN Reason: Pain, Mild (Pain Scale 1-3) Acetaminophen (Acetaminophen Supp 650 Mg Supp.Rect) [address] Q6H PRN PRN Reason: Pain, Mild (Pain Scale 1-3) Last Admin: 08/06/22 22:04 Dose: 650 mg Documented By: DESHAUN Aspirin (Aspirin Enteric Coated 81 Mg Tablet.Dr) 81 mg PO DAILY [facility] Last Admin: 08/07/22 09:12 Dose: Not Given Documented By: BASILIO Non-Admin Reason: Strict NPO awaiting FOOD DEHYDRATOR OPERATOR Atorvastatin Calcium (Atorvastatin Calcium 80 Mg Tablet) 80 mg PO BEDTIME [facility] Last Admin: 08/06/22 20:54 Dose: Not Given Documented By: DESHAUN Non-Admin Reason: NPO Baclofen (Baclofen 10 Mg Tablet) 15 mg PO TID [facility] Last Admin: 08/07/22 09:12 Dose: Not Given Documented By: BASILIO Non-Admin Reason: Strict NPO awaiting FOOD DEHYDRATOR OPERATOR Clopidogrel Bisulfate (Clopidogrel Bisulfate 75 Mg Tablet) 75 mg PO DAILY [facility] Last Admin: 08/07/22 09:12 Dose: Not Given Documented By: BASILIO Non-Admin Reason: Strict NPO awaiting FOOD DEHYDRATOR OPERATOR Enoxaparin Sodium (Enoxaparin Sodium 40 Mg/0.4 Ml Syringe) 40 mg SUBCUT Q24H [facility] Last Admin: 08/06/22 20:54 Dose: 40 mg Documented By: DESHAUN Gabapentin (Gabapentin 100 Mg Capsule) 100 mg PO TID [facility] Last Admin: 08/07/22 09:12 Dose: Not Given Documented By: BASILIO Non-Admin Reason: Strict NPO awaiting FOOD DEHYDRATOR OPERATOR Glucose (Glucose Gel 15 Gm Gel..Gram.) 15 gm PO Q15M PRN; Protocol PRN Reason: per Hypoglycemia Standing Ord. Cefepime HCl 2 gm/ Sodium (Chloride) 50 mls @ 100 mls/hr IV Q12H [facility] Last Infusion: 08/07/22 04:00 Dose: 0 mls/hr Documented By: DESHAUN Dextrose (D10) 250 mls @ 750 mls/hr IV Q15M PRN; Protocol PRN Reason: per Hypoglycemia Standing Ord. Vancomycin HCl 1,000 mg/ (Sodium Chloride) 270 mls @ 270 mls/hr IV Q24H [facility] Last Infusion: 08/06/22 18:07 Dose: 0 mls/hr Documented By: BASILIO Insulin Human Lispro (Insulin Lispro 100 Unit/Ml 3 Ml Vial) 0 unit SUBCUT Q6H [facility]; Protocol Last Admin: 08/07/22 08:50 Dose: Not Given Documented By: BASILIO Non-Admin Reason: No Insulin Coverage Lactulose (Lactulose 20 Gm/30 Ml Solution) 20 gm PO BID [facility] Last Admin: 08/07/22 09:13 Dose: Not Given Documented By: BASILIO Non-Admin Reason: Strict NPO awaiting FOOD DEHYDRATOR OPERATOR Lisinopril (Lisinopril 5 Mg Tablet) 5 mg PO DAILY [facility]; Protocol Last Admin: 08/07/22 09:13 Dose: Not Given Documented By: BASILIO Non-Admin Reason: Strict NPO awaiting FOOD DEHYDRATOR OPERATOR Melatonin (Melatonin 3 Mg Tablet) 6 mg PO BEDTIME PRN PRN Reason: Insomnia Metoprolol Succinate (Metoprolol Succinate Er 25 Mg Tab.Er.24h) 25 mg PO DAILY [facility]; Protocol Last Admin: 08/07/22 09:13 Dose: Not Given Documented By: BASILIO Non-Admin Reason: Strict NPO awaiting FOOD DEHYDRATOR OPERATOR Morphine Sulfate (Morphine Sulfate 4 Mg/Ml Cartridge) 4 mg IVPUSH Q4H PRN; Protocol PRN Reason: Pain, Severe (Pain Scale 7-10) Last Admin: 08/07/22 09:21 Dose: 4 mg Documented By: BASILIO Ondansetron HCl (Ondansetron Hcl 4 Mg/2 Ml Vial) 4 mg IVPUSH Q8H PRN PRN Reason: Nausea and Vomiting Oxycodone HCl (Oxycodone Hcl Immed Release 5 Mg Tablet) 5 mg PO Q4H PRN PRN Reason: Pain, Moderate(Pain Scale 4-6) Last Admin: 08/06/22 00:39 Dose: 5 mg Documented By: MADHAVI Pharmacy Consult (Consult Rx Perform Med Rec) 1 each MISCELLANE ONCE PRN PRN Reason: Consult order Pharmacy Consult (Consult Rx Vancomycin Dosing) 1 each MISCELLANE DAILY PRN PRN Reason: Consult order Sodium Chloride (0.9 % Sodium Chloride Flush 3 Ml Syringe) 3 ml IVFLUSH [facility] Last Admin: 08/07/22 09:20 Dose: 3 ml Documented By: BASILIO Tizanidine HCl (Tizanidine Hcl 4 Mg Tablet) 2 mg PO Q8H PRN PRN Reason: MUSCLE SPASMS Labs 08/06/22 05:58 08/07/22 05:24 Labs: Laboratory Results - last 24 hr 08/06/22 08/06/22 08/07/22 16:05 20:31 03:24 Estim Creat Clear Calc Estimated GFR POC Glucose 137 H 127 H 116 H 08/07/22 08/07/22 08/07/22 05:24 07:08 10:59 Estim Creat Clear Calc 55.3 Estimated GFR > 60 POC Glucose 105 112 Microbiology Microbiology Results: Microbiology 08/04/22 15:15 Blood Culture - Final Blood - Venous Klebsiella pneumoniae 08/04/22 15:15 Blood Culture - Final Blood - Venous Klebsiella pneumoniae 08/04/22 18:35 Urine Culture - Final Urine Catheterized - Alvarez Catheter Assessment and Plan (1) Sepsis: Status: Acute (2) Urinary tract infection: Status: Acute (3) Ulcer of right second toe with necrosis of muscle: Status: Acute Plan This is a 62-year-old female with pertinent history of essential hypertension, mixed hyperlipidemia, history of multifocal CVA, insulin-dependent diabetes mellitus, CAD status post stent, mood disorder, CKD stage 3 was sent to the emergency department for evaluation of fevers. Workup consistent with likely aspiration pneumonia along with necrotic right toes 1. Sepsis secondary to UTI. -BC... /.. Klebsiella sensitive to ceftriaxone -switch to ceftriaxone 1 g daily 2.Necrotic right foot toes. -could not tolerate MRI... canceled -abnormal arterial duplex... Vascular consult noted 3.Sacral decubitus ulcer - Consulting Wound Care. 4. Acute metabolic encephalopathy -multifactorial; continue IV antibiotics as ordered 5. Essential hypertension -acceptable control off therapies -add back as appropriate 6.Insulin-dependent diabetes mellitus -will cover with sliding scale pending swallow eval -add back therapies as appropriate Lovenox Do not intubate Patient will need ongoing hospitalization to treat sepsis secondary to UTI with IV antibiotics Time Spent With Patient Time: Total time managing care of this patient today ____ minutes. Quality Stroke Does the patient have a stroke diagnosis?: No VTE Prior VTE?: No VTE Risk Level:: Medical - moderate - high VTE Device Contraindication: Treatment Not Indicated VTE Drug Contraindication: N/A - Med Ordered
--- NOTE | 2022-08-07 14:41 | MHC.CM.PN ---
Per MD rounds no discharge today. Patient may require an amputation. DP return to [facility] via BLS.
[2022-08-07 16:14] LABS: Vancomycin Trough 20.8 mcg/mL (10.0-20.0)
[2022-08-07 16:39] LABS: Glucose, Whole Blood 109 mg/dL (60-115)
[2022-08-07] MEDS: Lactated Ringers 1,000 ML 80 ML IVCONT (17:44)
[2022-08-07] MEDS: vancomycin HCL 750 MG in 0.9 % Sodium Chloride 250 ML 265 MG IV (20:16)
[2022-08-07] MEDS: Enoxaparin Sodium 40 MG/0.4 ML SYRINGE SUBCUT (20:16)
[2022-08-07 20:20] LABS: Glucose, Whole Blood 105 mg/dL (60-115)
[2022-08-07] MEDS: Baclofen 10 MG TABLET 15 MG PO (22:54)
[2022-08-07] MEDS: Atorvastatin Calcium 80 MG TABLET PO (22:54)
[2022-08-07] MEDS: Lactulose 20 GM/30 ML SOLUTION PO (22:54)
[2022-08-08] MEDS: Morphine Sulfate 4 MG/ML CARTRIDGE IVPUSH (00:12)
[2022-08-08 04:00] VITALS: BP 144/62; PULSE 68; RESP 16; TEMP 36.3; O2SAT 96
[2022-08-08] MEDS: cefEPime HCl 2 GM in 0.9 % Sodium Chloride 50 ML IV ×2 (04:47→15:30)
[2022-08-08] MEDS: Lactated Ringers 1,000 ML 80 ML IVCONT (05:05)
[2022-08-08 06:45] LABS: Basophils Absolute Auto 0.1 X10*3/uL (0.0-0.2); Basophils Percent Auto 0.2 % (0-2); Eosinophils Absolute Auto 0.1 X10*3/uL (0.0-0.4); Eosinophils Percent Auto 0.6 % (0-4); Hematocrit 25.7 % (37.0-47.0); Imm Gran Abs Auto 0.34 X10*3/uL (0.00-0.03); Imm Gran Pct Auto 1.5 % (0.0-0.4); Lymphocytes Absolute Auto 1.1 X10*3/uL (1.2-4.9); Lymphocytes Percent Auto 4.9 % (20-40); Mean Corpuscular HGB Conc 31.1 g/dl (31.0-35.0); Mean Corpuscular Hemoglobin 26.8 pg (27.0-33.0); Mean Corpuscular Volume 86.2 fL (80.0-98.0); Mean Platelet Volume 10.2 fL (9.4-12.3); Monocytes Absolute Auto 1.3 X10*3/uL (0.1-1.2); Monocytes Percent Auto 5.9 % (2-11); Neutrophils Absolute Auto 19.1 x10*3/uL (2.0-8.3); Neutrophils Percent Auto 86.9 % (45-73); Platelet Count 332 X10*3/uL (160-400); Red Blood Count 2.98 X10*6/uL (4.20-5.50); Red Cell Distribution Width 16.8 % (11.0-16.0)
[2022-08-08 07:22] LABS: Alanine Aminotransferase 125 U/L (0-31); Albumin Level 2.2 g/dL (3.5-5.0); Alkaline Phosphatase 294 U/L (39-117); Anion Gap 13 (12-20); Aspartate Amino Transferase 185 U/L (5-31); Bilirubin Total 0.4 mg/dL (0.0-1.0); Blood Urea Nitrogen 37 mg/dL (9-16); Calcium 8.9 mg/dL (8.4-10.2); Carbon Dioxide 16 mmol/L (22-29); Chloride 119 mmol/L (96-108); Creatinine Clr Calc Pharmacy 54.6; Estimated Glomerular Filt Rate > 60; Glucose Fasting 99 mg/dL (60-99); Sodium 144 mmol/L (135-145); Total Protein 6.2 g/dL (6.5-8.0)
[2022-08-08 08:00] VITALS: BP 155/70; PULSE 73; RESP 16; TEMP 36.1; O2SAT 94
[2022-08-08 08:28] LABS: Glucose, Whole Blood 91 mg/dL (60-115)
--- NOTE | 2022-08-08 10:27 | PC.NURSE ---
Pt too lethargic to take PO meds, tried giving pt plain applesauce but pt was unable to follow commands to swallow, Dr. Bhatt made aware
[2022-08-08 11:44] LABS: Glucose, Whole Blood 106 mg/dL (60-115)
--- NOTE | 2022-08-08 12:08 | HO.PM.IMPN ---
Subjective Subjective Date of Service: 08/08/22 Interval History: More alert this a.m. however still poor p.o. intake Review of Systems Unable to obtain Physical Exam Vital Signs: Vital Signs: Last Vital Signs Temp 96.9 F 08/08/22 08:00 Pulse 73 08/08/22 08:00 Resp 16 08/08/22 08:00 BP 155/70 H 08/08/22 08:00 Pulse Ox 94 08/08/22 08:00 O2 Del Method Nasal Cannula 08/08/22 08:00 O2 Flow Rate 3 08/08/22 08:00 Oxygen Flow Rate 3 08/04/22 15:49 BMI result Body Mass Index 19.6 Const: Other: Awake alert no acute distress; uncomfortable appearing Resp: Other: Clear to auscultation bilaterally no rales rhonchi or wheezes Cardio: Other: No S4; positive S1-S2; no S3 murmurs rubs or gallops GI: Other: Soft nontender nondistended normoactive bowel sounds Extrem: Other: Necrotic toes right foot Objective Data Active Medications Acetaminophen (Acetaminophen 325 Mg Tablet) 650 mg PO Q6H PRN PRN Reason: Pain, Mild (Pain Scale 1-3) Acetaminophen (Acetaminophen Supp 650 Mg Supp.Rect) 650 mg [place] Q6H PRN PRN Reason: Pain, Mild (Pain Scale 1-3) Last Admin: 08/06/22 22:04 Dose: 650 mg Documented By: DESHAUN Aspirin (Aspirin Enteric Coated 81 Mg Tablet.Dr) 81 mg PO DAILY [facility] Last Admin: 08/08/22 09:59 Dose: Not Given Documented By: BRYANT Non-Admin Reason: too md ladan aware Atorvastatin Calcium (Atorvastatin Calcium 80 Mg Tablet) 80 mg PO BEDTIME [facility] Last Admin: 08/07/22 22:54 Dose: 80 mg Documented By: MARCELA Baclofen (Baclofen 10 Mg Tablet) 15 mg PO TID [facility] Last Admin: 08/08/22 09:59 Dose: Not Given Documented By: BRYANT Non-Admin Reason: too md ladan aware Clopidogrel Bisulfate (Clopidogrel Bisulfate 75 Mg Tablet) 75 mg PO DAILY [facility] Last Admin: 08/08/22 09:59 Dose: Not Given Documented By: BRYANT Non-Admin Reason: cristobal pickering md aware Enoxaparin Sodium (Enoxaparin Sodium 40 Mg/0.4 Ml Syringe) 40 mg SUBCUT Q24H [facility] Last Admin: 08/07/22 20:16 Dose: 40 mg Documented By: MARCELA Gabapentin (Gabapentin 100 Mg Capsule) 100 mg PO TID [facility] Last Admin: 08/08/22 09:59 Dose: Not Given Documented By: BRYANT Non-Admin Reason: too lethargicmd aware Glucose (Glucose Gel 15 Gm Gel..Gram.) 15 gm PO Q15M PRN; Protocol PRN Reason: per Hypoglycemia Standing Ord. Cefepime HCl 2 gm/ Sodium (Chloride) 50 mls @ 100 mls/hr IV Q12H [facility] Last Infusion: 08/08/22 05:27 Dose: 0 mls/hr Documented By: MARCELA Dextrose (D10) 250 mls @ 750 mls/hr IV Q15M PRN; Protocol PRN Reason: per Hypoglycemia Standing Ord. Lactated Ringer's (Lr) 1,000 mls @ 80 mls/hr IVCONT .[id number] [facility] Last Admin: 08/08/22 05:05 Dose: 80 mls/hr Documented By: MARCELA Vancomycin HCl 750 mg/ Sodium (Chloride) 265 mls @ 265 mls/hr IV Q24H [facility] Last Infusion: 08/07/22 23:06 Dose: 0 mls/hr Documented By: MARCELA Insulin Human Lispro (Insulin Lispro 100 Unit/Ml 3 Ml Vial) 0 unit SUBCUT QIDACHS [facility]; Protocol Last Admin: 08/08/22 11:44 Dose: Not Given Documented By: BRYANT Non-Admin Reason: No Insulin Coverage Lactulose (Lactulose 20 Gm/30 Ml Solution) 20 gm PO BID [facility] Last Admin: 08/08/22 10:00 Dose: Not Given Documented By: BRYANT Non-Admin Reason: too lethargmd purnima aware Lisinopril (Lisinopril 5 Mg Tablet) 5 mg PO DAILY [facility]; Protocol Last Admin: 08/08/22 10:00 Dose: Not Given Documented By: BRYANT Non-Admin Reason: too lethmd sidra aware Melatonin (Melatonin 3 Mg Tablet) 6 mg PO BEDTIME PRN PRN Reason: Insomnia Metoprolol Succinate (Metoprolol Succinate Er 25 Mg Tab.Er.24h) 25 mg PO DAILY [facility]; Protocol Last Admin: 08/08/22 10:00 Dose: Not Given Documented By: BRYANT Non-Admin Reason: too lethargic, md aware Morphine Sulfate (Morphine Sulfate 4 Mg/Ml Cartridge) 4 mg IVPUSH Q4H PRN; Protocol PRN Reason: Pain, Severe (Pain Scale 7-10) Last Admin: 08/08/22 00:12 Dose: 4 mg Documented By: MARCELA Ondansetron HCl (Ondansetron Hcl 4 Mg/2 Ml Vial) 4 mg IVPUSH Q8H PRN PRN Reason: Nausea and Vomiting Oxycodone HCl (Oxycodone Hcl Immed Release 5 Mg Tablet) 5 mg PO Q4H PRN PRN Reason: Pain, Moderate(Pain Scale 4-6) Last Admin: 08/06/22 00:39 Dose: 5 mg Documented By: MADHAVI Pharmacy Consult (Consult Rx Perform Med Rec) 1 each MISCELLANE ONCE PRN PRN Reason: Consult order Pharmacy Consult (Consult Rx Vancomycin Dosing) 1 each MISCELLANE DAILY PRN PRN Reason: Consult order Sodium Chloride (0.9 % Sodium Chloride Flush 3 Ml Syringe) 3 ml IVFLUSH QSHIFT [facility] Last Admin: 08/08/22 07:40 Dose: Not Given Documented By: BRYANT Non-Admin Reason: IV Running Tizanidine HCl (Tizanidine Hcl 4 Mg Tablet) 2 mg PO Q8H PRN PRN Reason: MUSCLE SPASMS Labs 08/08/22 06:16 08/08/22 06:15 Labs: Laboratory Results - last 24 hr 08/07/22 08/07/22 08/07/22 15:06 16:22 20:13 MCV MCH MCHC RDW Plt Count MPV Immature Gran % (Auto) Neut % (Auto) Lymph % (Auto) Kaufman % (Auto) Eos % (Auto) Baso % (Auto) Lymph # (Auto) Kaufman # (Auto) Eos # (Auto) Baso # (Auto) Abs Immat Gran (auto) Absolute Neuts (auto) Absolute Nucleated RBC Nucleated RBC % (auto) Anion Gap Estim Creat Clear Calc Estimated GFR POC Glucose 109 105 Fasting Glucose Calcium Total Bilirubin AST ALT Alkaline Phosphatase Total Protein Albumin Vancomycin Trough 20.8 H 08/08/22 08/08/22 08/08/22 06:15 06:16 08:19 MCV 86.2 MCH 26.8 L MCHC 31.1 RDW 16.8 H Plt Count 332 MPV 10.2 Immature Gran % (Auto) 1.5 H Neut % (Auto) 86.9 H Lymph % (Auto) 4.9 L Kaufman % (Auto) 5.9 Eos % (Auto) 0.6 Baso % (Auto) 0.2 Lymph # (Auto) 1.1 L Kaufman # (Auto) 1.3 H Eos # (Auto) 0.1 Baso # (Auto) 0.1 Abs Immat Gran (auto) 0.34 H Absolute Neuts (auto) 19.1 H Absolute Nucleated RBC 0.000 Nucleated RBC % (auto) 0.0 Anion Gap 13 Estim Creat Clear Calc 54.6 Estimated GFR > 60 POC Glucose 91 Fasting Glucose 99 Calcium 8.9 Total Bilirubin 0.4 AST 185 H ALT 125 H Alkaline Phosphatase 294 H Total Protein 6.2 L Albumin 2.2 L Vancomycin Trough 08/08/22 11:35 MCV MCH MCHC RDW Plt Count MPV Immature Gran % (Auto) Neut % (Auto) Lymph % (Auto) Kaufman % (Auto) Eos % (Auto) Baso % (Auto) Lymph # (Auto) Kaufman # (Auto) Eos # (Auto) Baso # (Auto) Abs Immat Gran (auto) Absolute Neuts (auto) Absolute Nucleated RBC Nucleated RBC % (auto) Anion Gap Estim Creat Clear Calc Estimated GFR POC Glucose 106 Fasting Glucose Calcium Total Bilirubin AST ALT Alkaline Phosphatase Total Protein Albumin Vancomycin Trough Microbiology Microbiology Results: Microbiology 08/04/22 15:15 Blood Culture - Final Blood - Venous Klebsiella pneumoniae 08/04/22 15:15 Blood Culture - Final Blood - Venous Klebsiella pneumoniae Assessment and Plan (1) Sepsis: Status: Acute (2) Urinary tract infection: Status: Acute (3) Bacteremia due to Klebsiella pneumoniae: Status: Acute (4) Hypertension: Status: Acute (5) Diabetes mellitus type 2 in nonobese: Status: Acute Plan This is a 62-year-old female with pertinent history of essential hypertension, mixed hyperlipidemia, history of multifocal CVA, insulin-dependent diabetes mellitus, CAD status post stent, mood disorder, CKD stage 3 was sent to the emergency department for evaluation of fevers. Workup consistent with likely aspiration pneumonia along with necrotic right toes 1. Sepsis secondary to UTI. -BC... /.. Klebsiella sensitive to ceftriaxone(2) -switch to ceftriaxone 1 g daily 2.Necrotic right foot toes. -could not tolerate MRI... canceled -abnormal arterial duplex... Vascular consult noted... Complete treatment for comorbidities 3.Sacral decubitus ulcer - Consulting Wound Care. 4. Acute metabolic encephalopathy -multifactorial; continue IV antibiotics as ordered 5. Essential hypertension -acceptable control off therapies -add back as appropriate 6.Insulin-dependent diabetes mellitus -will cover with sliding scale pending swallow eval -add back therapies as appropriate Lovenox Do not intubate Patient will need ongoing hospitalization to treat sepsis secondary to UTI with IV antibiotics Time Spent With Patient Time: Total time managing care of this patient today ____ minutes. Quality Stroke Does the patient have a stroke diagnosis?: No VTE Prior VTE?: No VTE Risk Level:: Medical - moderate - high VTE Device Contraindication: Treatment Not Indicated VTE Drug Contraindication: N/A - Med Ordered
[2022-08-08] MEDS: 0.9 % Sodium Chloride Flush 3 ML SYRINGE IVFLUSH (15:30)
[2022-08-08 16:00] VITALS: BP 165/89; PULSE 67; RESP 16; TEMP 36; O2SAT 100
[2022-08-08 16:10] VITALS: BP 142/58
[2022-08-08 16:42] LABS: Glucose, Whole Blood 110 mg/dL (60-115)
[2022-08-08] MEDS: vancomycin HCL 750 MG in 0.9 % Sodium Chloride 250 ML 265 MG IV (19:34)
[2022-08-08] MEDS: Enoxaparin Sodium 40 MG/0.4 ML SYRINGE SUBCUT (19:35)
[2022-08-08 19:38] VITALS: BP 127/79; PULSE 65; RESP 17; TEMP 36.1; O2SAT 96
[2022-08-08 20:25] LABS: Glucose, Whole Blood 118 mg/dL (60-115)
[2022-08-08] MEDS: Atorvastatin Calcium 80 MG TABLET PO (20:49)
[2022-08-08] MEDS: Baclofen 10 MG TABLET 15 MG PO (20:49)
[2022-08-09] MEDS: Morphine Sulfate 4 MG/ML CARTRIDGE IVPUSH (02:50)
[2022-08-09] MEDS: cefEPime HCl 2 GM in 0.9 % Sodium Chloride 50 ML IV ×2 (03:04→15:14)
[2022-08-09 03:28] VITALS: BP 155/68; PULSE 69; RESP 17; TEMP 36.6; O2SAT 98
[2022-08-09 05:56] LABS: MANUAL DIFF FLAG NO
[2022-08-09 06:27] LABS: Alanine Aminotransferase 104 U/L (0-31); Albumin Level 2.2 g/dL (3.5-5.0); Alkaline Phosphatase 308 U/L (39-117); Anion Gap 16 (12-20); Aspartate Amino Transferase 131 U/L (5-31); Bilirubin Total 0.4 mg/dL (0.0-1.0); Blood Urea Nitrogen 36 mg/dL (9-16); Calcium 8.9 mg/dL (8.4-10.2); Carbon Dioxide 17 mmol/L (22-29); Chloride 121 mmol/L (96-108); Creatinine Clr Calc Pharmacy 49.1; Estimated Glomerular Filt Rate > 60; Glucose Fasting 118 mg/dL (60-99); Potassium 3.7 mmol/L (3.3-5.1); Sodium 150 mmol/L (135-145); Total Protein 5.4 g/dL (6.5-8.0)
[2022-08-09 06:36] LABS: Basophils Absolute Auto 0.1 X10*3/uL (0.0-0.2); Basophils Percent Auto 0.3 % (0-2); Eosinophils Absolute Auto 0.1 X10*3/uL (0.0-0.4); Eosinophils Percent Auto 0.3 % (0-4); Hematocrit 29.3 % (37.0-47.0); Hemoglobin 8.9 g/dl (12.0-16.0); Imm Gran Pct Auto 2.6 % (0.0-0.4); Lymphocytes Absolute Auto 1.1 X10*3/uL (1.2-4.9); Lymphocytes Percent Auto 5.5 % (20-40); Mean Corpuscular HGB Conc 30.4 g/dl (31.0-35.0); Mean Corpuscular Hemoglobin 26.5 pg (27.0-33.0); Mean Corpuscular Volume 87.2 fL (80.0-98.0); Mean Platelet Volume 10.1 fL (9.4-12.3); Monocytes Absolute Auto 1.1 X10*3/uL (0.1-1.2); Monocytes Percent Auto 5.6 % (2-11); Neutrophils Absolute Auto 16.4 x10*3/uL (2.0-8.3); Neutrophils Percent Auto 85.7 % (45-73); Platelet Count 432 X10*3/uL (160-400); Red Blood Count 3.36 X10*6/uL (4.20-5.50); Red Cell Distribution Width 16.8 % (11.0-16.0); White Blood Count 19.1 X10*3/uL (4.8-10.8)
[2022-08-09 07:35] LABS: Glucose, Whole Blood 122 mg/dL (60-115)
[2022-08-09 08:00] VITALS: BP 145/64; PULSE 76; RESP 18; TEMP 36.7; O2SAT 97
[2022-08-09] MEDS: 0.9 % Sodium Chloride Flush 3 ML SYRINGE IVFLUSH ×3 (08:48→21:23)
[2022-08-09] MEDS: Lactulose 20 GM/30 ML SOLUTION PO ×2 (08:48→21:12)
[2022-08-09] MEDS: lisinopriL 5 MG TABLET PO (08:48)
[2022-08-09] MEDS: Gabapentin 100 MG CAPSULE PO ×3 (08:48→21:12)
[2022-08-09] MEDS: Metoprolol Succinate ER 25 MG TAB.ER.24H PO (08:48)
[2022-08-09] MEDS: Baclofen 10 MG TABLET 15 MG PO ×3 (08:48→21:11)
[2022-08-09] MEDS: Clopidogrel Bisulfate 75 MG TABLET PO (08:49)
[2022-08-09] MEDS: Aspirin Enteric Coated 81 MG TABLET.DR PO (08:51)
--- NOTE | 2022-08-09 11:29 | PC.NURSE ---
Patient more alert today, able to swallow crushed meds in applesauce, reinforcement needed to chew and swallow
[2022-08-09 11:56] LABS: Glucose, Whole Blood 135 mg/dL (60-115)
--- NOTE | 2022-08-09 12:00 | HO.PM.IMPN ---
Subjective Subjective Date of Service: 08/09/22 Interval History: Essentially nonverbal. Interact briefly. Poor intake Review of Systems Unable to obtain Physical Exam Vital Signs: Vital Signs: Last Vital Signs Temp 98.1 F 08/09/22 08:00 Pulse 76 08/09/22 08:00 Resp 18 08/09/22 08:00 BP 145/64 H 08/09/22 08:00 Pulse Ox 97 08/09/22 08:00 O2 Del Method Nasal Cannula 08/09/22 08:00 O2 Flow Rate 3 08/09/22 08:00 Oxygen Flow Rate 3 08/04/22 15:49 BMI result Body Mass Index 19.6 Const: Other: Awake alert no acute distress; uncomfortable appearing Resp: Other: Clear to auscultation bilaterally no rales rhonchi or wheezes Cardio: Other: No S4; positive S1-S2; no S3 murmurs rubs or gallops GI: Other: Soft nontender nondistended normoactive bowel sounds Extrem: Other: Necrotic toes right foot Objective Data Active Medications Acetaminophen (Acetaminophen 325 Mg Tablet) 650 mg PO Q6H PRN PRN Reason: Pain, Mild (Pain Scale 1-3) Acetaminophen (Acetaminophen Supp 650 Mg Supp.Rect) 650 mg [place] Q6H PRN PRN Reason: Pain, Mild (Pain Scale 1-3) Last Admin: 08/06/22 22:04 Dose: 650 mg Documented By: DESHAUN Aspirin (Aspirin Enteric Coated 81 Mg Tablet.) 81 mg PO DAILY [facility] Last Admin: 08/09/22 08:51 Dose: 81 mg Documented By: BRYANT Atorvastatin Calcium (Atorvastatin Calcium 80 Mg Tablet) 80 mg PO BEDTIME [facility] Last Admin: 08/08/22 20:49 Dose: 80 mg Documented By: MARCELA Baclofen (Baclofen 10 Mg Tablet) 15 mg PO TID [facility] Last Admin: 08/09/22 08:48 Dose: 15 mg Documented By: BRYANT Clopidogrel Bisulfate (Clopidogrel Bisulfate 75 Mg Tablet) 75 mg PO DAILY [facility] Last Admin: 08/09/22 08:49 Dose: 75 mg Documented By: BRYANT Enoxaparin Sodium (Enoxaparin Sodium 40 Mg/0.4 Ml Syringe) 40 mg SUBCUT Q24H [facility] Last Admin: 08/08/22 19:35 Dose: 40 mg Documented By: MARCELA Gabapentin (Gabapentin 100 Mg Capsule) 100 mg PO TID [facility] Last Admin: 08/09/22 08:48 Dose: 100 mg Documented By: BRYANT Glucose (Glucose Gel 15 Gm Gel..Gram.) 15 gm PO Q15M PRN; Protocol PRN Reason: per Hypoglycemia Standing Ord. Cefepime HCl 2 gm/ Sodium (Chloride) 50 mls @ 100 mls/hr IV Q12H [facility] Last Infusion: 08/09/22 04:26 Dose: 0 mls/hr Documented By: MARCELA Dextrose (D10) 250 mls @ 750 mls/hr IV Q15M PRN; Protocol PRN Reason: per Hypoglycemia Standing Ord. Vancomycin HCl 750 mg/ Sodium (Chloride) 265 mls @ 265 mls/hr IV Q24H [facility] Last Infusion: 08/08/22 20:45 Dose: 0 mls/hr Documented By: MARCELA Insulin Human Lispro (Insulin Lispro 100 Unit/Ml 3 Ml Vial) 0 unit SUBCUT QIDACHS [facility]; Protocol Last Admin: 08/09/22 11:57 Dose: Not Given Documented By: BRYANT Non-Admin Reason: No Insulin Coverage Lactulose (Lactulose 20 Gm/30 Ml Solution) 20 gm PO BID [facility] Last Admin: 08/09/22 08:48 Dose: 20 gm Documented By: BRYANT Lisinopril (Lisinopril 5 Mg Tablet) 5 mg PO DAILY [facility]; Protocol Last Admin: 08/09/22 08:48 Dose: 5 mg Documented By: BRYANT Melatonin (Melatonin 3 Mg Tablet) 6 mg PO BEDTIME PRN PRN Reason: Insomnia Metoprolol Succinate (Metoprolol Succinate Er 25 Mg Tab.Er.24h) 25 mg PO DAILY [facility]; Protocol Last Admin: 08/09/22 08:48 Dose: 25 mg Documented By: BRYANT Morphine Sulfate (Morphine Sulfate 4 Mg/Ml Cartridge) 4 mg IVPUSH Q4H PRN; Protocol PRN Reason: Pain, Severe (Pain Scale 7-10) Last Admin: 08/09/22 02:50 Dose: 4 mg Documented By: MARCELA Ondansetron HCl (Ondansetron Hcl 4 Mg/2 Ml Vial) 4 mg IVPUSH Q8H PRN PRN Reason: Nausea and Vomiting Oxycodone HCl (Oxycodone Hcl Immed Release 5 Mg Tablet) 5 mg PO Q4H PRN PRN Reason: Pain, Moderate(Pain Scale 4-6) Last Admin: 08/06/22 00:39 Dose: 5 mg Documented By: MADAHVI Pharmacy Consult (Consult Rx Perform Med Rec) 1 each MISCELLANE ONCE PRN PRN Reason: Consult order Pharmacy Consult (Consult Rx Vancomycin Dosing) 1 each MISCELLANE DAILY PRN PRN Reason: Consult order Sodium Chloride (0.9 % Sodium Chloride Flush 3 Ml Syringe) [facility] Last Admin: 08/09/22 08:48 Dose: 3 ml Documented By: BRYANT Tizanidine HCl (Tizanidine Hcl 4 Mg Tablet) 2 mg PO Q8H PRN PRN Reason: MUSCLE SPASMS Labs 08/09/22 05:07 08/09/22 05:07 Labs: Laboratory Results - last 24 hr 08/08/22 08/08/22 08/09/22 16:36 20:21 05:07 MCV MCH MCHC RDW Plt Count MPV Immature Gran % (Auto) Neut % (Auto) Lymph % (Auto) [place] % (Auto) Eos % (Auto) Baso % (Auto) Lymph # (Auto) [place] # (Auto) Eos # (Auto) Baso # (Auto) Abs Immat Gran (auto) Absolute Neuts (auto) Absolute Nucleated RBC Nucleated RBC % (auto) Anion Gap 16 Estim Creat Clear Calc 49.1 Estimated GFR > 60 POC Glucose 110 118 H Fasting Glucose 118 H Calcium 8.9 Total Bilirubin 0.4 AST 131 H ALT 104 H Alkaline Phosphatase 308 H Total Protein 5.4 L Albumin 2.2 L 08/09/22 08/09/22 08/09/22 05:07 07:31 11:49 MCV 87.2 MCH 26.5 L MCHC 30.4 L RDW 16.8 H Plt Count 432 H D MPV 10.1 Immature Gran % (Auto) 2.6 H Neut % (Auto) 85.7 H Lymph % (Auto) 5.5 L [place] % (Auto) 5.6 Eos % (Auto) 0.3 Baso % (Auto) 0.3 Lymph # (Auto) 1.1 L [place] # (Auto) 1.1 Eos # (Auto) 0.1 Baso # (Auto) 0.1 Abs Immat Gran (auto) 0.50 H Absolute Neuts (auto) 16.4 H Absolute Nucleated RBC 0.000 Nucleated RBC % (auto) 0.0 Anion Gap Estim Creat Clear Calc Estimated GFR POC Glucose 122 H 135 H Fasting Glucose Calcium Total Bilirubin AST ALT Alkaline Phosphatase Total Protein Albumin Assessment and Plan (1) Sepsis: Status: Acute (2) Urinary tract infection: Status: Acute Plan This is a 62-year-old female with pertinent history of essential hypertension, mixed hyperlipidemia, history of multifocal CVA, insulin-dependent diabetes mellitus, CAD status post stent, mood disorder, CKD stage 3 was sent to the emergency department for evaluation of fevers. Workup consistent with likely aspiration pneumonia along with necrotic right toes. Subsequent blood cultures grew out Klebsiella 2/2 bottles sensitive to ceftriaxone. Seen in consultation by vascular surgery who likely will recommend amputation but need to speak with family once white count normalizes 1. Sepsis secondary to UTI. -BC... 2/2.. Klebsiella sensitive to ceftriaxone -switch to ceftriaxone 1 g daily(3) 2.Necrotic right foot toes. -could not tolerate MRI... canceled -abnormal arterial duplex... Vascular consult noted... Complete treatment for comorbidities -will consider AKA 1 white count normalizes 3.Sacral decubitus ulcer - Consulting Wound Care. Do not intubate Patient will need ongoing hospitalization to treat sepsis secondary to UTI with IV antibiotics Time Spent With Patient Time: Total time managing care of this patient today ____ minutes. Quality Stroke Does the patient have a stroke diagnosis?: No VTE Prior VTE?: No VTE Risk Level:: Medical - moderate - high VTE Device Contraindication: Treatment Not Indicated VTE Drug Contraindication: N/A - Med Ordered
[2022-08-09 15:21] VITALS: BP 156/67; PULSE 65; RESP 17; TEMP 36.4; O2SAT 98
[2022-08-09 16:51] LABS: Glucose, Whole Blood 136 mg/dL (60-115)
[2022-08-09 19:05] LABS: Vancomycin Trough 21.5 mcg/mL (10.0-20.0)
[2022-08-09 19:15] VITALS: BP 135/60; PULSE 55; RESP 17; TEMP 36.1; O2SAT 98
--- NOTE | 2022-08-09 19:19 | HE.PHANOTE ---
Vancomycin Dosing Level supratherapuetic at 21.5 today. Patient's level continue to increase even with a decrease in dose. Patient also had a slight increase in SCr. Will hold dose for 12 hours then restart at vancomycin 500 mg Q24H. New expected AUC 460 with a trough of 15.8. Pharmacy will monitor renal function daily. Idalmis Antunez, LesleyD
[2022-08-09 20:51] LABS: Glucose, Whole Blood 140 mg/dL (60-115)
[2022-08-09] MEDS: Enoxaparin Sodium 40 MG/0.4 ML SYRINGE SUBCUT (21:11)
[2022-08-09] MEDS: Atorvastatin Calcium 80 MG TABLET PO (21:12)
[2022-08-10 04:00] VITALS: BP 124/58; PULSE 52; RESP 16; TEMP 36; O2SAT 100
[2022-08-10] MEDS: cefEPime HCl 2 GM in 0.9 % Sodium Chloride 50 ML IV (04:22)
[2022-08-10 06:02] VITALS: O2SAT 95
[2022-08-10 06:26] LABS: MANUAL DIFF FLAG NO
[2022-08-10 06:50] LABS: Basophils Absolute Auto 0.1 X10*3/uL (0.0-0.2); Basophils Percent Auto 0.3 % (0-2); Eosinophils Absolute Auto 0.1 X10*3/uL (0.0-0.4); Eosinophils Percent Auto 0.8 % (0-4); Hematocrit 28.5 % (37.0-47.0); Hemoglobin 8.5 g/dl (12.0-16.0); Imm Gran Abs Auto 0.69 X10*3/uL (0.00-0.03); Imm Gran Pct Auto 4.2 % (0.0-0.4); Lymphocytes Absolute Auto 1.6 X10*3/uL (1.2-4.9); Lymphocytes Percent Auto 9.7 % (20-40); Mean Corpuscular HGB Conc 29.8 g/dl (31.0-35.0); Mean Corpuscular Volume 87.2 fL (80.0-98.0); Mean Platelet Volume 10.2 fL (9.4-12.3); Monocytes Percent Auto 6.1 % (2-11); Neutrophils Absolute Auto 12.8 x10*3/uL (2.0-8.3); Neutrophils Percent Auto 78.9 % (45-73); Platelet Count 411 X10*3/uL (160-400); Red Blood Count 3.27 X10*6/uL (4.20-5.50); Red Cell Distribution Width 17.2 % (11.0-16.0); White Blood Count 16.3 X10*3/uL (4.8-10.8)
[2022-08-10 07:00] LABS: Alanine Aminotransferase 89 U/L (0-31); Albumin Level 2.3 g/dL (3.5-5.0); Alkaline Phosphatase 281 U/L (39-117); Anion Gap 12 (12-20); Aspartate Amino Transferase 93 U/L (5-31); Bilirubin Total 0.3 mg/dL (0.0-1.0); Blood Urea Nitrogen 39 mg/dL (9-16); Calcium 9.2 mg/dL (8.4-10.2); Carbon Dioxide 19 mmol/L (22-29); Chloride 124 mmol/L (96-108); Creatinine Clr Calc Pharmacy 41.4; Estimated Glomerular Filt Rate 51; Glucose Fasting 140 mg/dL (60-99); Potassium 3.6 mmol/L (3.3-5.1); Sodium 151 mmol/L (135-145); Total Protein 5.6 g/dL (6.5-8.0)
[2022-08-10 07:16] VITALS: BP 137/58; PULSE 50; RESP 16; TEMP 36; O2SAT 98
[2022-08-10] MEDS: 0.9 % Sodium Chloride Flush 3 ML SYRINGE IVFLUSH (07:16)
[2022-08-10] MEDS: vancomycin HCL 500 MG in 0.9 % Sodium Chloride 100 ML 110 MG IV (07:16)
[2022-08-10 07:27] LABS: Glucose, Whole Blood 140 mg/dL (60-115)
--- NOTE | 2022-08-10 07:45 | HE.PHANOTE ---
re vanco scr did increase to 1.08. Dose was decreased and held (dose this AM is 35 hours after last dose). Next level is for 08/11 @0600 Patricio
[2022-08-10] MEDS: Dextrose 5 % 1,000 ML 50 ML IVCONT (09:09)
[2022-08-10] MEDS: cefTRIAXone sodium 2 GM in 0.9 % Sodium Chloride 50 ML IV (09:10)
[2022-08-10] MEDS: Morphine Sulfate 4 MG/ML CARTRIDGE IVPUSH (10:54)
--- NOTE | 2022-08-10 10:57 | MHC.CLN ---
F/U DIET=PUREE WITH NECTAR THICK LIQUIDS. MULTIPLE AREAS OF IMPAIRED SKIN. ENSURE MAX PROTEIN BID TO PROMOTE WOUND HEALING. PROVIDES 300 KCALS, 60 G PROTEIN. INTAKE CONTINUES USUALLY POOR WITH 2 MOST RECENT MEALS=25%. FOLLOW FOR DIET ADVANCEMENT, INTAKE AND WOUND HEALING.
[2022-08-10 11:11] LABS: Glucose, Whole Blood 158 mg/dL (60-115)
[2022-08-10 11:35] LABS: C Reactive Protein 16.65 mg/dL (< or = 0.50)
[2022-08-10 11:51] LABS: Procalcitonin 0.18 ng/mL
--- NOTE | 2022-08-10 11:54 | MHC.CM.PN ---
EMR REVIEWED AND PER MD ROUNDS, PT IS NOT MEDICALLY CLEARED FOR DC. CM SPOKE WITH HCP/SON CARISSA WHO STATES HIS MOTHER HAS BEEN EXPERIENCING HALLUCINATIONS AT THE SNF AND PERIODS OF LETHARGY. MD MADE AWARE. PVR UPDATED VIA [employer]. CM WILL CONTINUE TO FOLLOW FOR DC NEEDS/PLAN.
--- NOTE | 2022-08-10 12:05 | HO.PM.IMPN ---
Subjective Subjective Date of Service: 08/10/22 Interval History: not verbalizing per son worsening lethargy and hallucinations over past month Review of Systems Review of Systems: Yes Unobtainable due to mental status Physical Exam Vital Signs: Vital Signs: Last Vital Signs Temp 96.8 F 08/10/22 07:16 Pulse 50 08/10/22 07:16 Resp 16 08/10/22 07:16 BP 137/58 L 08/10/22 07:16 Pulse Ox 98 08/10/22 07:16 O2 Del Method Nasal Cannula 08/10/22 07:16 O2 Flow Rate 2 08/10/22 07:16 Oxygen Flow Rate 3 08/04/22 15:49 BMI result Body Mass Index 19.6 Gen: weak, chronically ill-appearing HEENT: sclera anicteric, moist mucus membranes Neck: supple Lungs: clear to auscultation bilaterally Heart: regular rate and rhythm, no murmurs Abd: soft, non-tender, non-distended Ext: no edema Skin: dry ulcers on heels bilaterally, R 1st-3rd toes with dry necrosis without evidence of cellulitis Neuro: alert, unable to assess orientation, moving all extremities though very weak Psych: impaired insight Objective Data Active Medications Acetaminophen (Acetaminophen 325 Mg Tablet) 650 mg PO Q6H PRN PRN Reason: Pain, Mild (Pain Scale 1-3) Acetaminophen (Acetaminophen Supp 650 Mg Supp.Rect) 650 mg [place] Q6H PRN PRN Reason: Pain, Mild (Pain Scale 1-3) Last Admin: 08/06/22 22:04 Dose: 650 mg Documented By: DESHAUN Aspirin (Aspirin Enteric Coated 81 Mg Tablet.) 81 mg PO DAILY [facility] Last Admin: 08/10/22 08:32 Dose: Not Given Documented By: HARRIET Non-Admin Reason: lethargic Atorvastatin Calcium (Atorvastatin Calcium 80 Mg Tablet) 80 mg PO BEDTIME [facility] Last Admin: 08/09/22 21:12 Dose: 80 mg Documented By: ONEIDA Baclofen (Baclofen 10 Mg Tablet) 15 mg PO TID [facility] Last Admin: 08/10/22 08:32 Dose: Not Given Documented By: HARRIET Non-Admin Reason: lethargic Clopidogrel Bisulfate (Clopidogrel Bisulfate 75 Mg Tablet) 75 mg PO DAILY [facility] Last Admin: 08/10/22 08:32 Dose: Not Given Documented By: HARRIET Non-Admin Reason: lethargic Enoxaparin Sodium (Enoxaparin Sodium 40 Mg/0.4 Ml Syringe) 40 mg SUBCUT Q24H [facility] Last Admin: 08/09/22 21:11 Dose: 40 mg Documented By: ONEIDA Gabapentin (Gabapentin 100 Mg Capsule) 100 mg PO TID [facility] Last Admin: 08/10/22 08:32 Dose: Not Given Documented By: HARRIET Non-Admin Reason: lethargic Glucose (Glucose Gel 15 Gm Gel..Gram.) 15 gm PO Q15M PRN; Protocol PRN Reason: per Hypoglycemia Standing Ord. Dextrose (D10) 250 mls @ 750 mls/hr IV Q15M PRN; Protocol PRN Reason: per Hypoglycemia Standing Ord. Ceftriaxone Sodium 2 gm/ (Sodium Chloride) 50 mls @ 100 mls/hr IV Q24H [facility] Last Infusion: 08/10/22 09:54 Dose: 0 mls/hr Documented By: HARRIET Dextrose (D5w) 1,000 mls @ 50 mls/hr IVCONT .Q20H [facility] Last Admin: 08/10/22 09:09 Dose: 50 mls/hr Documented By: HARRIET Insulin Human Lispro (Insulin Lispro 100 Unit/Ml 3 Ml Vial) 0 unit SUBCUT QIDACHS [facility]; Protocol Last Admin: 08/10/22 11:45 Dose: Not Given Documented By: HARRIET Non-Admin Reason: pt not eating Lactulose (Lactulose 20 Gm/30 Ml Solution) 20 gm PO BID [facility] Last Admin: 08/10/22 08:32 Dose: Not Given Documented By: HARRIET Non-Admin Reason: lethargic Lisinopril (Lisinopril 5 Mg Tablet) 5 mg PO DAILY [facility]; Protocol Last Admin: 08/10/22 08:32 Dose: Not Given Documented By: HARRIET Non-Admin Reason: lethargic Melatonin (Melatonin 3 Mg Tablet) 6 mg PO BEDTIME PRN PRN Reason: Insomnia Metoprolol Succinate (Metoprolol Succinate Er 25 Mg Tab.Er.24h) 25 mg PO DAILY [facility]; Protocol Last Admin: 08/10/22 08:33 Dose: Not Given Documented By: HARRIET Non-Admin Reason: lethargic Morphine Sulfate (Morphine Sulfate 4 Mg/Ml Cartridge) 4 mg IVPUSH Q4H PRN; Protocol PRN Reason: Pain, Severe (Pain Scale 7-10) Last Admin: 08/10/22 10:54 Dose: 4 mg Documented By: HARRIET Ondansetron HCl (Ondansetron Hcl 4 Mg/2 Ml Vial) 4 mg IVPUSH Q8H PRN PRN Reason: Nausea and Vomiting Oxycodone HCl (Oxycodone Hcl Immed Release 5 Mg Tablet) 5 mg PO Q4H PRN PRN Reason: Pain, Moderate(Pain Scale 4-6) Last Admin: 08/06/22 00:39 Dose: 5 mg Documented By: MADHAVI Pharmacy Consult (Consult Rx Perform Med Rec) 1 each MISCELLANE ONCE PRN PRN Reason: Consult order Sodium Chloride (0.9 % Sodium Chloride Flush 3 Ml Syringe) 3 ml IVFLUSH QSHIFT [facility] Last Admin: 08/10/22 07:16 Dose: 3 ml Documented By: HARRIET Tizanidine HCl (Tizanidine Hcl 4 Mg Tablet) 2 mg PO Q8H PRN PRN Reason: MUSCLE SPASMS Labs 08/10/22 05:33 08/10/22 05:33 Labs: Laboratory Results - last 24 hr 08/09/22 08/09/22 08/09/22 16:39 18:41 20:45 MCV MCH MCHC RDW Plt Count MPV Immature Gran % (Auto) Neut % (Auto) Lymph % (Auto) [place] % (Auto) Eos % (Auto) Baso % (Auto) Lymph # (Auto) [place] # (Auto) Eos # (Auto) Baso # (Auto) Abs Immat Gran (auto) Absolute Neuts (auto) Absolute Nucleated RBC Nucleated RBC % (auto) Anion Gap Estim Creat Clear Calc Estimated GFR POC Glucose 136 H 140 H Fasting Glucose Calcium Total Bilirubin AST ALT Alkaline Phosphatase C-Reactive Protein Total Protein Albumin Procalcitonin Vancomycin Trough 21.5 H 08/10/22 08/10/22 08/10/22 05:33 05:33 07:15 MCV 87.2 MCH 26.0 L MCHC 29.8 L RDW 17.2 H Plt Count 411 H MPV 10.2 Immature Gran % (Auto) 4.2 H Neut % (Auto) 78.9 H Lymph % (Auto) 9.7 L [place] % (Auto) 6.1 Eos % (Auto) 0.8 Baso % (Auto) 0.3 Lymph # (Auto) 1.6 [place] # (Auto) 1.0 Eos # (Auto) 0.1 Baso # (Auto) 0.1 Abs Immat Gran (auto) 0.69 H Absolute Neuts (auto) 12.8 H Absolute Nucleated RBC 0.000 Nucleated RBC % (auto) 0.0 Anion Gap 12 Estim Creat Clear Calc 41.4 Estimated GFR 51 POC Glucose 140 H Fasting Glucose 140 H Calcium 9.2 Total Bilirubin 0.3 AST 93 H ALT 89 H Alkaline Phosphatase 281 H C-Reactive Protein 16.65 H Total Protein 5.6 L Albumin 2.3 L Procalcitonin 0.18 Vancomycin Trough 08/10/22 11:04 MCV MCH MCHC RDW Plt Count MPV Immature Gran % (Auto) Neut % (Auto) Lymph % (Auto) [place] % (Auto) Eos % (Auto) Baso % (Auto) Lymph # (Auto) [place] # (Auto) Eos # (Auto) Baso # (Auto) Abs Immat Gran (auto) Absolute Neuts (auto) Absolute Nucleated RBC Nucleated RBC % (auto) Anion Gap Estim Creat Clear Calc Estimated GFR POC Glucose 158 H Fasting Glucose Calcium Total Bilirubin AST ALT Alkaline Phosphatase C-Reactive Protein Total Protein Albumin Procalcitonin Vancomycin Trough Assessment and Plan (1) Sepsis: Status: Acute (2) Urinary tract infection: Status: Acute Plan d#7 62yo F with HTN, HLD, multifocal CVA, DM2, CAD s/p PCI, mood disorder, CKD3 [facility] due to aspiration PNA vs R toe necrosis subsequently found to have Klebsiella bacteremia # sepsis due to Klebsiella pneumoniae bacteremia - switch vanc/cefepime to ceftriaxone today [not done previously], ID consultation # hyperNa - free water deficit of 1.2L to replace with D5W over next 24h then recheck BMP in AM # R toe necrosis due to PVD - per Vascular Surgery, unlikely source of infection. She is not ambulatory and is not candidate for aggressive intervention, but if necrosis worsens he recommends AKA. # sacral decubitus ulcer - Wound Care consultation # CAD # PVD - clopidogrel + ASA atorvastatin, BP meds as below # HTN - lisinopril, metoprolol # DM2 - correction-dose lispro, DM diet # VTE ppx: LMWH # dispo: LTC In my clinical judgment, the patient requires continued inpatient hospitalization for the following reasons: IV ABX + IV water + ID consultation Time Spent With Patient Time: Total time managing care of this patient today ___40_ minutes. Quality Stroke Does the patient have a stroke diagnosis?: No VTE Prior VTE?: No VTE Risk Level:: Medical - moderate - high VTE Device Contraindication: Treatment Not Indicated VTE Drug Contraindication: N/A - Med Ordered
--- NOTE | 2022-08-10 13:09 | HO.WOUNDCONS ---
History of Present Illness Data of Consult Service Date: 08/10/22 Requesting physician: Lee Bhatt Primary Care Provider: Marybel Segura MD [facility] Reason for consult: left buttock ulcer [id number]: 62-year-old nonverbal female who is a long-term resident at detention facility with chronic spastic left hemiparesis and impaired mobility as such. Presents to [address] with sepsis, possible sources UTI and/or pneumonia. Necrotic toes were discovered as part of initial assessment in vascular surgery was appropriately consulted. We will not be offering instructions for the surgical problem. In addition to stroke and hemiparesis she carries a history of CKD 3, diabetes and hypertension. Sacral decubitus is documented as present on admission consistent with the patient's history of immobility associated with stroke. Review of Systems Review of Systems: Yes Unobtainable due to mental condition [facility] Medical History (Updated 08/10/22 @ 13:17 by FARIBA Cardona) CKD (chronic kidney disease) stage 3, GFR 30-59 ml/min Coronary artery disease COVID-19 CVA (cerebral vascular accident) CVA (cerebral vascular accident) Diabetes mellitus type 2 in nonobese Glaucoma H/O supraventricular tachycardia History of right MCA stroke Hypertension ICAO (internal carotid artery occlusion) Ischemic cardiomyopathy Renal failure (ARF), acute on chronic Status post insertion of drug-eluting stent into left anterior descending (LAD) artery Surgical History H/O cardiac catheterization Social History Household Members: Unknown / Unable to assess Housing: Shelter Do you presently have visiting nurse or other home services: No Unable to assess alcohol history related to: Unknown Alcohol intake: current Patient Tobacco Use Status: Tobacco use Unknown Advance Directives Date on File: 06/01/22 service: No Meds Allergies Allergy/AdvReac Type Severity Reaction Status Date / Time No Known Allergies Allergy Verified 05/20/22 12:06 Active Medications: Current Medications Acetaminophen (Acetaminophen 325 Mg Tablet) 650 mg PO Q6H PRN PRN Reason: Pain, Mild (Pain Scale 1-3) Acetaminophen (Acetaminophen Supp 650 Mg Supp.Rect) 650 mg [place] Q6H PRN PRN Reason: Pain, Mild (Pain Scale 1-3) Last Admin: 08/06/22 22:04 Dose: 650 mg Aspirin (Aspirin Enteric Coated 81 Mg Tablet.Dr) 81 mg PO DAILY [facility] Last Admin: 08/10/22 08:32 Dose: Not Given Atorvastatin Calcium (Atorvastatin Calcium 80 Mg Tablet) 80 mg PO BEDTIME [facility] Last Admin: 08/09/22 21:12 Dose: 80 mg Baclofen (Baclofen 10 Mg Tablet) 15 mg PO TID [facility] Last Admin: 08/10/22 08:32 Dose: Not Given Clopidogrel Bisulfate (Clopidogrel Bisulfate 75 Mg Tablet) 75 mg PO DAILY [facility] Last Admin: 08/10/22 08:32 Dose: Not Given Enoxaparin Sodium (Enoxaparin Sodium 40 Mg/0.4 Ml Syringe) 40 mg SUBCUT Q24H [facility] Last Admin: 08/09/22 21:11 Dose: 40 mg Gabapentin (Gabapentin 100 Mg Capsule) 100 mg PO TID [facility] Last Admin: 08/10/22 08:32 Dose: Not Given Glucose (Glucose Gel 15 Gm Gel..Gram.) 15 gm PO Q15M PRN; Protocol PRN Reason: per Hypoglycemia Standing Ord. Dextrose (D10) 250 mls @ 750 mls/hr IV Q15M PRN; Protocol PRN Reason: per Hypoglycemia Standing Ord. Ceftriaxone Sodium 2 gm/ (Sodium Chloride) 50 mls @ 100 mls/hr IV Q24H [facility] Last Infusion: 08/10/22 09:54 Dose: Infused Dextrose (D5w) 1,000 mls @ 50 mls/hr IVCONT .Q20H [facility] Last Admin: 08/10/22 09:09 Dose: 50 mls/hr Insulin Human Lispro (Insulin Lispro 100 Unit/Ml 3 Ml Vial) 0 unit SUBCUT QIDACHS [facility]; Protocol Last Admin: 08/10/22 11:45 Dose: Not Given Lactulose (Lactulose 20 Gm/30 Ml Solution) 20 gm PO BID [facility] Last Admin: 08/10/22 08:32 Dose: Not Given Lisinopril (Lisinopril 5 Mg Tablet) 5 mg PO DAILY [facility]; Protocol Last Admin: 08/10/22 08:32 Dose: Not Given Melatonin (Melatonin 3 Mg Tablet) 6 mg PO BEDTIME PRN PRN Reason: Insomnia Metoprolol Succinate (Metoprolol Succinate Er 25 Mg Tab.Er.24h) 25 mg PO DAILY [facility]; Protocol Last Admin: 08/10/22 08:33 Dose: Not Given Morphine Sulfate (Morphine Sulfate 4 Mg/Ml Cartridge) 4 mg IVPUSH Q4H PRN; Protocol PRN Reason: Pain, Severe (Pain Scale 7-10) Last Admin: 08/10/22 10:54 Dose: 4 mg Ondansetron HCl (Ondansetron Hcl 4 Mg/2 Ml Vial) 4 mg IVPUSH Q8H PRN PRN Reason: Nausea and Vomiting Oxycodone HCl (Oxycodone Hcl Immed Release 5 Mg Tablet) 5 mg PO Q4H PRN PRN Reason: Pain, Moderate(Pain Scale 4-6) Last Admin: 08/06/22 00:39 Dose: 5 mg Pharmacy Consult (Consult Rx Perform Med Rec) 1 each MISCELLANE ONCE PRN PRN Reason: Consult order Sodium Chloride (0.9 % Sodium Chloride Flush 3 Ml Syringe) 3 ml IVFLUSH [facility] Last Admin: 08/10/22 07:16 Dose: 3 ml Tizanidine HCl (Tizanidine Hcl 4 Mg Tablet) 2 mg PO Q8H PRN PRN Reason: MUSCLE SPASMS Home Medications Medication Instructions Recorded Confirmed Last Taken Type ascorbic acid (vitamin C) 500 mg 500 mg PO DAILY 05/20/22 08/04/22 Unknown History tablet aspirin 81 mg tablet,delayed 81 mg PO DAILY 05/20/22 08/04/22 Unknown History release atorvastatin 80 mg tablet 80 mg PO BEDTIME 05/20/22 08/04/22 Unknown History bisacodyl 10 mg rectal suppository 10 mg [place] DAILY PRN Constipation 05/20/22 08/04/22 Unknown History clopidogrel 75 mg tablet (Plavix) 75 mg PO DAILY 05/20/22 08/04/22 Unknown History dextrose 40 % oral gel (Glucose 20 g PO Q15M PRN FSBS<50 AND ABLE 05/20/22 08/04/22 Unknown History Gel) TO SWALLOW glucagon 1 mg solution for 1 mg subcut Q20M PRN fsbs < 60 and 05/20/22 08/04/22 Unknown History injection unable to swallow insulin lispro 100 unit/mL 1 sliding scale dose subcut QIDACHS 05/20/22 08/04/22 Unknown History subcutaneous solution (Humalog U-100 Insulin) magnesium hydroxide 400 mg/5 mL 30 ml PO DAILY PRN Constipation 05/20/22 08/04/22 Unknown History oral suspension (Milk of Magnesia) meclizine 12.5 mg tablet 12.5 mg PO Q8H PRN Dizziness 05/20/22 08/04/22 Unknown History metoprolol succinate 25 mg 25 mg PO DAILY 05/20/22 08/04/22 Unknown History tablet,extended release 24 hr multivitamin with minerals 1 tab PO BEDTIME 05/20/22 08/04/22 Unknown History sennosides 8.6 mg tablet (senna) 8.6 mg PO DAILY 05/20/22 08/04/22 Unknown History tizanidine 2 mg tablet 2 mg PO Q8H PRN MUSCLE SPASMS 05/20/22 08/04/22 Unknown History Lactobacillus rhamnosus GG 10 1 cap PO BID 08/04/22 08/04/22 Unknown History billion cell capsule (Culturelle) baclofen 5 mg tablet 15 mg PO TID 08/04/22 08/04/22 Unknown History cefuroxime axetil 500 mg tablet 250 mg PO BID 08/04/22 08/04/22 Unknown History ferrous fumarate 325 mg (106 mg 325 mg PO DAILY 08/04/22 08/04/22 Unknown History iron) tablet gabapentin 100 mg capsule 100 mg PO TID 08/04/22 08/04/22 Unknown History insulin detemir U-100 100 unit/mL 12 unit subcut DAILY 08/04/22 08/04/22 Unknown History subcutaneous solution (Levemir U-100 Insulin) lactulose 20 gram/30 mL oral 20 g PO BID 08/04/22 08/04/22 Unknown History solution lisinopril 5 mg tablet 5 mg PO DAILY 08/04/22 08/04/22 Unknown History polyethylene glycol 3350 17 gram 17 g PO DAILY 08/04/22 08/04/22 Unknown History oral powder packet (Miralax) sodium phosphates 19 gram-7 118 ml [place] DAILY PRN Constipation 08/04/22 08/04/22 Unknown History gram/118 mL enema (Fleet Enema) tramadol 50 mg tablet 50 mg PO TID PRN Pain 08/04/22 08/04/22 Unknown History Physical Exam Vital Signs and Narrative: Vital Signs: Last Vital Signs Temp 96.8 F 08/10/22 07:16 Pulse 50 08/10/22 07:16 Resp 16 08/10/22 07:16 BP 137/58 L 08/10/22 07:16 Pulse Ox 98 08/10/22 07:16 O2 Del Method Nasal Cannula 08/10/22 07:16 O2 Flow Rate 2 08/10/22 07:16 Oxygen Flow Rate 3 08/04/22 15:49 BMI result Body Mass Index 19.6 Her eyes are open but she does not respond to verbal or tactile stimulation. Her left arm is tucked in so as to suggest spasticity and the fingers are flexor contracted. There is also dependent edema in her left hand. We roll her onto her right side to examine her buttocks. There is a large unstageable ulcer measuring 5.8 x 6.5 cm on her left buttock. It is covered in nonviable material and would require surgical debridement to properly stage. This tissue does not cortes. There is some periwound excoriation that might be consistent with friction and shear. Deep within the coccygeum is purplish dermis but intact skin. The most distal aspect shows a intact blister to which we will apply alginate. There is no cellulitis by way of redness warmth or streaking of the left buttock. Results Labs 08/10/22 05:33 08/10/22 05:33 Labs: Laboratory Results - last 24 hr 08/09/22 08/09/22 08/09/22 16:39 18:41 20:45 MCV MCH MCHC RDW Plt Count MPV Immature Gran % (Auto) Neut % (Auto) Lymph % (Auto) Schley % (Auto) Eos % (Auto) Baso % (Auto) Lymph # (Auto) Schley # (Auto) Eos # (Auto) Baso # (Auto) Abs Immat Gran (auto) Absolute Neuts (auto) Absolute Nucleated RBC Nucleated RBC % (auto) Anion Gap Estim Creat Clear Calc Estimated GFR POC Glucose 136 H 140 H Fasting Glucose Calcium Total Bilirubin AST ALT Alkaline Phosphatase C-Reactive Protein Total Protein Albumin Procalcitonin Vancomycin Trough 21.5 H 08/10/22 08/10/22 08/10/22 05:33 05:33 07:15 MCV 87.2 MCH 26.0 L MCHC 29.8 L RDW 17.2 H Plt Count 411 H MPV 10.2 Immature Gran % (Auto) 4.2 H Neut % (Auto) 78.9 H Lymph % (Auto) 9.7 L Schley % (Auto) 6.1 Eos % (Auto) 0.8 Baso % (Auto) 0.3 Lymph # (Auto) 1.6 Schley # (Auto) 1.0 Eos # (Auto) 0.1 Baso # (Auto) 0.1 Abs Immat Gran (auto) 0.69 H Absolute Neuts (auto) 12.8 H Absolute Nucleated RBC 0.000 Nucleated RBC % (auto) 0.0 Anion Gap 12 Estim Creat Clear Calc 41.4 Estimated GFR 51 POC Glucose 140 H Fasting Glucose 140 H Calcium 9.2 Total Bilirubin 0.3 AST 93 H ALT 89 H Alkaline Phosphatase 281 H C-Reactive Protein 16.65 H Total Protein 5.6 L Albumin 2.3 L Procalcitonin 0.18 Vancomycin Trough 08/10/22 11:04 MCV MCH MCHC RDW Plt Count MPV Immature Gran % (Auto) Neut % (Auto) Lymph % (Auto) Schley % (Auto) Eos % (Auto) Baso % (Auto) Lymph # (Auto) Schley # (Auto) Eos # (Auto) Baso # (Auto) Abs Immat Gran (auto) Absolute Neuts (auto) Absolute Nucleated RBC Nucleated RBC % (auto) Anion Gap Estim Creat Clear Calc Estimated GFR POC Glucose 158 H Fasting Glucose Calcium Total Bilirubin AST ALT Alkaline Phosphatase C-Reactive Protein Total Protein Albumin Procalcitonin Vancomycin Trough Assessment and Plan (1) Hemiplegia and hemiparesis following cerebral infarction affecting left non-dominant side: Status: Acute (2) Pressure ulcer of left buttock, unstageable: Status: Acute Plan 62-year-old stroke patient dependent on half-way for care with large left buttock unstageable ulceration associated with impaired mobility likely present prior to admission given patient's poor mobility status and inability to care or advocate for herself. If she is incontinent, Allevyn as secondary dressing is a reasonable approach particularly in the absence of maceration of the periwound. Would recommend topical alginate first over the pressure ulcer to absorb any drainage. Unlikely that she would benefit from surgical debridement without nutritional assessment and comprehensive wound care program. Defer to subacute facility in this regard as longterm offloading would need to be addressed also. We are not inclined to interfere with vascular surgery regarding necrotic toes on right foot and a large pressure ulcer on her right posterior calf estimated to be about 13 by 4 cm but not measured by this interdisciplinary team. Xeroform is applied at the time of her buttock evaluation and seems to be a reasonable topical dressing to the right calf but again defer surgery for further recommendations. Time Spent With Patient Time: Total time managing care of this patient today ____ minutes.
--- NOTE | 2022-08-10 14:34 | PC.NURSE ---
Pt too lethargic to eat meals or take po meds today. Dr Grissom aware. IVF started
[2022-08-10 15:46] VITALS: BP 143/61; PULSE 50; RESP 20; TEMP 36; O2SAT 100
--- NOTE | 2022-08-10 15:49 | W.PM.IDCN ---
History of Present Illness Data of Consult Service Date: 08/10/22 Requesting physician: Marie Grissom Primary Care Provider: Marybel Segura MD [facility] Reason for consult: Klebsiella bacteremia She presents with weakness and failure to thrive with fever. She has Klebsiella bacteremia on 08/04. I had seen her 05/29 with E coli UTI blood/urine chronic Alvarez catheter. She had hydronephrosis/hydroureter but no treatment needed. Also she had blackened left heel and right toes,bone second distal tuft exposed now, Vascular has recommended likely amputation. She did not tolerate MRI. Review of Systems Review of Systems: Yes all other systems are reviewed and are negative PMFSH Past Medical History Medical History CKD (chronic kidney disease) stage 3, GFR 30-59 ml/min Coronary artery disease COVID-19 CVA (cerebral vascular accident) CVA (cerebral vascular accident) Diabetes mellitus type 2 in nonobese Glaucoma H/O supraventricular tachycardia History of right MCA stroke Hypertension ICAO (internal carotid artery occlusion) Ischemic cardiomyopathy Renal failure (ARF), acute on chronic Status post insertion of drug-eluting stent into left anterior descending (LAD) artery Family History Family history: reviewed and not pertinent Surgical History Surgical History H/O cardiac catheterization Social History Social History Household Members: Unknown / Unable to assess Housing: Assisted Do you presently have visiting nurse or other home services: No Unable to assess alcohol history related to: Unknown Alcohol intake: current Patient Tobacco Use Status: Tobacco use Unknown Advance Directives Date on File: 06/01/22 service: No Meds Allergies Allergy/AdvReac Type Severity Reaction Status Date / Time No Known Allergies Allergy Verified 05/20/22 12:06 Active Medications: Current Medications Acetaminophen (Acetaminophen 325 Mg Tablet) 650 mg PO Q6H PRN PRN Reason: Pain, Mild (Pain Scale 1-3) Acetaminophen (Acetaminophen Supp 650 Mg Supp.Rect) 650 mg [place] Q6H PRN PRN Reason: Pain, Mild (Pain Scale 1-3) Last Admin: 08/06/22 22:04 Dose: 650 mg Aspirin (Aspirin Enteric Coated 81 Mg Tablet.) 81 mg PO DAILY [facility] Last Admin: 08/10/22 08:32 Dose: Not Given Atorvastatin Calcium (Atorvastatin Calcium 80 Mg Tablet) 80 mg PO BEDTIME [facility] Last Admin: 08/09/22 21:12 Dose: 80 mg Baclofen (Baclofen 10 Mg Tablet) 15 mg PO TID [facility] Last Admin: 08/10/22 14:34 Dose: Not Given Clopidogrel Bisulfate (Clopidogrel Bisulfate 75 Mg Tablet) 75 mg PO DAILY [facility] Last Admin: 08/10/22 08:32 Dose: Not Given Enoxaparin Sodium (Enoxaparin Sodium 40 Mg/0.4 Ml Syringe) 40 mg SUBCUT Q24H [facility] Last Admin: 08/09/22 21:11 Dose: 40 mg Gabapentin (Gabapentin 100 Mg Capsule) 100 mg PO TID [facility] Last Admin: 08/10/22 14:34 Dose: Not Given Glucose (Glucose Gel 15 Gm Gel..Gram.) 15 gm PO Q15M PRN; Protocol PRN Reason: per Hypoglycemia Standing Ord. Dextrose (D10) 250 mls @ 750 mls/hr IV Q15M PRN; Protocol PRN Reason: per Hypoglycemia Standing Ord. Ceftriaxone Sodium 2 gm/ (Sodium Chloride) 50 mls @ 100 mls/hr IV Q24H [facility] Last Infusion: 08/10/22 09:54 Dose: Infused Dextrose (D5w) 1,000 mls @ 50 mls/hr IVCONT .Q20H [facility] Last Admin: 08/10/22 09:09 Dose: 50 mls/hr Insulin Human Lispro (Insulin Lispro 100 Unit/Ml 3 Ml Vial) 0 unit SUBCUT QIDACHS [facility]; Protocol Last Admin: 08/10/22 11:45 Dose: Not Given Lactulose (Lactulose 20 Gm/30 Ml Solution) 20 gm PO BID [facility] Last Admin: 08/10/22 08:32 Dose: Not Given Lisinopril (Lisinopril 5 Mg Tablet) 5 mg PO DAILY [facility]; Protocol Last Admin: 08/10/22 08:32 Dose: Not Given Melatonin (Melatonin 3 Mg Tablet) 6 mg PO BEDTIME PRN PRN Reason: Insomnia Metoprolol Succinate (Metoprolol Succinate Er 25 Mg Tab.Er.24h) 25 mg PO DAILY [facility]; Protocol Last Admin: 08/10/22 08:33 Dose: Not Given Morphine Sulfate (Morphine Sulfate 4 Mg/Ml Cartridge) 4 mg IVPUSH Q4H PRN; Protocol PRN Reason: Pain, Severe (Pain Scale 7-10) Last Admin: 08/10/22 10:54 Dose: 4 mg Ondansetron HCl (Ondansetron Hcl 4 Mg/2 Ml Vial) 4 mg IVPUSH Q8H PRN PRN Reason: Nausea and Vomiting Oxycodone HCl (Oxycodone Hcl Immed Release 5 Mg Tablet) 5 mg PO Q4H PRN PRN Reason: Pain, Moderate(Pain Scale 4-6) Last Admin: 08/06/22 00:39 Dose: 5 mg Pharmacy Consult (Consult Rx Perform Med Rec) 1 each MISCELLANE ONCE PRN PRN Reason: Consult order Sodium Chloride (0.9 % Sodium Chloride Flush 3 Ml Syringe) 3 ml IVFLUSH [facility] Last Admin: 08/10/22 15:09 Dose: Not Given Tizanidine HCl (Tizanidine Hcl 4 Mg Tablet) 2 mg PO Q8H PRN PRN Reason: MUSCLE SPASMS Home Medications Medication Instructions Recorded Confirmed Last Taken Type ascorbic acid (vitamin C) 500 mg 500 mg PO DAILY 05/20/22 08/04/22 Unknown History tablet aspirin 81 mg tablet,delayed 81 mg PO DAILY 05/20/22 08/04/22 Unknown History release atorvastatin 80 mg tablet 80 mg PO BEDTIME 05/20/22 08/04/22 Unknown History bisacodyl 10 mg rectal suppository 10 mg UT DAILY PRN Constipation 05/20/22 08/04/22 Unknown History clopidogrel 75 mg tablet (Plavix) 75 mg PO DAILY 05/20/22 08/04/22 Unknown History dextrose 40 % oral gel (Glucose 20 g PO Q15M PRN FSBS<50 AND ABLE 05/20/22 08/04/22 Unknown History Gel) TO SWALLOW glucagon 1 mg solution for 1 mg subcut Q20M PRN fsbs < 60 and 05/20/22 08/04/22 Unknown History injection unable to swallow insulin lispro 100 unit/mL 1 sliding scale dose subcut QIDACHS 05/20/22 08/04/22 Unknown History subcutaneous solution (Humalog U-100 Insulin) magnesium hydroxide 400 mg/5 mL 30 ml PO DAILY PRN Constipation 05/20/22 08/04/22 Unknown History oral suspension (Milk of Magnesia) meclizine 12.5 mg tablet 12.5 mg PO Q8H PRN Dizziness 05/20/22 08/04/22 Unknown History metoprolol succinate 25 mg 25 mg PO DAILY 05/20/22 08/04/22 Unknown History tablet,extended release 24 hr multivitamin with minerals 1 tab PO BEDTIME 05/20/22 08/04/22 Unknown History sennosides 8.6 mg tablet (senna) 8.6 mg PO DAILY 05/20/22 08/04/22 Unknown History tizanidine 2 mg tablet 2 mg PO Q8H PRN MUSCLE SPASMS 05/20/22 08/04/22 Unknown History Lactobacillus rhamnosus GG 10 1 cap PO BID 08/04/22 08/04/22 Unknown History billion cell capsule (Culturelle) baclofen 5 mg tablet 15 mg PO TID 08/04/22 08/04/22 Unknown History cefuroxime axetil 500 mg tablet 250 mg PO BID 08/04/22 08/04/22 Unknown History ferrous fumarate 325 mg (106 mg 325 mg PO DAILY 08/04/22 08/04/22 Unknown History iron) tablet gabapentin 100 mg capsule 100 mg PO TID 08/04/22 08/04/22 Unknown History insulin detemir U-100 100 unit/mL 12 unit subcut DAILY 08/04/22 08/04/22 Unknown History subcutaneous solution (Levemir U-100 Insulin) lactulose 20 gram/30 mL oral 20 g PO BID 08/04/22 08/04/22 Unknown History solution lisinopril 5 mg tablet 5 mg PO DAILY 08/04/22 08/04/22 Unknown History polyethylene glycol 3350 17 gram 17 g PO DAILY 08/04/22 08/04/22 Unknown History oral powder packet (Miralax) sodium phosphates 19 gram-7 118 ml [place] DAILY PRN Constipation 08/04/22 08/04/22 Unknown History gram/118 mL enema (Fleet Enema) tramadol 50 mg tablet 50 mg PO TID PRN Pain 08/04/22 08/04/22 Unknown History Physical Exam Vital Signs: Vital Signs: Last Vital Signs Temp 96.8 F 08/10/22 07:16 Pulse 50 08/10/22 07:16 Resp 16 08/10/22 07:16 BP 137/58 L 08/10/22 07:16 Pulse Ox 98 08/10/22 07:16 O2 Del Method Nasal Cannula 08/10/22 07:16 O2 Flow Rate 2 08/10/22 07:16 Oxygen Flow Rate 3 08/04/22 15:49 BMI result Body Mass Index 19.6 Extrem: Other: black eschar left heel and right toes Results Labs 08/10/22 05:33 08/10/22 05:33 Labs: Short CBC 08/10/22 Range/Units 05:33 WBC 16.3 H (4.8-10.8) X10*3/uL Hgb 8.5 L (12.0-16.0) g/dl Hct 28.5 L (37.0-47.0) % Plt Count 411 H (160-400) X10*3/uL BMP 08/10/22 05:33 Sodium 151 H Potassium 3.6 Chloride 124 H Carbon Dioxide 19 L BUN 39 H Creatinine 1.08 Calcium 9.2 Liver Function 08/10/22 Range/Units 05:33 Total Bilirubin 0.3 (0.0-1.0) mg/dL AST 93 H (5-31) U/L ALT 89 H (0-31) U/L Alkaline Phosphatase 281 H (39-117) U/L Albumin 2.3 L (3.5-5.0) g/dL Microbiology Microbiology Results: Microbiology 08/04/22 15:15 Blood - Venous Blood Culture - Final Klebsiella pneumoniae 08/04/22 15:15 Blood - Venous Blood Culture - Final Klebsiella pneumoniae 08/04/22 18:35 Urine Catheterized - Alvarez Catheter Urine Culture - Final Assessment and Plan (1) Bacteremia due to Klebsiella pneumoniae: Status: Acute There is Klebsiella likely urine source. She has no cellulitis and foot and heel do not show signs of infection. Lung also has not been concern and not hypoxic. (2) Hemiplegia and hemiparesis following cerebral infarction affecting left non-dominant side: Status: Acute (3) Pressure ulcer of left buttock, unstageable: Status: Acute Plan Ceftriaxone 2 g daily and then po Ceftin likely 14 days total. Check abdomen u/s Follow Urology. Time Spent With Patient Time: Total time managing care of this patient today ____ minutes.
[2022-08-10 16:24] LABS: Glucose, Whole Blood 189 mg/dL (60-115)
[2022-08-10] MEDS: Insulin Lispro 100 UNIT/ML 3 ML VIAL SUBCUT ×2 (16:43→20:59)
[2022-08-10 19:06] VITALS: BP 122/60; PULSE 53; RESP 18; TEMP 36.7; O2SAT 99
[2022-08-10 20:31] LABS: Glucose, Whole Blood 163 mg/dL (60-115)
[2022-08-10] MEDS: Enoxaparin Sodium 40 MG/0.4 ML SYRINGE SUBCUT (20:59)
[2022-08-10 23:56] VITALS: O2SAT 96
[2022-08-11 03:18] VITALS: BP 156/72; PULSE 55; RESP 16; TEMP 36.1; O2SAT 98
[2022-08-11] MEDS: Dextrose 5 % 1,000 ML 50 ML IVCONT (05:05)
[2022-08-11] MEDS: Acetaminophen Supp 650 MG SUPP.RECT PR (05:06)
[2022-08-11 06:06] LABS: Hematocrit 27.3 % (37.0-47.0); Hemoglobin 8.4 g/dl (12.0-16.0); Mean Corpuscular HGB Conc 30.8 g/dl (31.0-35.0); Mean Corpuscular Hemoglobin 26.3 pg (27.0-33.0); Mean Corpuscular Volume 85.3 fL (80.0-98.0); Mean Platelet Volume 9.7 fL (9.4-12.3); Platelet Count 399 X10*3/uL (160-400); Red Cell Distribution Width 17.8 % (11.0-16.0); White Blood Count 16.2 X10*3/uL (4.8-10.8)
[2022-08-11 06:27] LABS: Alanine Aminotransferase 79 U/L (0-31); Albumin Level 2.2 g/dL (3.5-5.0); Alkaline Phosphatase 252 U/L (39-117); Anion Gap 9 (12-20); Aspartate Amino Transferase 77 U/L (5-31); Bilirubin Total 0.2 mg/dL (0.0-1.0); Blood Urea Nitrogen 36 mg/dL (9-16); Calcium 9.2 mg/dL (8.4-10.2); Carbon Dioxide 21 mmol/L (22-29); Chloride 122 mmol/L (96-108); Creatinine Clr Calc Pharmacy 42.6; Estimated Glomerular Filt Rate 53; Glucose Random 207 mg/dL (60-115); Potassium 3.3 mmol/L (3.3-5.1); Sodium 149 mmol/L (135-145); Total Protein 5.4 g/dL (6.5-8.0)
[2022-08-11 07:13] VITALS: BP 145/74; PULSE 52; RESP 20; TEMP 36.2; O2SAT 97
[2022-08-11 07:29] LABS: Glucose, Whole Blood 179 mg/dL (60-115)
[2022-08-11] MEDS: Insulin Lispro 100 UNIT/ML 3 ML VIAL SUBCUT ×3 (08:23→20:54)
[2022-08-11] MEDS: cefTRIAXone sodium 2 GM in 0.9 % Sodium Chloride 50 ML IV (08:23)
[2022-08-11] MEDS: iohexoL 350 MG/ML 100 ML INFUS..BTL 85 ML IV (09:30)
--- NOTE | 2022-08-11 10:52 | P.PNIM_ITS ---
Subjective Subjective Date of Service: 08/11/22 Interval History: not verbalizing Review of Systems Review of Systems: Yes Unobtainable due to mental status Physical Exam Vital Signs: Vital Signs: Last Vital Signs Temp 97.1 F 08/11/22 07:13 Pulse 52 08/11/22 07:13 Resp 20 08/11/22 07:13 BP 145/74 H 08/11/22 07:13 Pulse Ox 97 08/11/22 07:13 O2 Del Method Nasal Cannula 08/11/22 07:13 O2 Flow Rate 1 08/11/22 07:13 Oxygen Flow Rate 3 08/04/22 15:49 BMI result Body Mass Index 19.6 Gen: in no acute distress but largely non-verbal HEENT: sclera anicteric, moist mucus membranes Neck: supple Lungs: clear to auscultation bilaterally Heart: regular rate and rhythm, no murmurs Abd: soft, non-tender, non-distended : Alvarez draining clear urine Ext: no edema Skin: warm/well-perfused Neuro: awake, non-verbal, L hemiplegia Psych: appropriate affect Objective Data Active Medications Acetaminophen (Acetaminophen 325 Mg Tablet) 650 mg PO Q6H PRN PRN Reason: Pain, Mild (Pain Scale 1-3) Acetaminophen (Acetaminophen Supp 650 Mg Supp.Rect) 650 mg TN Q6H PRN PRN Reason: Pain, Mild (Pain Scale 1-3) Last Admin: 08/11/22 05:06 Dose: 650 mg Documented By: MADHAVI Aspirin (Aspirin Enteric Coated 81 Mg Tablet.) 81 mg PO DAILY [facility] Last Admin: 08/11/22 08:27 Dose: Not Given Documented By: MICHAEL Non-Admin Reason: pt too lethargic Atorvastatin Calcium (Atorvastatin Calcium 80 Mg Tablet) 80 mg PO BEDTIME [facility] Last Admin: 08/10/22 21:20 Dose: Not Given Documented By: ONEIDA Non-Admin Reason: unable to swallow Baclofen (Baclofen 10 Mg Tablet) 15 mg PO TID [facility] Last Admin: 08/11/22 08:27 Dose: Not Given Documented By: MICHAEL Non-Admin Reason: pt too lethargic Clopidogrel Bisulfate (Clopidogrel Bisulfate 75 Mg Tablet) 75 mg PO DAILY [facility] Last Admin: 08/11/22 08:27 Dose: Not Given Documented By: HO.COTEMA Non-Admin Reason: pt too lethargic Enoxaparin Sodium (Enoxaparin Sodium 40 Mg/0.4 Ml Syringe) 40 mg SUBCUT Q24H [facility] Last Admin: 08/10/22 20:59 Dose: 40 mg Documented By: ONEIDA Gabapentin (Gabapentin 100 Mg Capsule) 100 mg PO TID [facility] Last Admin: 08/11/22 08:27 Dose: Not Given Documented By: MICHAEL Non-Admin Reason: pt too lethargic Glucose (Glucose Gel 15 Gm Gel..Gram.) 15 gm PO Q15M PRN; Protocol PRN Reason: per Hypoglycemia Standing Ord. Dextrose (D10) 250 mls @ 750 mls/hr IV Q15M PRN; Protocol PRN Reason: per Hypoglycemia Standing Ord. Ceftriaxone Sodium 2 gm/ (Sodium Chloride) 50 mls @ 100 mls/hr IV Q24H [facility] Last Infusion: 08/11/22 09:18 Dose: 0 mls/hr Documented By: MICHAEL Dextrose (D5w) 1,000 mls @ 50 mls/hr IVCONT .Q20H [facility] Last Admin: 08/11/22 05:05 Dose: 50 mls/hr Documented By: MADHAVI Insulin Human Lispro (Insulin Lispro 100 Unit/Ml 3 Ml Vial) 0 unit SUBCUT QIDACHS [facility]; Protocol Last Admin: 08/11/22 08:23 Dose: 2 unit Documented By: MICHAEL Lactulose (Lactulose 20 Gm/30 Ml Solution) 20 gm PO BID [facility] Last Admin: 08/11/22 08:28 Dose: Not Given Documented By: MICHAEL Non-Admin Reason: pt too lethargic Lisinopril (Lisinopril 5 Mg Tablet) 5 mg PO DAILY [facility]; Protocol Last Admin: 08/11/22 08:28 Dose: Not Given Documented By: MICHAEL Non-Admin Reason: pt too lethargic Melatonin (Melatonin 3 Mg Tablet) 6 mg PO BEDTIME PRN PRN Reason: Insomnia Metoprolol Succinate (Metoprolol Succinate Er 25 Mg Tab.Er.24h) 25 mg PO DAILY [facility]; Protocol Last Admin: 08/11/22 08:28 Dose: Not Given Documented By: TERRIEMA Non-Admin Reason: pt too lethargic Morphine Sulfate (Morphine Sulfate 4 Mg/Ml Cartridge) 4 mg IVPUSH Q4H PRN; Protocol PRN Reason: Pain, Severe (Pain Scale 7-10) Last Admin: 08/10/22 10:54 Dose: 4 mg Documented By: HARRIET Ondansetron HCl (Ondansetron Hcl 4 Mg/2 Ml Vial) 4 mg IVPUSH Q8H PRN PRN Reason: Nausea and Vomiting Oxycodone HCl (Oxycodone Hcl Immed Release 5 Mg Tablet) 5 mg PO Q4H PRN PRN Reason: Pain, Moderate(Pain Scale 4-6) Last Admin: 08/06/22 00:39 Dose: 5 mg Documented By: MADHAVI Pharmacy Consult (Consult Rx Perform Med Rec) 1 each MISCELLANE ONCE PRN PRN Reason: Consult order Sodium Chloride (0.9 % Sodium Chloride Flush 3 Ml Syringe) [facility] Last Admin: 08/11/22 07:07 Dose: Not Given Documented By: MICHAEL Non-Admin Reason: IV Running Tizanidine HCl (Tizanidine Hcl 4 Mg Tablet) 2 mg PO Q8H PRN PRN Reason: MUSCLE SPASMS Labs 08/11/22 05:52 08/11/22 05:52 Labs: Laboratory Results - last 24 hr 08/10/22 08/10/22 08/10/22 05:33 11:04 16:18 MCV MCH MCHC RDW Plt Count MPV Absolute Nucleated RBC Nucleated RBC % (auto) Anion Gap Estim Creat Clear Calc Estimated GFR POC Glucose 158 H 189 H Random Glucose Calcium Total Bilirubin AST ALT Alkaline Phosphatase C-Reactive Protein 16.65 H Total Protein Albumin Procalcitonin 0.18 08/10/22 08/11/22 08/11/22 20:25 05:52 05:52 MCV 85.3 MCH 26.3 L MCHC 30.8 L RDW 17.8 H Plt Count 399 MPV 9.7 Absolute Nucleated RBC 0.000 Nucleated RBC % (auto) 0.0 Anion Gap 9 L Estim Creat Clear Calc 42.6 Estimated GFR 53 POC Glucose 163 H Random Glucose 207 H Calcium 9.2 Total Bilirubin 0.2 AST 77 H ALT 79 H Alkaline Phosphatase 252 H C-Reactive Protein Total Protein 5.4 L Albumin 2.2 L Procalcitonin 08/11/22 07:08 MCV MCH MCHC RDW Plt Count MPV Absolute Nucleated RBC Nucleated RBC % (auto) Anion Gap Estim Creat Clear Calc Estimated GFR POC Glucose 179 H Random Glucose Calcium Total Bilirubin AST ALT Alkaline Phosphatase C-Reactive Protein Total Protein Albumin Procalcitonin Assessment and Plan (1) Sepsis: Status: Acute Plan d#8 62yo F with HTN, HLD, multifocal CVA, DM2, CAD s/p PCI, mood disorder, CKD3 long-term resident of [facility] sent in with fevers suspected due to aspiration PNA vs R toe necrosis subsequently found to have Klebsiella bacteremia # sepsis due to Klebsiella pneumoniae bacteremia - switched vanc/cefepime to ceftriaxone on 08/10, [not done previously], ID consulted, likely 14d total of antibiotics [end date 08/16] - CT A/P to check for abdominal or urinary source # hyperNa - improving on D5W, continue, recheck BMP in AM, encourage oral water intake - free water deficit of 1.2L to replace with D5W over next 24h then recheck BMP in AM # R toe necrosis due to PVD - per Vascular Surgery, unlikely source of infection. She is not ambulatory and is not candidate for aggressive intervention, but if necrosis worsens he recommends AKA. # sacral decubitus ulcer, unstageable - Wound Care consulted: Allevyn as secondary dressing is a reasonable approach particularly in the absence of maceration of the periwound.? Would recommend topical alginate first over the pressure ulcer to absorb any drainage. - nutritional supplements # CAD # PVD - clopidogrel + ASA atorvastatin, BP meds as below # HTN - lisinopril, metoprolol # DM2 - correction-dose lispro, DM diet # cognitive impairment/dementia # depression - per son Negrito [updated by phone], pt with worsening mental status and apathy over last month; some hallucinations as well along with decreased appetite + weight loss - he had her sertraline stopped but is wondering if she needs to be back on an antidepressant - will start mirtazapine as it may also help with weight gain # VTE ppx: LMWH # dispo: LTC, anticipate in next 1-2d In my clinical judgment, the patient requires continued inpatient hospitalization for the following reasons: IV ABX + fluid + infection workup Time Spent With Patient Time: Total time managing care of this patient today ___45_ minutes. Quality Stroke Does the patient have a stroke diagnosis?: No VTE Prior VTE?: No VTE Risk Level:: Medical - moderate - high VTE Device Contraindication: Treatment Not Indicated VTE Drug Contraindication: N/A - Med Ordered
[2022-08-11 11:16] LABS: Glucose, Whole Blood 147 mg/dL (60-115)
--- NOTE | 2022-08-11 12:07 | MHC.SLORD ---
Speech Language Pathology Order Status: Pt not awakening to voice or sternal rub, vocalizing discomfort, not opening eyes when approached. Breakfast tray at bedside, not touched. Per RN, Pt not taking PO food or medications. Not appropriate for swallow trials on this date. TECHNICAL TRAINING SPECIALIST will continue to follow.
[2022-08-11 12:43] VITALS: BP 152/65; PULSE 68; RESP 18; O2SAT 97
[2022-08-11 12:48] VITALS: RESP 18
[2022-08-11] MEDS: Morphine Sulfate 4 MG/ML CARTRIDGE IVPUSH (12:48)
--- NOTE | 2022-08-11 13:31 | MHC.CM.PN ---
[facility] UPDATED IN [facility]. POSSIBLE GOALS OF CARE DISCUSSION WITH FAMILY.
[2022-08-11 15:11] VITALS: BP 112/56; PULSE 58; RESP 20; TEMP 36.3; O2SAT 94
[2022-08-11 16:08] LABS: Glucose, Whole Blood 172 mg/dL (60-115)
[2022-08-11 19:34] VITALS: BP 129/60; PULSE 67; RESP 17; TEMP 36.6; O2SAT 99
[2022-08-11 20:28] LABS: Glucose, Whole Blood 170 mg/dL (60-115)
[2022-08-11] MEDS: Enoxaparin Sodium 40 MG/0.4 ML SYRINGE SUBCUT (20:55)
[2022-08-12] MEDS: Dextrose 5 % 1,000 ML 50 ML IVCONT ×2 (01:24→20:11)
[2022-08-12 03:42] VITALS: BP 109/55; PULSE 55; RESP 18; TEMP 36.1; O2SAT 97
[2022-08-12 06:20] LABS: Anion Gap 8 (12-20); Blood Urea Nitrogen 30 mg/dL (9-16); C Reactive Protein 9.87 mg/dL (< or = 0.50); Calcium 9.2 mg/dL (8.4-10.2); Carbon Dioxide 20 mmol/L (22-29); Chloride 118 mmol/L (96-108); Creatinine Clr Calc Pharmacy 44.7; Estimated Glomerular Filt Rate 56; Glucose Random 181 mg/dL (60-115); Potassium 2.9 mmol/L (3.3-5.1); Sodium 143 mmol/L (135-145)
[2022-08-12 06:32] LABS: Hematocrit 26.2 % (37.0-47.0); Mean Corpuscular HGB Conc 30.5 g/dl (31.0-35.0); Mean Corpuscular Hemoglobin 26.1 pg (27.0-33.0); Mean Corpuscular Volume 85.6 fL (80.0-98.0); Mean Platelet Volume 9.8 fL (9.4-12.3); Platelet Count 369 X10*3/uL (160-400); Red Blood Count 3.06 X10*6/uL (4.20-5.50); Red Cell Distribution Width 18.1 % (11.0-16.0)
[2022-08-12 07:29] VITALS: BP 150/65; PULSE 54; RESP 16; TEMP 36.4; O2SAT 98
[2022-08-12 07:31] LABS: Glucose, Whole Blood 173 mg/dL (60-115)
[2022-08-12] MEDS: cefTRIAXone sodium 2 GM in 0.9 % Sodium Chloride 50 ML IV (08:25)
[2022-08-12] MEDS: Insulin Lispro 100 UNIT/ML 3 ML VIAL SUBCUT ×2 (08:25→20:00)
[2022-08-12] MEDS: Potassium Chloride ER 20 MEQ TAB.ER.PRT 40 MEQ PO (08:30)
[2022-08-12] MEDS: Gabapentin 100 MG CAPSULE PO ×3 (08:31→19:51)
[2022-08-12] MEDS: Baclofen 10 MG TABLET 15 MG PO ×3 (08:32→19:50)
[2022-08-12] MEDS: lisinopriL 5 MG TABLET PO (08:33)
[2022-08-12] MEDS: Clopidogrel Bisulfate 75 MG TABLET PO (08:34)
--- NOTE | 2022-08-12 10:09 | MHC.CLN ---
F/U DIET=PUREE WITH NECTAR THICK LIQUIDS. MULTIPLE AREAS OF IMPAIRED SKIN. ENSURE MAX PROTEIN BID TO PROMOTE WOUND HEALING. PROVIDES 300 KCALS, 60 G PROTEIN. INTAKE CONTINUES USUALLY POOR WITH MANY MEALS=0. ENSURE SUPPLEMENT X 5 NOT TAKEN AT BEDSIDE. INADEQUATE NUTRITIONAL INTAKE. MAY BENEFIT FROM ARTIFICIAL NUTRITION. FOLLOW FOR DIET ADVANCEMENT, INTAKE AND WOUND HEALING.
[2022-08-12] MEDS: Acetaminophen 325 MG TABLET 650 MG PO (11:02)
[2022-08-12 11:11] LABS: Glucose, Whole Blood 140 mg/dL (60-115)
--- NOTE | 2022-08-12 12:42 | HO.PM.IMPN ---
Subjective Subjective Date of Service: 08/12/22 Interval History: awake alert answering questions appropriately refusing to eat requesting for water, complaining of sore throat, not new symptoms ongoing for a while,son at bedside concern about right upper ext. weakness and right facial droop, patient has clear speech. patient denies pain, no headache, no dizziness, no nausea, no vomiting, no fevers, no chills, no cough, no shortness of breath. Review of Systems All other system reviewed and negative. Physical Exam Vital Signs: Vital Signs: Last Vital Signs Temp 97.6 F 08/12/22 07:29 Pulse 54 08/12/22 07:29 Resp 16 08/12/22 07:29 BP 150/65 H 08/12/22 07:29 Pulse Ox 98 08/12/22 07:29 O2 Del Method Nasal Cannula 08/12/22 07:29 O2 Flow Rate 2 08/12/22 07:29 Oxygen Flow Rate 3 08/04/22 15:49 BMI result Body Mass Index 19.6 Const: Other: Gen: awake alert, in no acute distress HEENT: sclera anicteric, moist mucus membranes Neck: supple Lungs: clear to auscultation bilaterally Heart: regular rate and rhythm, no murmurs Abd: soft, non-tender, non-distended : Alvarez draining clear urine Ext: no edema Skin: warm/well-perfused Neuro: awake, clear speech left hemiparesis, no facial droop right face, limited range of motion right upper and lower extremity but seems chronic Psych: appropriate affect Objective Data Active Medications Acetaminophen (Acetaminophen 325 Mg Tablet) 650 mg PO Q6H PRN PRN Reason: Pain, Mild (Pain Scale 1-3) Last Admin: 08/12/22 11:02 Dose: 650 mg Documented By: HARRIET Acetaminophen (Acetaminophen Supp 650 Mg Supp.Rect) 650 mg ME Q6H PRN PRN Reason: Pain, Mild (Pain Scale 1-3) Last Admin: 08/11/22 05:06 Dose: 650 mg Documented By: MADHAVI Aspirin (Aspirin Enteric Coated 81 Mg Tablet.) 81 mg PO DAILY [facility] Last Admin: 08/12/22 08:31 Dose: Not Given Documented By: HARRIET Non-Admin Reason: unable to swallow Atorvastatin Calcium (Atorvastatin Calcium 80 Mg Tablet) 80 mg PO BEDTIME [facility] Last Admin: 08/11/22 21:41 Dose: Not Given Documented By: ARLINE Non-Admin Reason: too lethargic to take Baclofen (Baclofen 10 Mg Tablet) 15 mg PO TID [facility] Last Admin: 08/12/22 08:32 Dose: 15 mg Documented By: HARRIET Clopidogrel Bisulfate (Clopidogrel Bisulfate 75 Mg Tablet) 75 mg PO DAILY [facility] Last Admin: 08/12/22 08:34 Dose: 75 mg Documented By: HARRIET Enoxaparin Sodium (Enoxaparin Sodium 40 Mg/0.4 Ml Syringe) 40 mg SUBCUT Q24H [facility] Last Admin: 08/11/22 20:55 Dose: 40 mg Documented By: ARLINE Gabapentin (Gabapentin 100 Mg Capsule) 100 mg PO TID [facility] Last Admin: 08/12/22 08:31 Dose: 100 mg Documented By: HARRIET Glucose (Glucose Gel 15 Gm Gel..Gram.) 15 gm PO Q15M PRN; Protocol PRN Reason: per Hypoglycemia Standing Ord. Dextrose (D10) 250 mls @ 750 mls/hr IV Q15M PRN; Protocol PRN Reason: per Hypoglycemia Standing Ord. Ceftriaxone Sodium 2 gm/ (Sodium Chloride) 50 mls @ 100 mls/hr IV Q24H [facility] Last Infusion: 08/12/22 08:55 Dose: 0 mls/hr Documented By: HARRIET Dextrose (D5w) 1,000 mls @ 50 mls/hr IVCONT .Q20H [facility] Last Admin: 08/12/22 01:24 Dose: 50 mls/hr Documented By: ARLINE Insulin Human Lispro (Insulin Lispro 100 Unit/Ml 3 Ml Vial) 0 unit SUBCUT QIDACHS [facility]; Protocol Last Admin: 08/12/22 11:14 Dose: Not Given Documented By: HARRIET Non-Admin Reason: No Insulin Coverage Lactulose (Lactulose 20 Gm/30 Ml Solution) 20 gm PO BID [facility] Last Admin: 08/12/22 08:34 Dose: Not Given Documented By: HARRIET Non-Admin Reason: unable to swallow Lisinopril (Lisinopril 5 Mg Tablet) 5 mg PO DAILY [facility]; Protocol Last Admin: 08/12/22 08:33 Dose: 5 mg Documented By: HARRIET Melatonin (Melatonin 3 Mg Tablet) 6 mg PO BEDTIME PRN PRN Reason: Insomnia Metoprolol Succinate (Metoprolol Succinate Er 25 Mg Tab.Er.24h) 25 mg PO DAILY [facility]; Protocol Last Admin: 08/12/22 08:34 Dose: Not Given Documented By: HARRIET Non-Admin Reason: Decreased Heart Rate Mirtazapine (Mirtazapine 15 Mg Tablet) 15 mg PO BEDTIME [facility] Last Admin: 08/11/22 21:42 Dose: Not Given Documented By: ARLINE Non-Admin Reason: too lethargic to take Morphine Sulfate (Morphine Sulfate 4 Mg/Ml Cartridge) 4 mg IVPUSH Q4H PRN; Protocol PRN Reason: Pain, Severe (Pain Scale 7-10) Last Admin: 08/11/22 12:48 Dose: 4 mg Documented By: MICHAEL Ondansetron HCl (Ondansetron Hcl 4 Mg/2 Ml Vial) 4 mg IVPUSH Q8H PRN PRN Reason: Nausea and Vomiting Oxycodone HCl (Oxycodone Hcl Immed Release 5 Mg Tablet) 5 mg PO Q4H PRN PRN Reason: Pain, Moderate(Pain Scale 4-6) Last Admin: 08/06/22 00:39 Dose: 5 mg Documented By: MADHAVI Pharmacy Consult (Consult Rx Perform Med Rec) 1 each MISCELLANE ONCE PRN PRN Reason: Consult order Sodium Chloride (0.9 % Sodium Chloride Flush 3 Ml Syringe) [facility] Last Admin: 08/12/22 08:30 Dose: Not Given Documented By: HARRIET Non-Admin Reason: IV Running Tizanidine HCl (Tizanidine Hcl 4 Mg Tablet) 2 mg PO Q8H PRN PRN Reason: MUSCLE SPASMS Labs 08/12/22 05:41 08/12/22 05:41 Labs: Laboratory Results - last 24 hr 08/11/22 08/11/22 08/12/22 16:00 20:24 05:41 MCV MCH MCHC RDW Plt Count MPV Absolute Nucleated RBC Nucleated RBC % (auto) Anion Gap 8 L Estim Creat Clear Calc 44.7 Estimated GFR 56 POC Glucose 172 H 170 H Random Glucose 181 H Calcium 9.2 C-Reactive Protein 9.87 H 0608/12/22 08/12/22 05:41 07:06 11:00 MCV 85.6 MCH 26.1 L MCHC 30.5 L RDW 18.1 H Plt Count 369 MPV 9.8 Absolute Nucleated RBC 0.000 Nucleated RBC % (auto) 0.0 Anion Gap Estim Creat Clear Calc Estimated GFR POC Glucose 173 H 140 H Random Glucose Calcium C-Reactive Protein Assessment and Plan (1) Sepsis: Status: Acute Plan 62yo F with HTN, HLD, multifocal CVA, DM2, CAD s/p PCI, mood disorder, CKD3 long-term resident of [facility] sent in with fevers suspected due to aspiration PNA vs R toe necrosis subsequently found to have Klebsiella bacteremia # sepsis due to Klebsiella pneumoniae bacteremia - switched vanc/cefepime to ceftriaxone on 08/10, ID consulted, likely 14d total of antibiotics [end date 08/16] - CT A/P showed severe bilateral hydronephrosis and ureteral dilatation down to the bladder, diffuse bladder wall thickening these findings similar to previous exam new fat stranding and pre sacral space and small amount of fluid in pelvis, new left lower lobe pneumonia, intra and extrahepatic biliary ductal dilatation similar to previous exam chest x-ray on 08/05 showed retrocardiac opacity, likely no new pneumonia, lung exam unremarkable, on IV ceftriaxone, WBC trending down will transition to by mouth antibiotic in next 24 hours # hyperNa - improved on D5W, encourage oral water intake, decreased by mouth intake continue IV fluids # hypokalemia will replete and repeat labs # R toe necrosis due to PVD - per Vascular Surgery, unlikely source of infection. She is not ambulatory and is not candidate for aggressive intervention, but if necrosis worsens he recommends AKA spoke with son and informed about plan of care. # sacral decubitus ulcer, unstageable - Wound Care consulted they recommend Allevyn as secondary dressing , topical alginate first over the pressure ulcer to absorb any drainage, continue nutrition support # poor nutrition, being evaluated by sheriffs detective patient receiving Ensure supplements, but continued to have inadequate by mouth intake discuss alternate nutrition with patient and son including PEG tube placement he will decide and let us know. # CAD/ PVD - clopidogrel + ASA and atorvastatin # HTN - stable blood pressure,lisinopril, metoprolol # DM2 - correction-dose lispro, DM diet # cognitive impairment/dementia # depression - per son Negrito at bedside, pt. with worsening mental status and apathy over last month; some hallucinations as well, along with decreased appetite + weight loss therefore he had her sertraline stopped , patient's started on mirtazapine 15 mg as it may also help with weight gain. # VTE ppx: LMWH # dispo: LTC In my clinical judgment, the patient requires continued inpatient hospitalization for the following reasons: IV ABX + fluid + poor nutrition Time Spent With Patient Time: Total time managing care of this patient today ____ minutes. Quality Stroke Does the patient have a stroke diagnosis?: No VTE Prior VTE?: No VTE Risk Level:: Medical - moderate - high VTE Device Contraindication: Treatment Not Indicated VTE Drug Contraindication: N/A - Med Ordered
--- NOTE | 2022-08-12 14:06 | MHC.SL.SWA ---
Risk of Aspiration Due to: Neurological Condition Poor PO Intake Reduced Cognition Dysphasia Diet Status: No change Liquid Consistency and Strategies for Safe Swallow: Liquid Intake Recommendation: Noonday Thick Liquid Intake Strategies: Small Sips No Straws Solid Food Consistency: Dietary Recommendations: Pureed (NDD1) Oral Medication Intake: Crushed with Puree Please contact the pharmacy regarding appropriate crushable or liquid drug formulations that are available whenever modified delivery is recommended. Compensatory Strategies and Precautions to be Taken for Safe Swallow: Sitting Upright (90 deg) No Straw Small Bites and Sips Rate of Ingestion Change Oral Check Avoid Specific Foods Supervision While Eating and Drinking for Safe Swallow: Total Assistance (1:1) Foods to Avoid: Mixed consistencies Swallowing Recommended Treatments: Compens. Strategy Educat. Recommendation for Speech: Inpatient Speech Therapy Recommend pt continue with PUREE solids (NDD1), NECTAR THICK liquids and PILLS CRUSHED in puree. Pt requires total 1:1 assistance feeding, ensure aspiration precautions. Hold tray if pt is lethargic and/or not attending to meal. Pt benefits from consistent reminders to swallow and oral check. TAX MAP TECHNICIAN will continue to follow to monitor tolerance and re-assess potential for upgrade as appropriate. Bacteriologist Industrial Clinican/Clinical Fellow: No Supervisory Statement: I have reviewed and agree with the student/clinical fellow's documentation: N/A Speech Language Pathologist: Bernarda Sequeira M.A., TAX MAP TECHNICIAN
[2022-08-12] MEDS: oxyCODONE HCl Immed Release 5 MG TABLET PO ×2 (14:58→20:15)
[2022-08-12 15:01] VITALS: BP 150/65; PULSE 56; RESP 14; TEMP 36; O2SAT 99
--- NOTE | 2022-08-12 15:03 | MHC.CM.PN ---
POSSIBLE RETURN TO [facility] SUNDAY 08/13 SON, CARISSA (IN ROOM) IS HOPING TO SEND PATIENT TO ANOTHER FACILITY. HE IS AWARE OF THE LACK OF LTC BEDS IN THE AREA HE IS INTERESTED IN LEARNING ABOUT AN INCREASE OF CARE AT HOME AND POSSIBLY TAKE PATIENT HOME IN THE NEAR FUTURE. THIS ROOM SERVICE MANAGER TO SPEAK WITH [facility] [employer] TOMORROW ON UNIT.
[2022-08-12 15:49] LABS: Glucose, Whole Blood 146 mg/dL (60-115)
[2022-08-12 19:17] VITALS: BP 130/60; PULSE 57; RESP 16; TEMP 36.1; O2SAT 96
[2022-08-12] MEDS: Atorvastatin Calcium 80 MG TABLET PO (19:50)
[2022-08-12] MEDS: Lactulose 20 GM/30 ML SOLUTION PO (19:50)
[2022-08-12] MEDS: Enoxaparin Sodium 40 MG/0.4 ML SYRINGE SUBCUT (19:51)
[2022-08-12] MEDS: Mirtazapine 15 MG TABLET PO (19:51)
[2022-08-12 19:56] LABS: Glucose, Whole Blood 158 mg/dL (60-115)
[2022-08-12] MEDS: Melatonin 3 MG TABLET 6 MG PO (20:14)
[2022-08-13 04:00] VITALS: BP 154/76; PULSE 58; RESP 16; TEMP 36.3; O2SAT 99
[2022-08-13 06:46] LABS: Hematocrit 25.9 % (37.0-47.0); Hemoglobin 8.1 g/dl (12.0-16.0); Mean Corpuscular HGB Conc 31.3 g/dl (31.0-35.0); Mean Corpuscular Hemoglobin 26.4 pg (27.0-33.0); Mean Corpuscular Volume 84.4 fL (80.0-98.0); Mean Platelet Volume 9.9 fL (9.4-12.3); Platelet Count 383 X10*3/uL (160-400); Red Blood Count 3.07 X10*6/uL (4.20-5.50); Red Cell Distribution Width 18.1 % (11.0-16.0); White Blood Count 14.1 X10*3/uL (4.8-10.8)
[2022-08-13 06:58] LABS: Anion Gap 8 (12-20); Blood Urea Nitrogen 26 mg/dL (9-16); Calcium 8.9 mg/dL (8.4-10.2); Carbon Dioxide 21 mmol/L (22-29); Chloride 115 mmol/L (96-108); Creatinine Clr Calc Pharmacy 50.2; Estimated Glomerular Filt Rate > 60; Glucose Random 126 mg/dL (60-115); Potassium 2.9 mmol/L (3.3-5.1); Sodium 141 mmol/L (135-145)
[2022-08-13 07:22] VITALS: BP 100/48; PULSE 54; RESP 16; TEMP 37.1; O2SAT 98
[2022-08-13 07:23] LABS: Glucose, Whole Blood 128 mg/dL (60-115)
[2022-08-13] MEDS: 0.9 % Sodium Chloride Flush 3 ML SYRINGE IVFLUSH ×3 (08:30→19:28)
--- NOTE | 2022-08-13 09:33 | MHC.CLN ---
F/U DIET=PUREE WITH NECTAR THICK LIQUIDS. MULTIPLE AREAS OF IMPAIRED SKIN. ENSURE MAX PROTEIN BID TO PROMOTE WOUND HEALING. PROVIDES 300 KCALS, 60 G PROTEIN. CONTINUES WITH POOR PO INTAKE. MAY BENEFIT FROM ARTIFICIAL NUTRITION. MD DISCUSSED POSSIBLE PEG TUBE PLACEMENT WITH SON. DECISION PENDING. FOLLOW FOR DIET, INTAKE AND WOUND HEALING.
[2022-08-13] MEDS: Lactulose 20 GM/30 ML SOLUTION PO (10:21)
[2022-08-13] MEDS: cefTRIAXone sodium 2 GM in 0.9 % Sodium Chloride 50 ML IV (10:21)
[2022-08-13] MEDS: Metoprolol Succinate ER 25 MG TAB.ER.24H PO (10:26)
[2022-08-13] MEDS: Aspirin Enteric Coated 81 MG TABLET.DR PO (10:27)
[2022-08-13] MEDS: Gabapentin 100 MG CAPSULE PO ×2 (10:27→15:19)
[2022-08-13] MEDS: Baclofen 10 MG TABLET 15 MG PO ×2 (10:27→15:19)
[2022-08-13] MEDS: lisinopriL 5 MG TABLET PO (10:28)
[2022-08-13] MEDS: Clopidogrel Bisulfate 75 MG TABLET PO (10:28)
[2022-08-13] MEDS: Potassium Chloride ER 20 MEQ TAB.ER.PRT 40 MEQ PO (10:28)
[2022-08-13 11:24] LABS: Glucose, Whole Blood 133 mg/dL (60-115)
[2022-08-13 15:08] VITALS: BP 134/59; PULSE 65; RESP 18; TEMP 36; O2SAT 98
--- NOTE | 2022-08-13 15:13 | HO.PM.IMPN ---
Subjective Subjective Date of Service: 08/13/22 Interval History: just waking up this morning, awake alert answering questions appropriately denies pain, no headache no acute events overnight had 25% of dinner last night, awaiting for family to decide about Peg tube placement. Review of Systems All other system reviewed and negative. Physical Exam Vital Signs: Vital Signs: Last Vital Signs Temp 96.8 F 08/13/22 15:08 Pulse 65 08/13/22 15:08 Resp 18 08/13/22 15:08 BP 134/59 L 08/13/22 15:08 Pulse Ox 98 08/13/22 15:08 O2 Del Method Room Air 08/13/22 15:08 O2 Flow Rate 2 08/12/22 07:29 Oxygen Flow Rate 3 08/04/22 15:49 BMI result Body Mass Index 19.6 Const: Other: Gen: awake alert, in no acute distress HEENT: sclera anicteric, moist mucus membranes Neck: supple Lungs: clear to auscultation bilaterally Heart: regular rate and rhythm, no murmurs Abd: soft, non-tender, non-distended : Alvarez draining clear urine Ext: no edema Skin: warm/well-perfused Neuro: awake,? clear speech left hemiparesis, no facial droop right face, limited range of motion right upper and lower extremity Psych: appropriate affect Objective Data Active Medications Acetaminophen (Acetaminophen 325 Mg Tablet) 650 mg PO Q6H PRN PRN Reason: Pain, Mild (Pain Scale 1-3) Last Admin: 08/12/22 11:02 Dose: 650 mg Documented By: HARRIET Acetaminophen (Acetaminophen Supp 650 Mg Supp.Rect) 650 mg [place] Q6H PRN PRN Reason: Pain, Mild (Pain Scale 1-3) Last Admin: 08/11/22 05:06 Dose: 650 mg Documented By: MADHAVI Aspirin (Aspirin Enteric Coated 81 Mg Tablet.) 81 mg PO DAILY [facility] Last Admin: 08/13/22 10:27 Dose: 81 mg Documented By: BRYANT Atorvastatin Calcium (Atorvastatin Calcium 80 Mg Tablet) 80 mg PO BEDTIME [facility] Last Admin: 08/12/22 19:50 Dose: 80 mg Documented By: MARCELA Baclofen (Baclofen 10 Mg Tablet) 15 mg PO TID [facility] Last Admin: 08/13/22 10:27 Dose: 15 mg Documented By: BRYANT Clopidogrel Bisulfate (Clopidogrel Bisulfate 75 Mg Tablet) 75 mg PO DAILY [facility] Last Admin: 08/13/22 10:28 Dose: 75 mg Documented By: BRYANT Enoxaparin Sodium (Enoxaparin Sodium 40 Mg/0.4 Ml Syringe) 40 mg SUBCUT Q24H [facility] Last Admin: 08/12/22 19:51 Dose: 40 mg Documented By: MARCELA Gabapentin (Gabapentin 100 Mg Capsule) 100 mg PO TID [facility] Last Admin: 08/13/22 10:27 Dose: 100 mg Documented By: BRYANT Glucose (Glucose Gel 15 Gm Gel..Gram.) 15 gm PO Q15M PRN; Protocol PRN Reason: per Hypoglycemia Standing Ord. Dextrose (D10) 250 mls @ 750 mls/hr IV Q15M PRN; Protocol PRN Reason: per Hypoglycemia Standing Ord. Ceftriaxone Sodium 2 gm/ (Sodium Chloride) 50 mls @ 100 mls/hr IV Q24H [facility] Last Infusion: 08/13/22 10:52 Dose: 0 mls/hr Documented By: BRYANT Insulin Human Lispro (Insulin Lispro 100 Unit/Ml 3 Ml Vial) 0 unit SUBCUT QIDACHS [facility]; Protocol Last Admin: 08/13/22 11:31 Dose: Not Given Documented By: BRYANT Non-Admin Reason: No Insulin Coverage Lactulose (Lactulose 20 Gm/30 Ml Solution) 20 gm PO BID [facility] Last Admin: 08/13/22 10:21 Dose: 20 gm Documented By: BRYANT Lisinopril (Lisinopril 5 Mg Tablet) 5 mg PO DAILY [facility]; Protocol Last Admin: 08/13/22 10:28 Dose: 5 mg Documented By: BRYANT Melatonin (Melatonin 3 Mg Tablet) 6 mg PO BEDTIME PRN PRN Reason: Insomnia Last Admin: 08/12/22 20:14 Dose: 6 mg Documented By: MARCELA Metoprolol Succinate (Metoprolol Succinate Er 25 Mg Tab.Er.24h) 25 mg PO DAILY [facility]; Protocol Last Admin: 08/13/22 10:26 Dose: 25 mg Documented By: BRYANT Mirtazapine (Mirtazapine 15 Mg Tablet) 15 mg PO BEDTIME [facility] Last Admin: 08/12/22 19:51 Dose: 15 mg Documented By: MARCELA Morphine Sulfate (Morphine Sulfate 4 Mg/Ml Cartridge) 4 mg IVPUSH Q4H PRN; Protocol PRN Reason: Pain, Severe (Pain Scale 7-10) Last Admin: 08/11/22 12:48 Dose: 4 mg Documented By: COTOK Ondansetron HCl (Ondansetron Hcl 4 Mg/2 Ml Vial) 4 mg IVPUSH Q8H PRN PRN Reason: Nausea and Vomiting Oxycodone HCl (Oxycodone Hcl Immed Release 5 Mg Tablet) 5 mg PO Q4H PRN PRN Reason: Pain, Moderate(Pain Scale 4-6) Last Admin: 08/12/22 20:15 Dose: 5 mg Documented By: MARCELA Pharmacy Consult (Consult Rx Perform Med Rec) 1 each MISCELLANE ONCE PRN PRN Reason: Consult order Sodium Chloride (0.9 % Sodium Chloride Flush 3 Ml Syringe) 3 ml IVFLUSH [facility] Last Admin: 08/13/22 08:30 Dose: 3 ml Documented By: BRYANT Tizanidine HCl (Tizanidine Hcl 4 Mg Tablet) 2 mg PO Q8H PRN PRN Reason: MUSCLE SPASMS Labs 08/13/22 05:45 08/13/22 05:45 Labs: Laboratory Results - last 24 hr 08/12/22 08/12/22 08/13/22 15:45 19:48 05:45 MCV 84.4 MCH 26.4 L MCHC 31.3 RDW 18.1 H Plt Count 383 MPV 9.9 Absolute Nucleated RBC 0.000 Nucleated RBC % (auto) 0.0 Anion Gap Estim Creat Clear Calc Estimated GFR POC Glucose 146 H 158 H Random Glucose Calcium 08/13/22 08/13/22 08/13/22 05:45 07:19 11:15 MCV MCH MCHC RDW Plt Count MPV Absolute Nucleated RBC Nucleated RBC % (auto) Anion Gap 8 L Estim Creat Clear Calc 50.2 Estimated GFR > 60 POC Glucose 128 H 133 H Random Glucose 126 H Calcium 8.9 Assessment and Plan (1) Sepsis: Status: Acute Plan 62yo F with HTN, HLD, multifocal CVA, DM2, CAD s/p PCI, mood disorder, CKD3 long-term resident of [facility] sent in with fevers suspected due to aspiration PNA vs R toe necrosis subsequently found to have Klebsiella bacteremia # sepsis due to Klebsiella pneumoniae bacteremia - switched vanc/cefepime to ceftriaxone on 08/10, ID consulted, likely 14d total of antibiotics [end date 08/16] - CT A/P showed severe bilateral hydronephrosis and ureteral dilatation down to the bladder, diffuse bladder wall thickening these findings similar to previous exam new fat stranding and pre sacral space and small amount of fluid in pelvis, new left lower lobe pneumonia, intra and extrahepatic biliary ductal dilatation similar to previous exam chest x-ray on 08/05 showed retrocardiac opacity, likely no new pneumonia, lung exam unremarkable, on IV ceftriaxone, WBC trending down but remains elevated continue IV antibiotics follow CBC and clinical course # hyperNa - improved on D5W, encourage oral water intake, dc IV fluids. # hypokalemia k 2.9 ,will replete and repeat labs # R toe necrosis due to PVD - per Vascular Surgery, unlikely source of infection. She is not ambulatory and is not candidate for aggressive intervention, but if necrosis worsens he recommends AKA spoke with son and informed about plan of care. # sacral decubitus ulcer, unstageable - Wound Care consulted they recommend Allevyn as secondary dressing , topical alginate first over the pressure ulcer to absorb any drainage, continue nutrition support. # poor nutrition, being evaluated by pack operator patient receiving Ensure supplements, but continued to have inadequate by mouth intake discuss alternate nutrition with patient and son including PEG tube placement waiting for son to decide and let us know. # CAD/ PVD - clopidogrel + ASA and atorvastatin # HTN - stable blood pressure,lisinopril, metoprolol # DM2 - correction-dose lispro, DM diet # cognitive impairment/dementia # depression - per son Negrito at bedside, pt. with worsening mental status and apathy over last month; some hallucinations as well, along with decreased appetite + weight loss therefore he had her sertraline stopped , patient's started on mirtazapine 15 mg as it may also help with weight gain. # VTE ppx: LMWH # dispo: LTC In my clinical judgment, the patient requires continued inpatient hospitalization for the following reasons: IV ABX + fluid + poor nutrition and hypokalemia. Time Spent With Patient Time: Total time managing care of this patient today ____ minutes. Quality Stroke Does the patient have a stroke diagnosis?: No VTE Prior VTE?: No VTE Risk Level:: Medical - moderate - high VTE Device Contraindication: Treatment Not Indicated VTE Drug Contraindication: N/A - Med Ordered
[2022-08-13 16:08] LABS: Glucose, Whole Blood 124 mg/dL (60-115)
--- NOTE | 2022-08-13 16:58 | MHC.SL.SWA ---
Speech Pathologist Impression: Risk of Aspiration Due to: Neurological Condition Poor PO Intake Reduced Cognition Dysphasia Diet Status: Recommend patient continue on current diet of Puree with [place] Thick Liquid, Pills crushed in puree. Patient would benefit from frequent smaller meals, offer and present small amounts at a time to encourage PO intake. LINING CASER will continue to follow. Pt requires total 1:1 assistance feeding, ensure aspiration precautions. Hold tray if pt is lethargic and/or not attending to meal. Pt benefits from consistent reminders to swallow and oral check. Liquid Consistency and Strategies for Safe Swallow: Liquid Intake Recommendation: [place] Thick Liquid Intake Strategies: Small Sips No Straws Solid Food Consistency: Dietary Recommendations: Pureed (NDD1) Additional Modifications to Solid Foods: Patient would benefit from frequent smaller meals, offer and present small amounts at a time to encourage PO intake. Pt requires total 1:1 assistance feeding, ensure aspiration precautions. Hold tray if pt is lethargic and/or not attending to meal. Pt benefits from consistent reminders to swallow and oral check. LINING CASER will continue to follow. Oral Medication Intake: Crushed with Puree Please contact the pharmacy regarding appropriate crushable or liquid drug formulations that are available whenever modified delivery is recommended. Compensatory Strategies and Precautions to be Taken for Safe Swallow: Sitting Upright (90 deg) No Straw Small Bites and Sips Rate of Ingestion Change Oral Check Avoid Specific Foods Supervision While Eating and Drinking for Safe Swallow: Total Assistance (1:1) Foods to Avoid: Mixed consistencies Swallowing Recommended Treatments: Compens. Strategy Educat. Recommendation for Speech: Inpatient Speech Therapy Comment: Patient was seen during lunch, with lunch tray present at bedside. Patient was sleeping but easily roused, however stated that she only wanted to have some water, not interested in eating or drinking. Patient was given tsp amounts of [place] thick water, with patient producing mildly delayed swallow with reduced laryngeal elevation. Patient took three tsps then refused further trials or food. Recommend patient continue on current diet of Puree with [place] Thick Liquid, Pills crushed in puree. Patient would benefit from frequent smaller meals, offer and present small amounts at a time to encourage PO intake. LINING CASER will continue to follow. Frequency/Duration: Date Range for Service Req: Timeline to reassess: Automobile Repossessor Clinican/Clinical Fellow: No Supervisory Statement: I have reviewed and agree with the student/clinical fellow's documentation: N/A Speech Language Pathologist: Autumn Denton M.A., [facility]LIN[facility] CASER
[2022-08-13 19:15] VITALS: BP 132/58; PULSE 57; RESP 18; TEMP 36; O2SAT 100
[2022-08-13] MEDS: Morphine Sulfate 4 MG/ML CARTRIDGE IVPUSH (19:39)
[2022-08-13 20:23] LABS: Glucose, Whole Blood 109 mg/dL (60-115)
[2022-08-13] MEDS: Enoxaparin Sodium 40 MG/0.4 ML SYRINGE SUBCUT (21:19)
[2022-08-14 03:01] VITALS: BP 144/66; PULSE 52; RESP 16; TEMP 36.6; O2SAT 99
[2022-08-14 06:30] LABS: Mean Corpuscular Hemoglobin 26.6 pg (27.0-33.0); Mean Corpuscular Volume 85.8 fL (80.0-98.0); Mean Platelet Volume 10.2 fL (9.4-12.3); Platelet Count 372 X10*3/uL (160-400); Red Blood Count 3.38 X10*6/uL (4.20-5.50); Red Cell Distribution Width 18.4 % (11.0-16.0); White Blood Count 13.8 X10*3/uL (4.8-10.8)
[2022-08-14 06:38] LABS: Anion Gap 10 (12-20); Blood Urea Nitrogen 23 mg/dL (9-16); Calcium 9.6 mg/dL (8.4-10.2); Carbon Dioxide 19 mmol/L (22-29); Chloride 116 mmol/L (96-108); Creatinine Clr Calc Pharmacy 51.4; Estimated Glomerular Filt Rate > 60; Glucose Random 90 mg/dL (60-115); Potassium 3.4 mmol/L (3.3-5.1); Sodium 142 mmol/L (135-145)
[2022-08-14 07:12] LABS: Glucose, Whole Blood 96 mg/dL (60-115)
[2022-08-14 07:35] VITALS: BP 120/22; PULSE 58; RESP 17; TEMP 36.4; O2SAT 98
[2022-08-14] MEDS: 0.9 % Sodium Chloride Flush 3 ML SYRINGE IVFLUSH ×2 (09:30→16:50)
[2022-08-14] MEDS: cefTRIAXone sodium 2 GM in 0.9 % Sodium Chloride 50 ML IV (09:31)
[2022-08-14] MEDS: Lactulose 20 GM/30 ML SOLUTION PO ×2 (09:31→20:28)
[2022-08-14] MEDS: Morphine Sulfate 4 MG/ML CARTRIDGE IVPUSH (09:31)
[2022-08-14] MEDS: lisinopriL 5 MG TABLET PO (09:32)
[2022-08-14] MEDS: Gabapentin 100 MG CAPSULE PO ×2 (09:32→20:29)
[2022-08-14] MEDS: Metoprolol Succinate ER 25 MG TAB.ER.24H PO (09:32)
[2022-08-14] MEDS: Clopidogrel Bisulfate 75 MG TABLET PO (09:32)
[2022-08-14] MEDS: Baclofen 10 MG TABLET 15 MG PO ×2 (09:32→20:28)
[2022-08-14] MEDS: Aspirin Enteric Coated 81 MG TABLET.DR PO (09:32)
--- NOTE | 2022-08-14 09:44 | P.PNIM_ITS ---
Subjective Subjective Date of Service: 08/14/22 Interval History: patient awake alert, refusing to eat, no events overnight vitals are stable offers no other complaints of headache, no nausea, no vomiting, no pain. Review of Systems all other system reviewed and negative. Physical Exam 2 Vital Signs: Vital Signs: Last Vital Signs Temp 97.5 F 08/14/22 07:35 Pulse 58 08/14/22 07:35 Resp 17 08/14/22 07:35 BP 120/22 L 08/14/22 07:35 Pulse Ox 98 08/14/22 07:35 O2 Del Method Room Air 08/14/22 07:35 O2 Flow Rate 2 08/12/22 07:29 Oxygen Flow Rate 3 08/04/22 15:49 BMI result Body Mass Index 19.6 Const: Other: Gen: awake alert, in no acute distress HEENT: sclera anicteric, moist mucus membranes Neck: supple Lungs: clear to auscultation bilaterally Heart: regular rate and rhythm, no murmurs Abd: soft, non-tender, non-distended : Alvarez draining clear urine Ext: no edema Skin: warm/well-perfused Neuro: awake,? clear speech left hemiparesis, no facial droop right face, li mited range of motion right upper and lower extremity Psych: appropriate affect Objective Data Active Medications Acetaminophen (Acetaminophen 325 Mg Tablet) 650 mg PO Q6H PRN PRN Reason: Pain, Mild (Pain Scale 1-3) Last Admin: 08/12/22 11:02 Dose: 650 mg Documented By: HARRIET Acetaminophen (Acetaminophen Supp 650 Mg Supp.Rect) 650 mg [place] Q6H PRN PRN Reason: Pain, Mild (Pain Scale 1-3) Last Admin: 08/11/22 05:06 Dose: 650 mg Documented By: MADHAVI Aspirin (Aspirin Enteric Coated 81 Mg Tablet.) 81 mg PO DAILY [facility] Last Admin: 08/14/22 09:32 Dose: 81 mg Documented By: BRYANT Atorvastatin Calcium (Atorvastatin Calcium 80 Mg Tablet) 80 mg PO BEDTIME [facility] Last Admin: 08/13/22 21:14 Dose: Not Given Documented By: ARLINE Non-Admin Reason: pt unable to swallow Baclofen (Baclofen 10 Mg Tablet) 15 mg PO TID [facility] Last Admin: 08/14/22 09:32 Dose: 15 mg Documented By: BRYANT Clopidogrel Bisulfate (Clopidogrel Bisulfate 75 Mg Tablet) 75 mg PO DAILY [facility] Last Admin: 08/14/22 09:32 Dose: 75 mg Documented By: BRYANT Enoxaparin Sodium (Enoxaparin Sodium 40 Mg/0.4 Ml Syringe) 40 mg SUBCUT Q24H [facility] Last Admin: 08/13/22 21:19 Dose: 40 mg Documented By: ARLINE Gabapentin (Gabapentin 100 Mg Capsule) 100 mg PO TID [facility] Last Admin: 08/14/22 09:32 Dose: 100 mg Documented By: BRYANT Glucose (Glucose Gel 15 Gm Gel..Gram.) 15 gm PO Q15M PRN; Protocol PRN Reason: per Hypoglycemia Standing Ord. Dextrose (D10) 250 mls @ 750 mls/hr IV Q15M PRN; Protocol PRN Reason: per Hypoglycemia Standing Ord. Ceftriaxone Sodium 2 gm/ (Sodium Chloride) 50 mls @ 100 mls/hr IV Q24H [facility] Last Admin: 08/14/22 09:31 Dose: 100 mls/hr Documented By: BRYANT Insulin Human Lispro (Insulin Lispro 100 Unit/Ml 3 Ml Vial) 0 unit SUBCUT QIDACHS [facility]; Protocol Last Admin: 08/14/22 08:43 Dose: Not Given Documented By: BRYANT Non-Admin Reason: No Insulin Coverage Lactulose (Lactulose 20 Gm/30 Ml Solution) 20 gm PO BID [facility] Last Admin: 08/14/22 09:31 Dose: 20 gm Documented By: BRYANT Lisinopril (Lisinopril 5 Mg Tablet) 5 mg PO DAILY [facility]; Protocol Last Admin: 08/14/22 09:32 Dose: 5 mg Documented By: BRYANT Melatonin (Melatonin 3 Mg Tablet) 6 mg PO BEDTIME PRN PRN Reason: Insomnia Last Admin: 08/12/22 20:14 Dose: 6 mg Documented By: MARCELA Metoprolol Succinate (Metoprolol Succinate Er 25 Mg Tab.Er.24h) 25 mg PO DAILY [facility]; Protocol Last Admin: 08/14/22 09:32 Dose: 25 mg Documented By: BRYANT Mirtazapine (Mirtazapine 15 Mg Tablet) 15 mg PO BEDTIME [facility] Last Admin: 08/13/22 21:16 Dose: Not Given Documented By: ARLINE Non-Admin Reason: pt unable to swallow Morphine Sulfate (Morphine Sulfate 4 Mg/Ml Cartridge) 4 mg IVPUSH Q4H PRN; Protocol PRN Reason: Pain, Severe (Pain Scale 7-10) Last Admin: 08/14/22 09:31 Dose: 4 mg Documented By: BRYANT Ondansetron HCl (Ondansetron Hcl 4 Mg/2 Ml Vial) 4 mg IVPUSH Q8H PRN PRN Reason: Nausea and Vomiting Oxycodone HCl (Oxycodone Hcl Immed Release 5 Mg Tablet) 5 mg PO Q4H PRN PRN Reason: Pain, Moderate(Pain Scale 4-6) Last Admin: 08/12/22 20:15 Dose: 5 mg Documented By: MARCELA Pharmacy Consult (Consult Rx Perform Med Rec) 1 each MISCELLANE ONCE PRN PRN Reason: Consult order Sodium Chloride (0.9 % Sodium Chloride Flush 3 Ml Syringe) [facility] Last Admin: 08/14/22 09:30 Dose: 3 ml Documented By: BRYANT Tizanidine HCl (Tizanidine Hcl 4 Mg Tablet) 2 mg PO Q8H PRN PRN Reason: MUSCLE SPASMS Labs 08/14/22 05:33 08/14/22 05:33 Labs: Laboratory Results - last 24 hr 08/13/22 08/13/22 08/13/22 11:15 16:05 20:16 MCV MCH MCHC RDW Plt Count MPV Absolute Nucleated RBC Nucleated RBC % (auto) Anion Gap Estim Creat Clear Calc Estimated GFR POC Glucose 133 H 124 H 109 Random Glucose Calcium 08/14/22 08/14/22 08/14/22 05:33 05:33 07:07 MCV 85.8 MCH 26.6 L MCHC 31.0 RDW 18.4 H Plt Count 372 MPV 10.2 Absolute Nucleated RBC 0.000 Nucleated RBC % (auto) 0.0 Anion Gap 10 L Estim Creat Clear Calc 51.4 Estimated GFR > 60 POC Glucose 96 Random Glucose 90 Calcium 9.6 D Assessment and Plan (1) Sepsis: Status: Acute Plan 62yo F with HTN, HLD, multifocal CVA, DM2, CAD s/p PCI, mood disorder, CKD3 long-term resident of [facility] sent in with fevers suspected due to aspiration PNA vs R toe necrosis subsequently found to have Klebsiella bacteremia # sepsis due to Klebsiella pneumoniae bacteremia - switched vanc/cefepime to ceftriaxone on 08/10, ID consulted, likely 14d total of antibiotics [end date 08/16] - CT A/P showed severe bilateral hydronephrosis and ureteral dilatation down to the bladder, diffuse bladder wall thickening these findings similar to previous exam new fat stranding and pre sacral space and small amount of fluid in pelvis, new left lower lobe pneumonia, intra and extrahepatic biliary ductal dilatation similar to previous exam chest x-ray on 08/05 showed retrocardiac opacity, likely no new pneumonia, lung exam unremarkable, cont. IV ceftriaxone , WBC chronically elevated, follow clinical course. # hyperNa - improved on D5W, encourage oral water intake, dc IV fluids. # hypokalemia k 2.9 , repleted and normalized. # R toe necrosis due to PVD - per Vascular Surgery, unlikely source of infection. She is not ambulatory and is not candidate for aggressive intervention, but if necrosis worsens he recommends AKA spoke with son and informed about plan of care. # sacral decubitus ulcer, unstageable - Wound Care consulted they recommend Allevyn as secondary dressing , topical alginate first over the pressure ulcer to absorb any drainage, continue nutrition support. # poor nutrition, being evaluated by air and hydronic balancing technician patient receiving Ensure supplements, but continued to have inadequate by mouth intake discuss alternate nutrition with patient and son son requesting for PEG tube placement,will consult gen surgery. # CAD/ PVD - clopidogrel + ASA and atorvastatin. # HTN - stable blood pressure,cont. lisinopril,and metoprolol. # DM2 - correction-dose lispro, DM diet. # cognitive impairment/dementia/depression continue mirtazapine 15 mg as it may also help with weight , previously patient was on sertraline discontinued by son due to hallucination. # VTE ppx: LMWH # dispo: LTC In my clinical judgment, the patient requires continued inpatient hospitalization for the following reasons: check tube placement. Time Spent With Patient Time: Total time managing care of this patient today ____ minutes. Quality Stroke Does the patient have a stroke diagnosis?: No VTE Prior VTE?: No VTE Risk Level:: Medical - moderate - high VTE Device Contraindication: Treatment Not Indicated VTE Drug Contraindication: N/A - Med Ordered
[2022-08-14 11:22] LABS: Glucose, Whole Blood 107 mg/dL (60-115)
--- NOTE | 2022-08-14 11:47 | MHC.SL.SWA ---
Speech Pathologist Impression: Risk of aspiration, oropharyngeal dysphagia Risk of Aspiration Due to: Neurological Condition Poor PO Intake Reduced Cognition Dysphasia Diet Status: No change Liquid Consistency and Strategies for Safe Swallow: Liquid Intake Recommendation: [place] Thick Liquid Intake Strategies: Small Sips No Straws Solid Food Consistency: Dietary Recommendations: Pureed (NDD1) Additional Modifications to Solid Foods: Patient would benefit from frequent smaller meals, offer and present small amounts at a time to encourage PO intake. Pt requires total 1:1 assistance feeding, ensure aspiration precautions. Hold tray if pt is lethargic and/or not attending to meal. Pt benefits from consistent reminders to swallow and oral check. CREAM BEATER will continue to follow. Oral Medication Intake: Crushed with Puree Please contact the pharmacy regarding appropriate crushable or liquid drug formulations that are available whenever modified delivery is recommended. Compensatory Strategies and Precautions to be Taken for Safe Swallow: Sitting Upright (90 deg) No Straw Small Bites and Sips Rate of Ingestion Change Oral Check Avoid Specific Foods Supervision While Eating and Drinking for Safe Swallow: Total Assistance (1:1) Foods to Avoid: Mixed consistencies Swallowing Recommended Treatments: Compens. Strategy Educat. Recommendation for Speech: Inpatient Speech Therapy Barrel Assembler Clinican/Clinical Fellow: No Supervisory Statement: I have reviewed and agree with the student/clinical fellow's documentation: N/A Speech Language Pathologist: Mitra Spear M.A., [employer]-CREAM BEATER
[2022-08-14 12:13] VITALS: BMI 19.6
--- NOTE | 2022-08-14 12:19 | MHC.CLN ---
F/U PT IS MODERATELY MALNOURISHED PT TRIGGERS FOR 15% SIGNIFICANT WT LOSS X 3 MONTHS WITH POOR PO INTAKE AND INCREASED NUTRITION RISK R/T PRESSURE INJURIES MULTIPLE AREAS OF IMPAIRED SKIN INTEGRITY INCLUDING DTI LEFT BUTTOCK, UNSTAGEABLE LEFT AND RIGHT HEELS, UNSTAGEABLE RIGHT CALF, NECROTIC TOES PT CONSUMING 0-25% DIET RX: PUREED WITH NT LIQ-APPROPRIATE FIELD MECHANICAL METER TESTER FOLLOWING FOR APPROPRIATE DIET CONSISTENCY NOTED REMERON STARTED 08/11 WHICH CAN INCREASE APPETITE BUT CAN TAKE UP TO 2 WEEKS RECOMMEND CHANGING ENSURE MAX BID TO ENSURE TID TO PROVIDE 1050KCALS, 60G PROTEIN PER MD SON DECIDING ON ALTERNATIVE NUTRITION PLS CONSULT RD IF TF NEEDED SEE ALSO FULL CLINICAL NUTRITION ASSESSMENT
--- NOTE | 2022-08-14 14:04 | P.CONGS_ITS ---
History of Present Illness Consult details Consult date: 08/14/22 Narrative: 62-year-old female, with multiple medical problems, including history of multiple CVA, peripheral arterial disease,, diabetes, carotid artery disease, bed-bound, admitted on 08/06/2022 because of fever. She was noted to have a urinary tract infection. She has had poor oral intake. According to the nursing staff as well as the hospitalist service, even when being fed, she does not really eat. She actually was plan to have a gastrostomy tube placed last April, because of poor oral intake. That time however, she was on Plavix which was to be held because of her high stroke risk due to had artery disease. At some point as well that time, she started to tolerate pureed diet. In view of her poor oral intake says this admission, I was consulted to do the PEG tube placement. Review of Systems Review of Systems: Yes Unobtainable due to mental condition and Unobtainable due to mental status PMFSH Past Medical History Medical History CKD (chronic kidney disease) stage 3, GFR 30-59 ml/min Coronary artery disease COVID-19 CVA (cerebral vascular accident) CVA (cerebral vascular accident) Diabetes mellitus type 2 in nonobese Glaucoma H/O supraventricular tachycardia History of right MCA stroke Hypertension ICAO (internal carotid artery occlusion) Ischemic cardiomyopathy Renal failure (ARF), acute on chronic Status post insertion of drug-eluting stent into left anterior descending (LAD) artery Family History Family history: reviewed and not pertinent Surgical History Surgical History H/O cardiac catheterization Social History Social History Household Members: Unknown / Unable to assess Housing: [facility] Do you presently have visiting nurse or other home services: No Unable to assess alcohol history related to: Unknown Alcohol intake: current Patient Tobacco Use Status: Tobacco use Unknown Advance Directives Date on File: 06/01/22 service: No Meds Allergies Allergy/AdvReac Type Severity Reaction Status Date / Time No Known Allergies Allergy Verified 05/20/22 12:06 Active Medications: Current Medications Acetaminophen (Acetaminophen 325 Mg Tablet) 650 mg PO Q6H PRN PRN Reason: Pain, Mild (Pain Scale 1-3) Last Admin: 08/12/22 11:02 Dose: 650 mg Acetaminophen (Acetaminophen Supp 650 Mg Supp.Rect) 650 mg NJ Q6H PRN PRN Reason: Pain, Mild (Pain Scale 1-3) Last Admin: 08/11/22 05:06 Dose: 650 mg Aspirin (Aspirin Enteric Coated 81 Mg Tablet.Dr) 81 mg PO DAILY [facility] Last Admin: 08/14/22 09:32 Dose: 81 mg Atorvastatin Calcium (Atorvastatin Calcium 80 Mg Tablet) 80 mg PO BEDTIME [facility] Last Admin: 08/13/22 21:14 Dose: Not Given Baclofen (Baclofen 10 Mg Tablet) 15 mg PO TID [facility] Last Admin: 08/14/22 09:32 Dose: 15 mg Clopidogrel Bisulfate (Clopidogrel Bisulfate 75 Mg Tablet) 75 mg PO DAILY [facility] Last Admin: 08/14/22 09:32 Dose: 75 mg Enoxaparin Sodium (Enoxaparin Sodium 40 Mg/0.4 Ml Syringe) 40 mg SUBCUT Q24H [facility] Last Admin: 08/13/22 21:19 Dose: 40 mg Gabapentin (Gabapentin 100 Mg Capsule) 100 mg PO TID [facility] Last Admin: 08/14/22 09:32 Dose: 100 mg Glucose (Glucose Gel 15 Gm Gel..Gram.) 15 gm PO Q15M PRN; Protocol PRN Reason: per Hypoglycemia Standing Ord. Dextrose (D10) 250 mls @ 750 mls/hr IV Q15M PRN; Protocol PRN Reason: per Hypoglycemia Standing Ord. Ceftriaxone Sodium 2 gm/ (Sodium Chloride) 50 mls @ 100 mls/hr IV Q24H [facility] Last Infusion: 08/14/22 10:27 Dose: Infused Insulin Human Lispro (Insulin Lispro 100 Unit/Ml 3 Ml Vial) 0 unit SUBCUT QIDACHS [facility]; Protocol Last Admin: 08/14/22 11:27 Dose: Not Given Lactulose (Lactulose 20 Gm/30 Ml Solution) 20 gm PO BID [facility] Last Admin: 08/14/22 09:31 Dose: 20 gm Lisinopril (Lisinopril 5 Mg Tablet) 5 mg PO DAILY [facility]; Protocol Last Admin: 08/14/22 09:32 Dose: 5 mg Melatonin (Melatonin 3 Mg Tablet) 6 mg PO BEDTIME PRN PRN Reason: Insomnia Last Admin: 06/14/23 20:14 Dose: 6 mg Metoprolol Succinate (Metoprolol Succinate Er 25 Mg Tab.Er.24h) 25 mg PO DAILY [facility]; Protocol Last Admin: 08/14/22 09:32 Dose: 25 mg Mirtazapine (Mirtazapine 15 Mg Tablet) 15 mg PO BEDTIME [facility] Last Admin: 08/13/22 21:16 Dose: Not Given Morphine Sulfate (Morphine Sulfate 4 Mg/Ml Cartridge) 4 mg IVPUSH Q4H PRN; Protocol PRN Reason: Pain, Severe (Pain Scale 7-10) Last Admin: 08/14/22 09:31 Dose: 4 mg Ondansetron HCl (Ondansetron Hcl 4 Mg/2 Ml Vial) 4 mg IVPUSH Q8H PRN PRN Reason: Nausea and Vomiting Oxycodone HCl (Oxycodone Hcl Immed Release 5 Mg Tablet) 5 mg PO Q4H PRN PRN Reason: Pain, Moderate(Pain Scale 4-6) Last Admin: 08/12/22 20:15 Dose: 5 mg Pharmacy Consult (Consult Rx Perform Med Rec) 1 each MISCELLANE ONCE PRN PRN Reason: Consult order Sodium Chloride (0.9 % Sodium Chloride Flush 3 Ml Syringe) 3 ml IVFLUSH QSHIFT [facility] Last Admin: 08/14/22 09:30 Dose: 3 ml Tizanidine HCl (Tizanidine Hcl 4 Mg Tablet) 2 mg PO Q8H PRN PRN Reason: MUSCLE SPASMS Home Medications Medication Instructions Recorded Confirmed Last Taken Type ascorbic acid (vitamin C) 500 mg 500 mg PO DAILY 05/20/22 08/04/22 Unknown Hist ory tablet aspirin 81 mg tablet,delayed 81 mg PO DAILY 05/20/22 08/04/22 Unknown History release atorvastatin 80 mg tablet 80 mg PO BEDTIME 05/20/22 08/04/22 Unknown History bisacodyl 10 mg rectal suppository 10 mg NJ DAILY PRN Constipation 05/20/22 08/04/22 Unknown History clopidogrel 75 mg tablet (Plavix) 75 mg PO DAILY 05/20/22 08/04/22 Unknown History dextrose 40 % oral gel (Glucose 20 g PO Q15M PRN FSBS<50 AND ABLE 05/20/22 08/04/22 Unknown History Gel) TO SWALLOW glucagon 1 mg solution for 1 mg subcut Q20M PRN fsbs < 60 and 05/20/22 08/04/22 Unknown History injection unable to swallow insulin lispro 100 unit/mL 1 sliding scale dose subcut QIDACHS 05/20/22 08/04/22 Unknown History subcutaneous solution (Humalog U-100 Insulin) magnesium hydroxide 400 mg/5 mL 30 ml PO DAILY PRN Constipation 05/20/22 08/04/22 Unknown History oral suspension (Milk of Magnesia) meclizine 12.5 mg tablet 12.5 mg PO Q8H PRN Dizziness 05/20/22 08/04/22 Unknown History metoprolol succinate 25 mg 25 mg PO DAILY 05/20/22 08/04/22 Unknown History tablet,extended release 24 hr multivitamin with minerals 1 tab PO BEDTIME 05/20/22 08/04/22 Unknown History sennosides 8.6 mg tablet (senna) 8.6 mg PO DAILY 05/20/22 08/04/22 Unknown History tizanidine 2 mg tablet 2 mg PO Q8H PRN MUSCLE SPASMS 05/20/22 08/04/22 Unknown History Lactobacillus rhamnosus GG 10 1 cap PO BID 08/04/22 08/04/22 Unknown History billion cell capsule (Culturelle) baclofen 5 mg tablet 15 mg PO TID 08/04/22 08/04/22 Unknown History cefuroxime axetil 500 mg tablet 250 mg PO BID 08/04/22 08/04/22 Unknown History ferrous fumarate 325 mg (106 mg 325 mg PO DAILY 08/04/22 08/04/22 Unknown History iron) tablet gabapentin 100 mg capsule 100 mg PO TID 08/04/22 08/04/22 Unknown History insulin detemir U-100 100 unit/mL 12 unit subcut DAILY 08/04/22 08/04/22 Unknown History subcutaneous solution (Levemir U-100 Insulin) lactulose 20 gram/30 mL oral 20 g PO BID 08/04/22 08/04/22 Unknown History solution lisinopril 5 mg tablet 5 mg PO DAILY 08/04/22 08/04/22 Unknown History polyethylene glycol 3350 17 gram 17 g PO DAILY 08/04/22 08/04/22 Unknown History oral powder packet (Miralax) sodium phosphates 19 gram-7 118 ml NJ DAILY PRN Constipation 08/04/22 08/04/22 Unknown History gram/118 mL enema (Fleet Enema) tramadol 50 mg tablet 50 mg PO TID PRN Pain 08/04/22 08/04/22 Unknown History Physical Exam Vital Signs: Vital Signs: Last Vital Signs Temp 97.5 F 08/14/22 07:35 Pulse 58 08/14/22 07:35 Resp 17 08/14/22 07:35 BP 120/22 L 08/14/22 07:35 Pulse Ox 98 08/14/22 07:35 O2 Del Method Room Air 08/14/22 07:35 O2 Flow Rate 2 08/12/22 07:29 Oxygen Flow Rate 3 08/04/22 15:49 BMI result Body Mass Index 19.6 Const: Other: Frail looking,has verbal output, answers questionsbut seems mostly unintelligible Resp: Other: mildly short of breath Cardio: Rhythm: regular rhythm GI: Other: soft, abdominal wall scars Palpation (GI): no guarding and not rigid Extrem: Other: ulcers on the 1st, 2nd and 3rd toes of the right, ulcer on the left heel and on the lower legs anteriorly Results Labs 08/14/22 05:33 08/14/22 05:33 Labs: Abnormal lab results 08/13/22 08/14/22 08/14/22 Range/Units 16:05 05:33 05:33 WBC 13.8 H (4.8-10.8) X10*3/uL RBC 3.38 L (4.20-5.50) X10*6/uL Hgb 9.0 L (12.0-16.0) g/dl Hct 29.0 L (37.0-47.0) % MCH 26.6 L (27.0-33.0) pg RDW 18.4 H (11.0-16.0) % Chloride 116 H (96-108) mmol/L Carbon Dioxide 19 L (22-29) mmol/L Anion Gap 10 L (12-20) BUN 23 H (9-16) mg/dL POC Glucose 124 H (60-115) mg/dL Short CBC 08/14/22 Range/Units 05:33 WBC 13.8 H (4.8-10.8) X10*3/uL Hgb 9.0 L (12.0-16.0) g/dl Hct 29.0 L (37.0-47.0) % Plt Count 372 (160-400) X10*3/uL BMP 08/14/22 05:33 Sodium 142 Potassium 3.4 Chloride 116 H Carbon Dioxide 19 L BUN 23 H Creatinine 0.87 Calcium 9.6 D Urine 08/04/22 Range/Units 18:16 Urine Color Yellow Urine Appearance Cloudy Urine pH 6.5 (5.0-9.0) Ur Specific [place] 1.020 (1.005-1.025) Urine Protein 100 (2+) H (Neg-Trace) mg/dL Urine Glucose (UA) Negative (Negative) mg/dL All other labs normal. Assessment and Plan (1) Dysphagia: Status: Acute She has poor oral intake and has a history of dysphagia as well. She has multiple medical problems. I have been asked to do a PEG tube placement. I will discuss this with her son. It does not appear that patient herself is competent to provide consent at this time. According to the hospice service, Plavix can be held temporarily this time in preparation for PEG tube placement. We can plan on proceeding with PEG tube placement early next week. Time Spent With Patient Time: Total time managing care of this patient today ____ minutes. Procedures Date of Service Date of Service: 08/18/22
--- NOTE | 2022-08-14 15:11 | MHC.CM.PN ---
Per MD rounds no discharge today. Patient planned for peg. DP return to [facility] via bLS.
[2022-08-14 15:16] VITALS: BP 145/70; PULSE 48; RESP 12; TEMP 36.5; O2SAT 98
[2022-08-14 15:25] VITALS: BP 151/67
[2022-08-14 15:35] LABS: Glucose, Whole Blood 109 mg/dL (60-115)
[2022-08-14 19:45] VITALS: BP 144/71; PULSE 58; RESP 13; TEMP 36.2; O2SAT 96
[2022-08-14 20:10] LABS: Glucose, Whole Blood 104 mg/dL (60-115)
[2022-08-14] MEDS: Enoxaparin Sodium 40 MG/0.4 ML SYRINGE SUBCUT (20:22)
[2022-08-14] MEDS: Dextrose 5 % and Lactated Ring 1,000 ML 80 ML IVCONT (20:23)
[2022-08-14] MEDS: Mirtazapine 15 MG TABLET PO (20:27)
[2022-08-14] MEDS: Atorvastatin Calcium 80 MG TABLET PO (20:28)
[2022-08-15 04:00] VITALS: BP 174/72; PULSE 53; RESP 16; TEMP 36; O2SAT 51
[2022-08-15 07:24] VITALS: BP 138/67; PULSE 50; RESP 18; TEMP 36.6; O2SAT 98
[2022-08-15 07:33] LABS: Glucose, Whole Blood 163 mg/dL (60-115)
[2022-08-15] MEDS: cefTRIAXone sodium 2 GM in 0.9 % Sodium Chloride 50 ML IV (08:15)
[2022-08-15] MEDS: 0.9 % Sodium Chloride Flush 3 ML SYRINGE IVFLUSH ×2 (08:15→17:43)
[2022-08-15] MEDS: Insulin Lispro 100 UNIT/ML 3 ML VIAL SUBCUT ×2 (08:21→21:08)
--- NOTE | 2022-08-15 10:31 | MHC.CLN ---
RE: CONSULT REQUEST FOR PPN REVIEWED LABS DISCUSSED WITH PHARMACY RECOMMEND 08/15/22 D10AA4.25 AT 30ML/HR TO PROVIDE 367KCALS, 31G PROTEIN, 72G DEXTROSE MONITOR MG, PHOS, K+ CLOSELY FOR RISK OF RE-FEEDING REPLETE LYTES NEEDED 08/16/22 INCREASE FORMULA D10AA4.25 AT 50ML/HR TO PROVIDE 612KCALS, 51G PROTEIN, 120G DEXTROSE REPLETE LYTES NEEDED FULL NUTRITION ASSESSMENT TO FOLLOW
[2022-08-15 11:19] LABS: Glucose, Whole Blood 112 mg/dL (60-115)
[2022-08-15 11:21] LABS: Albumin Level 2.1 g/dL (3.5-5.0); Anion Gap 9 (12-20); Blood Urea Nitrogen 18 mg/dL (9-16); Calcium 9.2 mg/dL (8.4-10.2); Carbon Dioxide 20 mmol/L (22-29); Chloride 118 mmol/L (96-108); Creatinine Clr Calc Pharmacy 51.4; Estimated Glomerular Filt Rate > 60; Glucose Random 132 mg/dL (60-115); Magnesium 2.4 mg/dL (1.6-2.6); Phosphorus 1.8 mg/dL (2.7-4.5); Potassium 3.4 mmol/L (3.3-5.1); Sodium 144 mmol/L (135-145)
[2022-08-15] MEDS: Acetaminophen Supp 650 MG SUPP.RECT PR (14:00)
[2022-08-15 15:12] VITALS: BP 138/63; PULSE 51; RESP 18; TEMP 36.4; O2SAT 98
[2022-08-15 16:16] LABS: Glucose, Whole Blood 141 mg/dL (60-115)
--- NOTE | 2022-08-15 16:27 | P.PNIM_ITS ---
Subjective Subjective Date of Service: 08/16/22 Interval History: somnolent, easily arousable refusing to eat, opens eyes not communicating, Review of Systems unable to obtain due to mental status Physical Exam Vital Signs: Vital Signs: Last Vital Signs Temp 97.6 F 08/15/22 15:12 Pulse 51 08/15/22 15:12 Resp 18 08/15/22 15:12 BP 138/63 08/15/22 15:12 Pulse Ox 98 08/15/22 15:12 O2 Del Method Room Air 08/15/22 15:12 O2 Flow Rate 98 08/15/22 04:00 Oxygen Flow Rate 3 08/04/22 15:49 BMI result Body Mass Index 19.6 Const: Other: Gen: awake alert, in no acute distre ss HEENT: sclera a nicteric, moist mu cus membranes Neck : supple Lungs: cl ear to auscultatio n bilaterally Hear t: regular rate an d rhythm, no murmu rs Abd: soft, non- tender, non-disten ded : Alvarez drai yamil clear urine E xt: no edema Skin: necrotic 1st 2nd and 3rd toes of t he right, , bilate ral heel ulceratio n, right leg dress ing in place Neuro : awake,? clear sp eech, left hemipar esis, no facial dr oop right face, li mited range of mot ion right upper an d lower extremity Psych: appropriate affect Objective Data Active Medications Acetaminophen (Acetaminophen 325 Mg Tablet) 650 mg PO Q6H PRN PRN Reason: Pain, Mild (Pain Scale 1-3) Last Admin: 08/12/22 11:02 Dose: 650 mg Acetaminophen (Acetaminophen Supp 650 Mg Supp.Rect) 650 mg MD Q6H PRN PRN Reason: Pain, Mild (Pain Scale 1-3) Last Admin: 08/15/22 14:00 Dose: 650 mg Documented By: ZORAN Aspirin (Aspirin Enteric Coated 81 Mg Tablet.) 81 mg PO DAILY [facility] Last Admin: 08/15/22 12:23 Dose: Not Given Documented By: ZORAN Non-Admin Reason: pt not responsive enough to swallow Atorvastatin Calcium (Atorvastatin Calcium 80 Mg Tablet) 80 mg PO BEDTIME [facility] Last Admin: 08/14/22 20:28 Dose: 80 mg Documented By: SANG Baclofen (Baclofen 10 Mg Tablet) 15 mg PO TID [facility] Last Admin: 08/15/22 13:31 Dose: Not Given Documented By: ZORAN Non-Admin Reason: difficulty swallowing Enoxaparin Sodium (Enoxaparin Sodium 40 Mg/0.4 Ml Syringe) 40 mg SUBCUT Q24H [facility] Last Admin: 08/14/22 20:22 Dose: 40 mg Documented By: SANG Gabapentin (Gabapentin 100 Mg Capsule) 100 mg PO TID [facility] Last Admin: 08/15/22 13:32 Dose: Not Given Documented By: ZORAN Non-Admin Reason: difficulty swallowing Glucose (Glucose Gel 15 Gm Gel..Gram.) 15 gm PO Q15M PRN; Protocol PRN Reason: per Hypoglycemia Standing Ord. Dextrose (D10) 250 mls @ 750 mls/hr IV Q15M PRN; Protocol PRN Reason: per Hypoglycemia Standing Ord. Ceftriaxone Sodium 2 gm/ (Sodium Chloride) 50 mls @ 100 mls/hr IV Q24H [facility] Last Infusion: 08/15/22 08:46 Dose: 0 mls/hr Documented By: ZORAN Amino Acids/Electrolytes/Dextrose (Clinimix E 4.25%-10%) 720 mls @ 30 mls/hr IV DAILY@1800 [facility] Stop: 08/16/22 17:59 Insulin Human Lispro (Insulin Lispro 100 Unit/Ml 3 Ml Vial) 0 unit SUBCUT QIDACHS [facility]; Protocol Last Admin: 08/15/22 11:25 Dose: Not Given Documented By: ZORAN Non-Admin Reason: No Insulin Coverage Lactulose (Lactulose 20 Gm/30 Ml Solution) 20 gm PO BID [facility] Last Admin: 08/15/22 10:09 Dose: Not Given Documented By: ZORAN Non-Admin Reason: Patient Refused Lisinopril (Lisinopril 5 Mg Tablet) 5 mg PO DAILY [facility]; Protocol Last Admin: 08/15/22 12:27 Dose: Not Given Documented By: ZORAN Non-Admin Reason: too lethargic Melatonin (Melatonin 3 Mg Tablet) 6 mg PO BEDTIME PRN PRN Reason: Insomnia Last Admin: 08/12/22 20:14 Dose: 6 mg Documented By: MARCELA Metoprolol Succinate (Metoprolol Succinate Er 25 Mg Tab.Er.24h) 25 mg PO DAILY [facility]; Protocol Last Admin: 08/15/22 12:28 Dose: Not Given Documented By: ZORAN Non-Admin Reason: too lethargic Mirtazapine (Mirtazapine 7.5 Mg Tablet) 7.5 mg PO BEDTIME [facility] Ondansetron HCl (Ondansetron Hcl 4 Mg/2 Ml Vial) 4 mg IVPUSH Q8H PRN PRN Reason: Nausea and Vomiting Oxycodone HCl (Oxycodone Hcl Immed Release 5 Mg Tablet) 5 mg PO Q4H PRN PRN Reason: Pain, Moderate(Pain Scale 4-6) Last Admin: 08/12/22 20:15 Dose: 5 mg Documented By: MARCELA Pharmacy Consult (Consult Rx Perform Med Rec) 1 each MISCELLANE ONCE PRN PRN Reason: Consult order Sodium Chloride (0.9 % Sodium Chloride Flush 3 Ml Syringe) 3 ml IVFLUSH QSHIFT [facility] Last Admin: 08/15/22 08:15 Dose: 3 ml Documented By: ZORAN Tizanidine HCl (Tizanidine Hcl 4 Mg Tablet) 2 mg PO Q8H PRN PRN Reason: MUSCLE SPASMS Labs 08/14/22 05:33 08/15/22 10:47 Labs: Laboratory Results - last 24 hr 08/14/22 08/15/22 08/15/22 20:00 07:23 10:47 Anion Gap 9 L Estim Creat Clear Calc 51.4 Estimated GFR > 60 POC Glucose 104 163 H Random Glucose 132 H Calcium 9.2 Phosphorus 1.8 L Magnesium 2.4 Albumin 2.1 L 08/15/22 08/15/22 11:12 16:05 Anion Gap Estim Creat Clear Calc Estimated GFR POC Glucose 112 141 H Random Glucose Calcium Phosphorus Magnesium Albumin Assessment and Plan (1) Sepsis: Status: Acute Plan 62yo F with HTN, HLD, multifocal CVA, DM2, CAD s/p PCI, mood disorder, CKD3 long-term resident of [facility] sent in with fevers suspected due to aspiration PNA vs R toe necrosis subsequently found to have Klebsiella bacteremia # sepsis due to Klebsiella pneumoniae bacteremia - switched vanc/cefepime to ceftriaxone on 08/10, ID consulted, likely 14d total of antibiotics [end date 08/16] - CT A/P showed severe bilateral hydronephrosis and ureteral dilatation down to the bladder, diffuse bladder wall thickening these findings similar to previous exam, with 2 of the new fat stranding and pre sacral space and small amount of fluid in pelvis, new left lower lobe pneumonia, intra and extrahepatic biliary ductal dilatation similar to previous exam chest x-ray on 08/05 showed retrocardiac opacity, likely no new pneumonia, lung exam unremarkable, cont. IV ceftriaxone , WBC chronically elevated, follow clinical course. # hyperNa - improved on D5W, encourage oral water intake, dc IV fluids. # hypokalemia k 2.9 , repleted and normalized. # R toe necrosis due to PVD - per Vascular Surgery, unlikely source of infection. She is not ambulatory and is not candidate for aggressive intervention, but if necrosis worsens he re commends [facility] spoke with son and informed about plan of care. # sacral decubitus ulcer, unstageable - Wound Care consulted they recommend Allevyn as secondary dressing , topical alginate first over the pressure ulcer to absorb any drainage, continue nutrition support. # poor nutrition, being evaluated by assistant loan processor patient receiving Ensure supplements, but continued to have inadequate by mouth intake discuss alternate nutrition with patient and son son requesting for PEG tube placement, seen by General surgery tentatively booked for PEG tube on 08/17 will hold Plavix NPO midnight will place on PPN due to no by mouth intake in last several days # CAD/ PVD - ASA and atorvastatin. Plavix held as above # HTN - stable blood pressure,cont. lisinopril,and metoprolol. # DM2 - correction-dose lispro, DM diet. at home takes Levemir insulin 12 units daily and on insulin sliding scale # cognitive impairment/dementia/depression continue mirtazapine reduced dose to 7.5 mg, previously patient was on sertraline discontinued by son due to hallucination. # VTE ppx: [facility]WH # dispo: [facility] spoke with son Negrito Oquendo [phone] and updated him regarding patient's clinical condition discuss code status patient is DNR DNI patient's son and daughter aware of poor prognosis.. In my clinical judgment, the patient requires continued inpatient hospitalization for the following reasons: peg tube placement. Time Spent With Patient Time: Total time managing care of this patient today ____ minutes. Quality Stroke Does the patient have a stroke diagnosis?: No VTE Prior VTE?: No VTE Risk Level:: Medical - moderate - high VTE Device Contraindication: Treatment Not Indicated VTE Drug Contraindication: N/A - Med Ordered
[2022-08-15 19:34] VITALS: BP 161/70; PULSE 57; RESP 18; TEMP 36.3; O2SAT 98
[2022-08-15 20:30] LABS: Glucose, Whole Blood 161 mg/dL (60-115)
--- NOTE | 2022-08-15 21:00 | PC.NURSE ---
Patient more alert now,when asked how are you,patient answered I am fine,when asked if she could take any meds patient said no.
[2022-08-15] MEDS: Enoxaparin Sodium 40 MG/0.4 ML SYRINGE SUBCUT (21:07)
[2022-08-16 03:29] VITALS: BP 161/68; PULSE 68; RESP 18; TEMP 36.3; O2SAT 98
[2022-08-16] MEDS: oxyCODONE HCl Immed Release 5 MG TABLET PO ×3 (03:49→14:45)
[2022-08-16 07:06] VITALS: BP 154/70; PULSE 64; RESP 18; TEMP 36.6; O2SAT 98
[2022-08-16 07:33] LABS: Glucose, Whole Blood 190 mg/dL (60-115)
[2022-08-16] MEDS: Insulin Lispro 100 UNIT/ML 3 ML VIAL SUBCUT ×3 (08:58→20:49)
[2022-08-16] MEDS: Baclofen 10 MG TABLET 15 MG PO ×3 (08:59→20:05)
[2022-08-16] MEDS: lisinopriL 5 MG TABLET PO (09:00)
[2022-08-16] MEDS: 0.9 % Sodium Chloride Flush 3 ML SYRINGE IVFLUSH (09:01)
[2022-08-16] MEDS: Metoprolol Succinate ER 25 MG TAB.ER.24H PO (09:01)
[2022-08-16] MEDS: Aspirin Enteric Coated 81 MG TABLET.DR PO (09:01)
[2022-08-16] MEDS: cefTRIAXone sodium 2 GM in 0.9 % Sodium Chloride 50 ML IV (09:01)
[2022-08-16] MEDS: Gabapentin 100 MG CAPSULE PO ×3 (09:01→20:02)
[2022-08-16 09:17] LABS: Albumin Level 2.1 g/dL (3.5-5.0); Magnesium 2.4 mg/dL (1.6-2.6); Phosphorus 2.3 mg/dL (2.7-4.5)
[2022-08-16 11:09] LABS: Glucose, Whole Blood 171 mg/dL (60-115)
[2022-08-16 13:36] LABS: Anion Gap 11 (12-20); Blood Urea Nitrogen 18 mg/dL (9-16); Calcium 9.2 mg/dL (8.4-10.2); Carbon Dioxide 21 mmol/L (22-29); Chloride 116 mmol/L (96-108); Creatinine Clr Calc Pharmacy 53.9; Estimated Glomerular Filt Rate > 60; Glucose Random 208 mg/dL (60-115); Potassium 3.4 mmol/L (3.3-5.1); Sodium 145 mmol/L (135-145)
--- NOTE | 2022-08-16 14:38 | P.PNIM_ITS ---
Subjective Subjective Date of Service: 08/16/22 Interval History: Patient awake alert responding appropriately this morning had 2 glasses of orange juice for breakfast and now eating lunch, pain well controlled with oxycodone denies chest pain no nausea no vomiting, no headache or dizziness, stable vitals no other acute issues overnight tolerating IV PPN Review of Systems all other system reviewed and negative. Physical Exam Vital Signs: Vital Signs: Last Vital Signs Temp 97.8 F 08/16/22 07:06 Pulse 64 08/16/22 07:06 Resp 18 08/16/22 07:06 BP 154/70 H 08/16/22 07:06 Pulse Ox 98 08/16/22 07:06 O2 Del Method Room Air 08/16/22 07:06 O2 Flow Rate 98 08/15/22 04:00 Oxygen Flow Rate 3 08/04/22 15:49 BMI result Body Mass Index 19.6 Const: Other: Gen: awake alert,in no acute distress HEENT: sclera anicteric, moist mucus membranes Neck: supple Lungs: clear to auscultation bilaterally Heart: regular rate and rhythm, no murmurs Abd: soft, non-tender, non-distended : Alvarez draining clear urine Ext: no edema Skin:? necrotic 1st 2nd?and 3rd toes on the right, , bilateral heel ulceration, right leg dressing in place Neuro: awake,? clear speech, left hemiparesis, no facial droop right face, limited range of motion right upper and lower extremity Psych: appropriate?affect Objective Data Active Medications Acetaminophen (Acetaminophen 325 Mg Tablet) 650 mg PO Q6H PRN PRN Reason: Pain, Mild (Pain Scale 1-3) Last Admin: 08/12/22 11:02 Dose: 650 mg Acetaminophen (Acetaminophen Supp 650 Mg Supp.Rect) 650 mg NH Q6H PRN PRN Reason: Pain, Mild (Pain Scale 1-3) Last Admin: 08/15/22 14:00 Dose: 650 mg Documented By: ZORAN Aspirin (Aspirin Enteric Coated 81 Mg Tablet.) 81 mg PO DAILY [facility], [facility] Last Admin: 08/16/22 09:01 Dose: 81 mg Documented By: ZORAN Atorvastatin Calcium (Atorvastatin Calcium 80 Mg Tablet) 80 mg PO BEDTIME [facility], [facility]1983 Last Admin: 08/15/22 21:02 Dose: Not Given Documented By: MICHAEL Non-Admin Reason: Patient Refused Baclofen (Baclofen 10 Mg Tablet) 15 mg PO TID [facility] Last Admin: 08/16/22 08:59 Dose: 15 mg Documented By: ZORAN Enoxaparin Sodium (Enoxaparin Sodium 40 Mg/0.4 Ml Syringe) 40 mg SUBCUT Q24H [facility], [facility]1983 Last Admin: 08/15/22 21:07 Dose: 40 mg Documented By: MICHAEL Gabapentin (Gabapentin 100 Mg Capsule) 100 mg PO TID [facility] Last Admin: 08/16/22 09:01 Dose: 100 mg Documented By: ZORAN Glucose (Glucose Gel 15 Gm Gel..Gram.) 15 gm PO Q15M PRN; Protocol PRN Reason: per Hypoglycemia Standing Ord. Dextrose (D10) 250 mls @ 750 mls/hr IV Q15M PRN; Protocol PRN Reason: per Hypoglycemia Standing Ord. Ceftriaxone Sodium 2 gm/ (Sodium Chloride) 50 mls @ 100 mls/hr IV Q24H [facility] Last Infusion: 08/16/22 09:47 Dose: 0 mls/hr Documented By: ZORAN Amino Acids/Electrolytes/Dextrose (Clinimix E 4.25%-10%) 720 mls @ 30 mls/hr IV DAILY@1800 [facility]1983 Stop: 08/16/22 17:59 Last Admin: 08/15/22 17:42 Dose: 30 mls/hr Documented By: MICHAEL Amino Acids/Electrolytes/Dextrose (Clinimix E 4.25%-10%) 1,200 mls @ 50 mls/hr IV DAILY@1800 [facility]1983 Stop: 08/17/22 17:59 Insulin Human Lispro (Insulin Lispro 100 Unit/Ml 3 Ml Vial) 0 unit SUBCUT QIDACHS [facility], [facility]; Protocol Last Admin: 08/16/22 11:52 Dose: 2 unit Documented By: ZORAN Lactulose (Lactulose 20 Gm/30 Ml Solution) 20 gm PO BID [facility], [facility] Last Admin: 08/16/22 09:01 Dose: Not Given Documented By: ZORAN Non-Admin Reason: Patient Refused Lisinopril (Lisinopril 5 Mg Tablet) 5 mg PO DAILY [facility]; Protocol Last Admin: 08/16/22 09:00 Dose: 5 mg Documented By: ZORAN Melatonin (Melatonin 3 Mg Tablet) 6 mg PO BEDTIME PRN PRN Reason: Insomnia Last Admin: 08/12/22 20:14 Dose: 6 mg Documented By: MARCELA Metoprolol Succinate (Metoprolol Succinate Er 25 Mg Tab.Er.24h) 25 mg PO DAILY [facility], [facility]; Protocol Last Admin: 08/16/22 09:01 Dose: 25 mg Documented By: ZORAN Mirtazapine (Mirtazapine 7.5 Mg Tablet) 7.5 mg PO BEDTIME [facility] Last Admin: 08/15/22 21:03 Dose: Not Given Documented By: MICHAEL Non-Admin Reason: Patient Refused Ondansetron HCl (Ondansetron Hcl 4 Mg/2 Ml Vial) 4 mg IVPUSH Q8H PRN PRN Reason: Nausea and Vomiting Oxycodone HCl (Oxycodone Hcl Immed Release 5 Mg Tablet) 5 mg PO Q4H PRN PRN Reason: Pain, Moderate(Pain Scale 4-6) Last Admin: 08/16/22 09:00 Dose: 5 mg Documented By: ZORAN Pharmacy Consult (Consult Rx Perform Med Rec) 1 each MISCELLANE ONCE PRN PRN Reason: Consult order Sodium Chloride (0.9 % Sodium Chloride Flush 3 Ml Syringe) 3 ml IVFLUSH QSHIFT [facility] Last Admin: 08/16/22 09:01 Dose: 3 ml Documented By: ZORAN Tizanidine HCl (Tizanidine Hcl 4 Mg Tablet) 2 mg PO Q8H PRN PRN Reason: MUSCLE SPASMS Labs 08/14/22 05:33 08/16/22 08:54 Labs: Laboratory Results - last 24 hr 08/15/22 08/15/22 08/16/22 16:05 20:21 07:08 Anion Gap Estim Creat Clear Calc Estimated GFR POC Glucose 141 H 161 H 190 H Random Glucose Calcium Phosphorus Magnesium Albumin 08/16/22 08/16/22 08:54 11:06 Anion Gap 11 L Estim Creat Clear Calc 53.9 Estimated GFR > 60 POC Glucose 171 H Random Glucose 208 H Calcium 9.2 Phosphorus 2.3 L Magnesium 2.4 Albumin 2.1 L Assessment and Plan (1) Sepsis: Status: Acute Plan 62yo F with HTN, HLD, multifocal CVA, DM2, CAD s/p PCI, mood disorder, CKD3 long-term resident of [facility] sent in with fevers suspected due to aspiration PNA vs R toe necrosis subsequently found to have Klebsiella bacteremia # sepsis due to Klebsiella pneumoniae bacteremia - s/p iv vanc/cefepime transitioned to iv ceftriaxone on 08/10, ID consulted, likely 14d total of antibiotics [end date 08/16] - CT A/P showed severe bilateral hydronephrosis and ureteral dilatation down to the bladder, diffuse bladder wall thickening these findings similar to previous exam, with 2 of the new fat stranding and pre sacral space and small amount of fluid in pelvis, new left lower lobe pneumonia, intra and extrahepatic biliary ductal dilatation similar to previous exam chest x-ray on 08/05 showed retrocardiac opacity, likely no new pneumonia, lung exam unremarkable, cont. IV ceftriaxone , WBC chronically elevated, follow clinical course. # hyperNa - improved on D5W, encourage oral water intake, follow BMP # hypokalemia k 2.9 , repleted and normalized. # R toe necrosis due to PVD - per Vascular Surgery, unlikely source of infection. She is not ambulatory and is not candidate for aggressive intervention, but if necrosis worsens he recommends AKA spoke with son and informed about plan of care. # sacral decubitus ulcer, unstageable - Wound Care consulted they recommend Allevyn as secondary dressing , topical alginate first over the pressure ulcer to absorb any drainage, continue nutrition support. on oxycodone for pain control. # poor nutrition, being evaluated by supervisor electronics testing patient receiving Ensure supplements, but continued to have inadequate by mouth intake discuss alternate nutrition with patient and son son requesting for PEG tube placement, seen by General surgery tentatively booked for PEG tube on 08/17 will hold Plavix NPO midnight on PPN day 2 / patient by mouth intake improved today willing to eat, continue to observe for next 24 hours and discuss need for PEG tube at a.m. with family and patient. # CAD/ PVD - ASA and atorvastatin. Plavix held as above # HTN - stable blood pressure,cont. lisinopril,and metoprolol. # DM2 - correction-dose lispro, DM diet. at home takes Levemir insulin 12 units daily and on insulin sliding scale # cognitive impairment/dementia/depression continue mirtazapine 7.5 mg, previously patient was on sertraline discontinued by son due to hallucination. # VTE ppx: LMWH # dispo: C spoke with son Negrito Oquendo [phone] and updated him regarding patient's clinical condition In my clinical judgment, the patient requires continued inpatient hospitalization for the following reasons: peg tube placement. Time Spent With Patient Time: Total time managing care of this patient today ____ minutes. Quality Stroke Does the patient have a stroke diagnosis?: No VTE Prior VTE?: No VTE Risk Level:: Medical - moderate - high VTE Device Contraindication: Treatment Not Indicated VTE Drug Contraindication: N/A - Med Ordered
[2022-08-16 15:19] VITALS: BP 151/66; PULSE 63; RESP 18; TEMP 37.2; O2SAT 98
[2022-08-16 16:03] LABS: Glucose, Whole Blood 128 mg/dL (60-115)
[2022-08-16 20:00] VITALS: BP 160/69; PULSE 77; RESP 18; TEMP 36.4; O2SAT 97
[2022-08-16] MEDS: Enoxaparin Sodium 40 MG/0.4 ML SYRINGE SUBCUT (20:01)
[2022-08-16] MEDS: Mirtazapine 7.5 MG TABLET PO (20:02)
[2022-08-16] MEDS: HYDROcodone Bit/Acetam 5/325 TABLET 1 TAB PO (20:04)
[2022-08-16] MEDS: Atorvastatin Calcium 80 MG TABLET PO (20:04)
[2022-08-16 20:43] LABS: Glucose, Whole Blood 216 mg/dL (60-115)
--- NOTE | 2022-08-16 22:18 | PC.NURSE ---
Patient swallowed Ensure without difficulty,had difficulty swallowing pudding
[2022-08-17] VITALS (7 sets, daily range): BP systolic 118–160; BP diastolic 52–69; PULSE 55–75; RESP 17–20; TEMP 36.1–37; O2SAT 98–100; BMI 19.6
[2022-08-17 06:13] LABS: Hematocrit 24.8 % (37.0-47.0); Hemoglobin 7.8 g/dl (12.0-16.0); Mean Corpuscular HGB Conc 31.5 g/dl (31.0-35.0); Mean Corpuscular Hemoglobin 26.9 pg (27.0-33.0); Mean Corpuscular Volume 85.5 fL (80.0-98.0); Mean Platelet Volume 10.6 fL (9.4-12.3); Platelet Count 348 X10*3/uL (160-400); Red Cell Distribution Width 19.6 % (11.0-16.0); White Blood Count 16.4 X10*3/uL (4.8-10.8)
[2022-08-17 06:14] LABS: Anion Gap 9 (12-20); Blood Urea Nitrogen 25 mg/dL (9-16); Carbon Dioxide 24 mmol/L (22-29); Chloride 113 mmol/L (96-108); Creatinine Clr Calc Pharmacy 50.8; Estimated Glomerular Filt Rate > 60; Glucose Random 331 mg/dL (60-115); Potassium 3.6 mmol/L (3.3-5.1); Sodium 142 mmol/L (135-145)
[2022-08-17] MEDS: oxyCODONE HCl Immed Release 5 MG TABLET PO (06:15)
[2022-08-17 07:40] LABS: Glucose, Whole Blood 293 mg/dL (60-115)
[2022-08-17 08:22] LABS: Albumin Level 1.9 g/dL (3.5-5.0); Magnesium 2.4 mg/dL (1.6-2.6); Phosphorus 1.8 mg/dL (2.7-4.5)
[2022-08-17] MEDS: cefTRIAXone sodium 2 GM in 0.9 % Sodium Chloride 50 ML IV (08:38)
[2022-08-17] MEDS: HYDROcodone Bit/Acetam 5/325 TABLET 1 TAB PO ×3 (08:41→20:41)
[2022-08-17] MEDS: Gabapentin 100 MG CAPSULE PO ×3 (08:41→20:42)
[2022-08-17] MEDS: Aspirin Enteric Coated 81 MG TABLET.DR PO (08:41)
[2022-08-17] MEDS: lisinopriL 5 MG TABLET PO (08:42)
[2022-08-17] MEDS: Metoprolol Succinate ER 25 MG TAB.ER.24H PO (08:42)
[2022-08-17] MEDS: Insulin Lispro 100 UNIT/ML 3 ML VIAL SUBCUT ×4 (08:42→20:41)
[2022-08-17] MEDS: Baclofen 10 MG TABLET 15 MG PO ×3 (08:42→20:42)
--- NOTE | 2022-08-17 09:33 | HO.PM.IMPN ---
Subjective Subjective Date of Service: 08/17/22 Interval History: patient awake alert this morning answering questions appropriately ,complaining of generalized pain, decreased by mouth intake only drinking juices, agrees for PEG tube placement no other acute issues overnight, denies headache, no nausea, no vomiting, no chest pain, no palpitations denies shortness of breath. Review of Systems all other systems reviewed and negative. Physical Exam Vital Signs: Vital Signs: Last Vital Signs Temp 97.4 F 08/17/22 07:15 Pulse 75 08/17/22 07:15 Resp 20 08/17/22 07:15 BP 145/63 H 08/17/22 07:15 Pulse Ox 99 08/17/22 07:15 O2 Del Method Room Air 08/17/22 07:15 O2 Flow Rate 98 08/15/22 04:00 Oxygen Flow Rate 3 08/04/22 15:49 BMI result Body Mass Index 19.6 Const: Other: Gen: awake alert,in no acute distress, patient more awake today as compared to last several days. HEENT: sclera anicteric, moist mucus membranes Neck: supple Lungs: clear to auscultation bilaterally Heart: regular rate and rhythm, no murmurs Abd: soft, non-tender, non-distended : Alvarez draining clear urine Ext: no edema Skin:? necrotic 1st 2nd?and 3rd toes on the right, , bilateral heel ulceration, right leg dressing in place Neuro: awake,? clear speech, left hemiparesis, no facial droop right face, limited range of motion right upper and lower extremity Psych: appropriate?affect Objective Data Active Medications Acetaminophen (Acetaminophen 325 Mg Tablet) 650 mg PO Q6H PRN PRN Reason: Pain, Mild (Pain Scale 1-3) Last Admin: 08/12/22 11:02 Dose: 650 mg Acetaminophen (Acetaminophen Supp 650 Mg Supp.Rect) 650 mg [place] Q6H PRN PRN Reason: Pain, Mild (Pain Scale 1-3) Last Admin: 08/15/22 14:00 Dose: 650 mg Documented By: ZORAN Hydrocodone Bitart/Acetaminophen (Hydrocodone Bit/Acetam 5/325 Tablet) 1 tab PO TID [facility] Last Admin: 08/17/22 08:41 Dose: 1 tab Documented By: VICKI Aspirin (Aspirin Enteric Coated 81 Mg Tablet.) 81 mg PO DAILY [facility] Last Admin: 08/17/22 08:41 Dose: 81 mg Documented By: VICKI Atorvastatin Calcium (Atorvastatin Calcium 80 Mg Tablet) 80 mg PO BEDTIME [facility] Last Admin: 08/16/22 20:04 Dose: 80 mg Documented By: MICHAEL Baclofen (Baclofen 10 Mg Tablet) 15 mg PO TID [facility] Last Admin: 08/17/22 08:42 Dose: 15 mg Documented By: VICKI Enoxaparin Sodium (Enoxaparin Sodium 40 Mg/0.4 Ml Syringe) 40 mg SUBCUT Q24H [facility] Last Admin: 08/16/22 20:01 Dose: 40 mg Documented By: MICHAEL Gabapentin (Gabapentin 100 Mg Capsule) 100 mg PO TID [facility] Last Admin: 08/17/22 08:41 Dose: 100 mg Documented By: VICKI Glucose (Glucose Gel 15 Gm Gel..Gram.) 15 gm PO Q15M PRN; Protocol PRN Reason: per Hypoglycemia Standing Ord. Dextrose (D10) 250 mls @ 750 mls/hr IV Q15M PRN; Protocol PRN Reason: per Hypoglycemia Standing Ord. Ceftriaxone Sodium 2 gm/ (Sodium Chloride) 50 mls @ 100 mls/hr IV Q24H [facility] Last Infusion: 08/17/22 09:28 Dose: 0 mls/hr Documented By: VICKI Amino Acids/Electrolytes/Dextrose (Clinimix E 4.25%-10%) 1,200 mls @ 50 mls/hr IV DAILY@1800 [facility] Stop: 08/17/22 17:59 Last Admin: 08/16/22 18:53 Dose: 50 mls/hr Documented By: MICHAEL Insulin Human Lispro (Insulin Lispro 100 Unit/Ml 3 Ml Vial) 0 unit SUBCUT QIDACHS [facility]; Protocol Last Admin: 08/17/22 08:42 Dose: 6 unit Documented By: VICKI Comments: pt NPO on TPN Lactulose (Lactulose 20 Gm/30 Ml Solution) 20 gm PO BID [facility] Last Admin: 08/17/22 08:39 Dose: Not Given Documented By: VICKI Non-Admin Reason: loose stool Lisinopril (Lisinopril 5 Mg Tablet) 5 mg PO DAILY [facility]; Protocol Last Admin: 08/17/22 08:42 Dose: 5 mg Documented By: VICKI Melatonin (Melatonin 3 Mg Tablet) 6 mg PO BEDTIME PRN PRN Reason: Insomnia Last Admin: 08/12/22 20:14 Dose: 6 mg Documented By: MARCELA Metoprolol Succinate (Metoprolol Succinate Er 25 Mg Tab.Er.24h) 25 mg PO DAILY [facility]; Protocol Last Admin: 08/17/22 08:42 Dose: 25 mg Documented By: VICKI Mirtazapine (Mirtazapine 7.5 Mg Tablet) 7.5 mg PO BEDTIME [facility] Last Admin: 08/16/22 20:02 Dose: 7.5 mg Documented By: MICHAEL Ondansetron HCl (Ondansetron Hcl 4 Mg/2 Ml Vial) 4 mg IVPUSH Q8H PRN PRN Reason: Nausea and Vomiting Oxycodone HCl (Oxycodone Hcl Immed Release 5 Mg Tablet) 5 mg PO Q6H PRN PRN Reason: Pain, Moderate(Pain Scale 4-6) Last Admin: 08/17/22 06:15 Dose: 5 mg Documented By: DESHAUN Pharmacy Consult (Consult Rx Perform Med Rec) 1 each MISCELLANE ONCE PRN PRN Reason: Consult order Sodium Chloride (0.9 % Sodium Chloride Flush 3 Ml Syringe) [facility] Last Admin: 08/17/22 07:39 Dose: Not Given Documented By: VICKI Non-Admin Reason: IV Running Tizanidine HCl (Tizanidine Hcl 4 Mg Tablet) 2 mg PO Q8H PRN PRN Reason: MUSCLE SPASMS Labs 08/17/22 05:27 08/17/22 05:27 Labs: Laboratory Results - last 24 hr 08/16/22 08/16/22 08/16/22 08:54 11:06 15:58 MCV MCH MCHC RDW Plt Count MPV Absolute Nucleated RBC Nucleated RBC % (auto) Anion Gap 11 L Estim Creat Clear Calc 53.9 Estimated GFR > 60 POC Glucose 171 H 128 H Random Glucose 208 H Calcium 9.2 Phosphorus Magnesium Albumin Crossmatch 08/16/22 08/17/22 08/17/22 20:38 05:27 05:27 MCV 85.5 MCH 26.9 L MCHC 31.5 RDW 19.6 H Plt Count 348 MPV 10.6 Absolute Nucleated RBC 0.000 Nucleated RBC % (auto) 0.0 Anion Gap 9 L Estim Creat Clear Calc 50.8 Estimated GFR > 60 POC Glucose 216 H Random Glucose 331 H Calcium 9.0 Phosphorus 1.8 L Magnesium 2.4 Albumin 1.9 L Crossmatch 08/17/22 08/17/22 07:19 08:43 MCV MCH MCHC RDW Plt Count MPV Absolute Nucleated RBC Nucleated RBC % (auto) Anion Gap Estim Creat Clear Calc Estimated GFR POC Glucose 293 H Random Glucose Calcium Phosphorus Magnesium Albumin Crossmatch See Detail Assessment and Plan (1) Sepsis: Status: Acute Plan 62yo F with HTN, HLD, multifocal CVA, DM2, CAD s/p PCI, mood disorder, CKD3,long-term resident of [facility] sent in with fevers suspected due to aspiration PNA vs R toe necrosis, subsequently found to have Klebsiella bacteremia # sepsis due to Klebsiella pneumoniae bacteremia - finished course of IV antibiotic initially received iv vanc/cefepime then transitioned to iv ceftriaxone on 08/10, ID recommended 14 days of total antibiotics ended on 08/16 - CT A/P showed severe bilateral hydronephrosis and ureteral dilatation down to the bladder, diffuse bladder wall thickening these findings similar to previous exam, new fat stranding in the pre sacral space and small amount of fluid in pelvis, new left lower lobe pneumonia, intra and extrahepatic biliary ductal dilatation similar to previous exam chest x-ray on 08/05 showed retrocardiac opacity, likely no new pneumonia, lung exam unremarkable, likely presacral fat stranding secondary to decub ulcer. WBC chronically elevated, CRP 11.12, case discussed with ID she do not recommend further antibiotic, follow clinical course. # acute on chronic normocytic anemia inflammatory disease likely due to underlying gangrene decubitus ulcers and poor by mouth intake. no hematemesis, no melena. iron 17 with TIBC of 89 elevated ferritin not consistent with iron deficiency check stool guaiac, will transfuse 1 unit of packed RBC follow CBC # hyperNa - resolved status post IV D5W now on PPN # hypokalemia k 2.9 , repleted and normalized. # hyperphosphatemia phosphorus 1.8 will replace and follow # R toe necrosis due to PVD per Vascular Surgery, unlikely source of infection. She is not ambulatory and is not candidate for aggressive intervention, but if necrosis worsens he recommends AKA spoke with son and informed about plan of care. # sacral decubitus ulcer, unstageable - Wound Care consulted they recommend Allevyn as secondary dressing , topical alginate first over the pressure ulcer to absorb any drainage, continue nutrition support. on oxycodone for pain control. # poor nutrition, being evaluated by lacquer spray booth operator patient receiving Ensure supplements, but continued to have inadequate by mouth intake discuss alternate nutrition with patient and son they requested for PEG tube placement, seen by General surgery tentatively booked for PEG tube on 08/18, Plavix on hold, NPO midnight on PPN day 3 / patient by mouth intake continued to be poor. # CAD/ PVD - no chest pain continue ASA and atorvastatin. Plavix held as above # HTN - stable blood pressure,cont. lisinopril,and metoprolol. # DM2 - correction-dose lispro, at home takes Levemir insulin 12 units daily and insulin sliding scale, # multifocal CVA, left hemiparesis, cognitive impairment/dementia/depression being followed by speech therapy currently on nectar thick liquids and pureed diet continue mirtazapine 7.5 mg, previously patient was on sertraline discontinued by son due to hallucination. # VTE ppx: LMWH # dispo: C spoke with son Negrito Oquendo [phone] and updated him regarding patient's clinical condition In my clinical judgment, the patient requires continued inpatient hospitalization for the following reasons: peg tube placement. Time Spent With Patient Time: Total time managing care of this patient today ____ minutes. Quality Stroke Does the patient have a stroke diagnosis?: No VTE Prior VTE?: No VTE Risk Level:: Medical - moderate - high VTE Device Contraindication: Treatment Not Indicated VTE Drug Contraindication: N/A - Med Ordered
--- NOTE | 2022-08-17 10:50 | MHC.SL.SWA ---
Speech Pathologist Impression: Oropharyngeal dysphagia Risk of Aspiration Due to: Neurological Condition Poor PO Intake Reduced Cognition Dysphasia Diet Status: Recommend patient continue on current diet of Puree with Noroton Thick Liquid, Pills crushed in puree. Patient would benefit from frequent smaller meals, offer and present small amounts at a time to encourage PO intake. PILATES INSTRUCTOR will continue to follow. Pt requires total 1:1 assistance feeding, ensure aspiration precautions. Hold tray if pt is lethargic and/or not attending to meal. Pt benefits from consistent reminders to swallow and oral check. Liquid Consistency and Strategies for Safe Swallow: Liquid Intake Recommendation: Noroton Thick Liquid Intake Strategies: Small Sips Solid Food Consistency: Dietary Recommendations: Pureed (NDD1) Additional Modifications to Solid Foods: Patient would benefit from frequent smaller meals, offer and present small amounts at a time to encourage PO intake. Pt requires total 1:1 assistance feeding, ensure aspiration precautions. Hold tray if pt is lethargic and/or not attending to meal. Pt benefits from consistent reminders to swallow and oral check. PILATES INSTRUCTOR will continue to follow. Oral Medication Intake: Crushed with Puree Please contact the pharmacy regarding appropriate crushable or liquid drug formulations that are available whenever modified delivery is recommended. Compensatory Strategies and Precautions to be Taken for Safe Swallow: Sitting Upright (90 deg) Small Bites and Sips Rate of Ingestion Change Oral Check Avoid Specific Foods Supervision While Eating and Drinking for Safe Swallow: Total Assistance (1:1) Foods to Avoid: Mixed consistencies Swallowing Recommended Treatments: Compens. Strategy Educat. Recommendation for Speech: Inpatient Speech Therapy Business System Consultant Clinican/Clinical Fellow: No Supervisory Statement: I have reviewed and agree with the student/clinical fellow's documentation: N/A Speech Language Pathologist: Mitra Spear M.A., [facility]-PILATES INSTRUCTOR
--- NOTE | 2022-08-17 11:25 | MHC.CLN ---
F/U TODAY WILL BE DAY 3 PPN. RECOMMEND ADVANCE TO D10AA4.25 AT 70 ML/HR TO PROVIDE 857 KCALS, 71 G PROTEIN, 168 G DEXTROSE. MONITOR MG, PHOS, K+ CLOSELY FOR RISK OF RE-FEEDING. REPLETE LYTES NEEDED. DIET=DIABETIC 2000 KCALS, PUREE WITH NECTAR THICK LIQUIDS. POOR PO INTAKE AND NOT ABLE TO MEET NUTRITIONAL NEEDS VIA PO. PEG TUBE PLACEMENT SCHEDULED FOR 08/18. FOLLOW FOR NUTRITIONAL NEEDS, PO INTAKE, PPN/TUBE FEEDING, SKIN INTEGRITY, AND LABS.
[2022-08-17] MEDS: Sodium,Potassium Phosphates POWD.PACK 1 PACKET PO ×3 (11:29→20:42)
[2022-08-17 11:43] LABS: C Reactive Protein 11.12 mg/dL (< or = 0.50); Iron 17 mcg/dL (30-160); Percent Iron Saturation 19 % (15-50); Total Iron Binding Capacity 89 mcg/dL (228-428); Triglycerides 55 mg/dL; Unsaturated Iron Binding 72 ug/dL
[2022-08-17 11:44] LABS: Glucose, Whole Blood 269 mg/dL (60-115)
[2022-08-17 12:05] LABS: Ferritin 1036 ng/mL (10-250)
--- NOTE | 2022-08-17 13:20 | PM.PNGS ---
Subjective Subjective Date of Service: 08/17/22 Interval history: No new events As per nursing, seems to have had a little bit of intake yesterday Physical Exam Vital Signs: Vital Signs: Last Vital Signs Temp 97.4 F 08/17/22 07:15 Pulse 75 08/17/22 07:15 Resp 20 08/17/22 07:15 BP 145/63 H 08/17/22 07:15 Pulse Ox 99 08/17/22 07:15 O2 Del Method Room Air 08/17/22 07:15 O2 Flow Rate 98 08/15/22 04:00 Oxygen Flow Rate 3 08/04/22 15:49 BMI result Body Mass Index 19.6 Const: Other: Very frail looking, has verbal output but seems to be mostly unintelligible Resp: Effort & Inspection: normal respiratory effort Cardio: Rate: regular rate GI: Palpation (GI): Soft to palpation, not firm and nontender Neuro: Other: Left-sided hemiplegia Objective Data Active Medications Acetaminophen (Acetaminophen 325 Mg Tablet) 650 mg PO Q6H PRN PRN Reason: Pain, Mild (Pain Scale 1-3) Last Admin: 08/12/22 11:02 Dose: 650 mg Acetaminophen (Acetaminophen Supp 650 Mg Supp.Rect) 650 mg [place] Q6H PRN PRN Reason: Pain, Mild (Pain Scale 1-3) Last Admin: 08/15/22 14:00 Dose: 650 mg Documented By: ZORAN Hydrocodone Bitart/Acetaminophen (Hydrocodone Bit/Acetam 5/325 Tablet) 1 tab PO TID [facility] Last Admin: 08/17/22 08:41 Dose: 1 tab Documented By: VICKI Aspirin (Aspirin Enteric Coated 81 Mg Tablet.Dr) 81 mg PO DAILY [facility] Last Admin: 08/17/22 08:41 Dose: 81 mg Documented By: VICKI Atorvastatin Calcium (Atorvastatin Calcium 80 Mg Tablet) 80 mg PO BEDTIME [facility] Last Admin: 08/16/22 20:04 Dose: 80 mg Documented By: MICHAEL Baclofen (Baclofen 10 Mg Tablet) 15 mg PO TID [facility] Last Admin: 08/17/22 08:42 Dose: 15 mg Documented By: VICKI Enoxaparin Sodium (Enoxaparin Sodium 40 Mg/0.4 Ml Syringe) 40 mg SUBCUT Q24H [facility] Last Admin: 08/16/22 20:01 Dose: 40 mg Documented By: MICHAEL Gabapentin (Gabapentin 100 Mg Capsule) 100 mg PO TID [facility] Last Admin: 08/17/22 08:41 Dose: 100 mg Documented By: VICKI Glucose (Glucose Gel 15 Gm Gel..Gram.) 15 gm PO Q15M PRN; Protocol PRN Reason: per Hypoglycemia Standing Ord. Dextrose (D10) 250 mls @ 750 mls/hr IV Q15M PRN; Protocol PRN Reason: per Hypoglycemia Standing Ord. Amino Acids/Electrolytes/Dextrose (Clinimix E 4.25%-10%) 1,200 mls @ 50 mls/hr IV DAILY@1800 [facility] Stop: 08/17/22 17:59 Last Admin: 08/16/22 18:53 Dose: 50 mls/hr Documented By: MICHAEL Multivitamins 10 ml/ Trace Metals 1 ml/ Amino Acids/Electrolytes/Dextrose 1,680 mls @ 70 mls/hr IV DAILY@1800 [facility] Stop: 08/18/22 17:59 Insulin Human Lispro (Insulin Lispro 100 Unit/Ml 3 Ml Vial) 0 unit SUBCUT QIDACHS [facility]; Protocol Last Admin: 08/17/22 11:51 Dose: 6 unit Documented By: VICKI Lactulose (Lactulose 20 Gm/30 Ml Solution) 20 gm PO BID [facility] Last Admin: 08/17/22 08:39 Dose: Not Given Documented By: VICKI Non-Admin Reason: loose stool Lisinopril (Lisinopril 5 Mg Tablet) 5 mg PO DAILY [facility]; Protocol Last Admin: 08/17/22 08:42 Dose: 5 mg Documented By: VICKI Melatonin (Melatonin 3 Mg Tablet) 6 mg PO BEDTIME PRN PRN Reason: Insomnia Last Admin: 08/12/22 20:14 Dose: 6 mg Documented By: MARCELA Metoprolol Succinate (Metoprolol Succinate Er 25 Mg Tab.Er.24h) 25 mg PO DAILY [facility]; Protocol Last Admin: 08/17/22 08:42 Dose: 25 mg Documented By: VICKI Mirtazapine (Mirtazapine 7.5 Mg Tablet) 7.5 mg PO BEDTIME [facility] Last Admin: 08/16/22 20:02 Dose: 7.5 mg Documented By: MICHAEL Ondansetron HCl (Ondansetron Hcl 4 Mg/2 Ml Vial) 4 mg IVPUSH Q8H PRN PRN Reason: Nausea and Vomiting Oxycodone HCl (Oxycodone Hcl Immed Release 5 Mg Tablet) 5 mg PO Q6H PRN PRN Reason: Pain, Moderate(Pain Scale 4-6) Last Admin: 08/17/22 06:15 Dose: 5 mg Documented By: DESHAUN Pharmacy Consult (Consult Rx Perform Med Rec) 1 each MISCELLANE ONCE PRN PRN Reason: Consult order Potassium Phos/Sodium Phos (Sodium,Potassium Phosphates Powd.Pack) 1 packet PO TID [facility] Last Admin: 08/17/22 11:29 Dose: 1 packet Documented By: VICKI Sodium Chloride (0.9 % Sodium Chloride Flush 3 Ml Syringe) 3 ml IVFLUSH QSHIFT [facility] Last Admin: 08/17/22 07:39 Dose: Not Given Documented By: VICKI Non-Admin Reason: IV Running Tizanidine HCl (Tizanidine Hcl 4 Mg Tablet) 2 mg PO Q8H PRN PRN Reason: MUSCLE SPASMS Labs 08/17/22 05:27 08/17/22 05:27 Labs: Laboratory Results - last 24 hr 08/16/22 08/16/22 08/16/22 08:54 15:58 20:38 MCV MCH MCHC RDW Plt Count MPV Absolute Nucleated RBC Nucleated RBC % (auto) Anion Gap 11 L Estim Creat Clear Calc 53.9 Estimated GFR > 60 POC Glucose 128 H 216 H Random Glucose 208 H Calcium 9.2 Phosphorus Magnesium Iron TIBC % Saturation Unsat Iron Binding Ferritin C-Reactive Protein Albumin Triglycerides Blood Type Antibody Screen Crossmatch 08/17/22 08/17/22 08/17/22 05:27 05:27 07:19 MCV 85.5 MCH 26.9 L MCHC 31.5 RDW 19.6 H Plt Count 348 MPV 10.6 Absolute Nucleated RBC 0.000 Nucleated RBC % (auto) 0.0 Anion Gap 9 L Estim Creat Clear Calc 50.8 Estimated GFR > 60 POC Glucose 293 H Random Glucose 331 H Calcium 9.0 Phosphorus 1.8 L Magnesium 2.4 Iron 17 L TIBC 89 L % Saturation 19 Unsat Iron Binding 72 Ferritin 1036 H C-Reactive Protein 11.12 H Albumin 1.9 L Triglycerides 55 Blood Type Antibody Screen Crossmatch 08/17/22 08/17/22 08:43 11:26 MCV MCH MCHC RDW Plt Count MPV Absolute Nucleated RBC Nucleated RBC % (auto) Anion Gap Estim Creat Clear Calc Estimated GFR POC Glucose 269 H Random Glucose Calcium Phosphorus Magnesium Iron TIBC % Saturation Unsat Iron Binding Ferritin C-Reactive Protein Albumin Triglycerides Blood Type A Positive Antibody Screen NEGATIVE Crossmatch See Detail Procedures Date of Service Date of Service: 08/17/22 Progress Note: A&P Assessment and plan (1) Dysphagia: Status: Acute Assessment and Plan: Poor oral intake Referred for PEG tube placement She has multiple medical problems Frail looking Had a long discussion with her son and daughter about planned procedure They will get back to me later today if they want to proceed Explained the risks including but not limited to bleeding, infections, bowel injury, stroke, mi, pneumonia, loss of airway Poor long-term prognosis Time Spent With Patient Time: Total time managing care of this patient today ____ minutes. Quality Stroke Does the patient have a stroke diagnosis?: No VTE Prior VTE?: No VTE Risk Level:: Medical - moderate - high VTE Device Contraindication: Treatment Not Indicated VTE Drug Contraindication: N/A - Med Ordered
[2022-08-17 16:19] LABS: Glucose, Whole Blood 158 mg/dL (60-115)
[2022-08-17] MEDS: Mirtazapine 7.5 MG TABLET PO (20:41)
[2022-08-17] MEDS: Atorvastatin Calcium 80 MG TABLET PO (20:42)
[2022-08-17] MEDS: Lactulose 20 GM/30 ML SOLUTION PO (20:42)
[2022-08-17 20:44] LABS: Glucose, Whole Blood 160 mg/dL (60-115)
[2022-08-18 03:23] VITALS: BP 162/70; PULSE 69; RESP 16; TEMP 36.3; O2SAT 97
[2022-08-18 06:23] LABS: Hematocrit 34.3 % (37.0-47.0); Hemoglobin 10.9 g/dl (12.0-16.0); Mean Corpuscular HGB Conc 31.8 g/dl (31.0-35.0); Mean Corpuscular Hemoglobin 27.2 pg (27.0-33.0); Mean Corpuscular Volume 85.5 fL (80.0-98.0); Mean Platelet Volume 10.6 fL (9.4-12.3); Platelet Count 296 X10*3/uL (160-400); Red Blood Count 4.01 X10*6/uL (4.20-5.50); Red Cell Distribution Width 18.7 % (11.0-16.0); White Blood Count 17.3 X10*3/uL (4.8-10.8)
[2022-08-18 06:40] LABS: Albumin Level 1.9 g/dL (3.5-5.0); Anion Gap 9 (12-20); Blood Urea Nitrogen 27 mg/dL (9-16); Calcium 8.8 mg/dL (8.4-10.2); Carbon Dioxide 24 mmol/L (22-29); Chloride 111 mmol/L (96-108); Estimated Glomerular Filt Rate > 60; Glucose Random 216 mg/dL (60-115); Magnesium 2.4 mg/dL (1.6-2.6); Phosphorus 3.2 mg/dL (2.7-4.5); Potassium 4.4 mmol/L (3.3-5.1); Sodium 140 mmol/L (135-145)
[2022-08-18 07:16] LABS: Glucose, Whole Blood 232 mg/dL (60-115)
[2022-08-18] MEDS: Sodium,Potassium Phosphates POWD.PACK 1 PACKET PO ×3 (07:35→21:45)
[2022-08-18] MEDS: Baclofen 10 MG TABLET 15 MG PO ×3 (07:35→21:44)
[2022-08-18] MEDS: Gabapentin 100 MG CAPSULE PO ×3 (07:35→21:44)
[2022-08-18 07:36] VITALS: BP 160/67; PULSE 67; RESP 16; TEMP 36.6; O2SAT 98
[2022-08-18] MEDS: HYDROcodone Bit/Acetam 5/325 TABLET 1 TAB PO ×3 (07:36→21:44)
[2022-08-18] MEDS: lisinopriL 5 MG TABLET PO (07:36)
[2022-08-18] MEDS: Aspirin Enteric Coated 81 MG TABLET.DR PO (07:36)
[2022-08-18] MEDS: Metoprolol Succinate ER 25 MG TAB.ER.24H PO (07:36)
[2022-08-18] MEDS: Insulin Lispro 100 UNIT/ML 3 ML VIAL SUBCUT ×4 (07:37→21:43)
[2022-08-18 09:53] LABS: OBS Int Ctl Valid YES; OBS1 POSITIVE (NEGATIVE)
--- NOTE | 2022-08-18 10:10 | MHC.CLN ---
F/U PEG TUBE PLACEMENT SCHEDULED FOR 08/18-AWAITING FAMILY DECISION REVIEWED LABS DISCUSSED WITH PHARMACY RECOMMEND CONTINUE D10AA4.25 AT 70 ML/HR PROVIDES 857 KCALS, 71 G PROTEIN (1.5G/KG), 168 G DEXTROSE REPLETE LYTES NEEDED DIET RX:DIABETIC 2000 KCALS, PUREE WITH NECTAR THICK LIQUIDS-APPROPRIATE POOR PO INTAKE AND NOT ABLE TO MEET NUTRITIONAL NEEDS VIA PO IF LIPIDS NEEDED; RECOMMEND ADDING 12ML OF 20% LIPIDS TO PROVIDE 1433 TOTAL KCALS (FROM PPN AND LIPIDS COMBINED; 29KCALS/KG) CONSULT RD FOR TF RECOMMENDATIONS
[2022-08-18 11:18] LABS: Glucose, Whole Blood 220 mg/dL (60-115)
--- NOTE | 2022-08-18 11:35 | P.PNIM_ITS ---
Subjective Subjective Date of Service: 08/18/22 Interval History: Awake/alert. Answering questions appropriately. Complains of mild headache Review of Systems Unable to obtain Physical Exam Vital Signs: Vital Signs: Last Vital Signs Temp 97.8 F 08/18/22 07:36 Pulse 67 08/18/22 07:36 Resp 16 08/18/22 07:36 BP 160/67 H 08/18/22 07:36 Pulse Ox 98 08/18/22 07:36 O2 Del Method Room Air 08/18/22 07:36 O2 Flow Rate 98 08/15/22 04:00 Oxygen Flow Rate 3 08/04/22 15:49 BMI result Body Mass Index 19.6 Const: Other: Awake alert no acute distress; uncomfortable appearing Resp: Other: Clear to auscultation bilaterally no rales rhonchi or wheezes Cardio: Other: No S4; positive S1-S2; no S3 murmurs rubs or gallops GI: Other: Soft nontender nondistended normoactive bowel sounds Extrem: Other: Necrotic toes right foot Objective Data Active Medications Acetaminophen (Acetaminophen 325 Mg Tablet) 650 mg PO Q6H PRN PRN Reason: Pain, Mild (Pain Scale 1-3) Last Admin: 08/12/22 11:02 Dose: 650 mg Acetaminophen (Acetaminophen Supp 650 Mg Supp.Rect) 650 mg [place] Q6H PRN PRN Reason: Pain, Mild (Pain Scale 1-3) Last Admin: 08/15/22 14:00 Dose: 650 mg Documented By: ZORAN Hydrocodone Bitart/Acetaminophen (Hydrocodone Bit/Acetam 5/325 Tablet) 1 tab PO TID [facility] Last Admin: 08/18/22 07:36 Dose: 1 tab Documented By: VICKI Aspirin (Aspirin Enteric Coated 81 Mg Tablet.Dr) 81 mg PO DAILY [facility] Last Admin: 08/18/22 07:36 Dose: 81 mg Documented By: VICKI Atorvastatin Calcium (Atorvastatin Calcium 80 Mg Tablet) 80 mg PO BEDTIME [facility] Last Admin: 08/17/22 20:42 Dose: 80 mg Documented By: CESAR Baclofen (Baclofen 10 Mg Tablet) 15 mg PO TID [facility] Last Admin: 08/18/22 07:35 Dose: 15 mg Documented By: VICKI Enoxaparin Sodium (Enoxaparin Sodium 40 Mg/0.4 Ml Syringe) 40 mg SUBCUT Q24H [facility] Last Admin: 08/16/22 20:01 Dose: 40 mg Documented By: MICHAEL Gabapentin (Gabapentin 100 Mg Capsule) 100 mg PO TID [facility] Last Admin: 08/18/22 07:35 Dose: 100 mg Documented By: VICKI Glucose (Glucose Gel 15 Gm Gel..Gram.) 15 gm PO Q15M PRN; Protocol PRN Reason: per Hypoglycemia Standing Ord. Dextrose (D10) 250 mls @ 750 mls/hr IV Q15M PRN; Protocol PRN Reason: per Hypoglycemia Standing Ord. Multivitamins 10 ml/ Trace Metals 1 ml/ Amino Acids/Electrolytes/Dextrose 1,680 mls @ 70 mls/hr IV DAILY@1800 [facility] Stop: 08/18/22 17:59 Last Admin: 08/17/22 18:14 Dose: 70 mls/hr Documented By: VICKI Cefazolin Sodium/Dextrose (Ancef) 2 gm in 50 mls @ 100 mls/hr IV PREOP ONE Stop: 08/18/22 14:41 Amino Acids/Electrolytes/Dextrose (Clinimix E 4.25%-10%) 1,680 mls @ 70 mls/hr IV DAILY@1800 [facility] Stop: 08/19/22 17:59 Fat Emulsion Intravenous (Intralipid) 144 mls @ 12 mls/hr IVCONT BID@0600,1800 [facility] Stop: 08/19/22 17:59 Insulin Human Lispro (Insulin Lispro 100 Unit/Ml 3 Ml Vial) 0 unit SUBCUT QIDACHS [facility]; Protocol Last Admin: 08/18/22 07:37 Dose: 4 unit Documented By: VICKI Lactulose (Lactulose 20 Gm/30 Ml Solution) 20 gm PO BID [facility] Last Admin: 08/18/22 07:45 Dose: Not Given Documented By: VICKI Non-Admin Reason: NPO Lisinopril (Lisinopril 5 Mg Tablet) 5 mg PO DAILY [facility]; Protocol Last Admin: 08/18/22 07:36 Dose: 5 mg Documented By: VICKI Melatonin (Melatonin 3 Mg Tablet) 6 mg PO BEDTIME PRN PRN Reason: Insomnia Last Admin: 08/12/22 20:14 Dose: 6 mg Documented By: MARCELA Metoprolol Succinate (Metoprolol Succinate Er 25 Mg Tab.Er.24h) 25 mg PO DAILY [facility]; Protocol Last Admin: 08/18/22 07:36 Dose: 25 mg Documented By: VICKI Mirtazapine (Mirtazapine 7.5 Mg Tablet) 7.5 mg PO BEDTIME [facility] Last Admin: 08/17/22 20:41 Dose: 7.5 mg Documented By: CESAR Ondansetron HCl (Ondansetron Hcl 4 Mg/2 Ml Vial) 4 mg IVPUSH Q8H PRN PRN Reason: Nausea and Vomiting Oxycodone HCl (Oxycodone Hcl Immed Release 5 Mg Tablet) 5 mg PO Q6H PRN PRN Reason: Pain, Moderate(Pain Scale 4-6) Last Admin: 08/17/22 06:15 Dose: 5 mg Documented By: DESHAUN Pharmacy Consult (Consult Rx Perform Med Rec) 1 each MISCELLANE ONCE PRN PRN Reason: Consult order Potassium Phos/Sodium Phos (Sodium,Potassium Phosphates Powd.Pack) 1 packet PO TID [facility] Last Admin: 08/18/22 07:35 Dose: 1 packet Documented By: VICKI Sodium Chloride (0.9 % Sodium Chloride Flush 3 Ml Syringe) 3 ml IVFLUSH QSHIFT [facility] Last Admin: 08/18/22 07:22 Dose: Not Given Documented By: VICKI Non-Admin Reason: IV Running Tizanidine HCl (Tizanidine Hcl 4 Mg Tablet) 2 mg PO Q8H PRN PRN Reason: MUSCLE SPASMS Labs 08/18/22 05:41 08/18/22 05:41 Labs: Laboratory Results - last 24 hr 08/17/22 08/17/22 08/17/22 05:27 08:43 11:26 MCV MCH MCHC RDW Plt Count MPV Absolute Nucleated RBC Nucleated RBC % (auto) Anion Gap Estim Creat Clear Calc Estimated GFR POC Glucose 269 H Random Glucose Calcium Phosphorus Magnesium Iron 17 L TIBC 89 L % Saturation 19 Unsat Iron Binding 72 Ferritin 1036 H C-Reactive Protein 11.12 H Albumin Triglycerides 55 Stool Occult Blood Blood Type A Positive Antibody Screen NEGATIVE Crossmatch See Detail 08/17/22 08/17/22 08/18/22 16:13 20:35 05:41 MCV 85.5 MCH 27.2 MCHC 31.8 RDW 18.7 H Plt Count 296 MPV 10.6 Absolute Nucleated RBC 0.000 Nucleated RBC % (auto) 0.0 Anion Gap Estim Creat Clear Calc Estimated GFR POC Glucose 158 H 160 H Random Glucose Calcium Phosphorus Magnesium Iron TIBC % Saturation Unsat Iron Binding Ferritin C-Reactive Protein Albumin Triglycerides Stool Occult Blood Blood Type Antibody Screen Crossmatch 08/18/22 08/18/22 08/18/22 05:41 07:05 09:20 MCV MCH MCHC RDW Plt Count MPV Absolute Nucleated RBC Nucleated RBC % (auto) Anion Gap 9 L Estim Creat Clear Calc 63.0 Estimated GFR > 60 POC Glucose 232 H Random Glucose 216 H Calcium 8.8 Phosphorus 3.2 Magnesium 2.4 Iron TIBC % Saturation Unsat Iron Binding Ferritin C-Reactive Protein Albumin 1.9 L Triglycerides Stool Occult Blood POSITIVE Blood Type Antibody Screen Crossmatch 08/18/22 11:14 MCV MCH MCHC RDW Plt Count MPV Absolute Nucleated RBC Nucleated RBC % (auto) Anion Gap Estim Creat Clear Calc Estimated GFR POC Glucose 220 H Random Glucose Calcium Phosphorus Magnesium Iron TIBC % Saturation Unsat Iron Binding Ferritin C-Reactive Protein Albumin Triglycerides Stool Occult Blood Blood Type Antibody Screen Crossmatch Assessment and Plan (1) Sepsis: Status: Acute (2) Bacteremia due to Klebsiella pneumoniae: Status: Acute (3) Ulcer of right second toe with necrosis of muscle: Status: Acute (4) Hemiplegia and hemiparesis following cerebral infarction affecting left non-dominant side: Status: Acute Plan This is a 62-year-old female with pertinent history of essential hypertension, mixed hyperlipidemia, history of multifocal CVA, insulin-dependent diabetes mellitus, CAD status post stent, mood disorder, CKD stage 3 was sent to the emergency department for evaluation of fevers. Workup consistent with likely aspiration pneumonia along with necrotic right toes. Subsequent blood cultures grew out Klebsiella 2/2 bottles sensitive to ceftriaxone. Seen in consultation by vascular surgery who likely will recommend amputation but need to speak with family once white count normalizes 1. Sepsis secondary to Klebsiella bacteremia -resolved -completed IV antibiotics; vanco/cefepime x6 days then transitioned to 14 days of ceftriaxone 2.Necrotic right foot toes. -WBC increasing -follow-up clinically 3.Sacral decubitus ulcer - topical alginate/Allevyn as per wound care 4. History of multifocal CVA with left hemiparesis; cognitive impairment/dementia -long discussion with son; states he does not want feeding tube or extensive measures but wishes to make his mother comfortable. States he has spoken with his siblings and they are all in agreement This caption writer spoke with patient and asked directly regarding feeding tube and amputation. Patient states she wishes to go through with this; appears to understand procedures and consequences. Will ask psych to come and assess for competency; son has been exercising proxy this hospitalization. Agrees with psych eval Patient will need ongoing hospitalization to maintain TPN Time Spent With Patient Time: Total time managing care of this patient today ____ minutes. Quality Stroke Does the patient have a stroke diagnosis?: No VTE Prior VTE?: No VTE Risk Level:: Medical - moderate - high VTE Device Contraindication: Treatment Not Indicated VTE Drug Contraindication: N/A - Med Ordered
--- NOTE | 2022-08-18 12:02 | MHC.CM.PN ---
PATIENT HAS DECIDED THAT SHE WANTS TO UNDERGO PEG PLACEMENT. SON AWARE. PSYCH CONSULT TO BE PLACED. [facility]
--- NOTE | 2022-08-18 12:06 | PM.EVENT ---
Event Note Date of Service: 08/18/22 Event Note: had multiple discussions with the son Negrito they have decided not to proceed with PEG tube placement they understand the implications of this decision peg tube placement canceled Time Spent With Patient Time: Total time managing care of this patient today ____ minutes.
--- NOTE | 2022-08-18 15:26 | P.CNPS_ITS ---
History of Present Illness Date of Service: 08/18/21 Chief Complaint: fever Requesting physician: Lee Bhatt Discussed with referring provider: Yes Sources of Information: patient interviewed and chart reviewed HPI Narrative: pt is a 62 yo female with pertinent history of essential hypertension, mixed hyperlipidemia, history of multifocal CVA, left hemiparesis, insulin-dependent diabetes mellitus, CAD status post stent, mood disorder, CKD stage 3 was sent to the emergency department for evaluation of fevers.? Workup consistent with likely aspiration pneumonia along with necrotic right toes.? Subsequent blood cultures grew out Klebsiella 2/2 bottles sensitive to ceftriaxone.? Hospitalist determined that patient needs feeding Tube which was communicated to patient who told hospitalist that she does in fact want a feeding tube Psychiatric consult requested to determine capacity Real Estate Associate met with patient who knows her name, date of and has an adequate understanding of her current medical situation; although she did not reference specifics other than history of stroke she knows she is currently very ill and at risk for ; she very clearly states she knows she needs a feeding tube and that without one she could . She clearly says she wants to live; she clearly says that she wants a feeding tube. Past Psychiatric History: Deferred Medical Evaluation Reviewed: Yes [facility] Medical History CKD (chronic kidney disease) stage 3, GFR 30-59 ml/min Coronary artery disease COVID-19 CVA (cerebral vascular accident) CVA (cerebral vascular accident) Diabetes mellitus type 2 in nonobese Glaucoma H/O supraventricular tachycardia History of right MCA stroke Hypertension ICAO (internal carotid artery occlusion) Ischemic cardiomyopathy Renal failure (ARF), acute on chronic Status post insertion of drug-eluting stent into left anterior descending (LAD) artery Surgical History H/O cardiac catheterization Diagnostics Vital Signs (24Hr): Vital Signs - 24 hr 08/17/22 15:48 08/17/22 16:27 08/17/22 19:36 Temperature 98.6 F 97.9 F 97 F Pulse Rate 71 71 55 Respiratory Rate 18 18 17 Blood Pressure 148/64 H 148/64 H 147/69 H Pulse Oximetry 100 98 Oxygen Delivery Method Room Air Room Air 08/18/22 03:23 08/18/22 07:36 Temperature 97.4 F 97.8 F Pulse Rate 69 67 Respiratory Rate 16 16 Blood Pressure 162/70 H 160/67 H Pulse Oximetry 97 98 Oxygen Delivery Method Room Air Room Air BMI result Body Mass Index 19.6 Labs 08/18/22 05:41 08/18/22 05:41 Labs: Laboratory Results - last 48 hr 08/16/22 08/16/22 08/17/22 15:58 20:38 05:27 WBC 16.4 H RBC 2.90 L Hgb 7.8 L Hct 24.8 L MCV 85.5 MCH 26.9 L MCHC 31.5 RDW 19.6 H Plt Count 348 MPV 10.6 Absolute Nucleated RBC 0.000 Nucleated RBC % (auto) 0.0 Sodium Potassium Chloride Carbon Dioxide Anion Gap BUN Creatinine Estim Creat Clear Calc Estimated GFR POC Glucose 128 H 216 H Random Glucose Calcium Phosphorus Magnesium Iron TIBC % Saturation Unsat Iron Binding Ferritin C-Reactive Protein Albumin Triglycerides Stool Occult Blood Blood Type Antibody Screen Crossmatch 08/17/22 08/17/22 08/17/22 05:27 07:19 08:43 WBC RBC Hgb Hct MCV MCH MCHC RDW Plt Count MPV Absolute Nucleated RBC Nucleated RBC % (auto) Sodium 142 Potassium 3.6 Chloride 113 H Carbon Dioxide 24 Anion Gap 9 L BUN 25 H Creatinine 0.88 Estim Creat Clear Calc 50.8 Estimated GFR > 60 POC Glucose 293 H Random Glucose 331 H Calcium 9.0 Phosphorus 1.8 L Magnesium 2.4 Iron 17 L TIBC 89 L % Saturation 19 Unsat Iron Binding 72 Ferritin 1036 H C-Reactive Protein 11.12 H Albumin 1.9 L Triglycerides 55 Stool Occult Blood Blood Type A Positive Antibody Screen NEGATIVE Crossmatch See Detail 08/17/22 08/17/22 08/17/22 11:26 16:13 20:35 WBC RBC Hgb Hct MCV MCH MCHC RDW Plt Count MPV Absolute Nucleated RBC Nucleated RBC % (auto) Sodium Potassium Chloride Carbon Dioxide Anion Gap BUN Creatinine Estim Creat Clear Calc Estimated GFR POC Glucose 269 H 158 H 160 H Random Glucose Calcium Phosphorus Magnesium Iron TIBC % Saturation Unsat Iron Binding Ferritin C-Reactive Protein Albumin Triglycerides Stool Occult Blood Blood Type Antibody Screen Crossmatch 08/18/22 08/18/22 08/18/22 05:41 05:41 07:05 WBC 17.3 H RBC 4.01 L D Hgb 10.9 L D Hct 34.3 L D MCV 85.5 MCH 27.2 MCHC 31.8 RDW 18.7 H Plt Count 296 MPV 10.6 Absolute Nucleated RBC 0.000 Nucleated RBC % (auto) 0.0 Sodium 140 Potassium 4.4 D Chloride 111 H Carbon Dioxide 24 Anion Gap 9 L BUN 27 H Creatinine 0.71 Estim Creat Clear Calc 63.0 Estimated GFR > 60 POC Glucose 232 H Random Glucose 216 H Calcium 8.8 Phosphorus 3.2 Magnesium 2.4 Iron TIBC % Saturation Unsat Iron Binding Ferritin C-Reactive Protein Albumin 1.9 L Triglycerides Stool Occult Blood Blood Type Antibody Screen Crossmatch 08/18/22 08/18/22 09:20 11:14 WBC RBC Hgb Hct MCV MCH MCHC RDW Plt Count MPV Absolute Nucleated RBC Nucleated RBC % (auto) Sodium Potassium Chloride Carbon Dioxide Anion Gap BUN Creatinine Estim Creat Clear Calc Estimated GFR POC Glucose 220 H Random Glucose Calcium Phosphorus Magnesium Iron TIBC % Saturation Unsat Iron Binding Ferritin C-Reactive Protein Albumin Triglycerides Stool Occult Blood POSITIVE Blood Type Antibody Screen Crossmatch Imaging Radiology Impressions: ITS Impressions Chest X-Ray 08/04/22 15:39 IMPRESSION: - Suspect small infiltrate left base. No effusion. - Right lung clear. Foot X-Ray 08/04/22 15:39 IMPRESSION: - Attenuation soft tissues overlying distal phalangeal ayush first, second, and third toes. Possible exposed bone at second distal tuft. Clinically correlate. -No focal bony destruction or periostitis. No gas tracking in soft tissues. Duplex Scan Lower Extremity Artery 08/04/22 20:29 IMPRESSION: Occlusion of the mid and distal superficial femoral artery. Reconstitution at the popliteal artery. The calf arteries are not assessed. Chest X-Ray 08/05/22 04:37 IMPRESSION: Increased retrocardiac opacity which could represent atelectasis or pneumonia. Aspiration possible. Abdomen Ultrasound 08/10/22 17:51 IMPRESSION: 1. Technically limited exam. Mild intra and extrahepatic biliary duct dilatation status post cholecystectomy similar to prior. 2. Trace right hydroureteronephrosis partially visualized. Markedly limited views of the left kidney which is remarkable for hydroureter with without definite hydronephrosis though difficult to say with certainty. Abdomen/Pelvis CT 08/11/22 09:31 IMPRESSION: New left lower lobe pneumonia. Intra and extrahepatic biliary duct dilatation similar to previous exam. The gallbladder has been removed. Severe bilateral hydronephrosis and ureteral dilatation down to the bladder. Alvarez catheter in the bladder. Diffuse bladder wall thickening. These findings are similar to previous exam. New fat stranding in the presacral space and small amount of fluid in the pelvis. Severe atherosclerotic disease. Fleischner guidelines were followed. Medications Medications Current Medications Acetaminophen (Acetaminophen 325 Mg Tablet) 650 mg PO Q6H PRN PRN Reason: Pain, Mild (Pain Scale 1-3) Last Admin: 08/12/22 11:02 Dose: 650 mg Acetaminophen (Acetaminophen Supp 650 Mg Supp.Rect) 650 mg [place] Q6H PRN PRN Reason: Pain, Mild (Pain Scale 1-3) Last Admin: 08/15/22 14:00 Dose: 650 mg Hydrocodone Bitart/Acetaminophen (Hydrocodone Bit/Acetam 5/325 Tablet) 1 tab PO TID [facility] Last Admin: 08/18/22 07:36 Dose: 1 tab Aspirin (Aspirin Enteric Coated 81 Mg Tablet.) 81 mg PO DAILY [facility] Last Admin: 08/18/22 07:36 Dose: 81 mg Atorvastatin Calcium (Atorvastatin Calcium 80 Mg Tablet) 80 mg PO BEDTIME [facility] Last Admin: 08/17/22 20:42 Dose: 80 mg Baclofen (Baclofen 10 Mg Tablet) 15 mg PO TID [facility] Last Admin: 08/18/22 07:35 Dose: 15 mg Enoxaparin Sodium (Enoxaparin Sodium 40 Mg/0.4 Ml Syringe) 40 mg SUBCUT Q24H [facility] Last Admin: 08/16/22 20:01 Dose: 40 mg Gabapentin (Gabapentin 100 Mg Capsule) 100 mg PO TID [facility] Last Admin: 08/18/22 07:35 Dose: 100 mg Glucose (Glucose Gel 15 Gm Gel..Gram.) 15 gm PO Q15M PRN; Protocol PRN Reason: per Hypoglycemia Standing Ord. Dextrose (D10) 250 mls @ 750 mls/hr IV Q15M PRN; Protocol PRN Reason: per Hypoglycemia Standing Ord. Multivitamins 10 ml/ Trace Metals 1 ml/ Amino Acids/Electrolytes/Dextrose 1,680 mls @ 70 mls/hr IV DAILY@1800 [facility] Stop: 08/18/22 17:59 Last Admin: 08/17/22 18:14 Dose: 70 mls/hr Amino Acids/Electrolytes/Dextrose (Clinimix E 4.25%-10%) 1,680 mls @ 70 mls/hr IV DAILY@1800 [facility] Stop: 08/19/22 17:59 Fat Emulsion Intravenous (Intralipid) 144 mls @ 12 mls/hr IVCONT BID@0600,1800 [facility] Stop: 08/19/22 17:59 Insulin Human Lispro (Insulin Lispro 100 Unit/Ml 3 Ml Vial) 0 unit SUBCUT QIDACHS [facility]; Protocol Last Admin: 08/18/22 11:47 Dose: 4 unit Lactulose (Lactulose 20 Gm/30 Ml Solution) 20 gm PO BID [facility] Last Admin: 08/18/22 07:45 Dose: Not Given Lisinopril (Lisinopril 5 Mg Tablet) 5 mg PO DAILY [facility]; Protocol Last Admin: 08/18/22 07:36 Dose: 5 mg Melatonin (Melatonin 3 Mg Tablet) 6 mg PO BEDTIME PRN PRN Reason: Insomnia Last Admin: 08/12/22 20:14 Dose: 6 mg Metoprolol Succinate (Metoprolol Succinate Er 25 Mg Tab.Er.24h) 25 mg PO DAILY [facility]; Protocol Last Admin: 08/18/22 07:36 Dose: 25 mg Mirtazapine (Mirtazapine 7.5 Mg Tablet) 7.5 mg PO BEDTIME [facility] Last Admin: 08/17/22 20:41 Dose: 7.5 mg Ondansetron HCl (Ondansetron Hcl 4 Mg/2 Ml Vial) 4 mg IVPUSH Q8H PRN PRN Reason: Nausea and Vomiting Oxycodone HCl (Oxycodone Hcl Immed Release 5 Mg Tablet) 5 mg PO Q6H PRN PRN Reason: Pain, Moderate(Pain Scale 4-6) Last Admin: 08/17/22 06:15 Dose: 5 mg Pharmacy Consult (Consult Rx Perform Med Rec) 1 each MISCELLANE ONCE PRN PRN Reason: Consult order Potassium Phos/Sodium Phos (Sodium,Potassium Phosphates Powd.Pack) 1 packet PO TID [facility] Last Admin: 08/18/22 07:35 Dose: 1 packet Sodium Chloride (0.9 % Sodium Chloride Flush 3 Ml Syringe) 3 ml IVFLUSH QSHIFT [facility] Last Admin: 08/18/22 14:45 Dose: Not Given Tizanidine HCl (Tizanidine Hcl 4 Mg Tablet) 2 mg PO Q8H PRN PRN Reason: MUSCLE SPASMS Allergies Allergies Allergy/AdvReac Type Severity Reaction Status Date / Time No Known Allergies Allergy Verified 05/20/22 12:06 Assessment & Plan Assessment & Plan (1) Hemiplegia and hemiparesis following cerebral infarction affecting left non- dominant side: Status: Acute Code(s): I69.354 - Hemiplegia and hemiparesis following cerebral infarction affecting left non-dominant side (2) Bacteremia due to Klebsiella pneumoniae: Status: Acute Code(s): R78.81 - Bacteremia; B96.1 - Klebsiella pneumoniae [K. pneumoniae] as the cause of diseases classified elsewhere (3) PAD (peripheral artery disease): Status: Acute Code(s): I73.9 - Peripheral vascular disease, unspecified (4) Hypertension: Status: Acute Code(s): I10 - Essential (primary) hypertension (5) Ulcer of right second toe with necrosis of muscle: Status: Acute Code(s): L97.513 - Non-pressure chronic ulcer of other part of right foot with necrosis of muscle Plan Psychiatric consult asked to assess patient for capacity to make medical decision regarding placement of a feeding tube. Patient has capacity to make this medical decision. She is alert and oriented to self and situation. Patient has an adequate understanding of her medical illness. She is able to clearly articulate her preference and consistently expresses that she wants to live and that she wants a feeding tube, expressing understanding that without one, she risks . Total time managing care of this patient today ____ minutes. Patient educated on: medication risk/benefits Informed Consent: understands
[2022-08-18 16:00] VITALS: BP 160/50; PULSE 63; RESP 18; TEMP 36.1; O2SAT 97
[2022-08-18 16:10] LABS: Glucose, Whole Blood 155 mg/dL (60-115)
--- NOTE | 2022-08-18 16:46 | MHC.SPEECHCO ---
Pt on hold pending PEG decision, DIRECTOR [employer] SAL[employer] will continue to re-assess.
[2022-08-18] MEDS: Fat Emulsions 20% 250 ML 12 ML IVCONT (17:21)
[2022-08-18 20:00] VITALS: BP 157/70; PULSE 71; RESP 16; TEMP 36.3; O2SAT 98
[2022-08-18 20:51] LABS: Glucose, Whole Blood 210 mg/dL (60-115)
[2022-08-18] MEDS: Mirtazapine 7.5 MG TABLET PO (21:44)
[2022-08-18] MEDS: Lactulose 20 GM/30 ML SOLUTION PO (21:44)
[2022-08-18] MEDS: Atorvastatin Calcium 80 MG TABLET PO (21:44)
[2022-08-18] MEDS: 0.9 % Sodium Chloride Flush 3 ML SYRINGE IVFLUSH (21:45)
[2022-08-18] MEDS: Melatonin 3 MG TABLET 6 MG PO (23:28)
[2022-08-18] MEDS: Acetaminophen 325 MG TABLET 650 MG PO (23:28)
[2022-08-18] MEDS: oxyCODONE HCl Immed Release 5 MG TABLET PO (23:28)
[2022-08-19 01:26] VITALS: RESP 18
[2022-08-19 02:39] VITALS: BP 137/64; PULSE 74; RESP 18; TEMP 36.4; O2SAT 100
[2022-08-19] MEDS: Fat Emulsions 20% 250 ML 12 ML IVCONT ×2 (05:46→17:57)
[2022-08-19 07:47] LABS: Glucose, Whole Blood 242 mg/dL (60-115)
[2022-08-19 08:00] VITALS: BP 155/70; PULSE 83; RESP 18; TEMP 36.4; O2SAT 99
[2022-08-19] MEDS: Insulin Lispro 100 UNIT/ML 3 ML VIAL SUBCUT ×4 (09:17→20:45)
[2022-08-19] MEDS: Sodium,Potassium Phosphates POWD.PACK 1 PACKET PO ×3 (09:18→20:32)
[2022-08-19] MEDS: Lactulose 20 GM/30 ML SOLUTION PO ×2 (09:18→20:32)
[2022-08-19] MEDS: lisinopriL 5 MG TABLET PO (09:19)
[2022-08-19] MEDS: Metoprolol Succinate ER 25 MG TAB.ER.24H PO (09:19)
[2022-08-19] MEDS: Baclofen 10 MG TABLET 15 MG PO ×3 (09:19→20:29)
[2022-08-19] MEDS: Gabapentin 100 MG CAPSULE PO ×3 (09:19→20:31)
[2022-08-19] MEDS: Aspirin Enteric Coated 81 MG TABLET.DR PO (09:19)
[2022-08-19] MEDS: HYDROcodone Bit/Acetam 5/325 TABLET 1 TAB PO ×3 (09:20→20:30)
[2022-08-19 09:36] LABS: Anion Gap 11 (12-20); Blood Urea Nitrogen 32 mg/dL (9-16); Calcium 8.6 mg/dL (8.4-10.2); Carbon Dioxide 25 mmol/L (22-29); Chloride 104 mmol/L (96-108); Estimated Glomerular Filt Rate > 60; Glucose Random 278 mg/dL (60-115); Magnesium 2.1 mg/dL (1.6-2.6); Phosphorus 3.9 mg/dL (2.7-4.5); Potassium 4.8 mmol/L (3.3-5.1); Sodium 135 mmol/L (135-145)
--- NOTE | 2022-08-19 10:09 | MHC.CLN ---
F/U PEG TUBE PLACEMENT SCHEDULED FOR 08/18 CANCELLED. SEE PSYCH EVAL 08/18 REGARDING PATIENT DECISION FOR PEG PLACEMENT. REVIEWED LABS. DISCUSSED WITH PHARMACY. RECOMMEND CONTINUE D10AA4.25 AT 70 ML/HR WITH 12 ML/HR OF 20% LIPIDS TO PROVIDE 1433 TOTAL KCALS (29 KCALS/KG), 71 G PROTEIN (1.5G/KG), 168 G DEXTROSE. REPLETE LYTES NEEDED. DIET RX:DIABETIC 2000 KCALS, PUREE WITH NECTAR THICK LIQUIDS-APPROPRIATE POOR PO INTAKE AND NOT ABLE TO MEET NUTRITIONAL NEEDS VIA PO. FOLLOW PPN TOLERANCE, LYTES AND PO INTAKE. CONSULT RD FOR TF RECOMMENDATIONS
--- NOTE | 2022-08-19 11:02 | MHC.CM.PN ---
PSYCH KEREN SENT TO [facility] WILL BE FOR PEG PLACEMENT
[2022-08-19] MEDS: oxyCODONE HCl Immed Release 5 MG TABLET PO (11:04)
[2022-08-19 11:37] LABS: Glucose, Whole Blood 295 mg/dL (60-115)
--- NOTE | 2022-08-19 13:18 | MHC.SLORD ---
Speech Language Pathology Order Status: ROBOTIC MACHINE OPERATOR attempted to see pt during lunch. Pt with untouched lunch tray, initially agreeable to food then denied all offers. Pt then stated I just want food. Pt continued to decline all ROBOTIC MACHINE OPERATOR offers of solids and liquids. Per chart review, pt is communicating that she wishes to proceed w/ PEG placement. ROBOTIC MACHINE OPERATOR to continue to follow.
--- NOTE | 2022-08-19 13:40 | HO.PM.IMPN ---
Subjective Subjective Date of Service: 08/19/22 Interval History: More alert this a.m.. Minimal intake Review of Systems Denies chest pain Denies shortness of breath Denies nausea vomiting diarrhea Denies fever chills Physical Exam Vital Signs: Vital Signs: Last Vital Signs Temp 97.5 F 08/19/22 08:00 Pulse 83 08/19/22 08:00 Resp 18 08/19/22 08:00 BP 155/70 H 08/19/22 08:00 Pulse Ox 99 08/19/22 08:00 O2 Del Method Room Air 08/19/22 08:00 O2 Flow Rate 98 08/15/22 04:00 Oxygen Flow Rate 3 08/04/22 15:49 BMI result Body Mass Index 19.6 Const: Other: Awake alert no acute distress; uncomfortable appearing Resp: Other: Clear to auscultation bilaterally no rales rhonchi or wheezes Cardio: Other: No S4; positive S1-S2; no S3 murmurs rubs or gallops GI: Other: Soft nontender nondistended normoactive bowel sounds Extrem: Other: Necrotic toes right foot Objective Data Active Medications Acetaminophen (Acetaminophen 325 Mg Tablet) 650 mg PO Q6H PRN PRN Reason: Pain, Mild (Pain Scale 1-3) Last Admin: 08/18/22 23:28 Dose: 650 mg Documented By: NEHAL Acetaminophen (Acetaminophen Supp 650 Mg Supp.Rect) 650 mg [place] Q6H PRN PRN Reason: Pain, Mild (Pain Scale 1-3) Last Admin: 08/15/22 14:00 Dose: 650 mg Documented By: ZORAN Hydrocodone Bitart/Acetaminophen (Hydrocodone Bit/Acetam 5/325 Tablet) 1 tab PO TID [facility] Last Admin: 08/19/22 09:20 Dose: 1 tab Documented By: ANSON Aspirin (Aspirin Enteric Coated 81 Mg Tablet.Dr) 81 mg PO DAILY [facility] Last Admin: 08/19/22 09:19 Dose: 81 mg Documented By: ANSON Atorvastatin Calcium (Atorvastatin Calcium 80 Mg Tablet) 80 mg PO BEDTIME [facility] Last Admin: 08/18/22 21:44 Dose: 80 mg Documented By: NEHAL Baclofen (Baclofen 10 Mg Tablet) 15 mg PO TID [facility] Last Admin: 08/19/22 09:19 Dose: 15 mg Documented By: ANSON Enoxaparin Sodium (Enoxaparin Sodium 40 Mg/0.4 Ml Syringe) 40 mg SUBCUT Q24H [facility] Last Admin: 08/16/22 20:01 Dose: 40 mg Documented By: MICHAEL Gabapentin (Gabapentin 100 Mg Capsule) 100 mg PO TID [facility] Last Admin: 08/19/22 09:19 Dose: 100 mg Documented By: ANSON Glucose (Glucose Gel 15 Gm Gel..Gram.) 15 gm PO Q15M PRN; Protocol PRN Reason: per Hypoglycemia Standing Ord. Dextrose (D10) 250 mls @ 750 mls/hr IV Q15M PRN; Protocol PRN Reason: per Hypoglycemia Standing Ord. Amino Acids/Electrolytes/Dextrose (Clinimix E 4.25%-10%) 1,680 mls @ 70 mls/hr IV DAILY@1800 [facility] Stop: 08/19/22 17:59 Last Admin: 08/18/22 17:22 Dose: 70 mls/hr Documented By: VICKI Fat Emulsion Intravenous (Intralipid) 144 mls @ 12 mls/hr IVCONT BID@0600,1800 [facility] Stop: 08/19/22 17:59 Last Admin: 08/19/22 05:46 Dose: 12 mls/hr Documented By: NEHAL Multivitamins 10 ml/ Trace Metals 1 ml/ Amino Acids/Electrolytes/Dextrose 1,680 mls @ 70 mls/hr IV DAILY@1800 [facility] Stop: 08/20/22 17:59 Fat Emulsion Intravenous (Intralipid) 144 mls @ 12 mls/hr IVCONT BID@0600,1800 [facility] Stop: 08/20/22 17:59 Insulin Human Lispro (Insulin Lispro 100 Unit/Ml 3 Ml Vial) 0 unit SUBCUT QIDACHS [facility]; Protocol Last Admin: 08/19/22 12:16 Dose: 6 unit Documented By: ANSON Lactulose (Lactulose 20 Gm/30 Ml Solution) 20 gm PO BID [facility] Last Admin: 08/19/22 09:18 Dose: 20 gm Documented By: ANSON Lisinopril (Lisinopril 5 Mg Tablet) 5 mg PO DAILY [facility]; Protocol Last Admin: 08/19/22 09:19 Dose: 5 mg Documented By: ANSON Melatonin (Melatonin 3 Mg Tablet) 6 mg PO BEDTIME PRN PRN Reason: Insomnia Last Admin: 08/18/22 23:28 Dose: 6 mg Documented By: NEHAL Metoprolol Succinate (Metoprolol Succinate Er 25 Mg Tab.Er.24h) 25 mg PO DAILY [facility]; Protocol Last Admin: 08/19/22 09:19 Dose: 25 mg Documented By: ANSON Mirtazapine (Mirtazapine 7.5 Mg Tablet) 7.5 mg PO BEDTIME [facility] Last Admin: 08/18/22 21:44 Dose: 7.5 mg Documented By: NEHAL Ondansetron HCl (Ondansetron Hcl 4 Mg/2 Ml Vial) 4 mg IVPUSH Q8H PRN PRN Reason: Nausea and Vomiting Oxycodone HCl (Oxycodone Hcl Immed Release 5 Mg Tablet) 5 mg PO Q6H PRN PRN Reason: Pain, Moderate(Pain Scale 4-6) Last Admin: 08/19/22 11:04 Dose: 5 mg Documented By: ANSON Pharmacy Consult (Consult Rx Perform Med Rec) 1 each MISCELLANE ONCE PRN PRN Reason: Consult order Potassium Phos/Sodium Phos (Sodium,Potassium Phosphates Powd.Pack) 1 packet PO TID [facility] Last Admin: 08/19/22 09:18 Dose: 1 packet Documented By: ANSON Sodium Chloride (0.9 % Sodium Chloride Flush 3 Ml Syringe) 3 ml IVFLUSH QSHIFT [facility] Last Admin: 08/19/22 07:47 Dose: Not Given Documented By: ANSON Non-Admin Reason: IV Running Tizanidine HCl (Tizanidine Hcl 4 Mg Tablet) 2 mg PO Q8H PRN PRN Reason: MUSCLE SPASMS Labs 08/18/22 05:41 08/19/22 08:33 Labs: Laboratory Results - last 24 hr 08/18/22 08/18/22 08/19/22 15:39 20:42 07:30 Anion Gap Estim Creat Clear Calc Estimated GFR POC Glucose 155 H 210 H 242 H Random Glucose Calcium Phosphorus Magnesium 08/19/22 08/19/22 08:33 11:28 Anion Gap 11 L Estim Creat Clear Calc 63.0 Estimated GFR > 60 POC Glucose 295 H Random Glucose 278 H Calcium 8.6 Phosphorus 3.9 Magnesium 2.1 Assessment and Plan (1) Urinary tract infection: Status: Acute (2) Bacteremia due to Klebsiella pneumoniae: Status: Acute (3) Ulcer of right second toe with necrosis of muscle: Status: Acute (4) Pressure ulcer of left buttock, unstageable: Status: Acute Plan This is a 62-year-old female with pertinent history of essential hypertension, mixed hyperlipidemia, history of multifocal CVA, insulin-dependent diabetes mellitus, CAD status post stent, mood disorder, CKD stage 3 was sent to the emergency department for evaluation of fevers. Workup consistent with likely aspiration pneumonia along with necrotic right toes. Subsequent blood cultures grew out Klebsiella 2/2 bottles sensitive to ceftriaxone. Seen in consultation by vascular surgery who likely will recommend amputation but need to speak with family once white count normalizes 1. Sepsis secondary to Klebsiella bacteremia -resolved -completed IV antibiotics; vanco/cefepime x6 days then transitioned to 14 days of ceftriaxone 2.Necrotic right foot toes. -continue current dressings -will ultimately need amputation 3.Sacral decubitus ulcer - topical alginate/Allevyn as per wound care 4. History of multifocal CVA with left hemiparesis; cognitive impairment/dementia -appreciate psych input. Patient is competent to make her own decision. Discussed with son Negrito; he is agreeable to feeding tube and understands rationale. Spoke with him also about amputation which he also is agreeable to in the correct timing. Will re-consult Dr. Frederick Patient will need ongoing hospitalization to maintain TPN Time Spent With Patient Time: Total time managing care of this patient today ____ minutes. Quality Stroke Does the patient have a stroke diagnosis?: No VTE Prior VTE?: No VTE Risk Level:: Medical - moderate - high VTE Device Contraindication: Treatment Not Indicated VTE Drug Contraindication: N/A - Med Ordered
--- NOTE | 2022-08-19 15:12 | P.PNGS_ITS ---
Subjective Subjective Date of Service: 08/19/22 Interval history: Called by hospitalist service - patient had become more alert and wanted to proceed with PEG tube placement No new events Physical Exam Vital Signs: Vital Signs: Last Vital Signs Temp 97.5 F 08/19/22 08:00 Pulse 83 08/19/22 08:00 Resp 18 08/19/22 08:00 BP 155/70 H 08/19/22 08:00 Pulse Ox 99 08/19/22 08:00 O2 Del Method Room Air 08/19/22 08:00 O2 Flow Rate 98 08/15/22 04:00 Oxygen Flow Rate 3 08/04/22 15:49 BMI result Body Mass Index 19.6 Const: Other: Frail looking General: no acute distress Resp: Effort & Inspection: normal respiratory effort Cardio: Rate: regular rate GI: Palpation (GI): Soft to palpation, not firm and nontender Objective Data Active Medications Acetaminophen (Acetaminophen 325 Mg Tablet) 650 mg PO Q6H PRN PRN Reason: Pain, Mild (Pain Scale 1-3) Last Admin: 08/18/22 23:28 Dose: 650 mg Documented By: NEHAL Acetaminophen (Acetaminophen Supp 650 Mg Supp.Rect) 650 mg [place] Q6H PRN PRN Reason: Pain, Mild (Pain Scale 1-3) Last Admin: 08/15/22 14:00 Dose: 650 mg Documented By: ZORAN Hydrocodone Bitart/Acetaminophen (Hydrocodone Bit/Acetam 5/325 Tablet) 1 tab PO TID [facility] Last Admin: 08/19/22 15:03 Dose: 1 tab Documented By: ANSON Aspirin (Aspirin Enteric Coated 81 Mg Tablet.Dr) 81 mg PO DAILY [facility] Last Admin: 08/19/22 09:19 Dose: 81 mg Documented By: ANSON Atorvastatin Calcium (Atorvastatin Calcium 80 Mg Tablet) 80 mg PO BEDTIME [facility] Last Admin: 08/18/22 21:44 Dose: 80 mg Documented By: NEHAL Baclofen (Baclofen 10 Mg Tablet) 15 mg PO TID [facility] Last Admin: 08/19/22 15:03 Dose: 15 mg Documented By: ANSON Gabapentin (Gabapentin 100 Mg Capsule) 100 mg PO TID [facility] Last Admin: 08/19/22 15:03 Dose: 100 mg Documented By: ANSON Glucose (Glucose Gel 15 Gm Gel..Gram.) 15 gm PO Q15M PRN; Protocol PRN Reason: per Hypoglycemia Standing Ord. Dextrose (D10) 250 mls @ 750 mls/hr IV Q15M PRN; Protocol PRN Reason: per Hypoglycemia Standing Ord. Amino Acids/Electrolytes/Dextrose (Clinimix E 4.25%-10%) 1,680 mls @ 70 mls/hr IV DAILY@1800 [facility] Stop: 08/19/22 17:59 Last Admin: 08/18/22 17:22 Dose: 70 mls/hr Documented By: VICKI Fat Emulsion Intravenous (Intralipid) 144 mls @ 12 mls/hr IVCONT BID@0600,1800 [facility] Stop: 08/19/22 17:59 Last Admin: 08/19/22 05:46 Dose: 12 mls/hr Documented By: NEHAL Multivitamins 10 ml/ Trace Metals 1 ml/ Amino Acids/Electrolytes/Dextrose 1,680 mls @ 70 mls/hr IV DAILY@1800 [facility] Stop: 08/20/22 17:59 Fat Emulsion Intravenous (Intralipid) 144 mls @ 12 mls/hr IVCONT BID@0600,1800 [facility] Stop: 08/20/22 17:59 Insulin Human Lispro (Insulin Lispro 100 Unit/Ml 3 Ml Vial) 0 unit SUBCUT QIDACHS [facility]; Protocol Last Admin: 08/19/22 12:16 Dose: 6 unit Documented By: ANSON Lactulose (Lactulose 20 Gm/30 Ml Solution) 20 gm PO BID [facility] Last Admin: 08/19/22 09:18 Dose: 20 gm Documented By: ANSON Lisinopril (Lisinopril 5 Mg Tablet) 5 mg PO DAILY [facility]; Protocol Last Admin: 08/19/22 09:19 Dose: 5 mg Documented By: ANSON Melatonin (Melatonin 3 Mg Tablet) 6 mg PO BEDTIME PRN PRN Reason: Insomnia Last Admin: 08/18/22 23:28 Dose: 6 mg Documented By: NEHAL Metoprolol Succinate (Metoprolol Succinate Er 25 Mg Tab.Er.24h) 25 mg PO DAILY [facility]; Protocol Last Admin: 08/19/22 09:19 Dose: 25 mg Documented By: ANSON Mirtazapine (Mirtazapine 7.5 Mg Tablet) 7.5 mg PO BEDTIME [facility] Last Admin: 08/18/22 21:44 Dose: 7.5 mg Documented By: NEHAL Ondansetron HCl (Ondansetron Hcl 4 Mg/2 Ml Vial) 4 mg IVPUSH Q8H PRN PRN Reason: Nausea and Vomiting Oxycodone HCl (Oxycodone Hcl Immed Release 5 Mg Tablet) 5 mg PO Q6H PRN PRN Reason: Pain, Moderate(Pain Scale 4-6) Last Admin: 08/19/22 11:04 Dose: 5 mg Documented By: ANSON Pharmacy Consult (Consult Rx Perform Med Rec) 1 each MISCELLANE ONCE PRN PRN Reason: Consult order Potassium Phos/Sodium Phos (Sodium,Potassium Phosphates Powd.Pack) 1 packet PO TID [facility] Last Admin: 08/19/22 15:03 Dose: 1 packet Documented By: ANSON Sodium Chloride (0.9 % Sodium Chloride Flush 3 Ml Syringe) 3 ml IVFLUSH QSHIFT [facility] Last Admin: 08/19/22 07:47 Dose: Not Given Documented By: ANSON Non-Admin Reason: IV Running Tizanidine HCl (Tizanidine Hcl 4 Mg Tablet) 2 mg PO Q8H PRN PRN Reason: MUSCLE SPASMS Labs 08/18/22 05:41 08/19/22 08:33 Labs: Laboratory Results - last 24 hr 08/18/22 08/18/22 08/19/22 15:39 20:42 07:30 Anion Gap Estim Creat Clear Calc Estimated GFR POC Glucose 155 H 210 H 242 H Random Glucose Calcium Phosphorus Magnesium 08/19/22 08/19/22 08:33 11:28 Anion Gap 11 L Estim Creat Clear Calc 63.0 Estimated GFR > 60 POC Glucose 295 H Random Glucose 278 H Calcium 8.6 Phosphorus 3.9 Magnesium 2.1 Procedures Date of Service Date of Service: 08/19/22 Progress Note: A&P Assessment and plan (1) Dysphagia: Status: Acute Assessment and Plan: Patient has become more alert As per psychiatrist - she is competent to make decisions She wants to proceed with PEG tube placement I reviewed with her the technique of the planned procedure I explained the risks including but not limited to bleeding, infections, bowel injury, tube dislodgement, tube leak, loss of airway She says she understands Will put her on the add on OR schedule for tomorrow Time Spent With Patient Time: Total time managing care of this patient today ____ minutes. Quality Stroke Does the patient have a stroke diagnosis?: No VTE Prior VTE?: No VTE Risk Level:: Medical - moderate - high VTE Device Contraindication: Treatment Not Indicated VTE Drug Contraindication: N/A - Med Ordered
[2022-08-19 16:00] VITALS: BP 142/78; PULSE 77; RESP 18; TEMP 36.6; O2SAT 99
[2022-08-19 16:23] LABS: Glucose, Whole Blood 167 mg/dL (60-115)
--- NOTE | 2022-08-19 17:08 | P.CDIM_ITS ---
PROVIDER RESPONSE TEXT: To clarify, the appropriate diagnosis supported by the clinical indicators: Moderate protein calorie malnutrition QUERY TEXT: PHYSICIAN'S DOCUMENTATION REQUEST Date of Query: 08/19/2022 10:47 AM EDT Patient Name: Justine Gottlieb Admit Date: 08/04/2022 Dear Lee Bhatt, A review of the medical record indicates additional documentation may be needed. Please review below and update the documentation accordingly. Clinical Indicators: Height: ( ) Weight: ( ) BMI: ( ) Other Clinical Notes Supporting Significance of the BMI: Per Clinical Nutrition Assessment 08/14/22: moderately malnourished, triggers for 15% significant weig ht loss x3 months with poor PO intake and increased nutrition risk related to pressure injuries If possible, please provide an associated diagnosis related to the abnormal BMI, such as: Underweight Weight loss Cachexia Anorexia Moderate protein calorie malnutrition Other (explain)Clinically unable to determine (explain)Thank you, Wilma Tello RN Use of terms such as suspected, likely, concern for, or probable (associated with a specific diagnosi s that is being evaluated, monitored, or treated as if it exists) are acceptable and can be coded in the inpatient se tting, when documented at the time of discharge. Please use your independent medical judgment in providing your response. THIS QUERY IS PART OF THE PERMANENT MEDICAL RECORD
[2022-08-19 19:48] VITALS: BP 116/58; PULSE 76; RESP 16; TEMP 36.6; O2SAT 98
[2022-08-19] MEDS: Mirtazapine 7.5 MG TABLET PO (20:31)
[2022-08-19] MEDS: Atorvastatin Calcium 80 MG TABLET PO (20:31)
[2022-08-19 20:44] LABS: Glucose, Whole Blood 180 mg/dL (60-115)
[2022-08-19 22:06] VITALS: BP 100/51
[2022-08-20] MEDS: oxyCODONE HCl Immed Release 5 MG TABLET PO ×2 (00:49→17:06)
[2022-08-20 02:46] VITALS: BP 125/60; PULSE 70; RESP 16; TEMP 36.6; O2SAT 97
[2022-08-20] MEDS: Fat Emulsions 20% 250 ML 12 ML IVCONT (05:59)
[2022-08-20 07:23] VITALS: BP 141/63; PULSE 81; RESP 18; TEMP 36.3; O2SAT 97
[2022-08-20 07:29] LABS: Glucose, Whole Blood 217 mg/dL (60-115)
[2022-08-20] MEDS: Insulin Lispro 100 UNIT/ML 3 ML VIAL SUBCUT ×3 (08:24→17:00)
[2022-08-20] MEDS: Gabapentin 100 MG CAPSULE PO ×3 (09:05→19:51)
[2022-08-20] MEDS: HYDROcodone Bit/Acetam 5/325 TABLET 1 TAB PO ×3 (09:05→19:50)
[2022-08-20] MEDS: Metoprolol Succinate ER 25 MG TAB.ER.24H PO (09:06)
[2022-08-20] MEDS: Baclofen 10 MG TABLET 15 MG PO ×3 (09:06→19:49)
[2022-08-20] MEDS: lisinopriL 5 MG TABLET PO (09:06)
[2022-08-20] MEDS: Sodium,Potassium Phosphates POWD.PACK 1 PACKET PO ×3 (09:07→19:51)
[2022-08-20] MEDS: Lactulose 20 GM/30 ML SOLUTION PO ×2 (09:07→19:49)
--- NOTE | 2022-08-20 09:21 | P.PNGS_ITS ---
Subjective Subjective Date of Service: 08/20/22 Interval history: She was scheduled to undergo PEG tube placement today However, this morning, she says she does not want a PEG tube placement Seems to be much less alert again Physical Exam Vital Signs: Vital Signs: Last Vital Signs Temp 97.4 F 08/20/22 07:23 Pulse 81 08/20/22 07:23 Resp 18 08/20/22 07:23 BP 141/63 H 08/20/22 07:23 Pulse Ox 97 08/20/22 07:23 O2 Del Method Room Air 08/20/22 07:23 O2 Flow Rate 98 08/15/22 04:00 Oxygen Flow Rate 3 08/04/22 15:49 BMI result Body Mass Index 19.6 Const: Other: Has verbal output but does not seem to be alert Resp: Effort & Inspection: normal respiratory effort Cardio: Rhythm: regular rhythm GI: Other: No surgical scars Palpation (GI): Soft to palpation, not firm and no guarding Objective Data Active Medications Acetaminophen (Acetaminophen 325 Mg Tablet) 650 mg PO Q6H PRN PRN Reason: Pain, Mild (Pain Scale 1-3) Last Admin: 08/18/22 23:28 Dose: 650 mg Documented By: NEHAL Acetaminophen (Acetaminophen Supp 650 Mg Supp.Rect) [address] Q6H PRN PRN Reason: Pain, Mild (Pain Scale 1-3) Last Admin: 08/15/22 14:00 Dose: 650 mg Documented By: ZORAN Hydrocodone Bitart/Acetaminophen (Hydrocodone Bit/Acetam 5/325 Tablet) 1 tab PO TID [facility] Last Admin: 08/20/22 09:05 Dose: 1 tab Documented By: HANNAH Aspirin (Aspirin Enteric Coated 81 Mg Tablet.Dr) 81 mg PO DAILY [facility] Last Admin: 08/20/22 09:00 Dose: Not Given Documented By: HANNAH Non-Admin Reason: pt takes medications crushed Atorvastatin Calcium (Atorvastatin Calcium 80 Mg Tablet) 80 mg PO BEDTIME [facility] Last Admin: 08/19/22 20:31 Dose: 80 mg Documented By: MICHAEL Baclofen (Baclofen 10 Mg Tablet) 15 mg PO TID [facility] Last Admin: 08/20/22 09:06 Dose: 15 mg Documented By: HANNAH Gabapentin (Gabapentin 100 Mg Capsule) 100 mg PO TID [facility] Last Admin: 08/20/22 09:05 Dose: 100 mg Documented By: HANNAH Glucose (Glucose Gel 15 Gm Gel..Gram.) 15 gm PO Q15M PRN; Protocol PRN Reason: per Hypoglycemia Standing Ord. Dextrose (D10) 250 mls @ 750 mls/hr IV Q15M PRN; Protocol PRN Reason: per Hypoglycemia Standing Ord. Multivitamins 10 ml/ Trace Metals 1 ml/ Amino Acids/Electrolytes/Dextrose 1,680 mls @ 70 mls/hr IV DAILY@1800 [facility] Stop: 08/20/22 17:59 Last Admin: 08/19/22 17:57 Dose: 70 mls/hr Documented By: ANSON Fat Emulsion Intravenous (Intralipid) 144 mls @ 12 mls/hr IVCONT BID@0600,1800 [facility] Stop: 08/20/22 17:59 Last Admin: 08/20/22 05:59 Dose: 12 mls/hr Documented By: PALMIRA Insulin Human Lispro (Insulin Lispro 100 Unit/Ml 3 Ml Vial) 0 unit SUBCUT QIDACHS [facility]; Protocol Last Admin: 08/20/22 08:24 Dose: 4 unit Documented By: HANNAH Lactulose (Lactulose 20 Gm/30 Ml Solution) 20 gm PO BID [facility] Last Admin: 08/20/22 09:07 Dose: 20 gm Documented By: HANNAH Lisinopril (Lisinopril 5 Mg Tablet) 5 mg PO DAILY [facility]; Protocol Last Admin: 08/20/22 09:06 Dose: 5 mg Documented By: HANNAH Melatonin (Melatonin 3 Mg Tablet) 6 mg PO BEDTIME PRN PRN Reason: Insomnia Last Admin: 08/18/22 23:28 Dose: 6 mg Documented By: OZORALB Metoprolol Succinate (Metoprolol Succinate Er 25 Mg Tab.Er.24h) 25 mg PO DAILY [facility]; Protocol Last Admin: 08/20/22 09:06 Dose: 25 mg Documented By: HANNAH Mirtazapine (Mirtazapine 7.5 Mg Tablet) 7.5 mg PO BEDTIME [facility] Last Admin: 08/19/22 20:31 Dose: 7.5 mg Documented By: MICHAEL Ondansetron HCl (Ondansetron Hcl 4 Mg/2 Ml Vial) 4 mg IVPUSH Q8H PRN PRN Reason: Nausea and Vomiting Oxycodone HCl (Oxycodone Hcl Immed Release 5 Mg Tablet) 5 mg PO Q6H PRN PRN Reason: Pain, Moderate(Pain Scale 4-6) Last Admin: 08/20/22 00:49 Dose: 5 mg Documented By: PALMIRA Pharmacy Consult (Consult Rx Perform Med Rec) 1 each MISCELLANE ONCE PRN PRN Reason: Consult order Potassium Phos/Sodium Phos (Sodium,Potassium Phosphates Powd.Pack) 1 packet PO TID [facility] Last Admin: 08/20/22 09:07 Dose: 1 packet Documented By: HANNAH Sodium Chloride (0.9 % Sodium Chloride Flush 3 Ml Syringe) 3 ml IVFLUSH QSHIFT [facility] Last Admin: 08/20/22 07:41 Dose: Not Given Documented By: HANNAH Non-Admin Reason: IV Running Tizanidine HCl (Tizanidine Hcl 4 Mg Tablet) 2 mg PO Q8H PRN PRN Reason: MUSCLE SPASMS Labs 08/18/22 05:41 08/19/22 08:33 Labs: Laboratory Results - last 24 hr 08/19/22 08/19/22 08/19/22 08:33 11:28 16:12 Anion Gap 11 L Estim Creat Clear Calc 63.0 Estimated GFR > 60 POC Glucose 295 H 167 H Random Glucose 278 H Calcium 8.6 Phosphorus 3.9 Magnesium 2.1 08/19/22 08/20/22 20:31 07:20 Anion Gap Estim Creat Clear Calc Estimated GFR POC Glucose 180 H 217 H Random Glucose Calcium Phosphorus Magnesium Procedures Date of Service Date of Service: 08/20/22 Progress Note: A&P Assessment and plan (1) Dysphagia: Status: Acute Assessment and Plan: Scheduled for PEG tube placement today Patient again saying no to the procedure Does not seem to be alert - had been previously evaluated by Psychiatry and deemed to be competent I had another long discussion with the son Negrito- he stated that his mom waxing and waning confusion and often has hallucinations after her stroke Negrito feels that she is not competent He says that the family have already decided that they do not want the PEG tube placed Time Spent With Patient Time: Total time managing care of this patient today ____ minutes. Quality Stroke Does the patient have a stroke diagnosis?: No VTE Prior VTE?: No VTE Risk Level:: Medical - moderate - high VTE Device Contraindication: Treatment Not Indicated VTE Drug Contraindication: N/A - Med Ordered
--- NOTE | 2022-08-20 10:40 | MHC.CLN ---
F/U PEG TUBE PLACEMENT SCHEDULED FOR 08/20 REVIEWED LABS DISCUSSED WITH PHARMACY RECOMMEND CONTINUE D10AA4.25 AT 70 ML/HR WITH 12 ML/HR OF 20% LIPIDS TO PROVIDE 1433 TOTAL KCALS (29 KCALS/KG), 71 G PROTEIN (1.5G/KG), 168 G DEXTROSE REPLETE LYTES NEEDED CONSULT RD FOR TF RECOMMENDATIONS IF NEEDED
[2022-08-20 11:30] LABS: Glucose, Whole Blood 247 mg/dL (60-115)
[2022-08-20 15:13] VITALS: BP 156/70; PULSE 71; RESP 20; TEMP 36.7; O2SAT 96
--- NOTE | 2022-08-20 15:28 | MHC.CM.PN ---
PLAN IS NOW HOSPICE. CURRENTLY AWAITING RESPONSE FROM FACILITY.
--- NOTE | 2022-08-20 15:40 | HO.PM.IMPN ---
Subjective Subjective Date of Service: 08/20/22 Interval History: Confused this a.m.. Answering questions inappropriately. When approached for PEG tube placement by surgeon patient declined. Review of Systems Unable to obtain Physical Exam Vital Signs: Vital Signs: Last Vital Signs Temp 98.0 F 08/20/22 15:13 Pulse 71 08/20/22 15:13 Resp 20 08/20/22 15:13 BP 156/70 H 08/20/22 15:13 Pulse Ox 96 08/20/22 15:13 O2 Del Method Room Air 08/20/22 15:13 O2 Flow Rate 98 08/15/22 04:00 Oxygen Flow Rate 3 08/04/22 15:49 BMI result Body Mass Index 19.6 Const: Other: Awake alert no acute distress; uncomfortable appearing Resp: Other: Clear to auscultation bilaterally no rales rhonchi or wheezes Cardio: Other: No S4; positive S1-S2; no S3 murmurs rubs or gallops GI: Other: Soft nontender nondistended normoactive bowel sounds Extrem: Other: Necrotic toes right foot Objective Data Active Medications Acetaminophen (Acetaminophen 325 Mg Tablet) 650 mg PO Q6H PRN PRN Reason: Pain, Mild (Pain Scale 1-3) Last Admin: 08/18/22 23:28 Dose: 650 mg Documented By: NEHAL Acetaminophen (Acetaminophen Supp 650 Mg Supp.Rect) 650 mg [place] Q6H PRN PRN Reason: Pain, Mild (Pain Scale 1-3) Last Admin: 08/15/22 14:00 Dose: 650 mg Documented By: ZORAN Hydrocodone Bitart/Acetaminophen (Hydrocodone Bit/Acetam 5/325 Tablet) 1 tab PO TID [facility] Last Admin: 08/20/22 14:29 Dose: 1 tab Documented By: HANNAH Aspirin (Aspirin Enteric Coated 81 Mg Tablet.Dr) 81 mg PO DAILY [facility] Last Admin: 08/20/22 09:00 Dose: Not Given Documented By: HANNAH Non-Admin Reason: pt takes medications crushed Atorvastatin Calcium (Atorvastatin Calcium 80 Mg Tablet) 80 mg PO BEDTIME [facility] Last Admin: 08/19/22 20:31 Dose: 80 mg Documented By: MICHAEL Baclofen (Baclofen 10 Mg Tablet) 15 mg PO TID [facility] Last Admin: 08/20/22 14:29 Dose: 15 mg Documented By: HANNAH Gabapentin (Gabapentin 100 Mg Capsule) 100 mg PO TID [facility] Last Admin: 08/20/22 14:29 Dose: 100 mg Documented By: HANNAH Glucose (Glucose Gel 15 Gm Gel..Gram.) 15 gm PO Q15M PRN; Protocol PRN Reason: per Hypoglycemia Standing Ord. Dextrose (D10) 250 mls @ 750 mls/hr IV Q15M PRN; Protocol PRN Reason: per Hypoglycemia Standing Ord. Multivitamins 10 ml/ Trace Metals 1 ml/ Amino Acids/Electrolytes/Dextrose 1,680 mls @ 70 mls/hr IV DAILY@1800 [facility] Stop: 08/20/22 17:59 Last Admin: 08/19/22 17:57 Dose: 70 mls/hr Documented By: ANSON Fat Emulsion Intravenous (Intralipid) 144 mls @ 12 mls/hr IVCONT BID@0600,1800 [facility] Stop: 08/20/22 17:59 Last Admin: 08/20/22 05:59 Dose: 12 mls/hr Documented By: PALMIRA Insulin Human Lispro (Insulin Lispro 100 Unit/Ml 3 Ml Vial) 0 unit SUBCUT QIDACHS [facility]; Protocol Last Admin: 08/20/22 11:36 Dose: 4 unit Documented By: HANNAH Lactulose (Lactulose 20 Gm/30 Ml Solution) 20 gm PO BID [facility] Last Admin: 08/20/22 09:07 Dose: 20 gm Documented By: HANNAH Lisinopril (Lisinopril 5 Mg Tablet) 5 mg PO DAILY [facility]; Protocol Last Admin: 08/20/22 09:06 Dose: 5 mg Documented By: HANNAH Melatonin (Melatonin 3 Mg Tablet) 6 mg PO BEDTIME PRN PRN Reason: Insomnia Last Admin: 08/18/22 23:28 Dose: 6 mg Documented By: OZORALB Metoprolol Succinate (Metoprolol Succinate Er 25 Mg Tab.Er.24h) 25 mg PO DAILY [facility]; Protocol Last Admin: 08/20/22 09:06 Dose: 25 mg Documented By: HANNAH Mirtazapine (Mirtazapine 7.5 Mg Tablet) 7.5 mg PO BEDTIME [facility] Last Admin: 08/19/22 20:31 Dose: 7.5 mg Documented By: MICHAEL Ondansetron HCl (Ondansetron Hcl 4 Mg/2 Ml Vial) 4 mg IVPUSH Q8H PRN PRN Reason: Nausea and Vomiting Oxycodone HCl (Oxycodone Hcl Immed Release 5 Mg Tablet) 5 mg PO Q6H PRN PRN Reason: Pain, Moderate(Pain Scale 4-6) Last Admin: 08/20/22 00:49 Dose: 5 mg Documented By: PALMIRA Pharmacy Consult (Consult Rx Perform Med Rec) 1 each MISCELLANE ONCE PRN PRN Reason: Consult order Potassium Phos/Sodium Phos (Sodium,Potassium Phosphates Powd.Pack) 1 packet PO TID [facility] Last Admin: 08/20/22 14:28 Dose: 1 packet Documented By: HANNAH Sodium Chloride (0.9 % Sodium Chloride Flush 3 Ml Syringe) 3 ml IVFLUSH QSHIFT [facility] Last Admin: 08/20/22 15:03 Dose: Not Given Documented By: HANNAH Non-Admin Reason: IV Running Tizanidine HCl (Tizanidine Hcl 4 Mg Tablet) 2 mg PO Q8H PRN PRN Reason: MUSCLE SPASMS Labs 08/18/22 05:41 08/19/22 08:33 Labs: Laboratory Results - last 24 hr 08/19/22 08/19/22 08/20/22 16:12 20:31 07:20 POC Glucose 167 H 180 H 217 H 08/20/22 11:21 POC Glucose 247 H Assessment and Plan (1) Hemiplegia and hemiparesis following cerebral infarction affecting left non-dominant side: Status: Acute (2) Dementia: Status: Acute Plan This is a 62-year-old female with pertinent history of essential hypertension, mixed hyperlipidemia, history of multifocal CVA, insulin-dependent diabetes mellitus, CAD status post stent, mood disorder, CKD stage 3 was sent to the emergency department for evaluation of fevers. Workup consistent with likely aspiration pneumonia along with necrotic right toes. Subsequent blood cultures grew out Klebsiella 2/2 bottles sensitive to ceftriaxone. Seen in consultation by vascular surgery who likely will recommend amputation but need to speak with family once white count normalizes 1. History of multifocal CVA with left hemiparesis; cognitive impairment/dementia -this a.m. patient extremely confused; discussed with son who states this is her usual presentation. At this point in time despite psychiatry ease input I do not believe the patient is competent to make her own decision as her cognition is not consistent. Had a discussion with son Negrito states he and his sister both in agreement that they wish to place his mom on hospice care and return to detention. I believe this is appropriate as to put a feeding tube in her would extend her suffering and not change her prognosis or her longevity. Hospice will be consulted Patient will need ongoing hospitalization pending hospice placement Time Spent With Patient Time: Total time managing care of this patient today ____ minutes. Quality Stroke Does the patient have a stroke diagnosis?: No VTE Prior VTE?: No VTE Risk Level:: Medical - moderate - high VTE Device Contraindication: Treatment Not Indicated VTE Drug Contraindication: N/A - Med Ordered
--- NOTE | 2022-08-20 15:45 | PM.EVENT ---
Event Note Date of Service: 08/20/22 Event Note: Patient examined as per note. Do not believe patient is competent to make decisions regarding her health and safety. At this point in time I would invoke the healthcare proxy Time Spent With Patient Time: Total time managing care of this patient today ____ minutes.
[2022-08-20 16:10] LABS: Glucose, Whole Blood 233 mg/dL (60-115)
--- NOTE | 2022-08-20 16:49 | MHC.SLORD ---
Speech Language Pathology Order Status: Patient maintained NPO today for PEG surgery. CELL OPERATION SUPERVISOR will continue to follow.
[2022-08-20] MEDS: Atorvastatin Calcium 80 MG TABLET PO (19:50)
[2022-08-20] MEDS: Melatonin 3 MG TABLET 6 MG PO (19:51)
[2022-08-20] MEDS: Mirtazapine 7.5 MG TABLET PO (19:51)
[2022-08-20] MEDS: 0.9 % Sodium Chloride Flush 3 ML SYRINGE IVFLUSH (19:52)
[2022-08-20 20:00] VITALS: BP 137/62; PULSE 66; RESP 18; TEMP 36.6; O2SAT 99
[2022-08-20 20:59] LABS: Glucose, Whole Blood 108 mg/dL (60-115)
[2022-08-21] MEDS: oxyCODONE HCl Immed Release 5 MG TABLET PO (03:22)
[2022-08-21 04:00] VITALS: BP 97/50; PULSE 75; RESP 18; TEMP 36.4; O2SAT 75
[2022-08-21] MEDS: HYDROcodone Bit/Acetam 5/325 TABLET 1 TAB PO ×2 (07:15→14:16)
[2022-08-21 07:16] VITALS: BP 126/64; PULSE 88; RESP 18; TEMP 36.6; O2SAT 99
[2022-08-21] MEDS: lisinopriL 5 MG TABLET PO (07:16)
[2022-08-21] MEDS: Sodium,Potassium Phosphates POWD.PACK 1 PACKET PO ×3 (07:16→20:27)
[2022-08-21] MEDS: Gabapentin 100 MG CAPSULE PO ×3 (07:16→20:28)
[2022-08-21] MEDS: Baclofen 10 MG TABLET 15 MG PO ×3 (07:16→20:27)
[2022-08-21] MEDS: Aspirin Enteric Coated 81 MG TABLET.DR PO (07:16)
[2022-08-21] MEDS: Lactulose 20 GM/30 ML SOLUTION PO ×2 (07:17→20:27)
[2022-08-21] MEDS: Metoprolol Succinate ER 25 MG TAB.ER.24H PO (07:17)
[2022-08-21 07:46] LABS: Glucose, Whole Blood 92 mg/dL (60-115)
[2022-08-21] MEDS: Morphine Sulfate 4 MG/ML CARTRIDGE IVPUSH ×3 (09:07→22:52)
--- NOTE | 2022-08-21 11:22 | MHC.CLN ---
F/U PATIENT IS NPO. PATIENT DECLINED PEG PLACEMENT ON 08/20. PPN DISCONTINUED. HOSPICE EVAL AND AWAITING HOSPICE PLACEMENT. CONTINUE TO FOLLOW PLAN OF CARE WITH TEAM.
--- NOTE | 2022-08-21 11:24 | MHC.SLORD ---
Addendum entered and electronically signed by Mitra Spear MA, CCC-FLOWER PICKER 08/24/22 09:51: Per d/c Speech Original Note: Speech Language Pathology Order Status: Per review of EMR, pt declined PEG placement when approached by surgeon 08/20. RN reports pt tolerated pills and drank liquid for her without difficulty- Per RN, pt in pain and medicated this morning. FLOWER PICKER checked in with pt- Pt drowsy and moaning out. Per discussion with , pt is now on hospice, awaiting hospice placement, and [employer]OWER [employer]ER f/u no longer indicated as pt will be eating and drinking for comfort.
[2022-08-21 11:30] LABS: Glucose, Whole Blood 92 mg/dL (60-115)
--- NOTE | 2022-08-21 14:58 | MHC.CM.PN ---
PATIENT TO RETURN TO LTC AT [facility]. RN, UNIT, AND SON, CARISSA [phone] AWARE. CARISSA IS OUT OF TOWN FOR A FEW DAYS BUT PATIENT'S DAUGHTER WILL BE AT FACILITY TOMORROW. PATIENT TO BE MADE AWARE. NO MEDICARE; THEREFORE, NO IMM
[2022-08-21 15:30] VITALS: BP 103/51; PULSE 79; RESP 16; TEMP 37.4; O2SAT 97
--- NOTE | 2022-08-21 15:57 | MHC.CM.PN ---
Addendum entered by Nicole Sims RN 08/21/22 16:14: SonNegrito, aware that ambulance transfer is on hold. Plan is transition patient to PO prior to DC. [facility] management know when hospice will be available at facility. case management to follow up tomorrow Original Note: DC AND TRANSPORT ON HOLD. CASE MANAGEMENT ATTEMPTING TO FIND OUT WHEN FACILITY'S HOSPICE CAN ASSESS (AND PROPERLY MEDICATE) PATIENT FOR PAIN. MAY NEED TO TRANSITION TO PO HERE. WILL UPDATE THIS NOTE ONCE PLAN IS SECURED
[2022-08-21] MEDS: 0.9 % Sodium Chloride Flush 3 ML SYRINGE IVFLUSH ×2 (16:00→20:28)
[2022-08-21 16:08] LABS: Glucose, Whole Blood 90 mg/dL (60-115)
--- NOTE | 2022-08-21 16:49 | HO.PM.IMPN ---
Subjective Subjective Date of Service: 08/21/22 Interval History: Somnolent but arousable. Receiving morphine for pain Review of Systems Unable to obtain Physical Exam Vital Signs: Vital Signs: Last Vital Signs Temp 99.3 F 08/21/22 15:30 Pulse 79 08/21/22 15:30 Resp 16 08/21/22 15:30 BP 103/51 L 08/21/22 15:30 Pulse Ox 97 08/21/22 15:30 O2 Del Method Room Air 08/21/22 15:30 O2 Flow Rate 98 08/15/22 04:00 Oxygen Flow Rate 3 08/04/22 15:49 BMI result Body Mass Index 19.6 Const: Other: Awake alert no acute distress; uncomfortable appearing Resp: Other: Clear to auscultation bilaterally no rales rhonchi or wheezes Cardio: Other: No S4; positive S1-S2; no S3 murmurs rubs or gallops GI: Other: Soft nontender nondistended normoactive bowel sounds Extrem: Other: Necrotic toes right foot Objective Data Active Medications Acetaminophen (Acetaminophen 325 Mg Tablet) 650 mg PO Q6H PRN PRN Reason: Pain, Mild (Pain Scale 1-3) Last Admin: 08/18/22 23:28 Dose: 650 mg Documented By: NEHAL Acetaminophen (Acetaminophen Supp 650 Mg Supp.Rect) 650 mg [place] Q6H PRN PRN Reason: Pain, Mild (Pain Scale 1-3) Last Admin: 08/15/22 14:00 Dose: 650 mg Documented By: ZORAN Aspirin (Aspirin Enteric Coated 81 Mg Tablet.) 81 mg PO DAILY [facility] Last Admin: 08/21/22 07:16 Dose: 81 mg Documented By: LISS Atorvastatin Calcium (Atorvastatin Calcium 80 Mg Tablet) 80 mg PO BEDTIME [facility] Last Admin: 08/20/22 19:50 Dose: 80 mg Documented By: ERIK Baclofen (Baclofen 10 Mg Tablet) 15 mg PO TID [facility] Last Admin: 08/21/22 14:16 Dose: 15 mg Documented By: HANNAH Gabapentin (Gabapentin 100 Mg Capsule) 100 mg PO TID [facility] Last Admin: 08/21/22 14:16 Dose: 100 mg Documented By: HANNAH Glucose (Glucose Gel 15 Gm Gel..Gram.) 15 gm PO Q15M PRN; Protocol PRN Reason: per Hypoglycemia Standing Ord. Dextrose (D10) 250 mls @ 750 mls/hr IV Q15M PRN; Protocol PRN Reason: per Hypoglycemia Standing Ord. Insulin Human Lispro (Insulin Lispro 100 Unit/Ml 3 Ml Vial) 0 unit SUBCUT QIDACHS [facility]; Protocol Last Admin: 08/21/22 16:00 Dose: Not Given Documented By: HANNAH Non-Admin Reason: No Insulin Coverage Lactulose (Lactulose 20 Gm/30 Ml Solution) 20 gm PO BID [facility] Last Admin: 08/21/22 07:17 Dose: 20 gm Documented By: LISS Lisinopril (Lisinopril 5 Mg Tablet) 5 mg PO DAILY [facility]; Protocol Last Admin: 08/21/22 07:16 Dose: 5 mg Documented By: LISS Melatonin (Melatonin 3 Mg Tablet) 6 mg PO BEDTIME PRN PRN Reason: Insomnia Last Admin: 08/20/22 19:51 Dose: 6 mg Documented By: ERIK Metoprolol Succinate (Metoprolol Succinate Er 25 Mg Tab.Er.24h) 25 mg PO DAILY [facility]; Protocol Last Admin: 08/21/22 07:17 Dose: 25 mg Documented By: LISS Mirtazapine (Mirtazapine 7.5 Mg Tablet) 7.5 mg PO BEDTIME [facility] Last Admin: 08/20/22 19:51 Dose: 7.5 mg Documented By: ERIK Morphine Sulfate (Morphine Sulfate 4 Mg/Ml Cartridge) 4 mg IVPUSH Q3H PRN; Protocol PRN Reason: Pain, Severe (Pain Scale 7-10) Last Admin: 08/21/22 16:00 Dose: 4 mg Documented By: HANNAH Ondansetron HCl (Ondansetron Hcl 4 Mg/2 Ml Vial) 4 mg IVPUSH Q8H PRN PRN Reason: Nausea and Vomiting Oxycodone HCl (Oxycodone Hcl Immed Release 5 Mg Tablet) 5 mg PO Q6H PRN PRN Reason: Pain, Moderate(Pain Scale 4-6) Last Admin: 08/21/22 03:22 Dose: 5 mg Documented By: ERIK Pharmacy Consult (Consult Rx Perform Med Rec) 1 each MISCELLANE ONCE PRN PRN Reason: Consult order Potassium Phos/Sodium Phos (Sodium,Potassium Phosphates Powd.Pack) 1 packet PO TID [facility] Last Admin: 08/21/22 14:16 Dose: 1 packet Documented By: HANNAH Sodium Chloride (0.9 % Sodium Chloride Flush 3 Ml Syringe) 3 ml IVFLUSH QSHIFT [facility] Last Admin: 08/21/22 16:00 Dose: 3 ml Documented By: HANNAH Tizanidine HCl (Tizanidine Hcl 4 Mg Tablet) 2 mg PO Q8H PRN PRN Reason: MUSCLE SPASMS Labs 08/18/22 05:41 08/19/22 08:33 Labs: Laboratory Results - last 24 hr 08/20/22 08/21/22 08/21/22 20:50 07:41 11:09 POC Glucose 108 92 92 08/21/22 15:58 POC Glucose 90 Assessment and Plan (1) CVA (cerebral vascular accident): Status: Acute Plan This is a 62-year-old female with pertinent history of essential hypertension, mixed hyperlipidemia, history of multifocal CVA, insulin-dependent diabetes mellitus, CAD status post stent, mood disorder, CKD stage 3 was sent to the emergency department for evaluation of fevers. Workup consistent with likely aspiration pneumonia along with necrotic right toes. Subsequent blood cultures grew out Klebsiella 2/2 bottles sensitive to ceftriaxone. Seen in consultation by vascular surgery who likely will recommend amputation but need to speak with family once white count normalizes 1. History of multifocal CVA with left hemiparesis; cognitive impairment/dementia -this a.m. patient extremely confused; discussed with son who states this is her usual presentation. At this point in time despite psychiatry ease input I do not believe the patient is competent to make her own decision as her cognition is not consistent. Had a discussion with son Negrito states he and his sister both in agreement that they wish to place his mom on hospice care and return to [facility]. I believe this is appropriate as to put a feeding tube in her would extend her suffering and not change her prognosis or her longevity. Hospice Patient will need ongoing hospitalization pending hospice placement Time Spent With Patient Time: Total time managing care of this patient today ____ minutes. Quality Stroke Does the patient have a stroke diagnosis?: No VTE Prior VTE?: No VTE Risk Level:: Medical - moderate - high VTE Device Contraindication: Treatment Not Indicated VTE Drug Contraindication: N/A - Med Ordered
[2022-08-21 20:00] VITALS: BP 116/56; PULSE 74; RESP 18; TEMP 36.3; O2SAT 99
[2022-08-21] MEDS: Mirtazapine 7.5 MG TABLET PO (20:27)
[2022-08-21] MEDS: Atorvastatin Calcium 80 MG TABLET PO (20:28)
[2022-08-21 20:35] LABS: Glucose, Whole Blood 71 mg/dL (60-115)
[2022-08-22 03:04] VITALS: BP 116/56; PULSE 77; RESP 16; TEMP 36.2; O2SAT 95
[2022-08-22] MEDS: Morphine Sulfate 4 MG/ML CARTRIDGE IVPUSH (03:17)
[2022-08-22 07:43] VITALS: BP 114/47; PULSE 72; RESP 17; TEMP 36.2; O2SAT 98
[2022-08-22 07:43] LABS: Glucose, Whole Blood 58 mg/dL (60-115)
[2022-08-22] MEDS: Dextrose 10 % 250 ML 750 ML IV (07:47)
[2022-08-22] MEDS: 0.9 % Sodium Chloride Flush 3 ML SYRINGE IVFLUSH ×3 (07:48→20:14)
[2022-08-22 08:32] LABS: Glucose, Whole Blood 146 mg/dL (60-115)
[2022-08-22 08:56] LABS: Glucose, Whole Blood 137 mg/dL (60-115)
[2022-08-22 09:21] LABS: Glucose, Whole Blood 120 mg/dL (60-115)
--- NOTE | 2022-08-22 10:36 | HO.PM.IMPN ---
Subjective Subjective Date of Service: 08/22/22 Interval History: No acute changes. Utilizing morphine for pain. Essentially no p.o. intake Review of Systems Unable to obtain Physical Exam Vital Signs: Vital Signs: Last Vital Signs Temp 97.2 F 08/22/22 07:43 Pulse 72 08/22/22 07:43 Resp 17 08/22/22 07:43 BP 114/47 L 08/22/22 07:43 Pulse Ox 98 08/22/22 07:43 O2 Del Method Room Air 08/22/22 07:43 O2 Flow Rate 98 08/15/22 04:00 Oxygen Flow Rate 3 08/04/22 15:49 BMI result Body Mass Index 19.6 Const: Other: Awake alert no acute distress; uncomfortable appearing Resp: Other: Clear to auscultation bilaterally no rales rhonchi or wheezes Cardio: Other: No S4; positive S1-S2; no S3 murmurs rubs or gallops GI: Other: Soft nontender nondistended normoactive bowel sounds Extrem: Other: Necrotic toes right foot Objective Data Active Medications Acetaminophen (Acetaminophen Supp 650 Mg Supp.Rect) 650 mg [place] Q6H PRN PRN Reason: Pain, Mild (Pain Scale 1-3) Last Admin: 08/15/22 14:00 Dose: 650 mg Documented By: ZORAN Dextrose (Dextrose 50 % 25 Gm/50 Ml Syringe) 25 gm IVPUSH Q15M PRN; Protocol PRN Reason: per Hypoglycemia Standing Ord. Lactulose (Lactulose 20 Gm/30 Ml Solution) 20 gm PO BID [facility] Last Admin: 08/22/22 10:13 Dose: Not Given Documented By: JERRY Non-Admin Reason: Physician Held Med Melatonin (Melatonin 3 Mg Tablet) 6 mg PO BEDTIME PRN PRN Reason: Insomnia Last Admin: 08/20/22 19:51 Dose: 6 mg Documented By: ERIK Morphine Sulfate (Morphine Sulfate 4 Mg/Ml Cartridge) 4 mg IVPUSH Q3H PRN; Protocol PRN Reason: Pain, Severe (Pain Scale 7-10) Last Admin: 08/22/22 03:17 Dose: 4 mg Documented By: CARLITOS Morphine Sulfate (Morphine Sulfate Oral Bridgette 10 Mg/5 Ml Solution) 15 mg SUBLINGUAL Q4H PRN PRN Reason: comfort measures Ondansetron HCl (Ondansetron Hcl 4 Mg/2 Ml Vial) 4 mg IVPUSH Q8H PRN PRN Reason: Nausea and Vomiting Pharmacy Consult (Consult Rx Perform Med Rec) 1 each MISCELLANE ONCE PRN PRN Reason: Consult order Potassium Phos/Sodium Phos (Sodium,Potassium Phosphates Powd.Pack) 1 packet PO TID [facility] Last Admin: 08/22/22 10:14 Dose: Not Given Documented By: JERRY Non-Admin Reason: Physician Held Med Sodium Chloride (0.9 % Sodium Chloride Flush 3 Ml Syringe) 3 ml IVFLUSH QSHIFT [facility] Last Admin: 08/22/22 07:48 Dose: 3 ml Documented By: JERRY Labs 08/18/22 05:41 08/19/22 08:33 Labs: Laboratory Results - last 24 hr 08/21/22 08/21/22 08/21/22 11:09 15:58 20:32 POC Glucose 92 90 71 08/22/22 08/22/22 08/22/22 07:38 08:26 08:53 POC Glucose 58 L* 146 H 137 H 08/22/22 09:17 POC Glucose 120 H Assessment and Plan (1) Dementia: Status: Acute Plan This is a 62-year-old female with pertinent history of essential hypertension, mixed hyperlipidemia, history of multifocal CVA, insulin-dependent diabetes mellitus, CAD status post stent, mood disorder, CKD stage 3 was sent to the emergency department for evaluation of fevers. Workup consistent with likely aspiration pneumonia along with necrotic right toes. Subsequent blood cultures grew out Klebsiella 2/2 bottles sensitive to ceftriaxone. Seen in consultation by vascular surgery who likely will recommend amputation but need to speak with family once white count normalizes 1. History of multifocal CVA with left hemiparesis; cognitive impairment/dementia -this a.m. patient extremely confused; discussed with son who states this is her usual presentation. At this point in time despite psychiatry ease input I do not believe the patient is competent to make her own decision as her cognition is not consistent. Had a discussion with son Negrito states he and his sister both in agreement that they wish to place his mom on hospice care and [facility] to [facility]. I believe this is appropriate as to put a feeding tube in her would extend her suffering and not change her prognosis or her longevity. Hospice Care/[employer] Patient will need ongoing hospitalization pending hospice placement Time Spent With Patient Time: Total time managing care of this patient today ____ minutes. Quality Stroke Does the patient have a stroke diagnosis?: No VTE Prior VTE?: No VTE Risk Level:: Medical - moderate - high VTE Device Contraindication: Treatment Not Indicated VTE Drug Contraindication: N/A - Med Ordered
[2022-08-22] MEDS: Morphine Sulfate Oral Sol 10 MG/5 ML SOLUTION 15 MG SUBLINGUAL ×2 (15:23→20:13)
[2022-08-22 15:48] VITALS: BP 113/67; PULSE 78; RESP 17; TEMP 36.7; O2SAT 95
[2022-08-22 19:50] VITALS: BP 123/58; PULSE 75; RESP 17; TEMP 36.9; O2SAT 96
[2022-08-23] MEDS: Morphine Sulfate 4 MG/ML CARTRIDGE IVPUSH (01:59)
[2022-08-23 03:00] VITALS: RESP 17
[2022-08-23] MEDS: 0.9 % Sodium Chloride Flush 3 ML SYRINGE IVFLUSH ×2 (07:36→16:02)
[2022-08-23 07:43] VITALS: BP 108/53; PULSE 70; RESP 15; TEMP 36.2; O2SAT 96
[2022-08-23] MEDS: Morphine Sulfate Oral Sol 10 MG/5 ML SOLUTION 15 MG SUBLINGUAL (08:57)
--- NOTE | 2022-08-23 11:21 | HO.PM.IMPN ---
Subjective Subjective Date of Service: 08/23/22 Interval History: No acute changes. Utilizing morphine for pain. Essentially no p.o. intake Review of Systems Unable to obtain Physical Exam Vital Signs: Vital Signs: Last Vital Signs Temp 97.1 F 08/23/22 07:43 Pulse 70 08/23/22 07:43 Resp 15 08/23/22 07:43 BP 108/53 L 08/23/22 07:43 Pulse Ox 96 08/23/22 07:43 O2 Del Method Room Air 08/23/22 07:43 O2 Flow Rate 98 08/15/22 04:00 Oxygen Flow Rate 3 08/04/22 15:49 BMI result Body Mass Index 19.6 Const: Other: Awake alert no acute distress; uncomfortable appearing Resp: Other: Clear to auscultation bilaterally no rales rhonchi or wheezes Cardio: Other: No S4; positive S1-S2; no S3 murmurs rubs or gallops GI: Other: Soft nontender nondistended normoactive bowel sounds Extrem: Other: Necrotic toes right foot Objective Data Active Medications Acetaminophen (Acetaminophen Supp 650 Mg Supp.Rect) 650 mg [place] Q6H PRN PRN Reason: Pain, Mild (Pain Scale 1-3) Last Admin: 08/15/22 14:00 Dose: 650 mg Documented By: ZORAN Dextrose (Dextrose 50 % 25 Gm/50 Ml Syringe) 25 gm IVPUSH Q15M PRN; Protocol PRN Reason: per Hypoglycemia Standing Ord. Morphine Sulfate (Morphine Sulfate Oral Bridgette 10 Mg/5 Ml Solution) 15 mg PO Q2H PRN PRN Reason: Pain, Severe (Pain Scale 7-10) Ondansetron HCl (Ondansetron Hcl 4 Mg/2 Ml Vial) 4 mg IVPUSH Q8H PRN PRN Reason: Nausea and Vomiting Pharmacy Consult (Consult Rx Perform Med Rec) 1 each MISCELLANE ONCE PRN PRN Reason: Consult order Sodium Chloride (0.9 % Sodium Chloride Flush 3 Ml Syringe) [facility] Admin: 08/23/22 07:36 Dose: 3 ml Documented By: JERRY Javier 08/18/22 05:41 08/19/22 08:33 Assessment and Plan (1) Dementia: Status: Acute Plan This is a 62-year-old female with pertinent history of essential hypertension, mixed hyperlipidemia, history of multifocal CVA, insulin-dependent diabetes mellitus, CAD status post stent, mood disorder, CKD stage 3 was sent to the emergency department for evaluation of fevers. Workup consistent with likely aspiration pneumonia along with necrotic right toes. Subsequent blood cultures grew out Klebsiella 2/2 bottles sensitive to ceftriaxone. Seen in consultation by vascular surgery who likely will recommend amputation but need to speak with family once white count normalizes 1. History of multifocal CVA with left hemiparesis; cognitive impairment/dementia -this a.m. patient extremely confused; discussed with son who states this is her usual presentation. At this point in time despite psychiatry ease input I do not believe the patient is competent to make her own decision as her cognition is not consistent. Had a discussion with son Negrito states he and his sister both in agreement that they wish to place his mom on hospice care and return to [facility]. I believe this is appropriate as to put a feeding tube in her would extend her suffering and not change her prognosis or her longevity. Hospice Care/[employer] Patient will need ongoing hospitalization pending hospice placement Time Spent With Patient Time: Total time managing care of this patient today ____ minutes. Quality Stroke Does the patient have a stroke diagnosis?: No VTE Prior VTE?: No VTE Risk Level:: Medical - moderate - high VTE Device Contraindication: Treatment Not Indicated VTE Drug Contraindication: N/A - Med Ordered
[2022-08-23] MEDS: Morphine Sulfate Oral Sol 10 MG/5 ML SOLUTION 15 MG PO (14:49)
[2022-08-23 15:59] VITALS: BP 118/55; PULSE 73; RESP 17; TEMP 36.4; O2SAT 95
[2022-08-23 19:40] VITALS: BP 153/67; PULSE 76; RESP 18; TEMP 36.6; O2SAT 96
[2022-08-24 03:31] VITALS: BP 128/60; PULSE 69; RESP 18; TEMP 36.2; O2SAT 97
[2022-08-24 07:30] VITALS: BP 126/60; PULSE 71; RESP 18; TEMP 36.1; O2SAT 92
[2022-08-24] MEDS: 0.9 % Sodium Chloride Flush 3 ML SYRINGE IVFLUSH (08:47)
--- NOTE | 2022-08-24 10:53 | MHC.CM.PN ---
PLAN IS 1300 [address] AMBULANCE TRANSFER TO [facility]; AND REHAB. RN AND UNIT AWARE. THIS [employer] IN[employer] TO CONTACT SON, CARISSA, TO INFORM HIM.
--- NOTE | 2022-08-24 11:01 | MHC.CLN ---
F/U PATIENT IS NPO DAY 5. PLAN IS TO DISCHARGE TODAY TO FACILITY FOR HOSPICE CARE. RD AVAILABLE NEEDED.
--- NOTE | 2022-08-24 11:20 | MHC.CM.PN ---
PATIENT'S HCP/SON ,CARISSA ([phone]) IS AWARE OF PLANNED 1300 AMBULANCE TRANSPORT BACK TO [facility] TODAY
--- NOTE | 2022-08-24 11:28 | P.DS_ITS ---
DS: Providers Provider Date of Service: 08/24/22 Date of admission: 08/04/22 19:03 Date of discharge: 08/24/22 Primary care physician: Marybel Segura MD Consults: 08/06/22 12:31 Consult to Vascular Surgery Routine Consulting Provider: [facility] [place] Reason for consultation: necrotic toes Has provider been notified: Yes 08/09/22 11:38 Consult to Wound Care Routine Consulting Provider: Roopa Cope Reason for consultation: wound care Has provider been notified: No 08/10/22 08:44 Consult to Infectious Diseases Routine Consulting Provider: [facility] Infectious Disease Reason for consultation: klebsiella bacteremia 08/14/22 09:20 Consult to General Surgery Routine Consulting Provider: [facility] General Surgeons Reason for consultation: peg tube Has provider been notified: No 08/18/22 11:47 Consult to Psychiatry Stat Consulting Provider: Psych Covering Reason for consultation: Competency Has provider been notified: Yes DS: Diagnosis Discharge Diagnosis (1) Dementia: Status: Acute (2) Pressure ulcer of left buttock, unstageable: Status: Acute (3) Hemiplegia and hemiparesis following cerebral infarction affecting left non- dominant side: Status: Acute (4) Bacteremia due to Klebsiella pneumoniae: Status: Acute (5) PAD (peripheral artery disease): Status: Acute (6) Ulcer of right second toe with necrosis of muscle: Status: Acute (7) Sepsis: Status: Acute (8) Acute dehydration: Status: Acute (9) Hypernatremia: Status: Resolved (10) Hypokalemia: Status: Acute (11) Hypophosphatemia: Status: Acute DS: Summary Hospital Course Hospital Course: from admission H+P by hospitalist Neelam Stahl MD, 08/04/22: This is a 62-year-old female with pertinent history of essential hypertension, mixed hyperlipidemia, history of multifocal CVA, insulin-dependent diabetes mellitus, CAD status post stent, mood disorder, CKD stage 3 was sent to the emergency department for evaluation of fevers.? Unable to obtain history or review of systems from the patient.? History obtained from ER provider and chart review.? Patient with poor appetite, weakness and altered mentation.? Also has been having fevers and chills.? Patient's urine was noted to be cloudy and foul smelling.? She has necrotic toes on the right foot and wound on her coccyx In the emergency department, patient was found to be septic and urine concerning for UTI. 62yo F with HTN, HLD, multifocal CVA, DM2, CAD s/p PCI, mood disorder, and CKD3 who is a long-term resident of [facility] and was sent in with fevers suspected due to aspiration PNA vs R toe necrosis. She was admitted to the hospitalist service and subsequently found to have Klebsiella bacteremia. She was treated with a full 14-day course of IV antibiotics [cefepime, then ceftriaxone] as per ID consultation. Likely source was pneumonia versus urinary infection, given severe bilateral hydronephrosis and ureteral dilation. Vascular Surgery was consulted regarding her necrotic toes. These were dry and not suspected as the source of her bacteremia. As she is not ambulatory, she was not felt to be a candidate for aggressive surgical intervention which would be an AKA. Hypernatremia due to dehydration resolved with IV free water repletion. Other electrolytes [potassium and phospohrous] were repleted. Wound Care was consulted regarding her large unstageable sacral decubitus ulcer and topical alginate plus Allevyn were recommended. Ultimately, due to failure to thrive with poor PO intake, the possibility of a PEG tube was discussed with her family. In the end, they decided against the PEG tube and decided to place her on hospice care back at [facility]. Time Spent with Patient Time attestation: Total time managing care of this patient today ____ minutes. Discharge coordination time: Greater than 30 minutes Quality: Safe Use of Opioids Does Pt have an Active Cancer Diagnosis on the Problem List?: No Quality: Stroke Does the patient have a stroke diagnosis?: No Physical Exam Vital Signs: Vital Signs: Last Vital Signs Temp 97.0 F 08/24/22 07:30 Pulse 71 08/24/22 07:30 Resp 18 08/24/22 07:30 BP 126/60 08/24/22 07:30 Pulse Ox 92 08/24/22 07:30 O2 Del Method Room Air 08/24/22 07:30 O2 Flow Rate 98 08/15/22 04:00 Oxygen Flow Rate 3 08/04/22 15:49 BMI result Body Mass Index 19.6 Gen: awake, in no acute distress HEENT: sclera anicteric, moist mucus membranes Neck: supple Lungs: clear to auscultation bilaterally Heart: regular rate and rhythm, no murmurs Abd: soft, non-tender, non-distended : Alvarez draining clear urine Ext: no edema Skin:? necrotic 1st 2nd?and 3rd toes on the right, bilateral heel ulceration, right leg dressing in place Neuro: awake,?clear speech, left hemiparesis Psych: appropriate?affect DS: Data Data Completed and Pending Completed studies during hospitalization [Text1]: Laboratory Results WBC 17.3 X10*3/uL (4.8-10.8) H 08/18/22 05:41 RBC 4.01 X10*6/uL (4.20-5.50) L D 08/18/22 05:41 Hgb 10.9 g/dl (12.0-16.0) L D 08/18/22 05:41 Hct 34.3 % (37.0-47.0) L D 08/18/22 05:41 MCV 85.5 fL (80.0-98.0) 08/18/22 05:41 MCH 27.2 pg (27.0-33.0) 08/18/22 05:41 MCHC 31.8 g/dl (31.0-35.0) 08/18/22 05:41 RDW 18.7 % (11.0-16.0) H 08/18/22 05:41 Plt Count 296 X10*3/uL (160-400) 08/18/22 05:41 MPV 10.6 fL (9.4-12.3) 08/18/22 05:41 Immature Gran % (Auto) 4.2 % (0.0-0.4) H 08/10/22 05:33 Neut % (Auto) 78.9 % (45-73) H 08/10/22 05:33 Lymph % (Auto) 9.7 % (20-40) L 08/10/22 05:33 Clay % (Auto) 6.1 % (2-11) 08/10/22 05:33 Eos % (Auto) 0.8 % (0-4) 08/10/22 05:33 Baso % (Auto) 0.3 % (0-2) 08/10/22 05:33 Lymph # (Auto) 1.6 X10*3/uL (1.2-4.9) 08/10/22 05:33 Clay # (Auto) 1.0 X10*3/uL (0.1-1.2) 08/10/22 05:33 Eos # (Auto) 0.1 X10*3/uL (0.0-0.4) 08/10/22 05:33 Baso # (Auto) 0.1 X10*3/uL (0.0-0.2) 08/10/22 05:33 Abs Immat Gran (auto) 0.69 X10*3/uL (0.00-0.03) H 08/10/22 05:33 Absolute Neuts (auto) 12.8 x10*3/uL (2.0-8.3) H 08/10/22 05:33 Absolute Nucleated RBC 0.000 X10*3/uL (0.0-0.012) 08/18/22 05:41 Nucleated RBC % (auto) 0.0 /100WBC (0.0-0.2) 08/18/22 05:41 Smear Tech's Comments VERIFIED 08/05/22 05:27 Sodium 135 mmol/L (135-145) 08/19/22 08:33 Potassium 4.8 mmol/L (3.3-5.1) 08/19/22 08:33 Chloride 104 mmol/L (96-108) 08/19/22 08:33 Carbon Dioxide 25 mmol/L (22-29) 08/19/22 08:33 Anion Gap 11 (12-20) L 08/19/22 08:33 BUN 32 mg/dL (9-16) H 08/19/22 08:33 Creatinine 0.71 mg/dL (0.5-1.4) 08/19/22 08:33 Estim Creat Clear Calc 63.0 08/19/22 08:33 Estimated GFR > 60 08/19/22 08:33 POC Glucose 120 mg/dL (60-115) H 08/22/22 09:17 Random Glucose 278 mg/dL (60-115) H 08/19/22 08:33 Fasting Glucose 140 mg/dL (60-99) H 08/10/22 05:33 Lactic Acid 3.1 mmol/L (0.5-2.0) H* 08/04/22 15:15 Lactic Acid F/U @ 2Hr 1.8 mmol/L (0.5-2.0) 08/04/22 17:58 Calcium 8.6 mg/dL (8.4-10.2) 08/19/22 08:33 Phosphorus 3.9 mg/dL (2.7-4.5) 08/19/22 08:33 Magnesium 2.1 mg/dL (1.6-2.6) 08/19/22 08:33 Iron 17 mcg/dL (30-160) L 08/17/22 05:27 TIBC 89 mcg/dL (228-428) L 08/17/22 05:27 % Saturation 19 % (15-50) 08/17/22 05:27 Unsat Iron Binding 72 ug/dL 08/17/22 05:27 Ferritin 1036 ng/mL (10-250) H 08/17/22 05:27 Total Bilirubin 0.2 mg/dL (0.0-1.0) 08/11/22 05:52 Direct Bilirubin 0.2 mg/dL (0.0-0.5) 08/04/22 15:15 AST 77 U/L (5-31) H 08/11/22 05:52 ALT 79 U/L (0-31) H 08/11/22 05:52 Alkaline Phosphatase 252 U/L (39-117) H 08/11/22 05:52 C-Reactive Protein 11.12 mg/dL (< or = 0.50) H 08/17/22 05:27 Total Protein 5.4 g/dL (6.5-8.0) L 08/11/22 05:52 Albumin 1.9 g/dL (3.5-5.0) L 08/18/22 05:41 Triglycerides 55 mg/dL 08/17/22 05:27 Lipase 6 U/L (8-78) L 08/04/22 15:15 Procalcitonin 0.18 ng/mL 08/10/22 05:33 Urine Color Yellow 08/04/22 18:16 Urine Appearance Cloudy 08/04/22 18:16 Urine pH 6.5 (5.0-9.0) 08/04/22 18:16 Ur Specific [place] 1.020 (1.005-1.025) 08/04/22 18:16 Urine Protein 100 (2+) mg/dL (Neg-Trace) H 08/04/22 18:16 Urine Glucose (UA) Negative mg/dL (Negative) 08/04/22 18:16 Urine Ketones Trace mg/dL (Negative) 08/04/22 18:16 Urine Blood Large (3+) (Negative) H 08/04/22 18:16 Urine Nitrite Negative (Negative) 08/04/22 18:16 Ur Leukocyte Esterase Large (3+) (Negative) H 08/04/22 18:16 Urine RBC >20 /HPF (0-2) H 08/04/22 18:16 Urine WBC >50 /HPF (0-5) H 08/04/22 18:16 Ur Squamous Epith Cells 11-20 /HPF (0-2) 08/04/22 18:16 Urine Bacteria 4+ (None Seen) 08/04/22 18:16 Hyaline Casts >20 /LPF (0-2) 08/04/22 18:16 Stool Occult Blood POSITIVE (NEGATIVE) 08/18/22 09:20 Vancomycin Trough 21.5 mcg/mL (10.0-20.0) H 08/09/22 18:41 Blood Type A Positive 08/17/22 08:43 Antibody Screen NEGATIVE 08/17/22 08:43 Crossmatch See Detail 08/17/22 08:43 Impressions Foot X-Ray 08/04/22 15:39 IMPRESSION: - Attenuation soft tissues overlying distal phalangeal ayush first, second, and third toes. Possible exposed bone at second distal tuft. Clinically correlate. -No focal bony destruction or periostitis. No gas tracking in soft tissues. Duplex Scan Lower Extremity Artery 08/04/22 20:29 IMPRESSION: Occlusion of the mid and distal superficial femoral artery. Reconstitution at the popliteal artery. The calf arteries are not assessed. Chest X-Ray 08/05/22 04:37 IMPRESSION: Increased retrocardiac opacity which could represent atelectasis or pneumonia. Aspiration possible. Abdomen Ultrasound 08/10/22 17:51 IMPRESSION: 1. Technically limited exam. Mild intra and extrahepatic biliary duct dilatation status post cholecystectomy similar to prior. 2. Trace right hydroureteronephrosis partially visualized. Markedly limited views of the left kidney which is remarkable for hydroureter with without definite hydronephrosis though difficult to say with certainty. Abdomen/Pelvis CT 08/11/22 09:31 IMPRESSION: New left lower lobe pneumonia. Intra and extrahepatic biliary duct dilatation similar to previous exam. The gallbladder has been removed. Severe bilateral hydronephrosis and ureteral dilatation down to the bladder. Alvarez catheter in the bladder. Diffuse bladder wall thickening. These findings are similar to previous exam. New fat stranding in the presacral space and small amount of fluid in the pelvis. Severe atherosclerotic disease. Fleischner guidelines were followed. Discharge Plan Discharge Anticipated Discharge Date/Time: 08/21/22 15:21 Patient Disposition: Hospice - Medical Facility Discharge Diagnosis: sepsis due to bacteremia, toe necrosis due to PVD, unstageable sacral decubitus ulcer, dementia Referrals: [facility] [Outside] - 1 Week Marybel Segura MD [Primary Care Provider] - 1 Week Discharge Medications: New morphine 10 mg/5 mL Solution 15 mg PO Q2H PRN (Reason: Pain, Severe (Pain Scale 7-10)) Qty: 120 0RF Rx Instructions: Partial Fill upon patient request. Discontinued atorvastatin 80 mg Tablet 80 mg PO BEDTIME sennosides [senna] 8.6 mg Tablet 8.6 mg PO DAILY tizanidine 2 mg Tablet 2 mg PO Q8H PRN (Reason: MUSCLE SPASMS) dextrose [Glucose Gel] 40 % Gel 20 g PO Q15M PRN (Reason: FSBS<50 AND ABLE TO SWALLOW) Rx Instructions: until symptoms of low blood sugar are controlled meclizine 12.5 mg Tablet 12.5 mg PO Q8H PRN (Reason: Dizziness) clopidogrel [Plavix] 75 mg Tablet 75 mg PO DAILY aspirin 81 mg Tablet,Delayed Release (Dr/Ec) 81 mg PO DAILY magnesium hydroxide [Milk of Magnesia] 400 mg/5 mL Suspension 30 ml PO DAILY PRN (Reason: Constipation) ascorbic acid (vitamin C) 500 mg Tablet 500 mg PO DAILY bisacodyl 10 mg Suppository 10 mg VT DAILY PRN (Reason: Constipation) metoprolol succinate 25 mg Tablet Extended Release 24 Hr 25 mg PO DAILY insulin lispro [Humalog U-100 Insulin] 100 unit/mL Solution 1 sliding scale dose SUBCUT QIDACHS Protocol: Insulin Correction Scale Less than or equal to 110 ---- Give (units): 0 111 to 150 Give (units): 0 151 to 200 Give (units): 2 201 to 250 Give (units): 4 251 to 300 Give (units): 6 301 to 350 Give (units): 8 Greater than 350 Give (units): 10 Call MD if Blood Glucose > : 350 glucagon 1 mg Recon Soln 1 mg SUBCUT Q20M PRN (Reason: fsbs < 60 and unable to swallow) Rx Instructions: until target blood sugar attained multivitamin with minerals Tablet 1 tab PO BEDTIME tramadol 50 mg tablet 50 mg PO TID PRN (Reason: Pain) Fleet Enema 19-7 gram/118 mL Enema 118 ml VT DAILY PRN (Reason: Constipation) lisinopril 5 mg tablet 5 mg PO DAILY gabapentin 100 mg Capsule 100 mg PO TID Culturelle 10 billion cell Capsule 1 cap PO BID Levemir U-100 Insulin 100 unit/mL Solution 12 unit SUBCUT DAILY ferrous fumarate 325 mg (106 mg iron) Tablet 325 mg PO DAILY lactulose 20 gram/30 mL Solution 20 g PO BID baclofen 5 mg tablet 15 mg PO TID cefuroxime axetil 500 mg tablet 250 mg PO BID Rx Instructions: START - 08/04/22; END - 08/11/22 polyethylene glycol 3350 [Miralax] 17 gram Powder In Packet 17 g PO DAILY Discharge Orders: Discharge Order (Routine); Ordered 08/24/22 Ordered By: Marie Grissom Diet: Advance to usual diet Activity on Discharge: As tolerated Stand Alone Forms: Patient Portal Discharge page Care Plan Goals: palliation of pain and other discomfort Health Concerns: sepsis due to bacteremia, toe necrosis due to PVD, unstageable sacral decubitus ulcer, dementia Plan of Treatment: transfer to SNF for hospice care morphine as needed for pain or dyspnea Assessment: See Discharge Summary.
--- NOTE | 2022-08-24 14:31 | P.CDIM_ITS ---
PROVIDER RESPONSE TEXT: To clarify, the appropriate diagnosis supported by the clinical indicators: Pressure (decubitus) ulcer QUERY TEXT: PHYSICIAN'S DOCUMENTATION REQUEST Date of Query: 08/11/2022 07:48 AM EDT Patient Name: Justine Gottlieb Admit Date: 08/04/2022 Dear Marie Grissom, A review of the medical record indicates additional documentation may be needed. Please review below and update the documentation accordingly. Clinical Indicators: Per Hospitalist Progress Note 08/10/22: dry ulcers on heels bilaterally Per nursing assessment 08/10/22 L heel unstageable, foam dressing R heel unstageable, foam dressing Based on the above, could you please provide further information regarding the Type of ulcer: Diabetic ulcer Venous stasis ulcer Arterial (ischemic) ulcer Pressure (decubitus) ulcer Traumatic wound Other (explain)Clinically unable to determine (explain)Thank you, Wilma Tello RN Use of terms such as suspected, likely, concern for, or probable (associated with a specific diagnosi s that is being evaluated, monitored, or treated as if it exists) are acceptable and can be coded in the inpatient se tting, when documented at the time of discharge. Please use your independent medical judgment in providing your response. THIS QUERY IS PART OF THE PERMANENT MEDICAL RECORD
--- NOTE | 2022-08-24 14:34 | P.CDIM_ITS ---
PROVIDER RESPONSE TEXT: To clarify, the appropriate diagnosis supported by the clinical indicators: Clinically unable to determine (explain): HISTORY UNKNOWN QUERY TEXT: PHYSICIAN'S DOCUMENTATION REQUEST Date of Query: 08/11/2022 07:52 AM EDT Patient Name: Justine Gottlieb Admit Date: 08/04/2022 Dear Marie Grissom, A review of the medical record indicates additional documentation may be needed. Please review below and update the documentation accordingly. Clinical Indicators: Per nursing assessment 08/10/22: right calf unstageable Based on the above, could you please provide further information regarding the right calf ulcer/wound type: Diabetic ulcer Venous stasis ulcer Arterial (ischemic) ulcer Pressure (decubitus) ulcer Traumatic wound Other (explain)Clinically unable to determine (explain)Thank you, Wilma Tello RN Use of terms such as suspected, likely, concern for, or probable (associated with a specific diagnosi s that is being evaluated, monitored, or treated as if it exists) are acceptable and can be coded in the inpatient se tting, when documented at the time of discharge. Please use your independent medical judgment in providing your response. THIS QUERY IS PART OF THE PERMANENT MEDICAL RECORD
== END 2022-08-24 13:26 | disposition hospice, inpatient (51) | DRG 720 ==
LOC: HO.ED 18:34 → HO.EDOVER 19:57 → HO.S3 08-05 07:09
PROVIDERS: Hospitalist; Admitting Provider Student in an Organized Health Care Education/Training Program; Emergency Provider Student in an Organized Health Care Education/Training Program; PCP Internal Medicine; Visit Provider Family Medicine
DX: A41.4 Sepsis due to anaerobes (principal); G93.41 Metabolic encephalopathy; L89.150 Pressure ulcer of sacral region, unstageable; I70.261 Atherosclerosis of native arteries of extremities with gangrene, right leg; E87.21 Acute metabolic acidosis; E44.0 Moderate protein-calorie malnutrition; E11.52 Type 2 diabetes mellitus with diabetic peripheral angiopathy with gangrene; E87.0 Hyperosmolality and hypernatremia; F03.90 Unspecified dementia, unspecified severity, without behavioral disturbance, psychotic disturbance, mood disturbance, and anxiety; Z51.5 Encounter for palliative care; R13.10 Dysphagia, unspecified; N39.0 Urinary tract infection, site not specified; E11.22 Type 2 diabetes mellitus with diabetic chronic kidney disease; E86.0 Dehydration; E78.2 Mixed hyperlipidemia; I69.354 Hemiplegia and hemiparesis following cerebral infarction affecting left non-dominant side; I25.10 Atherosclerotic heart disease of native coronary artery without angina pectoris; F32.A Depression, unspecified; I12.9 Hypertensive chronic kidney disease with stage 1 through stage 4 chronic kidney disease, or unspecified chronic kidney disease; L97.513 Non-pressure chronic ulcer of other part of right foot with necrosis of muscle; R62.7 Adult failure to thrive; L89.620 Pressure ulcer of left heel, unstageable; L89.610 Pressure ulcer of right heel, unstageable; L89.320 Pressure ulcer of left buttock, unstageable; E87.6 Hypokalemia; Z68.1 Body mass index [BMI] 19.9 or less, adult; L97.819 Non-pressure chronic ulcer of other part of right lower leg with unspecified severity; Z79.4 Long term (current) use of insulin; Z79.02 Long term (current) use of antithrombotics/antiplatelets; Z79.82 Long term (current) use of aspirin; Z79.899 Other long term (current) drug therapy
CPT/HCPCS: 36415; 71045; 73630; 74177; 76700; 80048; 80053; 80076; 80202; 81001; 82040; 82272; 82565; 82728; 82947; 83540; 83605; 83690; 83735; 84100; 84145; 84478; 85025; 85027; 86140; 86850; 86900; 86901; 86923; 87040; 87077; 87086; 87186; 87205; 92526; 93926; 99285; C1758; J0692; J0696; J1650; J1956; J2270; J2795; J3370; J3371; P9016; Q9967